=== PATIENT | male | born 1940 | race Caucasian/White ===

== ENCOUNTER 2017-07-11 20:55 | Inpatient (IN) | payer MEDICARE, BC ==
[2017-07-11 21:46] LABS: #Eosinphils 0.1 thou/uL (0.0-0.7); #Lymphocytes 1.3 thou/uL (1.20-3.40); #Monocytes 1.1 thou/uL (0.11-0.59); #Neutrophils 10.4 thou/uL (1.40-6.50); %Basophils 0.1 % (0.0-1.0); %Eosinophils 0.7 % (0.0-10.0); %Lymphocytes 10.3 % (21.0-51.0); %Monocytes 8.6 % (0.0-10.0); Hematocrit 43.5 % (42.0-52.0); Mean Platelet Volume 6.2 fL (7.4-10.4); Red Blood Cell (RBC) Count 4.55 mill/uL (4.70-6.10)
[2017-07-11 21:58] LABS: ALT (SGPT) 13 U/L (8-55); AST (SGOT) 23 U/L (5-34); Alkaline Phosphatase 86 U/L (40-150); Anion Gap 11 mmol/L (10-20); BUN (Urea Nitrogen) 22 mg/dL (8.4-25.7); Bilirubin, Total 0.6 mg/dL (0.2-1.2); CK (CPK) 390 U/L (30-200); Calc. Creatinine Clearance 0 mL/min (70-130); Calcium 9.6 mg/dL (7.8-10.44); Carbon Dioxide 28 mmol/L (23-31); Chloride 103 mmol/L (98-107); Estimated GFR-MDRD 58; Globulin 3.3 g/dL (2.4-3.5); Protein, Total 7.4 g/dL (5.8-8.1)
[2017-07-11 22:00] LABS: Troponin I 0.017 ng/mL (< 0.028)
--- NOTE | 2017-07-11 22:14 | RAD ---
CHEST ONE VIEW 07/11/17 HISTORY: Fall. Chest injury. FINDINGS: The cardiac silhouette is magnified by projection. Pulmonary vasculature is upper limits of normal. M ediastinum is midline with aortic calcification. Inferior vena cava filter is partially visualized. R adiopaque cement at the lower thoracic spine has the appearance of prior vertebroplasty. IMPRESSION: Chronic type findings are as detailed above. No active cardiopulmonary abnormalities are demonstrated . POS: [facility]
--- NOTE | 2017-07-11 22:16 | RAD ---
AP PELVIS ONE VIEW 07/11/17 HISTORY: Fall. Pelvis injury. FINDINGS: Right hip prosthesis is in place without perihardware lucency. There are degenerative changes of the hips and lower lumbar spine. Sacral alae and pelvic rings are intact. Metallic clips overlie the pros hernandez bed. IMPRESSION: No acute osseous abnormalities are demonstrated. POS: [facility]
[2017-07-11] MEDS ORDERED: Acetaminophen 500 MG TAB ONE (23:00)
[2017-07-11] MEDS ORDERED: traMADol HCl 50 MG TAB ONE (23:08)
--- NOTE | 2017-07-11 23:45 | CT ---
CT HEAD NONCONTRAST 07/11/17 HISTORY: Fall. Head injury. COMPARISON: 08/31/16. FINDINGS: There is no evidence of acute intracranial hemorrhage or infarct. Diffuse cortical atrophy and chroni c ischemic small vessel disease are again demonstrated. There is no mass effect or shift of midline s tructures. IMPRESSION: No acute intracranial abnormalities are demonstrated on noncontrast CT head. POS: [facility]
--- NOTE | 2017-07-11 23:53 | CT ---
CT CERVICAL SPINE NONCONTRAST 07/11/17 HISTORY: Fall. Neck injury. COMPARISON: 08/31/16 FINDINGS: There are prominent degenerative changes throughout the cervical spine. postoperative changes include multilevel removal of the posterior elements. At the T7 level, there are oblique fractures through the base of each pedicle with 8 mm spondylolisth esis and exaggerated lordotic angulation. There is only mild compromise of the central spinal canal a t the time of imaging. IMPRESSION: 1. Bilateral pedicular base fracture at the C7 level with 8 mm spondylolisthesis. 2. Extensive postoperative changes of the cervical spine with degenerative changes. 3. Atherosclerosis. Findings were called to Katina Dumas in the Emergency Department at 2344 hours. Code CR POS: [facility]
--- NOTE | 2017-07-11 23:56 | CT ---
CT THORACIC SPINE NONCONTRAST 07/11/17 HISTORY: Fall. Back injury. FINDINGS: Prominent osteophytosis and disc space narrowing are present throughout the thoracic spine. Vertebral body heights and alignment are maintained. Vertebroplasty cement is present at the T10 level. The C7 fracture is partially visualized and better detailed on dedicated CT cervical spine exam. Images including retroperitoneum show calcification of the arterial structures. Cysts arise from the kidneys. Metallic filter is present within the inferior vena cava. IMPRESSION: 1. Chronic type findings of the thoracic spine are as detailed above. 2. Lower cervical spine fracture is better detailed on dedicated cervical spine CT exam, reporte d separately. POS: [facility]
[2017-07-12] MEDS ORDERED: Promethazine HCl 25 MG/ML VIAL IM PRN (01:26)
[2017-07-12] MEDS ORDERED: Bisacodyl 10 MG SUPP PR PRN (01:26)
[2017-07-12] MEDS ORDERED: Acetaminophen 325 MG TAB PO PRN (01:26)
[2017-07-12] MEDS ORDERED: Mag-Al 1200 mg/1200 mg/30 ML UDCUP PO PRN (01:26)
[2017-07-12] MEDS ORDERED: Milk Of Magnesia 30 ML UDCUP PO PRN (01:26)
[2017-07-12] MEDS ORDERED: CCU Electrolyte Replacement 1 EACH FS SCH (01:41)
[2017-07-12] MEDS ORDERED: CCU ELECTROLYTE REPLACEMENT PROTOCOL FS PRN (01:44)
[2017-07-12] MEDS ORDERED: Potassium Chloride 40 MEQ in Sodium Chloride 0.9% 250 ML 250 ML IVPB PRN (01:44)
[2017-07-12] MEDS ORDERED: Potassium Phosphate 9 MMOL in Sodium Chloride 0.9% 100 ML IVPB PRN (01:44)
[2017-07-12] MEDS ORDERED: Potassium Phosphate 15 MMOL in Sodium Chloride 0.9% 250 ML 250 ML IV PRN (01:44)
[2017-07-12] MEDS ORDERED: Potassium Phosphate 12 MMOL in Sodium Chloride 0.9% 250 ML 250 ML IV PRN (01:44)
[2017-07-12] MEDS ORDERED: Potassium Chloride 20 MEQ TAB PO PRN (01:44)
[2017-07-12] MEDS ORDERED: Magnesium Oxide 400 MG TAB PO PRN ×2 (01:44)
[2017-07-12] MEDS ORDERED: Magnesium 2 GM/NS 0.9% 100 ML 2 GM in Premix Bag 1 BAG IVPB PRN (01:44)
[2017-07-12] MEDS ORDERED: Potassium Chloride 40 MEQ in Premix Bag 1 BAG IVPB PRN (01:44)
[2017-07-12 02:03] LABS: #Lymphocytes 1.1 thou/uL (1.20-3.40); #Monocytes 1.2 thou/uL (0.11-0.59); #Neutrophils 11.6 thou/uL (1.40-6.50); %Basophils 0.3 % (0.0-1.0); %Eosinophils 0.1 % (0.0-10.0); %Lymphocytes 7.9 % (21.0-51.0); %Monocytes 8.3 % (0.0-10.0); Hematocrit 42.4 % (42.0-52.0); Mean Platelet Volume 6.1 fL (7.4-10.4); Red Blood Cell (RBC) Count 4.46 mill/uL (4.70-6.10); White Blood Cell (WBC) Count 13.9 thou/uL (4.8-10.8)
[2017-07-12 02:12] LABS: PTT 27.9 SEC (22.9-36.1)
[2017-07-12 02:36] LABS: ALT (SGPT) 16 U/L (8-55); AST (SGOT) 29 U/L (5-34); Alkaline Phosphatase 84 U/L (40-150); Anion Gap 13 mmol/L (10-20); BUN (Urea Nitrogen) 19 mg/dL (8.4-25.7); Bilirubin, Total 0.7 mg/dL (0.2-1.2); Calc. Creatinine Clearance 0 mL/min (70-130); Calcium 9.2 mg/dL (7.8-10.44); Carbon Dioxide 24 mmol/L (23-31); Chloride 103 mmol/L (98-107); Estimated GFR-MDRD 70; Globulin 3.2 g/dL (2.4-3.5); Protein, Total 7.1 g/dL (5.8-8.1)
--- NOTE | 2017-07-12 02:41 | HP ---
Johann Ruvalcaba PA-C, dictating for Mariano Carlisle M.D. This is a 55-minute initial patient consultation in which greater than 50% of the exam was spent in counseling and coordinating patient's care. The remainder of the exam was spent in review of patient's medical records and appropriate imaging studies. CHIEF COMPLAINT: Status post fall with bilateral arm numbness and tingling and bilateral C7 pedicle fractures. HISTORY OF PRESENT ILLNESS: Mr. Macias is a 77-year-old male who presented to [facility] for the above complaints. Apparently, the patient who lives alone at home and was walking with a walker and slipped in the kitchen falling directly onto his back and experiencing immediate neck pain with numbness and tingling into the entire bilateral upper extremities. Apparently, the patient was unable to move for roughly 2 hours and then was finally able to call for some help including his brother and EMS. Currently, the patient is agitated. He states that he has numbness and tingling into the bilateral upper extremities as well as some significant posterior neck pain. He denies weakness into any of the extremities. He has been using a walker at home for the past 6 years. He is on Eliquis for history of right leg DVT. The patient also has a history of undergoing a left-sided laminectomy with a surgeon in [place] roughly 6 years ago. Review of patient's head CT was negative for intracranial hemorrhage. The patient's thoracic spine CT was also negative for fracture. Review of cervical spine CT shows bilateral pedicle fractures at C7 level causing significant anterior listhesis of C6 and C7 measuring roughly 8 mm. The patient also has ankylosing spondylitis, which makes his fracture extremely unstable. PHYSICAL EXAMINATION: The patient is awake, alert. He is able to answer my questions appropriately and is able to provide his medical history. He does get agitated extremely, easily and is extremely hard of hearing. He is able to follow commands in all 4 extremities. It does appear to have weakness into the left upper extremity, especially at the shoulder, but has what appears to be full strength in the right upper extremity and the bilateral lower extremities. He has negative Perez's bilaterally, but has significant increased tone in the bilateral upper extremities. He is currently in a well-fitting Hinckley collar. He is oriented to person, date, and place. IMPRESSION/DIAGNOSES: 1. Status post fall with unstable bilateral C7 pedicle fractures, with ankylosing spondylitis . 2. History of deep venous thrombosis on Eliquis. PLAN: I have discussed the patient's case with Dr. Carlisle, reviewed the imaging with him. At this time, we will admit the patient to the ICU and consult on medical colleagues to help manage patient further medical issues. I would like him to remain in his Hinckley collar at all times. He is to be on strict bed rest with spinal cord precautions. Our plan is to treat the patient to the OR on Sunday morning to realign his cervical spine and stabilize his fractures, which will include posterior fixation, likely C5 to T2 with perhaps an anterior cervical discectomy and fusion at C7 through T1. Dr. Carlisle will review the imaging and decide on the final OR plan later today. The patient should be n.p.o. at this time and a Avendaño catheter should be placed. I discussed the likelihood of needing posterior fixation with the patient, but it is unclear how much of this information he retained and we will need to discuss this in more detail when he was agitated. Please call with any questions or changes in patient's neurologic status, but again maintain spinal cord precautions at all times. The patient understands that he needs to remain in his Hinckley collar at all times and will be compliant with this while in the hospital. We will check back on the patient once we have a final surgical plan. EHSAN
[2017-07-12] MEDS: Morphine 4 MG/ML VIAL IV PRN ×11 (03:03→21:19)
[2017-07-12] MEDS: Sodium Chloride 0.9% 1,000 ML IV SCH ×2 (03:11→14:30)
[2017-07-12 03:28] VITALS: BMI 31.4
[2017-07-12] MEDS: Acetaminophen/Codeine 30-300mg Tablet PO PRN (08:22)
[2017-07-12 08:27] LABS: Bilirubin Negative (Negative); Blood, Urine Large (Negative); Glucose, Urine (Dipstick) Negative (Negative); Ketone, Urine Negative (Negative); Nitrite Negative (Negative); Protein, Urine (Dipstick) Trace mg/dL (Neg-Trace); Urobilinogen 0.2 mg/dL (0.2-1.0)
[2017-07-12 08:29] LABS: Bacteria/HPF None Seen HPF (None Seen); Hyaline Casts/LPF 0-3 HYALINE CAST LPF (0-3 Hyaline); RBC/HPF GREATER THAN 50-TNTC HPF (0-3); Squamous Epithelial 0-3 HPF (0-3)
[2017-07-12] MEDS: HYDROcodone/Acetaminophen 7.5/325 mg Tablet PO PRN ×4 (10:40→22:44)
--- NOTE | 2017-07-12 11:59 | CON ---
DATE OF CONSULTATION: 07/12/2017 SERVICE: Pulmonary Medicine REASON FOR CONSULTATION: ICU patient. HISTORY OF PRESENT ILLNESS: The patient is a 77-year-old white male. He was in his usual state of h ealth when he slipped in his kitchen and fell. He landed on his back and ended up injuring the C7 in a way that was unstable. He was put in a C-collar. He was brought to the emergency department. Mu ltiple scans suggested that this fracture is potentially unstable. As such, Neurosurgery was consult ed. After discussion with the patient, the patient has elected to pursue surgery. He has no respir atory complaints right now. He continues to have some discomfort, although it is slightly better wit h a little bit of medication. Prior to this event, he was in his usual state of health and had no co mplaints of fevers, chills, nausea, vomiting, chest discomfort, shortness of breath, wheezing, or lig htheadedness. He never lost any consciousness during this event. PAST MEDICAL HISTORY: 1. Dyslipidemia. 2. Hypertension. 3. History of colon cancer, status post colostomy. 4. Restless legs syndrome. 5. History of DVT, previously on anticoagulation. 6. History of compression fracture of the vertebral bodies. 7. Benign prostatic hypertrophy. PAST SURGICAL HISTORY: 1. Right hip surgery. 2. Colostomy. FAMILY HISTORY: Noncontributory. SOCIAL HISTORY: Negative for significant alcohol, tobacco or illicit drug use. 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 He may have some cognitive impairment. His brother i s the medical power of health care attorney based on what he tells us. He has no exposure to chemicals, asbestos or tuberculosis. ALLERGIES: No known drug allergies. MEDICATIONS: A list of his inpatient medications were reviewed. No updates were made at this time. REVIEW OF SYSTEMS: Review of systems including general, head, ears, eyes, nose, throat, cardiovascul ar, respiratory, GI, , musculoskeletal, neurologic and skin is negative except as mentioned in the HPI. PHYSICAL EXAMINATION: VITAL SIGNS: Afebrile, pulse 79, blood pressure 151/69, respirations 14, saturation 95% on room air. GENERAL: The patient is awake, alert, in no apparent distress. HEENT: Normocephalic, atraumatic. Sclerae are white, conjunctivae pink. Oral and mucosa moist with out lesions. C-collar is in place. LUNGS: Excellent air entry. No prolonged expiratory phase, wheezing, rhonchi or crackles. HEART: Normal rate, regular. ABDOMEN: Soft, nontender, nondistended, bowel sounds positive. MUSCULOSKELETAL: No cyanosis or clubbing. No pitting in the bilateral lower extremities. NEUROLOGIC: Grossly nonfocal. LABORATORY DATA: WBC 13.9, hemoglobin 13.9, platelets 239,000. INR 1.1. Basic metabolic profile is unremarkable except for potassium of 3.3. Liver function studies were unremarkable. CK-MB 13.2, bu t cardiac enzymes negative x1. Urinalysis is positive for white blood cells, and red blood cells. O therwise, there are no changes. IMAGIN. CT of the brain demonstrates no acute intracranial abnormality. 2. CT C-spine demonstrates bilateral radicular fractures at the C7 level with 8 mm spondylolisthesis . Extensive postoperative changes of the C-spine with degenerative changes. 3. Chest x-ray demonstrates no acute cardiopulmonary abnormality. There are some chronic changes. 4. Pelvis x-ray demonstrates no acute osseous abnormalities. 5. Thoracic T-spine CT demonstrates chronic findings on the thoracic spine. There is a lower cervic al fracture detailed in the C-spine exam. ASSESSMENT: 1. Bilateral C7 radicular fracture. 2. Possible cognitive impairment. PLAN: At this point, the patient understands essentially what has happened to him. He also understa nds his options moving forward. He is able to tell me that he has an unstable fracture in his back. Without fixating it, he would be at risk of a catastrophic spinal cord injury moving forward, partic ularly if he continued activity. In order to maximize his functionality moving forward, and reduce t he risk of that catastrophic injury, fixation procedure will need to be done. There is a question of whether or not the patient's brother should be making this decision. From my perspective; however, the patient has the capacity to make his own decision. He tells me that he would like to proceed wit h the procedure in order to fix the fracture that we know about. He will remain in the ICU until tani ared for transition to the floor by Neurosurgery. I will continue to follow along.
--- NOTE | 2017-07-12 13:52 | PRG ---
DATE OF SERVICE: 07/12/2017 This is a 50 minute initial hospital visit note in which 50 minutes were spent in review the imaging record, evaluation and examination of the patient, and formulation of plan. Greater than 50% of time was spent counseling on Mr. Arvind Macias. CHIEF COMPLAINT: Highly unstable C7-T1 three column fracture with an ankylosing spondylitis pattern back/DISH status post fall with history of multilevel cervical laminectomy at an outside institution. HISTORY OF PRESENT ILLNESS: I reviewed the notes of my colleague Johann Ruvalcaba PA-C, and agree wit h its content. Mr. Macias is a 77-year-old man, he ambulates with a rolling walker, he is a history of myelopathy and underwent 2012 multilevel cervical laminectomy. This was done in [place]. He has always had left upper extremity weakness and sensory abnormality due to his longstanding myelopat hy, but has remained ambulatory. He is on Xarelto for history of DVT. He fell yesterday and while t he head CT was negative for acute abnormality, he does have a 3 column injury through the C7-T1 disk space with an anterolisthesis and accentuated lordosis extending up through the pedicles involving th e anterior, middle and posterior columns, otherwise remained neurologically at his baseline. He obvi ously has significant neck pain. PHYSICAL EXAMINATION: GENERAL: He is alert. He is significantly hard of hearing, but is appropriate. He asks appropriate questions and certainly has the capacity and ability to make decisions. EXTREMITIES: He wishes to proceed with surgeries following the exam, which demonstrates left-sided m ild to moderate weakness in the upper extremities. He moves his extremities to command in the right upper extremity and bilateral lower extremities. Obviously, he is in a cervical collar and I did not examine all of his extremities as I did not want to put any shear or any stress on his spine. IMPRESSION AND PLAN: I let the patient know that it is my strong recommendation given the highly uns table nature of his injury that I would recommend surgery, which would be an anterior C7-T1 diskectom y and fusion with a posterior C4-T3 versus C5-T2 construct with posterior screw jose stabilization. I do not think it necessary to decompress the patient as he already has a multilevel cervical decompre ssion and he is neurologically at his baseline. We simply need to stabilize his spine. I think les hayden surgery here would be unwise frankly, because of the unstable nature of his neck injury in the h igh likelihood that he would develop paraplegia. GOALS AND INFORMED CONSENT: I discussed his care also with his brother and the patient. They unders tand the need to pursue surgery. The patient is consentable. I also discussed the case with our int ensivist, Dr. Valentine who also agrees with the patient certainly as a capacity for appropriate decisi on making. Goals, indications, risks, alternative complications of anterior, posterior decompression and fusion were discussed in detail with the patient. He understands the risks are up to including, but not limited to wound healing issues such as infection, dehiscence, CSF leak, the need for furthe r surgery in the future, temporary and permanent neurological deficit and medical complications. Und erstand the risks and they wish to proceed with surgery. DIAGNOSIS: Highly unstable three column fracture involving C7-T1.
--- NOTE | 2017-07-12 16:00 | PDOC.PN ---
- Subjective Encounter Start Date: 07/12/17 Encounter Start Time: 10:00 Pt seen for management of medical comorbidities, including hypertension. Denies chest pain, shortness sof breath, fevers or chills. neck is sore. - Objective MAR Reviewed: Yes Vital Signs & Weight: Vital Signs (12 hours) Temp Pulse Resp Pulse Ox 07/12/17 12:00 98.0 F 07/12/17 08:00 97.6 F 07/12/17 07:32 97.6 F 83 13 92 L Most Recent Monitor Data Heart Rate from ECG 68 NIBP 139/64 NIBP BP-Mean 81 Respiration from ECG 20 SpO2 89 I&O: 07/11/17 07/12/17 07/13/17 06:59 06:59 06:59 Intake Total 169 245 Output Total 255 201 Balance -86 44 Result Diagrams: 07/12/17 01:52 07/12/17 01:52 EKG Reviewed by me: Yes (Tele: NSR) Phys Exam - Physical Examination Obese HEENT: moist MMs, sclera anicteric C-spine collar Respiratory: clear to auscultation bilateral Cardiovascular: RRR Gastrointestinal: soft Musculoskeletal: pulses present Neurological: moves all 4 limbs Psychiatric: normal affect Skin: no rash Dx/Plan (1) HTN (hypertension) Code(s): I10 - ESSENTIAL (PRIMARY) HYPERTENSION Status: Chronic Qualifiers: Hypertension type: essential hypertension Qualified Code(s): I10 - Essential (primary) hypertension (2) Dyslipidemia Code(s): E78.5 - HYPERLIPIDEMIA, UNSPECIFIED Status: Chronic (3) H/O deep venous thrombosis Code(s): Z86.718 - PERSONAL HISTORY OF OTHER VENOUS THROMBOSIS AND EMBOLISM Status: Chronic (4) Restless leg syndrome Status: Chronic - Plan DVT proph w/SCDs * . Monitor vital signs, titrate antihypertensives as needed. start PRN IV hydralazine. Anticoagulation on hold pending C-spine surgery. Resume rest of home medications once clarified. Review of Systems - Review of Systems Respiratory: negative: Cough, Dry, Shortness of Breath, Hemoptysis, SOB with Excertion, Pleuritic Pain, Sputum, Wheezing Cardiovascular: negative: Chest Pain, Palpitations, Orthopnea, Paroxysmal Noc. Dyspnea, Edema, Light Headedness Musculoskeletal: Neck Pain - Medications/Allergies Allergies/Adverse Reactions: Allergies Allergy/AdvReac Type Severity Reaction Status Date / Time No Known Allergies Allergy Verified 08/31/16 21:23 Medications: Current Medications Acetaminophen (Tylenol) 650 mg PO Q4H PRN PRN Reason: Headache/Fever or Pain Acetaminophen/Codeine Phosphate (Tylenol #3) 1 tab PO Q3H PRN PRN Reason: Mild Pain (1-3) Last Admin: 07/12/17 08:22 Dose: 1 tab Hydrocodone Bitart/Acetaminophen ([place] 7.5/325) 1 tab PO Q4H PRN PRN Reason: Moderate Pain (4-6) Last Admin: 07/12/17 14:28 Dose: 1 tab Al Hydroxide/Mg Hydroxide (Maalox) 30 ml PO Q4H PRN PRN Reason: Indigestion Bisacodyl (Dulcolax) [address] Q12H PRN PRN Reason: Constipation Sodium Chloride (Normal Saline 0.9%) 1,000 mls @ 75 mls/hr IV .[id number] MATEO Last Admin: 07/12/17 14:30 Dose: 1,000 mls Potassium Chloride 40 meq/ (Sodium Chloride) 270 mls @ 135 mls/hr IVPB ASDIR PRN PRN Reason: FOR SERUM K+ 2.5 - 3.5 Potassium Chloride 40 meq/ (Device) 100 mls @ 50 mls/hr IVPB ASDIR PRN PRN Reason: FOR SERUM K+ 2.5 - 3.5 Last Admin: 07/12/17 07:58 Dose: 100 mls Magnesium Sulfate 1 gm/ Sodium (Chloride) 102 mls @ 102 mls/hr IV PRN PRN PRN Reason: MAG LEVEL 1.4 - 2.0 Magnesium Sulfate 2 gm/ Device 100 mls @ 100 mls/hr IVPB ASDIR PRN PRN Reason: MAGNESIUM < 1.4 Potassium Phosphate 9 mmol/ (Sodium Chloride) 103 mls @ 25.75 mls/hr IVPB ASDIR PRN PRN Reason: Phosphate 1.0-1.8 Potassium Phosphate 12 mmol/ (Sodium Chloride) 254 mls @ 63.5 mls/hr IV ASDIR PRN PRN Reason: Serum phosphate 0.5-0.9 Potassium Phosphate 15 mmol/ (Sodium Chloride) 255 mls @ 63.75 mls/hr IV ASDIR PRN PRN Reason: Serum Phos < 0.5 Magnesium Hydroxide (Milk Of Magnesium) 30 ml PO Q12H PRN PRN Reason: Constipation Magnesium Oxide (Magnesium Oxide) 400 mg PO BIDPRN PRN PRN Reason: FOR SERUM MAG 1.4 - 2.0 Magnesium Oxide (Magnesium Oxide) 800 mg PO PRN PRN PRN Reason: FOR SERUM MAG < 1.4 Miscellaneous Medication (Phos-Nak) 1 pkt PO TIDPRN PRN PRN Reason: FOR PHOS LEVEL 1.0 - 1.8 Miscellaneous Medication (Phos-Nak) 2 pkt PO TIDPRN PRN PRN Reason: FOR PHOS LEVEL 0.5 - 1.0 Morphine Sulfate (Morphine) 2 mg IV Q1H PRN PRN Reason: Pain Last Admin: 07/12/17 15:20 Dose: 2 mg Potassium Chloride (K-Dur) 40 meq PO ASDIR PRN PRN Reason: FOR SERUM K+ 2.5 - 3.5 Potassium Chloride (Klor-Con) 40 meq PER TUBE ASDIR PRN PRN Reason: FOR SERUM K+ 2.5-3.5 Promethazine HCl (Phenergan) 12.5 mg IM Q4H PRN PRN Reason: Nausea/Vomiting Sodium Chloride (Flush - Normal Saline) 10 ml IVF PRN PRN PRN Reason: Saline Flush Tramadol HCl (Ultram) 50 mg PO Q6H PRN PRN Reason: Mild Pain (1-3)
[2017-07-12] MEDS: hydrALAZINE 20 MG/ML VIAL SLOW IVP PRN (21:26)
[2017-07-13] MEDS: HYDROcodone/Acetaminophen 7.5/325 mg Tablet PO PRN ×2 (02:33→20:44)
[2017-07-13] MEDS: Sodium Chloride 0.9% 1,000 ML IV SCH ×2 (02:37→17:31)
[2017-07-13] MEDS: hydrALAZINE 20 MG/ML VIAL SLOW IVP PRN (02:37)
[2017-07-13] MEDS: Morphine 4 MG/ML VIAL IV PRN (04:03)
[2017-07-13] MEDS ORDERED: CEFAZOLIN/Water 2 GM/20 ML SYRINGE SLOW IVP SCH (07:00)
[2017-07-13] MEDS ORDERED: Sodium Chloride 0.9% 20 ML ONE (07:08)
[2017-07-13] MEDS ORDERED: Bacitracin Zinc Ointment 30 gm TUBE ONE (07:08)
[2017-07-13] MEDS ORDERED: Thrombin 5000 UNITS/5 ML VIAL ONE (07:08)
[2017-07-13] MEDS ORDERED: Albumin 5% 0 ML ONE (07:17)
[2017-07-13] MEDS ORDERED: Phenylephrine 10 MG/NS 250 ML 0 ML ONE (07:17)
[2017-07-13] MEDS ORDERED: Fentanyl 250 MCG/5 ML VIAL ONE (07:32)
[2017-07-13] MEDS ORDERED: ePHEDrine/0.9% NaCl/PF SYRINGE 50 mg/10 ml ONE (07:56)
[2017-07-13] MEDS ORDERED: Succinylcholine Chloride 20 MG/ML 10 ml SYRINGE FS ONE (07:56)
[2017-07-13] MEDS ORDERED: Propofol 200 MG/20 ML VIAL ONE ×2 (07:56)
[2017-07-13] MEDS ORDERED: Glycopyrrolate 0.2 MG/ML 5 ML SYRINGE ONE (07:56)
[2017-07-13] MEDS ORDERED: Ondansetron HCl/PF 4 MG/2 ML Vial ONE (07:56)
[2017-07-13] MEDS ORDERED: PHENYLEPHRINE-NS 100 MCG/ML 10 ML SYRINGE ONE ×3 (07:56→12:34)
[2017-07-13] MEDS ORDERED: Lidocaine 1% PF 5 ML VIAL ONE ×2 (07:56)
[2017-07-13] MEDS ORDERED: Dexamethasone 20 MG/5 ML VIAL ONE (07:56)
[2017-07-13] MEDS ORDERED: Vecuronium 10 MG VIAL ONE ×2 (07:56→10:12)
[2017-07-13] MEDS ORDERED: Lidocaine 2% PF 10 ML AMP (For Epidural Use) ONE (07:56)
--- NOTE | 2017-07-13 09:20 | PRG ---
DATE OF SERVICE: 07/13/2017 SERVICE: Pulmonary Medicine. INTERVAL HISTORY: The patient is doing fine from a respiratory standpoint. He denies any current sh ortness of breath or chest discomfort. He is going down for the fixation of the C7 fracture today. Otherwise, there have been no events overnight. He has no specific complaints. PHYSICAL EXAMINATION: VITAL SIGNS: Afebrile, pulse 88, blood pressure 155/58, respirations 17, saturation 97% on room air. GENERAL: Patient is awake, alert, in no apparent distress. LUNGS: Excellent air entry. No prolonged expiratory phase, wheezing, rhonchi or crackles are apprec iated. HEART: Normal rate, regular. ABDOMEN: Soft, nontender, nondistended. Bowel sounds positive. MUSCULOSKELETAL: No cyanosis or clubbing. No pitting in the bilateral lower extremities. NEUROLOGIC: Grossly nonfocal. ASSESSMENT: 1. Bilateral C7 pedicular fracture. 2. Possible cognitive impairment. PLAN: Pulmonary and Critical Care will continue to follow in the perioperative period. If he return s to the ICU on mechanically ventilated, we will work with Neurosurgery to extubate him once cleared from their perspective. Mobilization efforts can be initiated shortly following fixation of this les ion.
[2017-07-13] MEDS ORDERED: Promethazine HCl 25 MG/ML VIAL SLOW IVP PRN (09:56)
[2017-07-13] MEDS ORDERED: Ondansetron HCl/PF 4 MG/2 ML Vial IVP PRN (09:56)
[2017-07-13] MEDS ORDERED: Meperidine HCl/PF 25 MG/ML VIAL SLOW IVP PRN (09:56)
[2017-07-13] MEDS ORDERED: Promethazine HCl 25 MG/ML VIAL IM PRN (09:56)
[2017-07-13] MEDS ORDERED: HYDROmorphone 2 MG/ML VIAL SLOW IVP PRN (09:56)
[2017-07-13] MEDS ORDERED: CEFAZOLIN 1 GM VIAL ONE (12:02)
[2017-07-13 17:57] LABS: Magnesium 1.6 mg/dL (1.6-2.6); Phosphorus 3.5 mg/dL (2.3-4.7)
--- NOTE | 2017-07-13 18:58 | PRG ---
DATE OF SERVICE: 07/13/2017 We are preparing to take Mr. Macias to surgery today. Neurologically, his exam remains stable with a l eft-sided upper extremity weakness that is longstanding with significant left-sided hand intrinsic we akness. Preoperatively, he was ambulatory with a rolling walker, although he has a history of cervic al laminectomy for myelopathy 5 years ago and as such, I suspect he has a longstanding myelopathy. H e remains in a supine position on a cervical collar. We have ordered preoperative labs and I have di scussed his case extensively with both the patient and his brother. They understand that this is hig hly unstable fracture and in order to give us the best chance for mechanical stabilization, but also some preservation of neurological function we should operate today. We are making arrangements for a nterior stabilization along with posterior stabilization. Again, I extensively discussed the risks, benefits, and indications and contraindications of the surgery with both the patient and his brother and they fully understand and wish to proceed. I also discussed the risks of swallowing difficulty w ith any anterior procedure and a they understands these risks, they wish that we proceed with surgery . Of note, he has a history of deep venous thrombosis. We will likely plan for ultrasound of the lo wer extremities tomorrow. It is unknown to me whether he has an IVC filter in place, although we fany l explore this as well. He is on Xarelto preoperative. We appreciate our medical and intensive care colleagues following along.
[2017-07-13] MEDS ORDERED: HYDROcodone/Acetaminophen 7.5/325 mg Tablet PO PRN (19:20)
[2017-07-13] MEDS: CEFAZOLIN/Water 2 GM/20 ML SYRINGE SLOW IVP SCH (19:58)
[2017-07-13] MEDS ORDERED: CEFAZOLIN 2 GM in Sodium Chloride 0.9% 100 ML IVPB SCH (22:00)
--- NOTE | 2017-07-14 00:13 | OP ---
OR: 12 WOUND TYPE: Type 1 wound. SURGEON: Mariano Carlisle M.D. SALES AND MARKETING ASSOCIATE: Johann Ruvalcaba PA-C. 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 PROCEDURES: 1. Treatment of cervical fracture with internal reduction and fixation utilizing anterior and collection manager ior approach for reduction and stabilization. 2. Anterior C7-T1 diskectomy with manual reduction of fracture dislocation C7-T1 with preparation of the endplates, arthrodesis C7-T1. 3. Arthrodesis C7-T1 with interbody spacer packed with local bone autograft obtained from the same i ncision and allograft. 4. Anterior cervical plate and screw fixation C7-T1. 5. Placement of the patient prone for opening of prior posterior cervical wound for exposure of the C5, C6, C7, T1, and T2 dorsal elements (note that the spinous processes and lamina were missing or gary rgically absent at C5, C6, C7 from prior remote surgery). 6. Placement of screw jose fixation for fusion posteriorly for instrumentation at C5, C6, C7, T1, and T2 for stabilization from C5 to T2 with screws placed at C5, C6, T1, and T2 with interconnecting jose s. 7. Posterior spinal fusion with local bone autograft obtained from same incision and allograft C5, C 6, C7, T1, T2. 8. Use of operative microscope for microdissection. PROCEDURE: After informed consent was obtained from the patient and discussion with the patient and brother occurred, the patient was taken to the operating room. His cervical spine was kept in neutra l position and he was positioned supine on the operating room table, maintaining cervical spine neutr ality throughout. A right anterior oblique wound was drawn out that would allow trajectory to the [facility] anterior C7-T1 segment and this area was sterilely cleansed, prepared, and draped. Proper patien t pause and identification was carried out. The wound was then opened with a combination of sharp, m onopolar and blunt dissection. We proceeded lateral to the tracheoesophageal bundle and medial to th e right carotid sheath. We identified the prevertebral layer of deep cervical fascia and scattered r egions of hematoma in the C7-T1 segment due to the fracture dislocation. I should say that it appear ed as if his fracture was so unstable that even compared to the CT scan, his subluxation had worsened despite being kept on bed rest and the cervical spine kept in neutral at all times. We identified t he fracture through the disk space at C7-T1 and the disk disruption. A diskectomy was then performed at C7-T1 and the endplates prepared. Distraction then occurred at C7-T1 and utilizing internal redu ction and external reduction technique, we were able to realign C7-T1 fracture dislocation to a satis factory level. I then placed an interbody spacer of appropriate dimension at the C7-T1 diastased seg ment and a plate with appropriate fixation to the C7 and T1 segments with screws then occurred. We w ere able to manually reduce and lock in his fracture dislocation, which what I felt was excellent ali gnment given the circumstances. Hemostasis was maximized throughout. The wound was copiously irriga marty and closed in anatomic layers over a drain. The patient was kept intubated and cervical spine ke pt in neutral position. We then placed the [place] trista attached to his skull and flipped him int o the prone position and identified the posterior cervical wound from his remote surgery that he had had at an outside institution. This incision was marked out and extended into the upper thoracic spi ne. His head and cervical spine again were kept in neutral position. The wound was then sterilely c leansed, prepared, and draped and proper patient pause and identification was again carried out and t he wound was then opened with a combination of sharp, monopolar and blunt dissection. We identified the T1 and T2 dorsal spines and lamina along with the transverse processes and facets. We then exten ded with a tedious dissection throughout exuberant scar tissue into the lateral masses of C5, C6, and C7. There was no spinal fluid leak. Hemostasis was maximized throughout. Then using standard urvashi omic trajectory technique and fluoroscopy, screws were placed at C5, C6, T1, and T2. I opted not to place screws at C7 as these screw heads would have been too close to allow for satisfactory locking i n of the rods in my opinion. We then were satisfied with our screw placement and rods were then plac ed and final tightening occurred, local bone autograft and allograft was then laid out over the poste rolateral regions over decorticated bone to facilitate arthrodesis and stabilization. Copious irriga tion occurred throughout. Hemostasis was maximized. The wound was then closed in anatomic layers. The patient then emerged from anesthesia.
[2017-07-14 03:11] LABS: #Monocytes 2.1 thou/uL (0.11-0.59); #Neutrophils 14.3 thou/uL (1.40-6.50); %Basophils 0.1 % (0.0-1.0); %Eosinophils 0.1 % (0.0-10.0); %Lymphocytes 5.9 % (21.0-51.0); %Monocytes 11.8 % (0.0-10.0); Hematocrit 37.6 % (42.0-52.0); Mean Platelet Volume 6.1 fL (7.4-10.4); White Blood Cell (WBC) Count 17.4 thou/uL (4.8-10.8)
[2017-07-14 03:30] LABS: Anion Gap 16 mmol/L (10-20); BUN (Urea Nitrogen) 20 mg/dL (8.4-25.7); Calc. Creatinine Clearance 76 mL/min (70-130); Calcium 8.7 mg/dL (7.8-10.44); Carbon Dioxide 18 mmol/L (23-31); Chloride 107 mmol/L (98-107); Estimated GFR-MDRD 63
[2017-07-14] MEDS: CEFAZOLIN/Water 2 GM/20 ML SYRINGE SLOW IVP SCH (05:50)
[2017-07-14] MEDS: hydrALAZINE 20 MG/ML VIAL SLOW IVP PRN ×2 (05:59→17:35)
[2017-07-14] MEDS: Sodium Chloride 0.9% 1,000 ML IV SCH ×2 (06:12→17:35)
[2017-07-14] MEDS ORDERED: Magnesium 2 GM/NS 0.9% 100 ML 2 GM in Premix Bag 1 BAG IVPB SCH (08:00)
[2017-07-14] MEDS: HYDROcodone/Acetaminophen 7.5/325 mg Tablet PO PRN (09:14)
--- NOTE | 2017-07-14 11:24 | ULT ---
BILATERAL LOWER EXTREMITY VENOUS DOPPLER: Date: 07/14/17 PROVIDED CLINICAL HISTORY: Impaired mobility, recent surgery. FINDINGS: Evaluation is limited due to patient's altered mental status. Color Doppler and spectral analysis of the bilateral common femoral, femoral, popliteal, posterior ti bial, greater saphenous, and profunda femoral veins was performed. There was noncompressibility invol ving the right distal popliteal vein suspected. There is noncompressibility seen involving the left p roximal mid and distal femoral vein, as well as the proximal left popliteal vein. Portions of the rig ht distal femoral vein appear noncompressible. IMPRESSION: Limited examination with findings suspicious for bilateral deep venous thrombosis. Findings communicated to the patient's nurse, Oanh, at 0941 hours on 07/14/17. CODE CR. POS: RAFFY
--- NOTE | 2017-07-14 12:05 | PDOC.PN ---
- Subjective Encounter Start Date: 07/14/17 Encounter Start Time: 11:00 Patient seen and examined. No new complaints. No overnight events. Sleepy - arousable on verbal stimuli - Objective MAR Reviewed: Yes Vital Signs & Weight: Vital Signs (12 hours) Temp Pulse Pulse Resp BP BP Pulse Ox 07/14/17 11:36 115 H 07/14/17 11:23 105 H 135/65 07/14/17 11:00 97.7 F 07/14/17 08:00 100.0 F H 115 H 19 96 07/14/17 07:00 100.0 F H 07/14/17 05:59 109 H 187/75 H 07/14/17 04:00 100.3 F H 95 Most Recent Monitor Data Heart Rate from ECG 107 NIBP 135/65 NIBP BP-Mean 98 Respiration from ECG 22 SpO2 97 I&O: 07/13/17 07/14/17 07/15/17 06:59 06:59 06:59 Intake Total 2301 1614 220 Output Total 921 1205 150 Balance 1380 409 70 Result Diagrams: 07/14/17 02:58 07/14/17 02:58 Radiology Reviewed by me: No (Doppler - chronic DVT) EKG Reviewed by me: Yes (Tele ST, Afib with RVR earlier) Phys Exam - Physical Examination Constitutional: NAD Neck: no JVD Respiratory: no wheezing, no rales, no rhonchi Dec AE at bases Cardiovascular: RRR, no rub tachycardic, no gallop. 2/6 SM at M area Gastrointestinal: soft, non-tender, no distention, positive bowel sounds Musculoskeletal: edema present Neurological: moves all 4 limbs Psychiatric: A&O x 3 (sleepy - easily arousable) Dx/Plan - Plan IMPRESSION and PLAN: 1. Afib with RVR - now in SR 2. Chronic DVT - Anticoag dced due to cervical fracture 3. Obesity BMI 31.4 4. HTN 5. BPH 6. Physical deconditioning - PT/OT following 7. Hypokalemia - resolved. PLAN: * start Cardizem 120 mg BID * Add Digoxin if needed. * Anticoag on hold, * Check Echo, * Cont Tele monitoring * Cont other med as below Review of Systems - Review of Systems Respiratory: negative: Cough, Dry, Shortness of Breath, Hemoptysis, SOB with Excertion, Pleuritic Pain, Sputum, Wheezing Cardiovascular: negative: Chest Pain, Palpitations, Orthopnea, Paroxysmal Noc. Dyspnea, Edema, Light Headedness Gastrointestinal: negative: Nausea, Vomiting, Abdominal Pain, Diarrhea, Constipation, Melena, Hematochezia - Medications/Allergies Allergies/Adverse Reactions: Allergies Allergy/AdvReac Type Severity Reaction Status Date / Time No Known Allergies Allergy Verified 08/31/16 21:23 Medications: Current Medications Acetaminophen (Tylenol) 650 mg PO Q4H PRN PRN Reason: Headache/Fever or Pain Acetaminophen/Codeine Phosphate (Tylenol #3) 1 tab PO Q3H PRN PRN Reason: Mild Pain (1-3) Last Admin: 07/12/17 08:22 Dose: 1 tab Hydrocodone Bitart/Acetaminophen ([place] 7.5/325) 1 tab PO Q4H PRN PRN Reason: PAIN SCALE 1-3 Hydrocodone Bitart/Acetaminophen ([place] 7.5/325) 2 tab PO Q4H PRN PRN Reason: PAIN SCALE 4- 10 Last Admin: 07/14/17 09:14 Dose: 2 tab Al Hydroxide/Mg Hydroxide (Maalox) 30 ml PO Q4H PRN PRN Reason: Indigestion Bisacodyl (Dulcolax) 10 mg PA Q12H PRN PRN Reason: Constipation Diltiazem HCl (Cardizem Cd) 120 mg PO BID [facility] Diltiazem HCl (Cardizem Cd) 120 mg PO NOW [facility] Stop: 07/14/17 13:15 Last Admin: 07/14/17 11:36 Dose: 120 mg Hydralazine HCl (Apresoline) 10 mg SLOW IVP Q6H PRN PRN Reason: SBP Greater Than 170 Last Admin: 07/14/17 05:59 Dose: 10 mg Sodium Chloride (Normal Saline 0.9%) 1,000 mls @ 75 mls/hr IV .[id number] MATEO Last Admin: 07/14/17 06:12 Dose: 1,000 mls Potassium Chloride 40 meq/ (Sodium Chloride) 270 mls @ 135 mls/hr IVPB ASDIR PRN PRN Reason: FOR SERUM K+ 2.5 - 3.5 Potassium Chloride 40 meq/ (Device) 100 mls @ 50 mls/hr IVPB ASDIR PRN PRN Reason: FOR SERUM K+ 2.5 - 3.5 Last Admin: 07/12/17 07:58 Dose: 100 mls Magnesium Sulfate 1 gm/ Sodium (Chloride) 102 mls @ 102 mls/hr IV PRN PRN PRN Reason: MAG LEVEL 1.4 - 2.0 Last Admin: 07/14/17 05:51 Dose: 102 mls Magnesium Sulfate 2 gm/ Device 100 mls @ 100 mls/hr IVPB ASDIR PRN PRN Reason: MAGNESIUM < 1.4 Potassium Phosphate 9 mmol/ (Sodium Chloride) 103 mls @ 25.75 mls/hr IVPB ASDIR PRN PRN Reason: Phosphate 1.0-1.8 Potassium Phosphate 12 mmol/ (Sodium Chloride) 254 mls @ 63.5 mls/hr IV ASDIR PRN PRN Reason: Serum phosphate 0.5-0.9 Potassium Phosphate 15 mmol/ (Sodium Chloride) 255 mls @ 63.75 mls/hr IV ASDIR PRN PRN Reason: Serum Phos < 0.5 Magnesium Hydroxide (Milk Of Magnesium) 30 ml PO Q12H PRN PRN Reason: Constipation Magnesium Oxide (Magnesium Oxide) 400 mg PO BIDPRN PRN PRN Reason: FOR SERUM MAG 1.4 - 2.0 Magnesium Oxide (Magnesium Oxide) 800 mg PO PRN PRN PRN Reason: FOR SERUM MAG < 1.4 Miscellaneous Medication (Phos-Nak) 1 pkt PO TIDPRN PRN PRN Reason: FOR PHOS LEVEL 1.0 - 1.8 Miscellaneous Medication (Phos-Nak) 2 pkt PO TIDPRN PRN PRN Reason: FOR PHOS LEVEL 0.5 - 1.0 Morphine Sulfate (Morphine) 2 mg IV Q1H PRN PRN Reason: Pain Last Admin: 07/13/17 04:03 Dose: 2 mg Potassium Chloride (K-Dur) 40 meq PO ASDIR PRN PRN Reason: FOR SERUM K+ 2.5 - 3.5 Potassium Chloride (Klor-Con) 40 meq PER TUBE ASDIR PRN PRN Reason: FOR SERUM K+ 2.5-3.5 Promethazine HCl (Phenergan) 12.5 mg IM Q4H PRN PRN Reason: Nausea/Vomiting Sodium Chloride (Flush - Normal Saline) 10 ml IVF PRN PRN PRN Reason: Saline Flush Last Admin: 07/13/17 19:58 Dose: 10 ml Tramadol HCl (Ultram) 50 mg PO Q6H PRN PRN Reason: Mild Pain (1-3)
[2017-07-14] MEDS ORDERED: Senokot 8.6 MG TAB PO PRN (12:16)
[2017-07-14] MEDS ORDERED: Nitroglycerin 0.4 MG TAB (25 Tab Bottle) PO PRN (12:16)
[2017-07-14] MEDS: traMADol HCl 50 MG TAB PO PRN (14:29)
--- NOTE | 2017-07-14 16:56 | PRG ---
DATE OF SERVICE: 07/14/2017 SUBJECTIVE: This is a 77-year-old gentleman who apparently had C7 fracture and stable. History of previous deep venous thrombosis on Eliquis, he apparently has a filter in place. He under went a long surgery yesterday. This morning, he is complaining of neck pain and he went into atrial fibrillation. PHYSICAL EXAMINATION: VITAL SIGNS: Pulse 110, presently in sinus, blood pressure is 166/61, sats 96%, respirations 16. De nies any difficulty breathing. CHEST: Decreased breath sounds, no wheezing. CARDIAC: Normal S1 and S2. No gallops. ABDOMEN: Soft. No masses. LABORATORY DATA: White count 17,000, hemoglobin and hematocrit 12 and 37, platelet count 240. Elect rolytes are normal. IMPRESSION: 1. Status post unstable cervical neck fracture status post stabilization. 2. History of previous weakness and urinary tract infection. PLAN: His ultrasound showed DVT, he has got a filter in place. Probably not a candidate for any anticoagulation at this stage because of neck surgery. He was on El iquis prior to the surgery. Continue supportive care. I agree with Gustabo. We will follow while in the ICU.
[2017-07-14] MEDS ORDERED: Venlafaxine HCl 25 MG TAB PO SCH (17:45)
[2017-07-14] MEDS: Pramipexole Di-HCl 0.25 MG TAB PO SCH (21:08)
[2017-07-14] MEDS: Docusate 100 MG CAP PO SCH (21:08)
[2017-07-15 04:06] LABS: #Monocytes 1.6 thou/uL (0.11-0.59); #Neutrophils 10.2 thou/uL (1.40-6.50); %Basophils 0.1 % (0.0-1.0); %Eosinophils 0.2 % (0.0-10.0); %Monocytes 12.6 % (0.0-10.0); Hematocrit 31.1 % (42.0-52.0); Mean Platelet Volume 6.3 fL (7.4-10.4); Red Blood Cell (RBC) Count 3.22 mill/uL (4.70-6.10); White Blood Cell (WBC) Count 12.9 thou/uL (4.8-10.8)
[2017-07-15 04:27] LABS: Anion Gap 12 mmol/L (10-20); BUN (Urea Nitrogen) 25 mg/dL (8.4-25.7); Calc. Creatinine Clearance 95 mL/min (70-130); Calcium 8.4 mg/dL (7.8-10.44); Carbon Dioxide 22 mmol/L (23-31); Chloride 108 mmol/L (98-107); Estimated GFR-MDRD 82; Magnesium 2.4 mg/dL (1.6-2.6); Phosphorus 2.2 mg/dL (2.3-4.7)
[2017-07-15] MEDS: Sodium Chloride 0.9% 1,000 ML IV SCH ×3 (06:18→22:21)
[2017-07-15] MEDS: HYDROcodone/Acetaminophen 7.5/325 mg Tablet PO PRN ×4 (07:44→21:02)
[2017-07-15] MEDS: Morphine 4 MG/ML VIAL IV PRN ×3 (07:59→22:34)
[2017-07-15] MEDS: Docusate 100 MG CAP PO SCH ×2 (08:56→21:01)
[2017-07-15] MEDS: Finasteride 5 MG TAB PO SCH (08:56)
[2017-07-15] MEDS: Venlafaxine HCl 25 MG TAB PO SCH (08:57)
--- NOTE | 2017-07-15 10:42 | PDOC.PN ---
- Subjective Encounter Start Date: 07/15/17 Encounter Start Time: 09:30 -: old records requested/rev Patient seen and examined. No new complaints. No overnight events - Objective MAR Reviewed: Yes Vital Signs & Weight: Vital Signs (12 hours) Temp Pulse Resp BP Pulse Ox 07/15/17 08:56 87 166/62 H 07/15/17 08:00 98.3 F 94 18 98 07/15/17 04:00 98.6 F 07/15/17 01:32 93 L 07/15/17 00:00 98.8 F Most Recent Monitor Data Heart Rate from ECG 92 NIBP 147/49 NIBP BP-Mean 61 Respiration from ECG 18 SpO2 97 I&O: 07/14/17 07/15/17 07/16/17 06:59 06:59 06:59 Intake Total 1614 3001 600 Output Total 1205 905 140 Balance 409 2096 460 Result Diagrams: 07/15/17 03:40 07/15/17 03:40 EKG Reviewed by me: Yes Phys Exam - Physical Examination Constitutional: NAD HEENT: PERRLA, moist MMs, sclera anicteric cervical collar in place Neck: no nodes surgical site with dressing Respiratory: no wheezing, no rales, no rhonchi Cardiovascular: RRR, no significant murmur Gastrointestinal: soft, non-tender, no distention, positive bowel sounds Musculoskeletal: no edema, pulses present Neurological: non-focal Lymphatic: no nodes Psychiatric: normal affect, A&O x 3 Skin: no rash, normal turgor Dx/Plan (1) Cervical spine fracture Code(s): S12.9XXA - FRACTURE OF NECK, UNSPECIFIED, INITIAL ENCOUNTER Status: Acute Qualifiers: Cervical vertebra fracture level: C7 (2) Hypophosphatemia Code(s): E83.39 - OTHER DISORDERS OF PHOSPHORUS METABOLISM Status: Acute (3) Paroxysmal atrial fibrillation Code(s): I48.0 - PAROXYSMAL ATRIAL FIBRILLATION Status: Acute (4) BPH (benign prostatic hyperplasia) Code(s): N40.0 - BENIGN PROSTATIC HYPERPLASIA WITHOUT LOWER URINRY TRACT SYMP Status: Chronic Qualifiers: Lower urinary tract symptom presence: symptoms present Qualified Code(s): N40.1 - Benign prostatic hyperplasia with lower urinary tract symptoms (5) Cervical spondylosis Code(s): M47.812 - SPONDYLOSIS W/O MYELOPATHY OR RADICULOPATHY, CERVICAL REGION Status: Chronic (6) DVT, bilateral lower limbs Code(s): I82.403 - ACUTE EMBOLISM AND THOMBOS UNSP DEEP VEINS OF LOW EXTRM, BI Status: Chronic Qualifiers: Chronicity: chronic (7) Dyslipidemia Code(s): E78.5 - HYPERLIPIDEMIA, UNSPECIFIED Status: Chronic (8) HTN (hypertension) Code(s): I10 - ESSENTIAL (PRIMARY) HYPERTENSION Status: Chronic Qualifiers: Hypertension type: essential hypertension Qualified Code(s): I10 - Essential (primary) hypertension (9) Obesity (BMI 30.0-34.9) Code(s): E66.9 - OBESITY, UNSPECIFIED Status: Chronic (10) Presence of IVC filter Code(s): Z95.828 - PRESENCE OF OTHER VASCULAR IMPLANTS AND GRAFTS Status: Chronic (11) Restless leg syndrome Status: Chronic - Plan cont current plan of care, plan discussed w/ family * pt is not on anticoagulation due to neck surgery * currently stable and in NSR * pain controlled * will need PT and then possible rehab on discharge * medically stable * medication reviewed as below * symptomatic treatment. Review of Systems - Review of Systems ENT: negative: Ear Pain, Ear Discharge, Nose Pain, Nose Discharge, Nose Congestion, Mouth Pain, Mouth Swelling, Throat Pain, Throat Swelling, Other Respiratory: negative: Cough, Dry, Shortness of Breath, Hemoptysis, SOB with Excertion, Pleuritic Pain, Sputum, Wheezing Cardiovascular: negative: Chest Pain, Palpitations, Orthopnea, Paroxysmal Noc. Dyspnea, Edema, Light Headedness, Other Gastrointestinal: negative: Nausea, Vomiting, Abdominal Pain, Diarrhea, Constipation, Melena, Hematochezia, Other Genitourinary: negative: Dysuria, Frequency, Incontinence, Hematuria, Retention , Other Musculoskeletal: negative: Neck Pain, Shoulder Pain, Arm Pain, Back Pain, Hand Pain, Leg Pain, Foot Pain, Other Skin: negative: Rash, Lesions, Antoine, Bruising, Other - Medications/Allergies Allergies/Adverse Reactions: Allergies Allergy/AdvReac Type Severity Reaction Status Date / Time No Known Allergies Allergy Verified 08/31/16 21:23 Medications: Current Medications Acetaminophen (Tylenol) 650 mg PO Q4H PRN PRN Reason: Headache/Fever or Pain Acetaminophen/Codeine Phosphate (Tylenol #3) 1 tab PO Q3H PRN PRN Reason: Mild Pain (1-3) Last Admin: 07/12/17 08:22 Dose: 1 tab Hydrocodone Bitart/Acetaminophen ([place] 7.5/325) 1 tab PO Q4H PRN PRN Reason: PAIN SCALE 1-3 Hydrocodone Bitart/Acetaminophen ([place] 7.5/325) 2 tab PO Q4H PRN PRN Reason: PAIN SCALE 4- 10 Last Admin: 07/15/17 07:44 Dose: 2 tab Al Hydroxide/Mg Hydroxide (Maalox) 30 ml PO Q4H PRN PRN Reason: Indigestion Bisacodyl (Dulcolax) 10 mg RI Q12H PRN PRN Reason: Constipation Diltiazem HCl (Cardizem Cd) 120 mg PO BID [facility] Last Admin: 07/15/17 08:56 Dose: 120 mg Docusate Sodium (Colace) 100 mg PO BID [facility] Last Admin: 07/15/17 08:56 Dose: 100 mg Finasteride (Proscar) 5 mg PO DAILY [facility] Last Admin: 07/15/17 08:56 Dose: 5 mg Hydralazine HCl (Apresoline) 10 mg SLOW IVP Q6H PRN PRN Reason: SBP Greater Than 170 Last Admin: 07/14/17 17:35 Dose: 10 mg Sodium Chloride (Normal Saline 0.9%) 1,000 mls @ 75 mls/hr IV .[id number] [facility] Last Admin: 07/15/17 06:18 Dose: 1,000 mls Potassium Chloride 40 meq/ (Sodium Chloride) 270 mls @ 135 mls/hr IVPB ASDIR PRN PRN Reason: FOR SERUM K+ 2.5 - 3.5 Potassium Chloride 40 meq/ (Device) 100 mls @ 50 mls/hr IVPB ASDIR PRN PRN Reason: FOR SERUM K+ 2.5 - 3.5 Last Admin: 07/12/17 07:58 Dose: 100 mls Magnesium Sulfate 1 gm/ Sodium (Chloride) 102 mls @ 102 mls/hr IV PRN PRN PRN Reason: MAG LEVEL 1.4 - 2.0 Last Admin: 07/14/17 05:51 Dose: 102 mls Magnesium Sulfate 2 gm/ Device 100 mls @ 100 mls/hr IVPB ASDIR PRN PRN Reason: MAGNESIUM < 1.4 Potassium Phosphate 9 mmol/ (Sodium Chloride) 103 mls @ 25.75 mls/hr IVPB ASDIR PRN PRN Reason: Phosphate 1.0-1.8 Potassium Phosphate 12 mmol/ (Sodium Chloride) 254 mls @ 63.5 mls/hr IV ASDIR PRN PRN Reason: Serum phosphate 0.5-0.9 Potassium Phosphate 15 mmol/ (Sodium Chloride) 255 mls @ 63.75 mls/hr IV ASDIR PRN PRN Reason: Serum Phos < 0.5 Magnesium Hydroxide (Milk Of Magnesium) 30 ml PO Q12H PRN PRN Reason: Constipation Magnesium Oxide (Magnesium Oxide) 400 mg PO BIDPRN PRN PRN Reason: FOR SERUM MAG 1.4 - 2.0 Magnesium Oxide (Magnesium Oxide) 800 mg PO PRN PRN PRN Reason: FOR SERUM MAG < 1.4 Miscellaneous Medication (Phos-Nak) 1 pkt PO TIDPRN PRN PRN Reason: FOR PHOS LEVEL 1.0 - 1.8 Miscellaneous Medication (Phos-Nak) 2 pkt PO TIDPRN PRN PRN Reason: FOR PHOS LEVEL 0.5 - 1.0 Morphine Sulfate (Morphine) 2 mg IV Q1H PRN PRN Reason: Pain Last Admin: 07/15/17 07:59 Dose: 2 mg Nitroglycerin (Nitrostat) 0.4 mg PO Q5MIN PRN PRN Reason: Chest Pain Pantoprazole Sodium (Protonix) 40 mg PO DAILY [facility] Last Admin: 07/15/17 08:56 Dose: 40 mg Potassium Chloride (K-Dur) 40 meq PO ASDIR PRN PRN Reason: FOR SERUM K+ 2.5 - 3.5 Potassium Chloride (Klor-Con) 40 meq PER TUBE ASDIR PRN PRN Reason: FOR SERUM K+ 2.5-3.5 Pramipexole Dihydrochloride (Mirapex) 0.75 mg PO HS [facility] Last Admin: 07/14/17 21:08 Dose: 0.75 mg Promethazine HCl (Phenergan) 12.5 mg IM Q4H PRN PRN Reason: Nausea/Vomiting Senna (Senokot) 2 tab PO HSPRN PRN PRN Reason: Constipation Sodium Chloride (Flush - Normal Saline) 10 ml IVF PRN PRN PRN Reason: Saline Flush Last Admin: 07/13/17 19:58 Dose: 10 ml Tramadol HCl (Ultram) 50 mg PO Q6H PRN PRN Reason: Mild Pain (1-3) Last Admin: 07/14/17 14:29 Dose: 50 mg Venlafaxine HCl (Effexor) 25 mg PO DAILY [facility] Last Admin: 07/15/17 08:57 Dose: 25 mg
[2017-07-15] MEDS: traMADol HCl 50 MG TAB PO PRN (11:20)
--- NOTE | 2017-07-15 13:02 | PRG ---
DATE OF SERVICE: 07/15/2017 SUBJECTIVE: Mr. Arvind Macias is a 77-year-old male, who is status post prolonged surgery for unstable c ervical fracture. C7-T1 extensive surgery as noted by Neurosurgery. Postop, he was having some pain, but denies any difficulty breathing. Unfortunately, his venogram sh owed he had evidence of bilateral DVT. He has a filter in place. He is off Eliquis because of his s urgery. OBJECTIVE: VITAL SIGNS: Blood pressure 160/62, sat are 92% and respirations 18. CHEST: No wheezing. CARDIAC: Normal S1 and S2. No gallops. ABDOMEN: Soft. No masses. LABORATORY DATA: White count 12,000, hemoglobin and hematocrit 10 and 36, platelet count 203. ASSESSMENT: 1. Prolonged surgery, cervical fusion. Stabilization. 2. Deep venous thrombosis, history of filter. 3. Obesity. 4. Atrial fibrillation. PLAN: Restart Eliquis when okay with Neurosurgery. Supportive care and PT.
[2017-07-15] MEDS: Pramipexole Di-HCl 0.25 MG TAB PO SCH (21:02)
[2017-07-15] MEDS: Acetaminophen/Codeine 30-300mg Tablet PO PRN (23:56)
[2017-07-16] MEDS: HYDROcodone/Acetaminophen 7.5/325 mg Tablet PO PRN ×4 (01:27→21:42)
[2017-07-16] MEDS: traMADol HCl 50 MG TAB PO PRN (06:31)
[2017-07-16] MEDS: Docusate 100 MG CAP PO SCH ×2 (07:32→21:26)
[2017-07-16] MEDS: Finasteride 5 MG TAB PO SCH (07:33)
[2017-07-16] MEDS: hydrALAZINE 20 MG/ML VIAL SLOW IVP PRN (08:52)
[2017-07-16] MEDS ORDERED: Furosemide 40 MG/4 ML VIAL SLOW IVP SCH (10:00)
[2017-07-16] MEDS: Venlafaxine HCl 25 MG TAB PO SCH (10:18)
--- NOTE | 2017-07-16 10:27 | PRG ---
DATE OF SERVICE: 07/16/2017 SERVICE: Pulmonary Medicine. INTERVAL HISTORY: The patient is doing fine from a cardiovascular and respiratory standpoint. He is breathing comfortably. He is eating fairly well. He denies any current fevers, chills, nausea or v omiting. He has no chest discomfort. He still moves his lower extremities without difficulty. PHYSICAL EXAMINATION: VITAL SIGNS: Afebrile, pulse 65, blood pressure 161/64, respirations 16, saturation 94% on room air. GENERAL: The patient is awake and alert, in apparent distress. LUNGS: Decent air entry with no prolonged expiratory phase. Rhonchi clear with cough. No crackles or wheezing. HEART: Normal rate, regular. ABDOMEN: Soft, nontender, nondistended. Bowel sounds are positive. MUSCULOSKELETAL: No cyanosis or clubbing. There is trace pitting in the bilateral lower extremities . NEUROLOGIC: Grossly nonfocal. The patient is 6 liters up for this hospital stay to date. LABORATORY DATA: WBC 12.9, hemoglobin 10.1, platelets 203,000. Basic metabolic profile is unremarka ble except for phosphorus of 2.2. IMAGING: Ultrasound of the bilateral lower extremities demonstrates findings suspicious for bilatera l DVT. ASSESSMENT: 1. Bilateral C7 radicular fracture, status post fixation. 2. Cognitive impairment. 3. Dementia. 4. Deep venous thrombosis of the bilateral lower extremities. PLAN: The patient will get a dose of Lasix today. IV fluids will be interrupted. From my perspecti ve, he is stable for transition out of the ICU to the surgical unit. Pulmonary Critical Care will co ntinue to follow while he remains in this location. As soon as he can be restarted on anticoagulatio n, this needs to be done.
--- NOTE | 2017-07-16 10:50 | PDOC.PN ---
- Subjective Encounter Start Date: 07/16/17 Encounter Start Time: 10:40 Patient seen and examined. No new complaints. No overnight events - Objective MAR Reviewed: Yes Vital Signs & Weight: Vital Signs (12 hours) Temp Pulse Resp BP Pulse Ox 07/16/17 08:00 98.2 F 87 10 L 94 L 07/16/17 07:32 87 159/59 H 07/16/17 07:00 98.2 F 07/16/17 04:00 97.8 F 07/16/17 00:00 98 F Most Recent Monitor Data Heart Rate from ECG 65 NIBP 161/64 NIBP BP-Mean 79 Respiration from ECG 16 SpO2 94 I&O: 07/15/17 07/16/17 07/17/17 06:59 06:59 06:59 Intake Total 3001 3129 240 Output Total 905 1085 260 Balance 2095 Result Diagrams: 07/15/17 03:40 07/15/17 03:40 EKG Reviewed by me: Yes Phys Exam - Physical Examination Constitutional: NAD HEENT: PERRLA, moist MMs, sclera anicteric cervical collar+, surgical site with dressing Respiratory: no wheezing, no rales, no rhonchi Cardiovascular: RRR, no significant murmur, no rub Gastrointestinal: soft, non-tender, no distention, positive bowel sounds colostomy+, bernard+ Musculoskeletal: no edema, pulses present SCD+ Neurological: moves all 4 limbs Lymphatic: no nodes Psychiatric: normal affect Skin: no rash, normal turgor Dx/Plan (1) Cervical spine fracture Code(s): S12.9XXA - FRACTURE OF NECK, UNSPECIFIED, INITIAL ENCOUNTER Status: Acute Qualifiers: Cervical vertebra fracture level: C7 (2) Hypophosphatemia Code(s): E83.39 - OTHER DISORDERS OF PHOSPHORUS METABOLISM Status: Acute (3) Paroxysmal atrial fibrillation Code(s): I48.0 - PAROXYSMAL ATRIAL FIBRILLATION Status: Acute (4) BPH (benign prostatic hyperplasia) Code(s): N40.0 - BENIGN PROSTATIC HYPERPLASIA WITHOUT LOWER URINRY TRACT SYMP Status: Chronic Qualifiers: Lower urinary tract symptom presence: symptoms present Qualified Code(s): N40.1 - Benign prostatic hyperplasia with lower urinary tract symptoms (5) Cervical spondylosis Code(s): M47.812 - SPONDYLOSIS W/O MYELOPATHY OR RADICULOPATHY, CERVICAL REGION Status: Chronic (6) DVT, bilateral lower limbs Code(s): I82.403 - ACUTE EMBOLISM AND THOMBOS UNSP DEEP VEINS OF LOW EXTRM, BI Status: Chronic Qualifiers: Chronicity: chronic (7) Dyslipidemia Code(s): E78.5 - HYPERLIPIDEMIA, UNSPECIFIED Status: Chronic (8) HTN (hypertension) Code(s): I10 - ESSENTIAL (PRIMARY) HYPERTENSION Status: Chronic Qualifiers: Hypertension type: essential hypertension Qualified Code(s): I10 - Essential (primary) hypertension (9) Obesity (BMI 30.0-34.9) Code(s): E66.9 - OBESITY, UNSPECIFIED Status: Chronic (10) Presence of IVC filter Code(s): Z95.828 - PRESENCE OF OTHER VASCULAR IMPLANTS AND GRAFTS Status: Chronic (11) Restless leg syndrome Status: Chronic (12) Colostomy care Code(s): Z43.3 - ENCOUNTER FOR ATTENTION TO COLOSTOMY Status: Chronic - Plan cont current plan of care * diet as tolerated, monitor for any aspiration * stable with current treatment * will need rehab vs snu placement on discharge * medication reviewed as below * symptomatic treatment. Review of Systems - Review of Systems Constitutional: negative: Fever, Chills, Sweats, Weakness, Malaise, Other Eyes: negative: Pain, Vision Change, Conjunctivae Inflammation, Eyelid Inflammation, Redness, Other ENT: negative: Ear Pain, Ear Discharge, Nose Pain, Nose Discharge, Nose Congestion, Mouth Pain, Mouth Swelling, Throat Pain, Throat Swelling, Other Respiratory: Cough. negative: Dry, Shortness of Breath, Hemoptysis, SOB with Excertion, Pleuritic Pain, Sputum, Wheezing Cardiovascular: negative: Chest Pain, Palpitations, Orthopnea, Paroxysmal Noc. Dyspnea, Edema, Light Headedness, Other Gastrointestinal: negative: Nausea, Vomiting, Abdominal Pain, Diarrhea, Constipation, Melena, Hematochezia, Other Genitourinary: negative: Dysuria, Frequency, Incontinence, Hematuria, Retention , Other Musculoskeletal: Neck Pain. negative: Shoulder Pain, Arm Pain, Back Pain, Hand Pain, Leg Pain, Foot Pain, Other - Medications/Allergies Allergies/Adverse Reactions: Allergies Allergy/AdvReac Type Severity Reaction Status Date / Time No Known Allergies Allergy Verified 08/31/16 21:23 Medications: Current Medications Acetaminophen (Tylenol) 650 mg PO Q4H PRN PRN Reason: Headache/Fever or Pain Acetaminophen/Codeine Phosphate (Tylenol #3) 1 tab PO Q3H PRN PRN Reason: Mild Pain (1-3) Last Admin: 07/15/17 23:56 Dose: 1 tab Hydrocodone Bitart/Acetaminophen ([place] 7.5/325) 1 tab PO Q4H PRN PRN Reason: PAIN SCALE 1-3 Last Admin: 07/16/17 07:35 Dose: 1 tab Hydrocodone Bitart/Acetaminophen ([place] 7.5/325) 2 tab PO Q4H PRN PRN Reason: PAIN SCALE 4- 10 Last Admin: 07/16/17 01:27 Dose: 2 tab Al Hydroxide/Mg Hydroxide (Maalox) 30 ml PO Q4H PRN PRN Reason: Indigestion Bisacodyl (Dulcolax) 10 mg [place] Q12H PRN PRN Reason: Constipation Cefazolin Sodium (Ancef) 2 gm SLOW IVP Q8HR COUNT [facility]CLUDES [facility] Stop: 07/21/17 14:01 Diltiazem HCl (Cardizem Cd) 120 mg PO BID COUNT [facility]CLUDES [facility] Last Admin: 07/16/17 07:32 Dose: 120 mg Docusate Sodium (Colace) 100 mg PO BID COUNT [facility]CLUD[facility] Last Admin: 07/16/17 07:32 Dose: 100 mg Enoxaparin Sodium (Lovenox) 40 mg SC 2100 MATEO Finasteride (Proscar) 5 mg PO DAILY COUNT [facility]CLUD[facility] Last Admin: 07/16/17 07:33 Dose: 5 mg Furosemide (Lasix) 40 mg SLOW IVP 1000 COUNT [facility]CLUDES [facility] Stop: 07/16/17 12:00 Last Admin: 07/16/17 10:17 Dose: 40 mg Hydralazine HCl (Apresoline) 10 mg SLOW IVP Q6H PRN PRN Reason: SBP Greater Than 170 Last Admin: 07/16/17 08:52 Dose: 10 mg Potassium Chloride 40 meq/ (Sodium Chloride) 270 mls @ 135 mls/hr IVPB ASDIR PRN PRN Reason: FOR SERUM K+ 2.5 - 3.5 Potassium Chloride 40 meq/ (Device) 100 mls @ 50 mls/hr IVPB ASDIR PRN PRN Reason: FOR SERUM K+ 2.5 - 3.5 Last Admin: 07/12/17 07:58 Dose: 100 mls Magnesium Sulfate 1 gm/ Sodium (Chloride) 102 mls @ 102 mls/hr IV PRN PRN PRN Reason: MAG LEVEL 1.4 - 2.0 Last Admin: 07/14/17 05:51 Dose: 102 mls Magnesium Sulfate 2 gm/ Device 100 mls @ 100 mls/hr IVPB ASDIR PRN PRN Reason: MAGNESIUM < 1.4 Potassium Phosphate 9 mmol/ (Sodium Chloride) 103 mls @ 25.75 mls/hr IVPB ASDIR PRN PRN Reason: Phosphate 1.0-1.8 Potassium Phosphate 12 mmol/ (Sodium Chloride) 254 mls @ 63.5 mls/hr IV ASDIR PRN PRN Reason: Serum phosphate 0.5-0.9 Potassium Phosphate 15 mmol/ (Sodium Chloride) 255 mls @ 63.75 mls/hr IV ASDIR PRN PRN Reason: Serum Phos < 0.5 Magnesium Hydroxide (Milk Of Magnesium) 30 ml PO Q12H PRN PRN Reason: Constipation Magnesium Oxide (Magnesium Oxide) 400 mg PO BIDPRN PRN PRN Reason: FOR SERUM MAG 1.4 - 2.0 Magnesium Oxide (Magnesium Oxide) 800 mg PO PRN PRN PRN Reason: FOR SERUM MAG < 1.4 Miscellaneous Medication (Phos-Nak) 1 pkt PO TIDPRN PRN PRN Reason: FOR PHOS LEVEL 1.0 - 1.8 Miscellaneous Medication (Phos-Nak) 2 pkt PO TIDPRN PRN PRN Reason: FOR PHOS LEVEL 0.5 - 1.0 Morphine Sulfate (Morphine) 2 mg IV Q1H PRN PRN Reason: Pain Last Admin: 07/15/17 22:34 Dose: 2 mg Nitroglycerin (Nitrostat) 0.4 mg PO Q5MIN PRN PRN Reason: Chest Pain Pantoprazole Sodium (Protonix) 40 mg PO DAILY [facility]ATEO Last Admin: 07/16/17 07:33 Dose: 40 mg Potassium Chloride (K-Dur) 40 meq PO ASDIR PRN PRN Reason: FOR SERUM K+ 2.5 - 3.5 Potassium Chloride (Klor-Con) 40 meq PER TUBE ASDIR PRN PRN Reason: FOR SERUM K+ 2.5-3.5 Pramipexole Dihydrochloride (Mirapex) 0.75 mg PO HS COUNT [facility]CLUDES [facility] Last Admin: 07/15/17 21:02 Dose: 0.75 mg Promethazine HCl (Phenergan) 12.5 mg IM Q4H PRN PRN Reason: Nausea/Vomiting Senna (Senokot) 2 tab PO HSPRN PRN PRN Reason: Constipation Sodium Chloride (Flush - Normal Saline) 10 ml IVF PRN PRN PRN Reason: Saline Flush Last Admin: 07/13/17 19:58 Dose: 10 ml Tramadol HCl (Ultram) 50 mg PO Q6H PRN PRN Reason: Mild Pain (1-3) Last Admin: 07/16/17 06:31 Dose: 50 mg Venlafaxine HCl (Effexor) 25 mg PO DAILY COUNT [facility]CLUD[facility] Last Admin: 07/16/17 10:18 Dose: 25 mg
[2017-07-16] MEDS: CEFAZOLIN/Water 2 GM/20 ML SYRINGE SLOW IVP SCH ×2 (12:38→21:26)
[2017-07-16] MEDS ORDERED: CEFAZOLIN 2 GM in Sodium Chloride 0.9% 100 ML IVPB SCH (14:00)
[2017-07-16] MEDS: Labetalol HCl 100 MG/20 ML VIAL SLOW IVP PRN (15:54)
--- NOTE | 2017-07-16 17:33 | PRG ---
DATE OF SERVICE: 07/16/2017 Mr. Macias is postoperative 3 from anterior posterior reduction and stabilization of highly unstable th ree column cervical spine fracture. He moves all extremities to command and he appears to be at his neurological baseline compared to before surgery. Suffice to say, I am very pleased with his outcome as the patient essentially had a complete disconnection of his spine. This is oftentimes associated with a catastrophic neurological deficit, even prior to any type of stabilization. His anterior javier in has been removed. He was found to have bilateral deep venous thrombosis. He has a history of an IVC filter in place. He is also on Xarelto. I suspect that the DVTs may be chronic; however, they c ertainly could be acute and the patient may even have thrombophilia. As such, given that he has a fi lter in place, we will plan for initiation of low dose Lovenox. We will continue to watch him in the ICU today with possible transfer out of the ICU at some point perhaps tomorrow, the next day.
[2017-07-16] MEDS: Enoxaparin Sodium 40 MG/0.4 ML SYRINGE SC SCH (21:26)
[2017-07-16] MEDS: Pramipexole Di-HCl 0.25 MG TAB PO SCH (21:50)
[2017-07-17] MEDS: HYDROcodone/Acetaminophen 7.5/325 mg Tablet PO PRN ×5 (01:42→20:21)
[2017-07-17] MEDS: Labetalol HCl 100 MG/20 ML VIAL SLOW IVP PRN ×2 (04:39→08:27)
[2017-07-17] MEDS: CEFAZOLIN/Water 2 GM/20 ML SYRINGE SLOW IVP SCH ×3 (05:16→21:11)
[2017-07-17] MEDS: Morphine 4 MG/ML VIAL IV PRN ×2 (06:09→12:32)
[2017-07-17] MEDS: hydrALAZINE 20 MG/ML VIAL SLOW IVP PRN ×2 (06:33→20:31)
[2017-07-17] MEDS: Venlafaxine HCl 25 MG TAB PO SCH (07:23)
[2017-07-17] MEDS: Docusate 100 MG CAP PO SCH ×2 (07:23→20:19)
[2017-07-17] MEDS: Finasteride 5 MG TAB PO SCH (07:23)
[2017-07-17] MEDS ORDERED: Potassium Phosphate 30 MMOL in Sodium Chloride 0.9% 500 ML IVPB SCH (11:15)
[2017-07-17] MEDS ORDERED: Furosemide 40 MG/4 ML VIAL SLOW IVP SCH (11:30)
--- NOTE | 2017-07-17 11:45 | PRG ---
DATE OF SERVICE: 07/17/2017 SERVICE: Pulmonary Medicine INTERVAL HISTORY: The patient is doing fine from a respiratory standpoint. He remains room air. He is breathing fine. He is eating on his own. He has a good cough. Otherwise, there has been no int erval change in his condition. His breathing is actually slightly improved compared to yesterday. PHYSICAL EXAMINATION: VITAL SIGNS: Afebrile with T-max 99.7, pulse 73, blood pressure 163/69, respirations 15, saturation 99% on room air. GENERAL: The patient is awake, alert, in no apparent distress. LUNGS: Decreased air entry. Dependent crackles are minimal. HEART: Normal rate, regular. ABDOMEN: Soft, nontender, nondistended. Bowel sounds positive. MUSCULOSKELETAL: No cyanosis or clubbing. There is 2+ pitting in the bilateral lower extremities. NEUROLOGIC: Grossly nonfocal. LABORATORY DATA: WBC 12.9, hemoglobin 10.1, platelets 203,000. INR 1.1. Creatinine 0.90. Basic me tabolic profile is otherwise unremarkable with potassium of 3.7. Magnesium 2.4. Phosphorus is 2.2. ASSESSMENT: 1. Bilateral C7 pedicular fracture, status post fixation. 2. Dementia. 3. Deep venous thrombosis of the bilateral lower extremities. 4. Hypophosphatemia. PLAN: I will replace the patient's potassium and phosphorus. He is stable for transition to the amna or. If he can tolerate full dose anticoagulation, this needs to be restarted. Pulmonary Critical Ca re will continue to follow while the patient remains in this location.
--- NOTE | 2017-07-17 12:35 | PDOC.PN ---
- Subjective Encounter Start Date: 07/17/17 Encounter Start Time: 07:45 Patient seen and examined. No new complaints. No overnight events - Objective MAR Reviewed: Yes Vital Signs & Weight: Vital Signs (12 hours) Temp Pulse Resp BP BP Pulse Ox 07/17/17 11:15 98.0 F 74 18 154/68 H 97 07/17/17 08:00 98.1 F 79 13 99 07/17/17 07:00 98.1 F 07/17/17 06:33 70 181/78 H 07/17/17 04:39 72 175/75 H Most Recent Monitor Data Heart Rate from ECG 75 NIBP 165/77 NIBP BP-Mean 108 Respiration from ECG 15 SpO2 97 I&O: 07/16/17 07/17/17 07/18/17 06:59 06:59 06:59 Intake Total 3129 1273 480 Output Total 1085 2345 210 Balance 2044 -1072 270 Result Diagrams: 07/15/17 03:40 07/15/17 03:40 EKG Reviewed by me: Yes Phys Exam - Physical Examination Constitutional: NAD HEENT: PERRLA, moist MMs, sclera anicteric cervical collar+ Neck: no JVD, supple Respiratory: no wheezing, no rales, no rhonchi Cardiovascular: RRR, no significant murmur, no rub Gastrointestinal: soft, non-tender, no distention, positive bowel sounds colostomy prolapse Musculoskeletal: no edema, pulses present Neurological: non-focal, normal sensation Lymphatic: no nodes Psychiatric: normal affect, A&O x 3 Skin: no rash, normal turgor Dx/Plan (1) Cervical spine fracture Code(s): S12.9XXA - FRACTURE OF NECK, UNSPECIFIED, INITIAL ENCOUNTER Status: Acute Qualifiers: Cervical vertebra fracture level: C7 (2) Hypophosphatemia Code(s): E83.39 - OTHER DISORDERS OF PHOSPHORUS METABOLISM Status: Acute (3) Paroxysmal atrial fibrillation Code(s): I48.0 - PAROXYSMAL ATRIAL FIBRILLATION Status: Acute (4) BPH (benign prostatic hyperplasia) Code(s): N40.0 - BENIGN PROSTATIC HYPERPLASIA WITHOUT LOWER URINRY TRACT SYMP Status: Chronic Qualifiers: Lower urinary tract symptom presence: symptoms present Qualified Code(s): N40.1 - Benign prostatic hyperplasia with lower urinary tract symptoms (5) Cervical spondylosis Code(s): M47.812 - SPONDYLOSIS W/O MYELOPATHY OR RADICULOPATHY, CERVICAL REGION Status: Chronic (6) DVT, bilateral lower limbs Code(s): I82.403 - ACUTE EMBOLISM AND THOMBOS UNSP DEEP VEINS OF LOW EXTRM, BI Status: Chronic Qualifiers: Chronicity: chronic (7) Dyslipidemia Code(s): E78.5 - HYPERLIPIDEMIA, UNSPECIFIED Status: Chronic (8) HTN (hypertension) Code(s): I10 - ESSENTIAL (PRIMARY) HYPERTENSION Status: Chronic Qualifiers: Hypertension type: essential hypertension Qualified Code(s): I10 - Essential (primary) hypertension (9) Obesity (BMI 30.0-34.9) Code(s): E66.9 - OBESITY, UNSPECIFIED Status: Chronic (10) Presence of IVC filter Code(s): Z95.828 - PRESENCE OF OTHER VASCULAR IMPLANTS AND GRAFTS Status: Chronic (11) Restless leg syndrome Status: Chronic (12) Colostomy care Code(s): Z43.3 - ENCOUNTER FOR ATTENTION TO COLOSTOMY Status: Chronic (13) Colostomy prolapse Code(s): K94.09 - OTHER COMPLICATIONS OF COLOSTOMY Status: Acute - Plan cont current plan of care, plan discussed w/ family, bernard catheter * on clear liquid diet * will advance very slowly * today transfer to surgical floor * consult general surgery for colostomy prolapse * discussed with family * BP better controlled * medication reviewed as below * symptomatic treatment. Review of Systems - Review of Systems ENT: negative: Ear Pain, Ear Discharge, Nose Pain, Nose Discharge, Nose Congestion, Mouth Pain, Mouth Swelling, Throat Pain, Throat Swelling, Other Respiratory: negative: Cough, Dry, Shortness of Breath, Hemoptysis, SOB with Excertion, Pleuritic Pain, Sputum, Wheezing Cardiovascular: negative: Chest Pain, Palpitations, Orthopnea, Paroxysmal Noc. Dyspnea, Edema, Light Headedness, Other Gastrointestinal: negative: Nausea, Vomiting, Abdominal Pain, Diarrhea, Constipation, Melena, Hematochezia, Other Genitourinary: negative: Dysuria, Frequency, Incontinence, Hematuria, Retention , Other Musculoskeletal: negative: Neck Pain, Shoulder Pain, Arm Pain, Back Pain, Hand Pain, Leg Pain, Foot Pain, Other - Medications/Allergies Allergies/Adverse Reactions: Allergies Allergy/AdvReac Type Severity Reaction Status Date / Time No Known Allergies Allergy Verified 08/31/16 21:23 Medications: Current Medications Acetaminophen (Tylenol) 650 mg PO Q4H PRN PRN Reason: Headache/Fever or Pain Acetaminophen/Codeine Phosphate (Tylenol #3) 1 tab PO Q3H PRN PRN Reason: Mild Pain (1-3) Last Admin: 07/15/17 23:56 Dose: 1 tab Hydrocodone Bitart/Acetaminophen ([place] 7.5/325) 1 tab PO Q4H PRN PRN Reason: PAIN SCALE 1-3 Last Admin: 07/16/17 07:35 Dose: 1 tab Hydrocodone Bitart/Acetaminophen ([place] 7.5/325) 2 tab PO Q4H PRN PRN Reason: PAIN SCALE 4- 10 Last Admin: 07/17/17 11:45 Dose: 2 tab Al Hydroxide/Mg Hydroxide (Maalox) 30 ml PO Q4H PRN PRN Reason: Indigestion Last Admin: 07/17/17 01:40 Dose: 30 ml Bisacodyl (Dulcolax) 10 mg [place] Q12H PRN PRN Reason: Constipation Cefazolin Sodium (Ancef) 2 gm SLOW IVP Q8HR [facility] Stop: 07/21/17 14:01 Last Admin: 07/17/17 05:16 Dose: 2 gm Diltiazem HCl (Cardizem Cd) 120 mg PO BID [facility] Last Admin: 07/17/17 07:22 Dose: 120 mg Docusate Sodium (Colace) 100 mg PO BID [facility] Last Admin: 07/17/17 07:23 Dose: 100 mg Enoxaparin Sodium (Lovenox) 40 mg SC 2100 [facility] Last Admin: 07/16/17 21:26 Dose: 40 mg Finasteride (Proscar) 5 mg PO DAILY [facility] Last Admin: 07/17/17 07:23 Dose: 5 mg Furosemide (Lasix) 40 mg SLOW IVP NOW [facility] Stop: 07/17/17 13:00 Last Admin: 07/17/17 11:46 Dose: 40 mg Furosemide (Lasix) 40 mg PO DAILY-[facility] Hydralazine HCl (Apresoline) 10 mg SLOW IVP Q6H PRN PRN Reason: SBP Greater Than 170 Last Admin: 07/17/17 06:33 Dose: 10 mg Potassium Phosphate 30 mmol/ (Sodium Chloride) 510 mls @ 83.3 mls/hr IVPB NOW [facility] Stop: 07/17/17 13:00 Last Admin: 07/17/17 12:28 Dose: 510 mls Labetalol HCl (Normodyne) 10 mg SLOW IVP Q2H PRN PRN Reason: SBP GREATER THAN 160 Last Admin: 07/17/17 08:27 Dose: 10 mg Morphine Sulfate (Morphine) 2 mg IV Q1H PRN PRN Reason: Pain Last Admin: 07/17/17 12:32 Dose: 2 mg Nitroglycerin (Nitrostat) 0.4 mg PO Q5MIN PRN PRN Reason: Chest Pain Pantoprazole Sodium (Protonix) 40 mg PO DAILY [facility] Last Admin: 07/17/17 07:23 Dose: 40 mg Pramipexole Dihydrochloride (Mirapex) 0.75 mg PO [facility] Last Admin: 07/16/17 21:50 Dose: 0.75 mg Promethazine HCl (Phenergan) 12.5 mg IM Q4H PRN PRN Reason: Nausea/Vomiting Senna (Senokot) 2 tab PO HSPRN PRN PRN Reason: Constipation Last Admin: 07/16/17 17:37 Dose: 2 tab Sodium Chloride (Flush - Normal Saline) 10 ml IVF PRN PRN PRN Reason: Saline Flush Last Admin: 07/13/17 19:58 Dose: 10 ml Tramadol HCl (Ultram) 50 mg PO Q6H PRN PRN Reason: Mild Pain (1-3) Last Admin: 07/16/17 06:31 Dose: 50 mg Venlafaxine HCl (Effexor) 25 mg PO DAILY [facility] Last Admin: 07/17/17 07:23 Dose: 25 mg
--- NOTE | 2017-07-17 12:47 | PRG ---
DATE OF SERVICE: 07/17/2017 Mr. Macias is postoperative day 4 following a 3 column dislocation of the spine due to a fall an ankylo sing spondylitis pattern fracture. This morning he has been transferred to the floor. He has dyspho soraida, but is tolerating clears. His pain is under satisfactory control. He can move both upper extre mities antigravity, moving his elbows off of the bed at the shoulder level with improvement in his ri ght hand intrinsic strength and elbow movement with longstanding even preoperative myelopathic left h and intrinsic weakness that obviously remains. He bends both hips and knees in the bed with good act ivation of his lower extremities. His dressings are dry. He is tolerating the collar. I let the nu ing team and the patient know that I would be fine with him and having a brace or having collar hol idays while he is in bed given his very sensitive skin to avoid skin breakdown. He obviously needs t o wear the brace when out of bed. At some point, I would be fine with transfer to inpatient rehabili tation which is going to be of most importance to the patient. I have updated his brother who is the primary family. The patient is on low dose Lovenox and has already an IVC filter in place due to hi story of bilateral deep venous thrombosis.
[2017-07-17] MEDS ORDERED: Magnesium Citrate 300 ML BOT PO SCH (17:30)
[2017-07-17] MEDS: traMADol HCl 50 MG TAB PO PRN (17:35)
--- NOTE | 2017-07-17 19:07 | CON ---
DATE OF CONSULTATION: 07/17/[address] Vasquez Valentine, [facility]. REASON FOR CONSULTATION: Parastomal hernia. HISTORY OF PRESENT ILLNESS: This is a 77-year-old male who was admitted after a fall. He sustained a cervical fracture which was deemed unstable and repaired by Dr. Carlisle with Neurosurgery. He has b een transferred to the floor today admitted back on the . He has not had a bowel movement since admission. The patient has had previous colectomy with permanent colostomy. The patient states that this was done at outside institution for all intents and purposes, he thinks he is cancer free, has not had issues in years. He denies chronic constipation. He was found today on exam in the ICU to nehemiah franco, what he describes as a new peristomal hernia. The colostomy mucosa in the left lower quadrant is telescoping out. The patient notes some discomfort in the area of slightly more bloating the nor m. The patient has not had any stool in the last few days. PAST MEDICAL HISTORY: Hypertension, colon cancer, history of DVT, BPH. PAST SURGICAL HISTORY: Colectomy with colostomy, incisional hernia right hip, recent cervical fusion . SOCIAL HISTORY: No smoking, alcohol or other drugs. ALLERGIES: No known drug allergies. MEDICATIONS: See list. REVIEW OF SYSTEMS: Otherwise negative, unless described above. PHYSICAL EXAMINATION: VITAL SIGNS: His pulse is 81, blood pressure is 138/93. He is afebrile. LUNGS: Chest is clear. HEART: Regular rate and rhythm. ABDOMEN: Distended slightly, but nontender. He does have telescoping of the left lower quadrant col ostomy mucosa in the setting of what looks like a parastomal hernia. The colostomy device was remove d and the telescoping mucosa was able to be reduced back through the defect in the muscle without dif ficulty. The whole parastomal hernia was able to be reduced, but comes right back secondary to his d istention. The mucosa appears viable. There is no stool, just below the fascia that can be felt. LABORATORY: White cell count is back on the was 12, has not been checked since. Last creatinin e back on 07/15/2017 was 0.90. ASSESSMENT: Question of new parastomal hernia and telescoping of the mucosa; able to be reduced at t he bedside, but it comes right back. PLAN: I suspect this will able to be reduced permanently if his abdominal distention is improved. I think he likely is constipated from the narcotics from his admission and neurosurgical intervention. Plan would be a bottle of magnesium citrate tonight, then start some MiraLax. We will follow with you.
[2017-07-17] MEDS: Pramipexole Di-HCl 0.25 MG TAB PO SCH (20:19)
[2017-07-17] MEDS: Enoxaparin Sodium 40 MG/0.4 ML SYRINGE SC SCH (20:22)
[2017-07-18] MEDS: HYDROcodone/Acetaminophen 7.5/325 mg Tablet PO PRN ×2 (02:03→09:04)
[2017-07-18] MEDS: CEFAZOLIN/Water 2 GM/20 ML SYRINGE SLOW IVP SCH (06:23)
[2017-07-18] MEDS ORDERED: Furosemide 40 MG TAB PO SCH (07:30)
--- NOTE | 2017-07-18 08:52 | PRG ---
07/18/2017 Mr. Macias had a lot of stool output after magnesium citrate. He states that his belly feels better, less distended. PHYSICAL EXAMINATION: On physical exam, he does still have a reducible parastomal hernia with telesc oping; however, is easily reducible. ASSESSMENT: Parastomal hernia with telescoping of the mucosa, likely made worse by being constipated . PLAN: Continue stool softeners. I recommended MiraLax daily. To start that can be stretched out to every few days if stool becomes too loose. This hernia can be managed with stool softeners and it c ontinues to be asymptomatic no acute surgery needed. Okay to transfer to rehab. I will have him fol low up with me in the office as an outpatient with any further problems.
[2017-07-18] MEDS ORDERED: Polyethylene Glycol 3350 17 GM Packet PO SCH (09:00)
[2017-07-18] MEDS: Finasteride 5 MG TAB PO SCH (09:05)
[2017-07-18] MEDS: Docusate 100 MG CAP PO SCH (09:05)
[2017-07-18] MEDS: Venlafaxine HCl 25 MG TAB PO SCH (09:06)
--- NOTE | 2017-07-18 12:12 | PRG ---
DATE OF SERVICE: 07/18/2017 Mr. Macias continues to improve slowly from the open reduction internal fixation of his ankylosing spon dylitis fracture in the cervical spine. Left hand is still weak, but improving. He can benefit from inpatient rehabilitation. His colostomy was checked and felt to be safe for transfer. We will make arrangements for him to leave currently. I anticipate the transfer to inpatient rehabilitation will be completed by later this afternoon.
[2017-07-18 12:14] VITALS: BP 151/70; TEMP 98.9
--- NOTE | 2017-07-18 12:16 | PDOC.PN ---
- Subjective Encounter Start Date: 07/18/17 Encounter Start Time: 08:50 Patient seen and examined. No new complaints. No overnight events, had good BM - Objective MAR Reviewed: Yes Vital Signs & Weight: Vital Signs (12 hours) Temp Pulse Resp BP Pulse Ox 07/18/17 12:13 98.9 F 84 18 151/70 H 93 L 07/18/17 08:36 98.1 F 88 18 159/74 H 93 L 07/18/17 08:00 98.1 F 88 18 07/18/17 03:52 98.6 F 92 18 161/71 H 91 L 07/18/17 02:31 94 L Most Recent Monitor Data Heart Rate from ECG 75 NIBP 165/77 NIBP BP-Mean 108 Respiration from ECG 15 SpO2 97 I&O: 07/17/17 07/18/17 07/19/17 06:59 06:59 06:59 Intake Total 1273 2140 Output Total 2345 4110 Balance -1071 Result Diagrams: 07/15/17 03:40 07/15/17 03:40 Phys Exam - Physical Examination Constitutional: NAD HEENT: PERRLA, moist MMs, sclera anicteric cervical collar Respiratory: no wheezing, no rales, no rhonchi Cardiovascular: RRR, no significant murmur, no rub Gastrointestinal: soft, non-tender, no distention, positive bowel sounds colostomy+ Musculoskeletal: no edema, pulses present Neurological: moves all 4 limbs Lymphatic: no nodes Psychiatric: normal affect Skin: no rash, normal turgor Dx/Plan (1) Cervical spine fracture Code(s): S12.9XXA - FRACTURE OF NECK, UNSPECIFIED, INITIAL ENCOUNTER Status: Acute Qualifiers: Cervical vertebra fracture level: C7 (2) Hypophosphatemia Code(s): E83.39 - OTHER DISORDERS OF PHOSPHORUS METABOLISM Status: Acute (3) Paroxysmal atrial fibrillation Code(s): I48.0 - PAROXYSMAL ATRIAL FIBRILLATION Status: Acute (4) BPH (benign prostatic hyperplasia) Code(s): N40.0 - BENIGN PROSTATIC HYPERPLASIA WITHOUT LOWER URINRY TRACT SYMP Status: Chronic Qualifiers: Lower urinary tract symptom presence: symptoms present Qualified Code(s): N40.1 - Benign prostatic hyperplasia with lower urinary tract symptoms (5) Cervical spondylosis Code(s): M47.812 - SPONDYLOSIS W/O MYELOPATHY OR RADICULOPATHY, CERVICAL REGION Status: Chronic (6) DVT, bilateral lower limbs Code(s): I82.403 - ACUTE EMBOLISM AND THOMBOS UNSP DEEP VEINS OF LOW EXTRM, BI Status: Chronic Qualifiers: Chronicity: chronic (7) Dyslipidemia Code(s): E78.5 - HYPERLIPIDEMIA, UNSPECIFIED Status: Chronic (8) HTN (hypertension) Code(s): I10 - ESSENTIAL (PRIMARY) HYPERTENSION Status: Chronic Qualifiers: Hypertension type: essential hypertension Qualified Code(s): I10 - Essential (primary) hypertension (9) Obesity (BMI 30.0-34.9) Code(s): E66.9 - OBESITY, UNSPECIFIED Status: Chronic (10) Presence of IVC filter Code(s): Z95.828 - PRESENCE OF OTHER VASCULAR IMPLANTS AND GRAFTS Status: Chronic (11) Restless leg syndrome Status: Chronic (12) Colostomy care Code(s): Z43.3 - ENCOUNTER FOR ATTENTION TO COLOSTOMY Status: Chronic (13) Colostomy prolapse Code(s): K94.09 - OTHER COMPLICATIONS OF COLOSTOMY Status: Acute - Plan cont current plan of care, PT/OT, rn social services * medication reviewed as below * symptomatic treatment * plan for rehab transfer today * DC meds reconciliations done . Review of Systems - Review of Systems ENT: negative: Ear Pain, Ear Discharge, Nose Pain, Nose Discharge, Nose Congestion, Mouth Pain, Mouth Swelling, Throat Pain, Throat Swelling, Other Respiratory: negative: Cough, Dry, Shortness of Breath, Hemoptysis, SOB with Excertion, Pleuritic Pain, Sputum, Wheezing Cardiovascular: negative: Chest Pain, Palpitations, Orthopnea, Paroxysmal Noc. Dyspnea, Edema, Light Headedness, Other Gastrointestinal: negative: Nausea, Vomiting, Abdominal Pain, Diarrhea, Constipation, Melena, Hematochezia, Other Genitourinary: negative: Dysuria, Frequency, Incontinence, Hematuria, Retention , Other Musculoskeletal: negative: Neck Pain, Shoulder Pain, Arm Pain, Back Pain, Hand Pain, Leg Pain, Foot Pain, Other - Medications/Allergies Allergies/Adverse Reactions: Allergies Allergy/AdvReac Type Severity Reaction Status Date / Time No Known Allergies Allergy Verified 08/31/16 21:23 Medications: Current Medications Acetaminophen (Tylenol) 650 mg PO Q4H PRN PRN Reason: Headache/Fever or Pain Acetaminophen/Codeine Phosphate (Tylenol #3) 1 tab PO Q3H PRN PRN Reason: Mild Pain (1-3) Last Admin: 07/15/17 23:56 Dose: 1 tab Hydrocodone Bitart/Acetaminophen ([place] 7.5/325) 1 tab PO Q4H PRN PRN Reason: PAIN SCALE 1-3 Last Admin: 07/16/17 07:35 Dose: 1 tab Hydrocodone Bitart/Acetaminophen ([place] 7.5/325) 2 tab PO Q4H PRN PRN Reason: PAIN SCALE 4- 10 Last Admin: 07/18/17 09:04 Dose: 2 tab Al Hydroxide/Mg Hydroxide (Maalox) 30 ml PO Q4H PRN PRN Reason: Indigestion Last Admin: 07/17/17 01:40 Dose: 30 ml Bisacodyl (Dulcolax) 10 mg OK Q12H PRN PRN Reason: Constipation Cefazolin Sodium (Ancef) 2 gm SLOW IVP Q8HR [facility] Stop: 07/21/17 14:01 Last Admin: 07/18/17 06:23 Dose: 2 gm Diltiazem HCl (Cardizem Cd) 120 mg PO BID [facility] Last Admin: 07/18/17 09:05 Dose: 120 mg Docusate Sodium (Colace) 100 mg PO BID [facility] Last Admin: 07/18/17 09:05 Dose: 100 mg Enoxaparin Sodium (Lovenox) 40 mg SC 2100 [facility] Last Admin: 07/17/17 20:22 Dose: 40 mg Finasteride (Proscar) 5 mg PO DAILY [facility] Last Admin: 07/18/17 09:05 Dose: 5 mg Furosemide (Lasix) 40 mg PO DAILY[facility] Last Admin: 07/18/17 06:37 Dose: 40 mg Hydralazine HCl (Apresoline) 10 mg SLOW IVP Q6H PRN PRN Reason: SBP Greater Than 170 Last Admin: 07/17/17 20:31 Dose: 10 mg Labetalol HCl (Normodyne) 10 mg SLOW IVP Q2H PRN PRN Reason: SBP GREATER THAN 160 Last Admin: 07/17/17 08:27 Dose: 10 mg Morphine Sulfate (Morphine) 2 mg IV Q1H PRN PRN Reason: Pain Last Admin: 07/17/17 12:32 Dose: 2 mg Nitroglycerin (Nitrostat) 0.4 mg PO Q5MIN PRN PRN Reason: Chest Pain Pantoprazole Sodium (Protonix) 40 mg PO DAILY [facility] Last Admin: 07/18/17 09:06 Dose: 40 mg Polyethylene Glycol (Miralax) 17 gm PO DAILY [facility] Last Admin: 07/18/17 09:06 Dose: 17 gm Pramipexole Dihydrochloride (Mirapex) 0.75 mg PO HS [facility] Last Admin: 07/17/17 20:19 Dose: 0.75 mg Promethazine HCl (Phenergan) 12.5 mg IM Q4H PRN PRN Reason: Nausea/Vomiting Senna (Senokot) 2 tab PO HSPRN PRN PRN Reason: Constipation Last Admin: 07/16/17 17:37 Dose: 2 tab Sodium Chloride (Flush - Normal Saline) 10 ml IVF PRN PRN PRN Reason: Saline Flush Last Admin: 07/17/17 20:33 Dose: 10 ml Tramadol HCl (Ultram) 50 mg PO Q6H PRN PRN Reason: Mild Pain (1-3) Last Admin: 07/17/17 17:35 Dose: 50 mg Venlafaxine HCl (Effexor) 25 mg PO DAILY [facility] Last Admin: 07/18/17 09:06 Dose: 25 mg
--- NOTE | 2017-07-18 13:56 | DIS ---
DATE OF ADMISSION: 07/12/2017 DATE OF DISCHARGE: 07/18/2017 PRIMARY CARE PHYSICIAN: Lisandro Martinez M.D. DISCHARGE DISPOSITION: Rehabilitation. PRIMARY DISCHARGE DIAGNOSES: 1. Status post surgical repair for cervical spine fracture. 2. Colostomy prolapse. 3. Hypophosphatemia. 4. Paroxysmal atrial fibrillation with rapid ventricular response. SECONDARY DISCHARGE DIAGNOSES: Restless leg syndrome, obesity, hypertension, bilateral lower extremi ty chronic deep vein thrombosis, cervical spondylosis, dyslipidemia, physical deconditioning, benign enlargement of prostate. PRIMARY PROCEDURE/OPERATION: Cervical spine fracture repair by Dr. Carlisle. IVC filter placement by Dr. Jg Cleaning. RADIOLOGICAL INVESTIGATION: CT brain, CT cervical spine, chest x-ray, pelvis x-ray, thoracic spine C T scan and ultrasound of the lower extremity. SIGNIFICANT LABORATORY DATA: Hemoglobin 10.1. WBC 12.9, platelets 203. INR 1.1. Sodium 138, potas sium 3.7, BUN 25, creatinine 0.90, calcium 8.4, phosphorus 2.2, magnesium 2.4. LFT normal. Urinalys is suggestive of UTI. DISCHARGE MEDICATIONS: Amlodipine 5 mg p.o. daily, Cardizem-CD 120 mg p.o. b.i.d., Proscar 5 mg p.o. daily, Lasix 20 mg p.o. daily, Protonix 40 mg p.o. daily, MiraLax 17 grams p.o. daily, Mirapex 0.75 mg p.o. at bedtime, tramadol 50 mg p.o. b.i.d., Effexor XR 7.5 mg p.o. at bedtime. CONTRAINDICATIONS: None. CODE STATUS: FULL CODE. 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 Carlisle was primary while in hospital. Pulmonary group was managing while the patient was in CCU. Dr. Garcia was consulted for colostomy prolapse. TEST RESULTS PENDING ON DISCHARGE: None. ALLERGIES: No known drug allergy. DISCHARGE PLAN: Post hospital, patient is planned for discharge to rehabilitation for more PT, OT. Subsequently, patient will follow up with the neurosurgeon and Dr. Garcia as instructed. HOSPITAL COURSE: A 77-year-old male who was admitted under neurosurgeon for cervical spine fracture, Dr. Carlisle did surgical repair. Please see his operative report for further details. After surgery , patient was in CCU. At that time, pulmonary group was also following. Patient had AFIB with RVR a nd that is why we started on Cardizem-CD with proper rate control. Patient was on clear liquid diet because of his cervical spine surgery. He was tolerating clear liquid and subsequently full liquid d iet without any aspiration. Upon stabilization, this patient was transferred to surgical floor. He is doing relatively well, but he needs more PT, OT, and wound care at surgical site, he needs speech therapy. He also has chronic indwelling Avendaño catheter while in hospital that also needs to be taken care at rehabilitation place. His urinalysis was suggestive of UTI, but he did not have any symptom s and that is why he was not given any antibiotic therapy. Patient was approved for inpatient rehabilitation. While in hospital, we did echocardiography which showed normal EF without any other abnormality. Overall, patient is medically stable for discharge with above-mentioned medication. Discharge medica tion reconciliation done. The patient is seen and examined at bedside today. Primary team is also o venkatesh with discharging this patient to rehabilitation. Please see my progress note for further details .
--- NOTE | 2017-07-18 18:44 | PRG ---
DATE OF SERVICE: 07/18/2017 SERVICE: Pulmonary Medicine. INTERVAL HISTORY: The patient is doing really well from a cardiovascular and respiratory standpoint. He is breathing comfortably. He continues to have complaints of discomfort about the neck. Otherw ise, there has been no interval change to his condition. He denies any current fevers or chills. Ot herwise, there were no overnight events. PHYSICAL EXAMINATION: VITAL SIGNS: Afebrile, pulse 88, blood pressure 159/74, respirations 18, saturation 93% on room air. GENERAL: The patient is awake, alert, in no apparent distress. LUNGS: Decreased air entry. I do not appreciate wheezing, rhonchi, or crackles. There is no prolon ged expiratory phase. HEART: Normal rate, regular. ABDOMEN: Soft, nontender, nondistended, bowel sounds positive. MUSCULOSKELETAL: No cyanosis or clubbing. No pitting in the bilateral lower extremities. NEUROLOGIC: Grossly nonfocal. ASSESSMENT AND PLAN: 1. Bilateral C7 pedicular fracture, status post fixation. 2. Dementia. 3. Deep venous thrombosis in bilateral lower extremities. PLAN: The patient is doing absolutely fantastic from a respiratory standpoint. He no longer has fur ther requirements for inpatient Pulmonary or Critical Care opinion. As such, I will sign off. Pleas e call with any additional questions or concerns moving forward.
== END 2017-07-18 12:30 | DRG 454 ==
LOC: ERS 20:55 → CCU 07-12 01:26 → SURG A 07-17 11:32
PROVIDERS: ADMIT Surgery; ATTEND Surgery
PROC: 0RG2071 Fusion of 2 or more Cervical Vertebral Joints with Autologous Tissue Substitute, Posterior Approach, Posterior Column, Open Approach (ICD-10-PCS; principal; 2017-07-13)
PROC: 0RG1070 Fusion of Cervical Vertebral Joint with Autologous Tissue Substitute, Anterior Approach, Anterior Column, Open Approach (ICD-10-PCS; 2017-07-13)
PROC: 0RG7071 Fusion of 2 to 7 Thoracic Vertebral Joints with Autologous Tissue Substitute, Posterior Approach, Posterior Column, Open Approach (ICD-10-PCS; 2017-07-13)
PROC: 0RB30ZZ Excision of Cervical Vertebral Disc, Open Approach (ICD-10-PCS; 2017-07-13)
PROC: 0RB90ZZ Excision of Thoracic Vertebral Disc, Open Approach (ICD-10-PCS; 2017-07-13)
PROC: 0RG10A0 Fusion of Cervical Vertebral Joint with Interbody Fusion Device, Anterior Approach, Anterior Column, Open Approach (ICD-10-PCS; 2017-07-13)
PROC: 0WQF4ZZ Repair Abdominal Wall, Percutaneous Endoscopic Approach (ICD-10-PCS; 2017-07-17)
DX: S12.600A Unspecified displaced fracture of seventh cervical vertebra, initial encounter for closed fracture (principal); K94.09 Other complications of colostomy; I82.503 Chronic embolism and thrombosis of unspecified deep veins of lower extremity, bilateral; E83.39 Other disorders of phosphorus metabolism; F03.90 Unspecified dementia, unspecified severity, without behavioral disturbance, psychotic disturbance, mood disturbance, and anxiety; I48.0 Paroxysmal atrial fibrillation; M45.2 Ankylosing spondylitis of cervical region; M45.4 Ankylosing spondylitis of thoracic region; I10 Essential (primary) hypertension; G25.81 Restless legs syndrome; E78.5 Hyperlipidemia, unspecified; E66.9 Obesity, unspecified; K43.5 Parastomal hernia without obstruction or gangrene; K59.00 Constipation, unspecified; N40.0 Benign prostatic hyperplasia without lower urinary tract symptoms; E87.6 Hypokalemia; M47.892 Other spondylosis, cervical region; Z68.31 Body mass index [BMI] 31.0-31.9, adult; Z79.01 Long term (current) use of anticoagulants; Z95.828 Presence of other vascular implants and grafts; Z85.038 Personal history of other malignant neoplasm of large intestine; T40.605A Adverse effect of unspecified narcotics, initial encounter; W19.XXXA Unspecified fall, initial encounter; Y92.000 Kitchen of unspecified non-institutional (private) residence as the place of occurrence of the external cause; Y83.3 Surgical operation with formation of external stoma as the cause of abnormal reaction of the patient, or of later complication, without mention of misadventure at the time of the procedure
CPT/HCPCS: 36415; 70450; 71010; 72125; 72128; 72170; 76001; 80048; 80053; 81001; 82550; 82553; 83735; 84100; 84484; 85025; 85610; 85730; 86850; 86900; 86901; 93005; 93306; 93970; 94760; 96360; A4216; C1713; C1768; G0390; G8978-GP-CN; G8979-GP-CK; G8987-GO-CM; G8988-GO-CK; J0360; J0690; J1100; J1170; J1650; J1940; J2001; J2270; J2405; J2550; J2704; J3010; J3370; J3475; J3480; J3490; J7050; P9045

== ENCOUNTER 2018-07-09 22:01 | Emergency (ER) | payer MEDICARE, BC, MEDICAID ==
[2018-07-09] MEDS ORDERED: Cyclobenzaprine 10 MG TAB ONE (22:43)
[2018-07-09] MEDS ORDERED: Morphine 10 MG/ML VIAL ONE (22:43)
== END 2018-07-10 01:46 | disposition home or self-care (01) ==
LOC: MERGE 22:01 → ERS 22:01
DX: M54.41 Lumbago with sciatica, right side (principal); M62.830 Muscle spasm of back; I10 Essential (primary) hypertension; F41.9 Anxiety disorder, unspecified; K21.9 Gastro-esophageal reflux disease without esophagitis; Z79.899 Other long term (current) drug therapy; F32.9 Major depressive disorder, single episode, unspecified
CPT/HCPCS: 96372; J2270

== ENCOUNTER 2019-03-18 09:29 | Outpatient (CLI) | payer MEDICARE, BC, MEDICAID ==
--- NOTE | 2019-03-18 10:16 | ULT ---
Testicular ultrasound INDICATION: History of long-term hydrocele TECHNIQUE: Grayscale, color Doppler spectral Doppler images were obtained of the scrotum. COMPARISON: None. FINDINGS: Right testicle: The right testicle measured 3.0 x 1.7 x 1.9cm. There is normal vascular flow to the r ight testicle There is a large right-sided hydrocele The right epididymis appears within normal limits. There is a tiny appendix testis off the superior and anterior aspect of the right testicle me asuring 3 mm. Left testicle: The left testicle measured 2.7 x 2.3 x 2.1 cmcm. There is normal vascular flow to left testicle. There is a small left hydroceleThe left epididymis appears within normal limits. Additional findings: None. Impression: 1. Large right and small left hydrocele. 2. No intratesticular mass or torsion demonstrated.
--- NOTE | 2019-03-18 11:29 | CT ---
CT Abdomen Pelvis W WO con History: Hydrocele. Hematoma. Comparison: None. Findings: Lung bases are clear. No pericardial effusion. Numerous bilateral renal cysts. Largest righ t superior renal cyst measures up to 6.5 cm predominantly exophytic. The largest left renal cyst also emanates from the superior pole measures up to 3.6 cm, also exophytic. The renal cortices are th in. On the suppose it 90 second phase of contrast there is already contrast within the urinary bladder and renal collecting systems imaging evaluation for enhancing mass. IVC filter is in place wi th limbs outside the confines of the IVC. Moderate sized sliding hiatal hernia. No abnormal renal enhancing mass. No filling defects within the renal calyces, renal pelvis by, nor the ureters. There is a large calculus within the dependent portion of the urinary bladder measuring 2.4 x 0.9 x 1.4 cm. Urinary bladder wall thickness is normal. Large small bowel containing parastomal hernia without evid ence of obstruction. No free intraperitoneal gas or fluid. The appendix is visualized and is normal. Pubic apices are present within the urinary bladder with numerous calcifications. 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 Mild levoscoliosis lumbar spine. There is cement within the T10 vertebral body. Impression: 1. Large calculus within the dependent portion of the urinary bladder as described. 2. No renal calculi appreciated. No hydroureteronephrosis. 3. Multiple bilateral renal cysts. 4. Persisting urachal diverticulum. 5. No abnormal renal enhancing mass nor urothelial mass. 6. Small bowel containing parastomal hernia as well as a ventral hernia also containing small bowel w ithout evidence of obstruction.
[2019-03-18] MEDS ORDERED: Iopamidol 370 76% 100 ML VIAL ONE (13:33)
== END 2019-03-18 09:30 | disposition home or self-care (01) ==
LOC: ULT 09:29
PROVIDERS: ATTEND Urology
DX: N40.1 Benign prostatic hyperplasia with lower urinary tract symptoms (principal); N43.3 Hydrocele, unspecified; K43.5 Parastomal hernia without obstruction or gangrene; K43.9 Ventral hernia without obstruction or gangrene; N32.3 Diverticulum of bladder; N21.0 Calculus in bladder; N28.1 Cyst of kidney, acquired; Z87.440 Personal history of urinary (tract) infections
CPT/HCPCS: 74178; 76870; 93976; Q9967

== ENCOUNTER 2019-06-09 05:23 | Day surgery (SDC) | payer MEDICARE, BC, MEDICAID ==
[2019-06-09 06:27] LABS: #Eosinphils 0.3 thou/uL (0.0-0.7); #Lymphocytes 1.6 thou/uL (1.20-3.40); #Monocytes 1.1 thou/uL (0.11-0.59); #Neutrophils 6.2 thou/uL (1.40-6.50); %Basophils 0.3 % (0.0-1.0); %Eosinophils 3.7 % (0.0-10.0); %Lymphocytes 17.1 % (21.0-51.0); %Monocytes 11.6 % (0.0-10.0); %Neutrophils 67.4 % (42.0-75.0); Hemoglobin 12.3 g/dL (14.0-18.0); Mean Corpuscular HGB CONC 32.9 g/dL (32.0-36.0); Mean Corpuscular Hemoglobin 29.7 pg (27.0-31.0); Mean Corpuscular Volume 90.2 fL (78.0-98.0); Mean Platelet Volume 6.4 fL (7.4-10.4); Platelet Count 275 thou/uL (130-400); RBC Distribution Width 13.3 % (11.5-14.5); Red Blood Cell (RBC) Count 4.16 mill/uL (4.70-6.10); White Blood Cell (WBC) Count 9.1 thou/uL (4.8-10.8)
[2019-06-09 06:48] LABS: ALT (SGPT) 13 U/L (8-55); AST (SGOT) 15 U/L (5-34); Albumin 3.8 g/dL (3.4-4.8); Alkaline Phosphatase 80 U/L (40-110); Anion Gap 14 mmol/L (10-20); BUN (Urea Nitrogen) 29 mg/dL (8.4-25.7); Bilirubin, Total 0.3 mg/dL (0.2-1.2); Calc. Creatinine Clearance 0 mL/min (70-130); Calcium 9.5 mg/dL (7.8-10.44); Carbon Dioxide 25 mmol/L (23-31); Cardiac Risk 4.1 (Less than 4.5); Chloride 107 mmol/L (98-107); Cholesterol 170 mg/dl (< 200 Desired); Estimated GFR-MDRD 54; Globulin 3.2 g/dL (2.4-3.5); Glucose 111 mg/dL (83-110); HDL Cholesterol 41 mg/dL (>60 Neg Risk); LDL Cholesterol, Calculated 103 mg/dL; Potassium 4.5 mmol/L (3.5-5.1); Sodium 141 mmol/L (136-145); Triglycerides 132 mg/dL (Less than 150)
[2019-06-09] MEDS ORDERED: Lidocaine 1% (PF) 30 ML VIAL ONE ×2 (06:56→07:26)
[2019-06-09] MEDS ORDERED: Heparin 10,000 UNITS/1 ML VIAL ONE (06:57)
[2019-06-09] MEDS ORDERED: Fentanyl 100 MCG/2 ML VIAL ONE (07:11)
[2019-06-09] MEDS ORDERED: Midazolam HCl 2 mg/2 ml Vial ONE (07:11)
[2019-06-09] MEDS ORDERED: Protamine Sulfate 50 MG/5 ML VIAL ONE (07:41)
[2019-06-09] MEDS ORDERED: Morphine 2 MG/ML SYRINGE ONE (08:14)
--- NOTE | 2019-06-09 09:37 | RAD ---
CHEST 1 VIEW: HISTORY: Shortness of breath. Examination is performed prior to cardiac catheterization. FINDINGS: There is incompletely evaluated cervical fusion hardware. Atherosclerosis of the aorta. Heart is enlarged. Pulmonary vessels and hilum are normal. Costophre nereyda angles are clear. No masses or consolidation. No pneumothorax. Right-sided PICC line is noted with the distal tip; projecting over the superior vena cava. IMPRESSION: Atherosclerosis. No acute cardiopulmonary process. POS: [facility]
== END 2019-06-09 16:00 | disposition home or self-care (01) ==
LOC: CCL 05:23
PROVIDERS: ATTEND Internal Medicine Cardiovascular Disease
PROC: 4A023N7 Measurement of Cardiac Sampling and Pressure, Left Heart, Percutaneous Approach (ICD-10-PCS; principal; 2019-06-09)
PROC: B2111ZZ Fluoroscopy of Multiple Coronary Arteries using Low Osmolar Contrast (ICD-10-PCS; 2019-06-09)
DX: I25.10 Atherosclerotic heart disease of native coronary artery without angina pectoris (principal); I44.1 Atrioventricular block, second degree; I10 Essential (primary) hypertension; N40.1 Benign prostatic hyperplasia with lower urinary tract symptoms; N13.8 Other obstructive and reflux uropathy; I82.509 Chronic embolism and thrombosis of unspecified deep veins of unspecified lower extremity; I48.0 Paroxysmal atrial fibrillation; G20 Parkinson's disease; Z86.711 Personal history of pulmonary embolism; Z87.891 Personal history of nicotine dependence; Z79.01 Long term (current) use of anticoagulants; Z79.1 Long term (current) use of non-steroidal anti-inflammatories (NSAID); Z79.899 Other long term (current) drug therapy; Z88.8 Allergy status to other drugs, medicaments and biological substances; Z93.3 Colostomy status
CPT/HCPCS: 71045; 76942; 80053; 80061; 85025; 85347; 93458; 99152; C1769; J1644; J2001; J2250; J2270; J2720; J3010

== ENCOUNTER 2019-06-13 09:20 | Outpatient (CLI) | payer MEDICARE, BC, MEDICAID ==
[2019-06-13 13:36] LABS: INR-International Normal Ratio 1.1; PTT 27.9 SEC (22.9-36.1)
== END 2019-06-13 09:21 | disposition home or self-care (01) ==
LOC: LABBT 09:20
PROVIDERS: ATTEND Urology
DX: Z01.812 Encounter for preprocedural laboratory examination (principal); N40.1 Benign prostatic hyperplasia with lower urinary tract symptoms; I48.0 Paroxysmal atrial fibrillation; Z93.3 Colostomy status; C19 Malignant neoplasm of rectosigmoid junction; I82.433 Acute embolism and thrombosis of popliteal vein, bilateral; N43.3 Hydrocele, unspecified; R30.0 Dysuria; I48.91 Unspecified atrial fibrillation; N21.0 Calculus in bladder; N28.1 Cyst of kidney, acquired; R94.39 Abnormal result of other cardiovascular function study; N35.919 Unspecified urethral stricture, male, unspecified site; Z16.30 Resistance to unspecified antimicrobial drugs; Z90.49 Acquired absence of other specified parts of digestive tract; Z87.440 Personal history of urinary (tract) infections
CPT/HCPCS: 85610; 85730

== ENCOUNTER 2019-06-16 07:44 | Inpatient (IN) | payer MEDICARE, BC, MEDICAID ==
[2019-06-13 13:29] VITALS: BMI 39.6
[2019-06-16] MEDS ORDERED: Meropenem 1 GM in Sodium Chloride 0.9% 100 ML IVPB SCH (08:15)
[2019-06-16] MEDS ORDERED: MEROPENEM 1 GM/50 ML 1 GM in Premix Bag 1 BAG IVPB SCH (08:30)
[2019-06-16] MEDS ORDERED: Fentanyl 100 MCG/2 ML VIAL ONE (10:39)
[2019-06-16] MEDS ORDERED: Phenazopyridine HCl 97.5 MG TABLET PO PRN ×2 (13:07→13:40)
[2019-06-16] MEDS ORDERED: Mag-Al 1200 mg/1200 mg/30 ML UDCUP PO PRN ×2 (13:07→13:40)
[2019-06-16] MEDS ORDERED: Bisacodyl 10 MG SUPP PR PRN ×2 (13:07→13:40)
[2019-06-16] MEDS ORDERED: Morphine 2 MG/ML SYRINGE SLOW IVP PRN ×2 (13:07→13:40)
[2019-06-16] MEDS ORDERED: HYDROcodone/Acetaminophen 10/325 mg Tablet PO PRN ×2 (13:07)
[2019-06-16] MEDS ORDERED: hydrALAZINE 20 MG/ML VIAL SLOW IVP PRN ×4 (13:07→13:40)
[2019-06-16] MEDS ORDERED: Morphine 4 MG/ML VIAL SLOW IVP PRN ×2 (13:07→13:40)
[2019-06-16] MEDS ORDERED: diphenhydrAMINE 50 MG/ML VIAL IVP PRN ×2 (13:07→13:40)
[2019-06-16] MEDS ORDERED: Sodium Chloride 0.9% 1,000 ML IV SCH (13:15)
[2019-06-16 14:29] LABS: #Lymphocytes 0.7 thou/uL (1.20-3.40); #Monocytes 0.3 thou/uL (0.11-0.59); #Neutrophils 9.1 thou/uL (1.40-6.50); %Basophils 0.2 % (0.0-1.0); %Eosinophils 0.4 % (0.0-10.0); %Lymphocytes 6.8 % (21.0-51.0); %Monocytes 2.7 % (0.0-10.0); %Neutrophils 89.9 % (42.0-75.0); Hemoglobin 11.7 g/dL (14.0-18.0); Mean Corpuscular HGB CONC 32.3 g/dL (32.0-36.0); Mean Corpuscular Hemoglobin 29.8 pg (27.0-31.0); Mean Corpuscular Volume 92.3 fL (78.0-98.0); Mean Platelet Volume 6.3 fL (7.4-10.4); Platelet Count 272 thou/uL (130-400); RBC Distribution Width 13.5 % (11.5-14.5); Red Blood Cell (RBC) Count 3.94 mill/uL (4.70-6.10); White Blood Cell (WBC) Count 10.1 thou/uL (4.8-10.8)
[2019-06-16] MEDS: MEROPENEM 1 GM/50 ML 1 GM in Premix Bag 1 BAG IVPB SCH ×2 (14:43→21:06)
[2019-06-16 14:49] LABS: Anion Gap 12 mmol/L (10-20); BUN (Urea Nitrogen) 22 mg/dL (8.4-25.7); Calc. Creatinine Clearance 81 mL/min (70-130); Calcium 8.6 mg/dL (7.8-10.44); Carbon Dioxide 21 mmol/L (23-31); Chloride 109 mmol/L (98-107); Estimated GFR-MDRD 59; Glucose 131 mg/dL (83-110); Potassium 4.4 mmol/L (3.5-5.1); Sodium 138 mmol/L (136-145)
[2019-06-16] MEDS ORDERED: Tamsulosin HCl 0.4 MG CAP ONE (14:50)
[2019-06-16] MEDS ORDERED: Lidocaine 1% PF 5 ML VIAL ONE (14:59)
[2019-06-16] MEDS ORDERED: PHENYLEPHRINE-NS 100 MCG/ML 10 ML SYRINGE ONE (14:59)
[2019-06-16] MEDS ORDERED: PROPOFOL 200 MG/20 ML VIAL ONE (14:59)
[2019-06-16] MEDS ORDERED: Succinylcholine Chloride 20 MG/ML 10 ml SYRINGE FS ONE (14:59)
[2019-06-16] MEDS ORDERED: Ondansetron PF 4 MG/2 ML Vial ONE (14:59)
[2019-06-16] MEDS ORDERED: Dexamethasone 20 MG/5 ML VIAL ONE (14:59)
--- NOTE | 2019-06-16 16:08 | OP ---
DATE OF PROCEDURE: 06/16/2019 PREOPERATIVE DIAGNOSES: 1. History of benign prostatic hypertrophy status post UroLift in 2011 in [place]. 2. History of benign prostatic hypertrophy. 3. 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 4. History of bladder stone, measuring 2.5 cm. POSTOPERATIVE DIAGNOSES: 1. History of benign prostatic hypertrophy status post UroLift in 2011 in [place]. 2. History of benign prostatic hypertrophy. 3. 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 4. History of bladder stone, measuring 2.5 cm.. PROCEDURES PERFORMED: 1. Cystoscopy. 2. Urethral dilatation. 3. Laser lithotripsy of bladder calculi. 4. Extraction of bladder foreign body, consistent with fragmented indwelling Avendaño catheter, chronicity unknown. 5. Evacuation of bladder stone fragments. 6. Retrieval of foreign body. 7. 18-Stateless 30 mL urethral Avendaño catheter, 3-way 30 mL to gravity, continuous bladder irrigation port plugged. 8. Bilateral aspiration of hydrocele. ANESTHESIA: General. COMPLICATIONS: None apparent. IV FLUIDS: 800 mL. ESTIMATED BLOOD LOSS: Minimal. INTRAOPERATIVE FINDINGS: 1. Wide caliber bulbar stricture as above. 2. Bladder stone, upon further laser lithotripsy, nidus is a fragment of Avendaño catheter nidus. 3. Bilobar hyperplasia, mildly obstructing coapting lateral lobes with no evidence of intravesical median lobe. 4. No evidence of UroLift extrusion within the prostatic urethra nor bladder. 5. Bilateral hydrocele, moderate in size, with tight suspensory ligament hindering. Rigid cystoscope advancement into the level of the bladder. Therefore, requiring flexible cystoscopy. INDICATIONS FOR PROCEDURE AND HISTORY: Mr. Macias is an 79-year-old male, wheelchair bound, halfway resident, who presented for evaluation of scrotal swelling, consistent with hydrocele, which he has had numerous years, which was minimally uncomfortable for him. He has a history of BPH status post UroLift at an outside facility in [place] in 2011. He denied obstructive urinary symptoms. He is known to have chronic bacteria in the urine, usually asymptomatic. Staging CT demonstrated findings consistent with UroLift in the prostatic urethra, a bladder stone measuring about 2.5 cm x 1.4 x 9 mm. There was no evidence of hydrocele, likely small bladder diverticulum at the dome. He underwent evaluation of cysto, stress volume study , bladder stone was seen, free-floating. I did not see any obvious stone tethering nidus of concern, consistent with UroLift extrusion. He presents today for treatment of his bladder calculi, UroLift stage implant, stricture dilatation. The patient's brother is the power of compliance attorney and has been fully informed regarding indications and alternative of the options. He has been also advised that due to presenting hydrocele and his morbid obesity the cystoscopic evaluation may be suboptimal, warranting aspiration of his hydrocele. They declined elective hydrocelectomy prior to surgery and desired to proceed and aspirate hydroceles, needed to access the bladder if needed. Risks and complications and indications were reviewed, including, but not limited to, bleeding, pain, infection, injury to adjacent organs, urosepsis. Increased risk of infection, morbidity, and mortality were reviewed given his age and chronic bacteria. He has been seen by Infectious Disease and advised regarding vancomycin and meropenem on-call to OR, which he has been provided. DESCRIPTION OF PROCEDURE: After an informed consent was signed, the patient was taken to the operating room and placed in a dorsal lithotomy position with the genital area prepped and draped in the usual surgical sterile fashion. Again, we noted the large bilateral hydrocele. He has chronic excoriation of his perineum , scrotum consistent with chronic irritation; however, no gross evidence of fluctuance. We were able to pass the 22-Stateless cystoscope and staged his bulbar urethra, which demonstrated a wide caliber 16/18-Stateless caliber, which was passively dilated upon passing the scope. The prostatic urethra was entered to the level of the verumontanum, however, I was unable to advance the rigid cystoscope to the level of the bladder. As such, we aspirated his bilateral hydrocele with an 16-gauge angiocath, which demonstrated clear straw output from the right hemiscrotum. Moderate amount was evacuated with near resolution of his right hydrocele. The left hydrocele remains and this was suboptimally drained, however, significantly decreased in size with angiocath aspiration. No significant postoperative hematoma was noted. Despite evacuation of his large bilateral hydroceles, due to his morbid obesity, and his tight tubal suspensory ligament of his penis, I am unable to advance the rigid cystoscope to the level of the bladder. We attempted to pass; however, the scope would not pass, and therefore, we did not advance as there was increased risk of capsular injury. Despite multiple attempts, I could not pass a rigid cystoscope to engage his bladder. As such, decision was made to treat his bladder stone with flexible cystoscopy. Although, this was suboptimal and laborious, we were able to laser lithotripsy the stone successfully. We were able to laser the stone, at the nidus was a fragment of a Avendaño fragment. Chronicity is unknown. We removed the nidus of the Avendaño. Intraoperative pictures were taken. We retrieved the stone fragments. We aspirated the bladder on multiple occasions to empty his bladder throughout the procedure. A small nidus of fragmented debris may remain; however, visualization was somewhat suboptimal at the end of the procedure. I felt that most of the stone debris was adequately treated. There was no evidence of bladder or urethral trauma. We retrieved the foreign body atraumatically. I again re-staged his prostatic urethra with the UroLift 20-Stateless 0-degree lens. We gently passed this; however, I was still unable to provide him with a further UroLift re-implant. His prostatic urethra demonstrated bilobar hyperplasia; however, appeared to be mildly obstructing, therefore, I did not further pursue as risks and benefit as such that would cause him more harm to pass a rigid cystoscope. Moreover, I am unable to engage properly at the level of the mid prostate bladder neck to deploy further UroLift implant. An 18-Stateless 30 mL 3-way Avendaño catheter was passed without difficulty. His urine output was pink tinged. Given the manipulation today, I will observe him overnight with meropenem and vancomycin as he has chronic bacteria from his bladder stone. We will consider CT staging tomorrow morning. If there is no significant stone burden of concern, I will consider voiding trial in-house versus as an outpatient. Job ID: [id number] [facility]
[2019-06-16] MEDS: Baclofen 10 MG TAB PO SCH ×2 (16:32→20:47)
[2019-06-16] MEDS: Gabapentin 300 MG CAP PO SCH ×2 (16:32→20:49)
[2019-06-16] MEDS: Sodium Chloride 0.9% 1,000 ML IV SCH (17:50)
[2019-06-16] MEDS: HYDROcodone/Acetaminophen 5/325 mg Tablet PO PRN (18:40)
[2019-06-16] MEDS: Potassium Chloride 20 MEQ TAB PO SCH (20:49)
[2019-06-16] MEDS: Docusate 100 MG CAP PO SCH (20:49)
[2019-06-16] MEDS: Famotidine/PF 20 mg/2ml Vial SLOW IVP SCH (20:50)
[2019-06-16] MEDS ORDERED: Vancomycin HCl 1 GM in Premix Bag 1 BAG IVPB SCH (21:00)
[2019-06-16] MEDS ORDERED: Famotidine/PF 20 mg/2ml Vial SLOW IVP SCH (21:00)
[2019-06-16] MEDS ORDERED: Docusate 100 MG CAP PO SCH (21:00)
[2019-06-17] MEDS: Sodium Chloride 0.9% 1,000 ML IV SCH ×3 (04:05→20:56)
[2019-06-17] MEDS: MEROPENEM 1 GM/50 ML 1 GM in Premix Bag 1 BAG IVPB SCH ×3 (05:08→21:01)
[2019-06-17 06:02] LABS: #Monocytes 0.9 thou/uL (0.11-0.59); #Neutrophils 9.7 thou/uL (1.40-6.50); %Eosinophils 0.1 % (0.0-10.0); %Lymphocytes 8.9 % (21.0-51.0); %Monocytes 7.8 % (0.0-10.0); %Neutrophils 83.1 % (42.0-75.0); Mean Corpuscular HGB CONC 33.2 g/dL (32.0-36.0); Mean Corpuscular Hemoglobin 30.1 pg (27.0-31.0); Mean Corpuscular Volume 90.6 fL (78.0-98.0); Mean Platelet Volume 6.3 fL (7.4-10.4); Platelet Count 278 thou/uL (130-400); RBC Distribution Width 13.2 % (11.5-14.5); Red Blood Cell (RBC) Count 3.66 mill/uL (4.70-6.10); White Blood Cell (WBC) Count 11.7 thou/uL (4.8-10.8)
[2019-06-17 06:18] LABS: Anion Gap 12 mmol/L (10-20); BUN (Urea Nitrogen) 14 mg/dL (8.4-25.7); Calc. Creatinine Clearance 90 mL/min (70-130); Calcium 8.6 mg/dL (7.8-10.44); Carbon Dioxide 22 mmol/L (23-31); Chloride 110 mmol/L (98-107); Estimated GFR-MDRD 67; Glucose 137 mg/dL (83-110); Potassium 4.2 mmol/L (3.5-5.1); Sodium 140 mmol/L (136-145)
[2019-06-17] MEDS: Baclofen 10 MG TAB PO SCH ×3 (08:07→20:57)
[2019-06-17] MEDS: Docusate 100 MG CAP PO SCH ×2 (08:07→20:59)
[2019-06-17] MEDS: Polyethylene Glycol 3350 17 GM Packet PO SCH (08:07)
[2019-06-17] MEDS: Finasteride 5 MG TAB PO SCH (08:10)
[2019-06-17] MEDS: Furosemide 40 MG TAB PO SCH (08:11)
[2019-06-17] MEDS: PARoxetine 20 MG TAB PO SCH (08:12)
[2019-06-17] MEDS: Tamsulosin HCl 0.4 MG CAP PO SCH (08:16)
[2019-06-17] MEDS: clonazePAM 0.5 MG TAB PO SCH (08:16)
[2019-06-17] MEDS: Potassium Chloride 20 MEQ TAB PO SCH ×2 (08:16→21:07)
[2019-06-17] MEDS: Multivit, Therapeutic 1 TAB PO SCH (08:16)
[2019-06-17] MEDS: Gabapentin 300 MG CAP PO SCH ×3 (08:16→21:00)
[2019-06-17] MEDS ORDERED: Prevnar 13-Val Conj/PF 0.5 ML SYRINGE IM ONE (09:00)
[2019-06-17] MEDS ORDERED: FLU VACC TS2019-20(65YR UP)/PF 180 MCG/0.5 ML SYRINGE IM ONE (09:00)
[2019-06-17] MEDS ORDERED: Vancomycin HCl 1.5 GM in Sodium Chloride 0.9% 250 ML 300 ML IVPB SCH (09:00)
[2019-06-17] MEDS ORDERED: Tamsulosin HCl 0.4 MG CAP PO SCH (09:00)
--- NOTE | 2019-06-17 09:19 | PRG ---
DATE OF SERVICE: 06/17/2019 SUBJECTIVE: The patient is resting comfortably, denies scrotal or abdominal discomfort. OBJECTIVE: VITAL SIGNS: Stable. He is afebrile. I's and O's 2500 in, 2750 out. He is -250 mL. Adequate oral intake. ABDOMEN: Morbidly obese, protuberant, parastomal hernia with colostomy with air and stool. No rigidity. No rebound. : Avendaño catheter adequately secured with susana colored urine. Some old venous blood at the catheter meatus, which is expected. There is no evidence of scrotal cellulitis. Status post needle aspiration of hydrocele with no evidence of hematoma or drainage noted. PERTINENT LABORATORY DATA: White count of 11, hemoglobin stable at 11.0, platelets of 278. Creatinine is 1.0, which is stable. IMPRESSION AND PLAN: Mr. Macias is an 79-year-old morbidly obese male with multiple medical comorbidities, postoperative day #1, status post laser lithotripsy of bladder calculi, removal of foreign body, retained fragment of indwelling Avendaño catheter as a nidus of bladder stone, aspiration of bilateral hydrocele, dilatation of urethral stricture, extraction of foreign body. I was unable to access the bladder with a rigid cystoscope due to his morbid obesity, tight suspensory ligament. We will make significant progress in his bladder stone and retrieval of foreign body. I will obtain a CT pelvis for staging to evaluate for obvious stone debris of concern. Infectious Disease consult pending as he was provided meropenem, vancomycin on-call to OR. He has two urine cultures dated March, one Enterococcus, one E. coli that are multi-drug resistant. Please note that this recent urine culture is in paper, in his chart. Await Dr. Belcher' input regarding outpatient antibiotic regimen, i.e., Invanz plus vancomycin? Staging CT pending. Anticipate the patient will most likely be discharged tomorrow pending review of CT, Infectious Disease, input of outpatient antibiotic regimen as he has a PICC line. Continue BPH medications. Job ID: [id number] [id number]
[2019-06-17] MEDS: Bupropion 150 MG SR TAB PO SCH (09:58)
--- NOTE | 2019-06-17 09:58 | CT ---
CT PELVIS WITHOUT IV CONTRAST: Date: 06/17/19 INDICATION; History of bladder stones. COMPARISON: Prior CT of the abdomen and pelvis with and without contrast dated 03/18/19. FINDINGS: Again seen is a left lower quadrant parastomal hernia containing loops of unobstructed small intestin e. There is also a lower anterior abdominal wall hernia containing portions of small intestine. Small urachal diverticulum is again noted. There is a Avendaño catheter in place. The bladder is decompressed . There are numerous calcifications seen within the region of the lumen of the bladder, the largest m easuring up to 1.3 cm. There was a larger stone seen on the prior examination within the lumen of the bladder measuring 2.1 cm. This calcification may have undergone interval fragmentation. There are nu merous smaller calcifications seen within the lumen of the bladder, likely related to small bladder s tones. Calcifications within the prostate gland appear similar. There is scattered diverticulum invol ving the colon. No drainable fluid collection is evident. No definite lymphadenopathy is noted. There is scattered degenerative and osteoarthritic change. IMPRESSION: 1. Likely interval fragmentation of the larger bladder stone seen within the lumen of the bladder on the prior examination. There are numerous smaller fragmented stones within the bladder. The bladder is decompressed with a Avendaño catheter. 2. Small urachal diverticulum appears similar appearing. 3. Stable lower abdominal wall hernias containing unobstructed loops of small intestine. POS: TPC
[2019-06-17] MEDS: Famotidine/PF 20 mg/2ml Vial SLOW IVP SCH (10:00)
[2019-06-17] MEDS: HYDROcodone/Acetaminophen 5/325 mg Tablet PO PRN ×2 (10:47→17:24)
[2019-06-17] MEDS: Famotidine 20 MG TAB PO SCH (20:59)
--- NOTE | 2019-06-17 22:09 | CON ---
DATE OF CONSULTATION: 06/17/2019 REASON FOR REQUEST: Evaluate and help manage urinary tract colonization/cystitis following recent urological procedure. HISTORY OF PRESENT ILLNESS: An 79-year-old history of Parkinson disease; restless legs syndrome; DVT; urinary retention secondary to BPH with prior UroLift procedure, atrial fibrillation, on Eliquis; and cancer of sigmoid colon, which led to resection and a colostomy; who is a detention resident and is not ambulatory anymore, and was admitted for urological intervention. He basically had a lithotripsy of bladder calculi, removal of fragment of Avendaño catheter retained within the bladder, and aspiration of bilateral hydroceles to allow access to the bladder, dilation of the urethral stricture. He had a culture done at the detention, which revealed an ESBL E coli and Enterococcus, and exact same organisms have been identified in the urine samples obtained since 2016. These are chronically colonized, probably due to the stone burden. The most recent pelvic and abdomen CT is from March 14 and it demonstrated a large calculus in the urinary bladder, but no kidney calculi or hydronephrosis. The patient had interventions and now is lying in bed. He is awake. He has hypomotility as expected. He denies any visual symptoms, sore throat, odynophagia, or dysphagia. Some headaches. No dyspnea or chest pain. No abdominal pain. Minimal pain at the surgical site. PAST MEDICAL HISTORY: Includes obesity; Parkinson disease; BPH; bladder stone; deep vein thrombosis in the lower extremity vein; placement of an IVC filter; atrial fibrillation, on Eliquis; and he had neck fusion by Dr. Carlisle. ALLERGIES: NONE. SOCIAL HISTORY: He lives in a detention. Never smoker. CURRENT MEDICATIONS: 1. [place]. 2. Maalox. 3. Lioresal. 4. Dulcolax. 5. Wellbutrin. 6. Klonopin. 7. Cardizem. 8. Benadryl. 9. Colace. 10. Proscar. 11. Lasix. 12. Meropenem. 13. Vancomycin. PHYSICAL EXAMINATION: VITAL SIGNS: Temperature max 98.4, blood pressure 140/85, pulse 68, respirations 14, O2 saturation 93% to 94%. SKIN: A little bit of intertriginous macerations, but otherwise normal skin exam. The patient has an indwelling Avendaño catheter and peripheral IV access, now actually has a central line in the right upper extremity in the form of a PICC line. LYMPH: No lymphadenopathy. HEENT: Ocular movements conjugate. Sclerae white. Nasal passages patent. Oral cavity with no [place] teeth remaining. Stiff neck to all directions. No jugular vein distention. LUNGS: Diminished respiratory excursions. Clear breath sounds. HEART: S1 and S2. Irregular rate with a soft aortic murmur. ABDOMEN: Slightly distended, but not tender. No ascites. No organomegaly. No bladder distention. EXTREMITIES: Stiffness to all extremities. Plantar responses are indifferent. Pulses 1+ in dorsalis pedis. NEUROLOGIC: He is awake, knows his name. His speech is halting. He has difficulty in finding words, sometimes he is oriented. LABORATORY DATA: White cell count 10.1 and 11.7, hemoglobin 11, platelets 278. Sodium 138, creatinine 1.18. Urine cultures as noted previously. Chest x-ray from a few days ago with no acute cardiopulmonary process. ASSESSMENT: Parkinson disease, benign prostatic hyperplasia, chronic bladder stone, urethral stenosis, and urological procedure as described above. DISCUSSION: The patient will continue on treatment. It is not clear what the schedule for the upcoming lithotripsy will be, but the options for management would include to continue meropenem by itself. He does have activity against Enterococcus faecalis, which should be sufficient to take care of this patient's problem plus the ESBL activity and it would simplify the treatment somewhat since one would not have to check vancomycin trough levels. The alternate approach would be to give oral fosfomycin, but that is not an evidence based approach yet, so I cannot recommend that. We will give orders to Case Management for the meropenem. The dose will be 1 g q.8 hours. The duration of therapy will depend on the schedule for the upcoming lithotripsy to be determined by Dr. Turcios. Job ID: [id number]
[2019-06-18] MEDS: HYDROcodone/Acetaminophen 5/325 mg Tablet PO PRN ×2 (05:00→13:04)
[2019-06-18] MEDS: MEROPENEM 1 GM/50 ML 1 GM in Premix Bag 1 BAG IVPB SCH ×2 (05:02→15:14)
[2019-06-18] MEDS: Tamsulosin HCl 0.4 MG CAP PO SCH (08:12)
[2019-06-18] MEDS: PARoxetine 20 MG TAB PO SCH (08:12)
[2019-06-18] MEDS: Gabapentin 300 MG CAP PO SCH ×2 (08:12→15:14)
[2019-06-18] MEDS: Potassium Chloride 20 MEQ TAB PO SCH (08:13)
[2019-06-18] MEDS: Famotidine 20 MG TAB PO SCH (08:13)
[2019-06-18] MEDS: Polyethylene Glycol 3350 17 GM Packet PO SCH (08:13)
[2019-06-18] MEDS: Finasteride 5 MG TAB PO SCH (08:13)
[2019-06-18] MEDS: Docusate 100 MG CAP PO SCH (08:13)
[2019-06-18] MEDS: Multivit, Therapeutic 1 TAB PO SCH (08:14)
[2019-06-18] MEDS: Furosemide 40 MG TAB PO SCH (08:14)
[2019-06-18] MEDS: Baclofen 10 MG TAB PO SCH ×2 (08:14→15:14)
[2019-06-18] MEDS: clonazePAM 0.5 MG TAB PO SCH (08:14)
--- NOTE | 2019-06-18 09:25 | PRG ---
DATE OF SERVICE: 06/18/2019 SUBJECTIVE: The patient without complaints, easily arousable. OBJECTIVE: VITAL SIGNS: Stable. He is afebrile, 98, 66, 181/81. I's and Os: 2960 in, 2350 out. Urine output is susana clear. ABDOMEN: Soft, protuberant. No rigidity. No rebound. There is previous parastomal hernia with gas and stool. : Avendaño catheter secured. His catheter is removed today for a voiding trial. LABORATORY DATA: No new labs. Dr. Belcher' consult reviewed regarding postoperative antibiotic recommendations. He is recommending ongoing meropenem. No need for further vancomycin. CT of the pelvis obtained yesterday demonstrating fragmented stone debris in the bladder. IMPRESSION: 1. Mr. Macias is an 79-year-old male with history of recurrent bacteruria 2. History of benign prostatic hypertrophy, status post UroLift in the remote past. 3. History of large bilateral hydrocele. Postop day #2 status post laser lithotripsy of bladder calculi requiring flexible cystoscope as rigid scopes were unable to be passed into the level of the bladder due to morbid obesity and tight suspensory ligament, bilateral aspiration of hydrocele, dilation of urethral stricture, which resolved with passage of scope. He will undergo voiding trial today. Pending reassessment, disposition regarding back to his nursing facility with or without indwelling Avendaño catheter. He does have a residual stone fragmented debris in the bladder, there were small during cystoscopy. Pending his voiding trial, disposition will be pending this afternoon. PLAN: Restaging cystoscopy versus repeat CT of the pelvis in few weeks for passage of stone debris that remains. Foreign body extracted as nidus of bladder stone. Continue BPH medications. We will continue IV meropenem as outpatient per Dr. Belcher' recommendations. Job ID: [id number] MTDD
[2019-06-18] MEDS: Sodium Chloride 0.9% 1,000 ML IV SCH (11:21)
[2019-06-18] MEDS: Bupropion 150 MG SR TAB PO SCH (11:21)
--- NOTE | 2019-06-18 15:01 | DIS ---
DATE OF ADMISSION: 06/17/2019 DATE OF DISCHARGE: 06/18/2019 CONSULT: Infectious Disease for perioperative antibiotic regimen advise. DISPOSITION: Back to [facility] in stable condition. DRAINS: PICC line only. No urethral Avendaño. MEDICATIONS: The patient may resume his prior medications except, Eliquis and Mobic to be restarted on June 21. New medications: Meropenem IV every 8 hours for another 48 hours via PICC line per Dr. Belcher. FOLLOWUP: followup on July 01 at 11:30 a.m. BRIEF HOSPITAL COURSE: Mr. Macias is an 79-year-old male, who was referred to me initially for evaluation of hydrocele, which he was asymptomatic with significant discomfort. Further workup demonstrated history of BPH in which he previously underwent UroLift. CT demonstrated a bladder stone about 2.1 to 2.5 cm. He underwent laser lithotripsy of bladder calculi, with evacuation of his hydrocele. However, I was unable to laser lithotripsy his bladder stone with at rigid cystoscope as I was unable to access the bladder safely due to very tight suspensory ligament of the penis hindering access safely, in addition to his morbid obesity. Therefore, we did not have a choice but to treat his bladder stones with a flexible cystoscope. We lasered the stone, however, the nidus was a fragment of a foreign body, likely a retained Avendaño catheter fragment. This was evacuated uneventfully. The residual stones were fragmented into small debris. Staging CT of the pelvis was obtained, demonstrated fragmented debris in the bladder, however, some smaller in size. However, intraoperatively, these were small in caliber. Therefore, his Avendaño catheter was removed this morning for a voiding trial. His urine output has been clear, PVR is minimal at 17 mL, 0cc. He is clinically stable to be transitioned back to his [facility] prison. I informed his brother who is the power of state attorney regarding clinical course, he will follow up with me as above to monitor his voiding status. My plan is to perform a staging CT in the next few weeks to evaluate for residual stone burden of clinical significance. He is to resume all his previous medications including Flomax, finasteride, however, we will hold his Eliquis and Mobic until another 48 hours due to recent surgery. Await disposition, he will continue his PICC line for meropenem for 48 hourr as recomm by ID. >30 min om dispo/dc coordination of care Job ID: [id number] [facility] SYSTEM[facility]
[2019-06-18 15:11] VITALS: BP 132/75; TEMP 97.8
--- NOTE | 2019-06-20 09:53 | EKG ---
Test Reason : PREOP Blood Pressure : / mmHG Vent. Rate : 062 BPM Atrial Rate : 062 BPM P-R Int : 360 ms QRS Dur : 092 ms QT Int : 412 ms P-R-T Axes : 070 -29 010 degrees QTc Int : 418 ms Sinus rhythm with 1st degree A-V block Low voltage QRS Inferior infarct , age undetermined Abnormal ECG Confirmed by SUSHMA STUART MD ([id number]) on 06/20/2019 9:52:56 AM Referred By: EARLINE Confirmed By:SUSHMA STUART MD
[2019-06-20 11:11] LABS: CA Oxalate Dihydrate 15 % (.); CA Oxalate Monohydrate 60 % (.); CA Phosphate 25 % (.); Color Brown (.); Comment Note: (.); Stone Weight 206.8 mg (.)
== END 2019-06-18 16:12 | DRG 726 ==
LOC: SDC 07:44 → SURG B 13:40 → OBSVTOIN 06-17 07:37
PROVIDERS: ADMIT Urology; ATTEND Urology
DX: N40.1 Benign prostatic hyperplasia with lower urinary tract symptoms (principal); E66.01 Morbid (severe) obesity due to excess calories; G20 Parkinson's disease; I48.91 Unspecified atrial fibrillation; N35.912 Unspecified bulbous urethral stricture, male; N43.3 Hydrocele, unspecified; Z68.39 Body mass index [BMI] 39.0-39.9, adult; Z93.3 Colostomy status; Z86.718 Personal history of other venous thrombosis and embolism; Z98.1 Arthrodesis status; Z79.899 Other long term (current) drug therapy
CPT/HCPCS: 36415; 72192; 80048; 82365; 85025; 88300; 90471; 90662; 93005; 93010; C1758; G0008; J1100; J2001; J2185; J2270; J2405; J2704; J3010; J3370; J3490; J7050; S0028

== ENCOUNTER 2019-09-11 11:36 | Outpatient (CLI) | payer MEDICARE, BC, MEDICAID ==
--- NOTE | 2019-09-11 12:56 | CT ---
CT Abdomen Pelvis WO Con: 09/11/2019 12:00 AM HISTORY: Prostatic hyperplasia with lower urinary tract symptoms COMPARISON: None. TECHNIQUE: Multiple contiguous axial images were obtained and a CT of the abdomen and pelvis without IV contrast . Coronal and sagittal reformats were performed. FINDINGS: This examination is limited for the evaluation of solid organs and vascular structures due to the lac k of intravenous contrast. Lower Chest: within normal limits. Abdomen: Liver: within normal limits. Bile Ducts: Normal caliber. Gallbladder: No calcified gallstones. Normal caliber wall. Pancreas: within normal limits. Spleen: within normal limits. Adrenals: within normal limits. Kidneys: Bilateral renal cysts measuring up to 5.9 cm in size. There is bilateral renal cortical thin kumar. Pelvis: Reproductive Organs: Multiple calcifications in the prostate which is mildly enlarged. Ureters: within normal limits. Bladder: 4.0 cm bladder diverticulum along the anterior aspect of the urinary bladder. Bowel: Normal caliber. Normal appendix. Mesenteric Lymph Nodes: No enlarged mesenteric lymph nodes. Peritoneum: No ascites or free air, no fluid collection. Vessels: Normal caliber aorta . IVC filter within the inferior vena cava. Retroperitoneum: within normal limits. Abdominal Wall: Bilateral lower abdominal wall ventral hernias containing nonobstructed bowel measuri ng up to 4.1 cm in width. Bones: Status post right hip arthroplasty. Degenerative changes in the spine. IMPRESSION: 1. Bilateral renal cysts 2. Urinary bladder diverticulum 3. Bilateral lower abdominal wall ventral hernias
== END 2019-09-11 11:37 | disposition home or self-care (01) ==
LOC: CT 11:36
PROVIDERS: ATTEND Urology
DX: N40.1 Benign prostatic hyperplasia with lower urinary tract symptoms (principal); N21.0 Calculus in bladder; K43.9 Ventral hernia without obstruction or gangrene; N32.3 Diverticulum of bladder; N28.1 Cyst of kidney, acquired
CPT/HCPCS: 74176

== ENCOUNTER 2020-03-23 12:51 | Outpatient (CLI) | payer MEDICARE, BC, MEDICAID ==
--- NOTE | 2020-03-23 14:19 | CT ---
CT ABDOMEN AND PELVIS WITHOUT IV CONTRAST: 03/23/20 INDICATIONS: Evaluate bladder. Comparison made to recent CT abdomen and pelvis 09/11/19. FINDINGS: Lung bases are clear. Liver, spleen and pancreas unremarkable. Stomach and duodenum unremarkable. The cyst from the superior right kidney measuring 6 cm is stable. Review of the left kidney again emory ws a 3 cm cyst from the superior pole. There is an exophytic lesion from the superior left kidney audrey suring 1.8 cm which is complex and exhibiting higher densities than expected for simple cysts. There is another exophytic cyst from the mid left renal cortex measuring 4 cm which also exhibits slightly high density measured at 16 Hounsfield units. These lesions are stable from the recent exam. No hydronephrosis. There is evidence of a tiny calculus in the mid pole collecting structures of the left kidney and there is a small calculus measuring 3 mm in the mid pole collecting structures of the right kidney. No ureteral calculus. Imaging of the bladder shows mild distention of the bladder. There is a 6 mm calculus along the floor of the bladder in the midline which was present on the exam of 09/11/19 and is unchanged. A small diverticulum arises from the anterior bladder wall measuring approximately 3.5 cm. This is al so stable. The prostate is obscured by spray artifact but again shows prostatic calcifications and evidence of p rior surgery. No interval change. There are two anterior abdominal wall hernias which were described previously. One hernia on each jolynn e of midline. Small bowel herniates through the defects into both of these anterior abdominal wall he rnia sacs. There is no evidence of bowel obstruction or strangulation. The larger hernia is on the le ft of midline and appears to be associated with a colostomy which would indicate a parastomal abdomin al wall hernia. Patient appears to be post left lower colectomy. There is a rectal stump. Osseous structures unremarkable with degenerative changes in the spine. Vertebroplasty changes seen i nvolving T10 vertebra. IMPRESSION: 1. Bilateral renal cystic lesions, several of which are complex on the left as described above, remain stable. 2. Small calculus in the floor of the bladder in the midline is unchanged. 3. Bladder diverticulum is again seen and is unchanged. 4. Bilateral anterior abdominal wall hernias, larger on the left which is a parastomal hernia ag ain noted. Small bowel herniates into both of the hernia sacs without evidence of bowel obstruction. POS: AH
== END 2020-03-23 12:52 | disposition home or self-care (01) ==
LOC: CT 12:51
PROVIDERS: ATTEND Urology
DX: N21.0 Calculus in bladder (principal); N40.1 Benign prostatic hyperplasia with lower urinary tract symptoms; N28.1 Cyst of kidney, acquired; N32.3 Diverticulum of bladder; K46.9 Unspecified abdominal hernia without obstruction or gangrene; K56.609 Unspecified intestinal obstruction, unspecified as to partial versus complete obstruction; Z87.440 Personal history of urinary (tract) infections
CPT/HCPCS: 74176

== ENCOUNTER 2020-07-26 21:55 | Inpatient (IN) | payer MEDICARE, BC, MEDICAID ==
[2020-07-26] MEDS ORDERED: Aspirin Chewable 81 MG TAB ONE (22:31)
[2020-07-26] MEDS ORDERED: cefTRIAXone\\ROCEPHIN 1 GM VIAL ONE (22:31)
[2020-07-26 23:00] LABS: #Eosinphils 0.2 thou/uL (0.0-0.7); #Lymphocytes 1.6 thou/uL (1.20-3.40); #Monocytes 1.1 thou/uL (0.11-0.59); #Neutrophils 6.3 thou/uL (1.40-6.50); %Basophils 0.5 % (0.0-1.0); %Eosinophils 2.3 % (0.0-10.0); %Lymphocytes 17.2 % (21.0-51.0); %Monocytes 11.8 % (0.0-10.0); %Neutrophils 68.2 % (42.0-75.0); Hemoglobin 14.3 g/dL (14.0-18.0); Mean Corpuscular HGB CONC 32.1 g/dL (32.0-36.0); Mean Corpuscular Hemoglobin 30.3 pg (27.0-31.0); Mean Corpuscular Volume 94.5 fL (78.0-98.0); Mean Platelet Volume 6.9 fL (7.4-10.4); Platelet Count 251 thou/uL (130-400); Red Blood Cell (RBC) Count 4.71 mill/uL (4.70-6.10); White Blood Cell (WBC) Count 9.2 thou/uL (4.8-10.8)
[2020-07-26 23:34] LABS: Bacteria/HPF 4+ HPF (None Seen); Bilirubin Negative (Negative); Blood, Urine Trace (Negative); Clarity Turbid (Clear); Glucose, Urine (Dipstick) Normal (Negative); Ketone, Urine Negative (Negative); Leukocyte 500 Leu/uL (Negative); Nitrite Negative (Negative); Protein, Urine (Dipstick) Negative (Neg-Trace); RBC/HPF 0-3 HPF (0-3); Specific Gravity, Urine 1.018 (1.002-1.036); Squamous Epithelial 0-3 HPF (0-3); Urobilinogen Normal mg/dL (Less than 2); WBC/HPF Greater than 50 HPF (0-3); pH, Urine 5.5 (5.0-9.0)
--- NOTE | 2020-07-26 23:39 | RAD ---
Chest AP view INDICATION: Altered mental status with history of Covid positive status COMPARISON: Prior chest radiograph dated June 09, 2019 FINDINGS: Lungs: The lungs are clear Cardiac silhouette: Stable mild cardiomegaly Pulmonary vasculature: Normal Pleural spaces: No pleural effusion or pneumothorax is demonstrated. Upper abdomen: No abnormality seen. Osseous structures: Stable vertebral plasty change involving the lower thoracic spine. Stable ACDF a nd cervical spinal instrumentation. Additional findings: None. IMPRESSION: No acute cardiopulmonary abnormality.
[2020-07-26 23:46] LABS: ALT (SGPT) 27 U/L (8-55); AST (SGOT) 19 U/L (5-34); Albumin 3.7 g/dL (3.4-4.8); Alkaline Phosphatase 118 U/L (40-110); Anion Gap 15 mmol/L (10-20); BUN (Urea Nitrogen) 24 mg/dL (8.4-25.7); Bilirubin, Total 0.4 mg/dL (0.2-1.2); Calc. Creatinine Clearance 0 mL/min (70-130); Calcium 9.5 mg/dL (7.8-10.44); Carbon Dioxide 28 mmol/L (23-31); Chloride 104 mmol/L (98-107); Globulin 3.3 g/dL (2.4-3.5); Glucose 80 mg/dL (83-110); Lipase 33 U/L (8-78); Magnesium 2.2 mg/dL (1.6-2.6); Potassium 3.9 mmol/L (3.5-5.1); Sodium 143 mmol/L (136-145)
--- NOTE | 2020-07-27 00:31 | CT ---
CT Brain WO Con: 07/26/2020 10:29 PM CLINICAL HISTORY: Altered mental status. IMAGING TECHNIQUE: Multiple CT images were obtained of the brain without IV contrast. COMPARISON: Prior exam dated July 11, 2017 FINDINGS: Mild motion artifact slightly limits image detail. BRAIN: Evidence of acute infarct: None. Evidence of chronic ischemic change:There is mild chronic small vessel white matter ischemic change. 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 This is stable to the prior exam. Evidence of intracranial hemorrhage: None. Evidence of brain volume loss:There is mild generalized cerebral and cerebellar atrophy. Evidence of midline shift: Third ventricle and septum pellucidum are midline. Ventricles: Normal. No hydrocephalus. SKULL: Intact. VISUALIZED PARANASAL SINUSES: There is complete opacification the right frontal sinus and right ante rior ethmoid air cells. MASTOID AIR CELLS: Clear. EXTRACRANIAL SOFT TISSUES: Normal. IMPRESSION: 1. No acute intracranial abnormality. 2. Chronic ischemic change and diffuse atrophy as above. 3. Mild to moderate paranasal sinus disease.
[2020-07-27] MEDS ORDERED: Lactated Ringer's 1,000 ML IV SCH (02:00)
[2020-07-27] MEDS: HYDROcodone/Acetaminophen 10/325 mg Tablet PO SCH ×5 (03:56→20:59)
[2020-07-27] MEDS ORDERED: Calcium Carbonate 500 MG ChewTAB PO PRN (04:43)
[2020-07-27] MEDS ORDERED: Acetaminophen 650 MG Suppository PR PRN (04:43)
[2020-07-27] MEDS ORDERED: Ondansetron ODT 4 MG TAB PO PRN (04:43)
[2020-07-27] MEDS ORDERED: Acetaminophen 325 MG TAB PO PRN (04:43)
[2020-07-27] MEDS ORDERED: hydrALAZINE 20 MG/ML VIAL SLOW IVP PRN (04:43)
[2020-07-27] MEDS ORDERED: Ondansetron PF 4 MG/2 ML Vial IVP PRN (04:43)
--- NOTE | 2020-07-27 04:49 | PDOC.HHP ---
Hospitalist HPI - History of Present Illness altered mental state History of Present Illness: Case of an 80y/o male [facility] resident who is covid 19 positive with a pmhx of htn, hld, AK, bph atrial fibrillation and hx of dvts who comes to hospital due to altered mental status occurring this afternoon. Apparently per [facility] personal patient was ANO x0 and minimally responsive. since arrival [place]. He knows his name and he knows where we are. patient states he does not remember this event but was told he was screaming that everyone was the devil, is unclear to me how good of a historian the patient is even at his base, and this was not refered by [facility] personal. He denies any fevers chills nausea vomiting diarrhea Hospitalist ROS - Review of Systems All other systems reviewed; all pertinent +/- noted in HPI/Subj - Medication Medications: Active Medications Generic Name Dose Route Start Last Admin Trade Name Freq PRN Reason Stop Dose Admin Hydrocodone Bitart/Acetaminophen 1 tab 07/27/20 05:00 07/27/20 03:56 Hydrocodone/Acetaminophen 10/325 Mg Tablet PO 1 tab Q4HR MATEO Administration Hospitalist History - Past Surgical History Past Surgical History: reports: Hernia Repair, Total Hip Replacement Other Surgical History: Surgical history of colostomy 2016, Surgical history of orthopedic surgery, neck, right hip replacement. - Family History Family History: reports: no pertinent history - Social History Smoking Status: Never smoker Alcohol: reports: None Drugs: reports: none - Exam General Appearance: NAD, awake alert Eye: PERRL, anicteric sclera ENT: normocephalic atraumatic, no oropharyngeal lesions Neck: supple, symmetric, no JVD, no thyromegaly Heart: RRR, no murmur, no gallops Respiratory: CTAB, no wheezes, no rales, no ronchi Gastrointestinal: soft, non-tender, non-distended Extremities: no cyanosis, 1+ LE edema, clubbing Skin: normal turgor, no lesions, no rashes Neurological: cranial nerve grossly intact, normal sensation to touch, no focal deficits Musculoskeletal: normal tone, no muscle wasting Psychiatric: normal affect, normal behavior, oriented to person, oriented to place Hospitalist Results - Labs Result Diagrams: 07/26/20 22:24 07/26/20 22:24 Lab results: WBC 9.2 thou/uL (4.8-10.8) 07/26/20 22:24 Hgb 14.3 g/dL (14.0-18.0) 07/26/20 22:24 Hct 44.5 % (42.0-52.0) 07/26/20 22:24 MCV 94.5 fL (78.0-98.0) 07/26/20 22:24 Plt Count 251 thou/uL (130-400) 07/26/20 22:24 Neutrophils % 68.2 % (42.0-75.0) 07/26/20 22:24 Sodium 143 mmol/L (136-145) 07/26/20 22:24 Potassium 3.9 mmol/L (3.5-5.1) 07/26/20 22:24 Chloride 104 mmol/L (98-107) 07/26/20 22:24 Carbon Dioxide 28 mmol/L (23-31) 07/26/20 22:24 BUN 24 mg/dL (8.4-25.7) 07/26/20 22:24 Creatinine 1.14 mg/dL (0.7-1.3) 07/26/20 22:24 Glucose 80 mg/dL (83-110) L 07/26/20 22:24 Lactic Acid 1.9 mmol/L (0.5-2.2) 07/26/20 22:47 Calcium 9.5 mg/dL (7.8-10.44) 07/26/20 22:24 Total Bilirubin 0.4 mg/dL (0.2-1.2) 07/26/20 22:24 AST 19 U/L (5-34) 07/26/20 22:24 ALT 27 U/L (8-55) 07/26/20 22:24 Alkaline Phosphatase 118 U/L (40-110) H 07/26/20 22:24 Troponin I 0.023 ng/mL (< 0.028) 07/26/20 22:24 Serum Total Protein 7.0 g/dL (5.8-8.1) 07/26/20 22:24 Albumin 3.7 g/dL (3.4-4.8) 07/26/20 22:24 Lipase 33 U/L (8-78) 07/26/20 22:24 Urine Ketones Negative mg/dL (Negative) 07/26/20 22:50 Urine Blood Trace (Negative) A 07/26/20 22:50 Urine Nitrite Negative (Negative) 07/26/20 22:50 Ur Leukocyte Esterase 500 Melania/uL (Negative) A 07/26/20 22:50 Urine RBC 0-3 HPF (0-3) 07/26/20 22:50 Urine WBC Greater than 50 HPF (0-3) A 07/26/20 22:50 Ur Squamous Epith Cells 0-3 HPF (0-3) 07/26/20 22:50 Urine Bacteria 4+ HPF (None Seen) A 07/26/20 22:50 Hospitalist H&P A/P - Problem (1) Altered mental state Code(s): R41.82 - ALTERED MENTAL STATUS, UNSPECIFIED Status: Acute (2) Colon cancer Code(s): C18.9 - MALIGNANT NEOPLASM OF COLON, UNSPECIFIED Status: Acute (3) Ankylosing spondylitis Code(s): M45.9 - ANKYLOSING SPONDYLITIS OF UNSPECIFIED SITES IN SPINE Status: Acute (4) Hx of deep venous thrombosis Code(s): Z86.718 - PERSONAL HISTORY OF OTHER VENOUS THROMBOSIS AND EMBOLISM Status: Acute (5) Paroxysmal atrial fibrillation Code(s): I48.0 - PAROXYSMAL ATRIAL FIBRILLATION Status: Acute (6) BPH (benign prostatic hyperplasia) Code(s): N40.0 - BENIGN PROSTATIC HYPERPLASIA WITHOUT LOWER URINRY TRACT SYMP Status: Chronic Qualifiers: Lower urinary tract symptom presence: symptoms present (7) Dyslipidemia Code(s): E78.5 - HYPERLIPIDEMIA, UNSPECIFIED Status: Chronic (8) HTN (hypertension) Code(s): I10 - ESSENTIAL (PRIMARY) HYPERTENSION Status: Chronic Qualifiers: Hypertension type: essential hypertension Qualified Code(s): I10 - Essential (primary) hypertension - Plan Plan: 80y/o male with the state pmhx who presents to hospital due to altered mental state altered mental state -unclear etiology ischemic event vs metabolic vs cardiogenic vs infection - will r/o TIA/ CVA with mri - head ct negative, sanchez show chronic ischemic changes - will start secondary prevention w asa + statin - check cmp tsh mg - reported episode of bradycardia in the ED, dropped into the 40s, asymptomatic, will monitor with telemetry overnight - ekg - rate in the 60s, no ischemic st changes - will trend troponins - 2d echo - permissive hypertension until ischemic event is r/o uti - does have a u/a consistent with uti - will start rocephin - f/u u/c P atrial fibrillation - on rate control w cardizem - continue elliquis - adequate ventricular rate htn - permissive hypertension
[2020-07-27 04:58] VITALS: BMI 35.6
[2020-07-27 05:50] LABS: Troponin I 0.018 ng/mL (< 0.028)
[2020-07-27] MEDS ORDERED: FLU VACC QS2020-21(65YR UP)/PF 240 MCG/0.7 ML SYRINGE IM ONE (09:00)
[2020-07-27] MEDS: Aspirin 81 mg Enteric Coated Tablet PO SCH (09:36)
--- NOTE | 2020-07-27 10:20 | PDOC.BPN ---
- Brief Progress Note Encounter Date: 07/27/20 Encounter Time: 10:18 This is an 80-year-old who I saw today at the bedside. He is a custodial resident where he has been for the last couple years he says. He recently was positive for the Covid but he is not sure what date it was. It sounds like he was moved to an isolation unit as a result of the positive test. He was brought here yesterday because he apparently became very confused, agitated, screaming at the staff at that facility for no apparent reason. He has had a CT of the head which did not show any acute findings. Neurology was asked to evaluate him for any other neurological issues. Patient is bedbound and can only get around on a wheelchair he says. On exam he has significant swelling on his anterior abdominal wall and I wonder if he has some kind of hernia. This area is tender on palpation. I am going to get a CT abdomen and pelvis to further evaluate this. We will defer to neurology about further evaluations. He had an abnormal urine analysis and antibiotic has since been started. We will follow up on the urine culture. We will make further recommendations as the hospital course warrants.
[2020-07-27 10:45] LABS: Troponin I Less than 0.010 ng/mL (< 0.028)
[2020-07-27] MEDS ORDERED: cefTRIAXone\\ROCEPHIN 1 GM in Sodium Chloride 0.9% 100 ML IVPB SCH (11:00)
[2020-07-27] MEDS: cefTRIAXone\\ROCEPHIN 2 GM in Sodium Chloride 0.9% 100 ML IVPB SCH (12:18)
--- NOTE | 2020-07-27 14:05 | CT ---
CT Abdomen Pelvis WO Con 07/27/2020 1:20 PM HISTORY: Abdominal distention and pain. Evaluate for incarcerated hernia. COMPARISON: 03/23/2020 Technique: Multiple contiguous axial CT images are obtained through the abdomen and pelvis without IV contrast. Coronal reformats are provided. FINDINGS: This examination is limited for the evaluation of solid organs and vascular structures due to the lac k of intravenous contrast. Lower Chest: There is motion artifact at each lung base limiting evaluation. There are linear bibasil ar densities which may represent volume loss. There is a stable nodular density in the left lower lobe has represent calcified granulomata prior study in 2017. Liver: Artifact through the liver secondary to patient's arms overlying the abdomen. Gallbladder: Mildly distended measuring 4.9 cm in diameter. Pancreas: Grossly normal nonenhanced CT appearance. Spleen: Artifact through the spleen secondary to overlying extremities and motion. No obvious abnorma lity is seen involving the spleen. Adrenals: Grossly normal nonenhanced CT appearance. Kidneys, ureters, urinary bladder: Stable bilateral renal cystic lesions and nonobstructing bilateral renal calculi are again seen. There is renal cortical thinning again present bilaterally. There is a calcification seen in the midline lower aspect of the urinary bladder. This is unchanged in positio n and unchanged in size. This could be related to calcifications of the wall of the urinary bladder versus closely adjacent phlebolith. Calculus in the urinary bladder is a possibility but thought less likely given this finding is unchanged. Urinary bladder diverticulum at the anterior inferior aspect urinary bladder is again seen. Reproductive Organs: Radiotherapy seeds in the prostate gland with calcifications also present in the prostate gland. Lymph Nodes: No enlarged lymph nodes. Bowel: Left lower quadrant colostomy is present with Thorpe's pouch. There is a parastomal hernia in the left lateral anterior abdominal wall with stable hernia in the ventral abdominal wall at the midline each which contains multiple loops of small bowel. No dilated loops of small bowel are seen, and there are no significant inflammatory changes or fluid within the hernias or involving hernia defects. These findings are similar to the prior study. Loops of small bowel are normal in caliber. Appendix: The appendix is normal in caliber. Peritoneum: No free fluid, free air, or fluid collection. Retroperitoneum: within normal limits. Vessels: IVC filter is again noted in place. Struts of the IVC filter appear to be outside the confin es of the IVC, but this is a stable finding. Vascular calcifications are seen in the abdominal aorta and involving the iliac arteries.. Abdominal Wall: Left anterolateral abdominal wall parastomal hernia as well as ventral abdominal wall hernia each which contains multiple loops of small bowel as described above. Bones: Postoperative changes right hip with degenerative changes in the spine. Vertebroplasty changes are seen involving the T10 vertebral body. IMPRESSION: 1. Stable bilateral renal cystic lesions similar to prior study but are difficult to characterize wit hout IV contrast. 2. Nonobstructing bilateral renal calculi. No ureteral calculus is seen, and there is no hydronephros is. 3. Mild renal cortical thinning and urinary bladder diverticulum. 4. Left lower quadrant colostomy with associated parastomal hernia containing multiple loops of small bowel which are not dilated, and there are no inflammatory changes present. Ventral abdominal wall midline hernia is also seen in the anterior pelvis containing multiple loops of small bowel again wit hout inflammatory stranding or dilated loops of small bowel.
--- NOTE | 2020-07-27 14:43 | CON ---
NEUROLOGICAL CONSULTATION DATE OF CONSULTATION: 07/27/2020 REASON FOR CONSULTATION: Altered mental status. HISTORY OF PRESENT ILLNESS: Mr. Macias is an 80-year-old halfway resident, who has been COVID positive presented with past medical history significant for hypertension, hyperlipidemia, acute kidney disease, BPH, atrial fibrillation, history of DVT, presented to the hospital with altered mental status. Per nursing staff, the patient is alert and oriented x0 and minimally responsive. When the patient arrived to the emergency room, he knows his name, but he does not remember the event. He is a poor historian. The patient denies nausea, vomiting, headache, chest pain, abdominal pain, but he does have a recent infection with COVID. REVIEW OF SYSTEMS: Unable to review because of the patient waxing and waning mental status. PAST MEDICAL HISTORY: COVID positive, hypertension, hyperlipidemia, acute kidney injury, BPH, atrial fibrillation, history of DVT. PAST SURGICAL HISTORY: Total hip replacement, hernia repair, surgical history of colostomy in 2016, surgical history of orthopedic surgery of the neck, right hip replacement. FAMILY HISTORY: No significant family history. SOCIAL HISTORY: The patient denies smoking, alcohol, or illegal drug use. He is a halfway resident. ALLERGIES: OSELTAMIVIR. PHYSICAL EXAMINATION: 121/65 18 64 General Appearance: NAD, awake alert Eye: PERRL, anicteric sclera ENT: normocephalic atraumatic, no oropharyngeal lesions Neck: supple, symmetric, no JVD, no thyromegaly Heart: RRR, no murmur, no gallops Respiratory: CTAB, no wheezes, no rales, no ronchi Gastrointestinal: soft, non-tender, non-distended Extremities: no cyanosis, 1+ LE edema, clubbing Skin: normal turgor, no lesions, no rashes Neurological: Mental status, the patient is alert, awake, follows commands intermittently. He declined to tell his name. Motor; muscle tone and bulk are normal. Moving all 4 extremities. Cranial nerves 2 through 12 intact. Sensory, withdraws to nailbed pressure bilaterally. Cerebellar did not cooperate with the testing. Gait deferred due to the patient's safety reasons. DATA REVIEWED: Labs were reviewed, which were essentially unremarkable except hypoglycemia 80. WBC 9.2 thou/uL (4.8-10.8) 07/26/20 22:24 Hgb 14.3 g/dL (14.0-18.0) 07/26/20 22:24 Hct 44.5 % (42.0-52.0) 07/26/20 22:24 MCV 94.5 fL (78.0-98.0) 07/26/20 22:24 Plt Count 251 thou/uL (130-400) 07/26/20 22:24 Neutrophils % 68.2 % (42.0-75.0) 07/26/20 22:24 Sodium 143 mmol/L (136-145) 07/26/20 22:24 Potassium 3.9 mmol/L (3.5-5.1) 07/26/20 22:24 Chloride 104 mmol/L (98-107) 07/26/20 22:24 Carbon Dioxide 28 mmol/L (23-31) 07/26/20 22:24 BUN 24 mg/dL (8.4-25.7) 07/26/20 22:24 Creatinine 1.14 mg/dL (0.7-1.3) 07/26/20 22:24 Glucose 80 mg/dL (83-110) L 07/26/20 22:24 Lactic Acid 1.9 mmol/L (0.5-2.2) 07/26/20 22:47 Calcium 9.5 mg/dL (7.8-10.44) 07/26/20 22:24 Total Bilirubin 0.4 mg/dL (0.2-1.2) 07/26/20 22:24 AST 19 U/L (5-34) 07/26/20 22:24 ALT 27 U/L (8-55) 07/26/20 22:24 Alkaline Phosphatase 118 U/L (40-110) H 07/26/20 22:24 Troponin I 0.023 ng/mL (< 0.028) 07/26/20 22:24 Serum Total Protein 7.0 g/dL (5.8-8.1) 07/26/20 22:24 Albumin 3.7 g/dL (3.4-4.8) 07/26/20 22:24 Lipase 33 U/L (8-78) 07/26/20 22:24 Urine Ketones Negative mg/dL (Negative) 07/26/20 22:50 Urine Blood Trace (Negative) A 07/26/20 22:50 Urine Nitrite Negative (Negative) 07/26/20 22:50 Ur Leukocyte Esterase 500 Melania/uL (Negative) A 07/26/20 22:50 Urine RBC 0-3 HPF (0-3) 07/26/20 22:50 Urine WBC Greater than 50 HPF (0-3) A 07/26/20 22:50 Ur Squamous Epith Cells 0-3 HPF (0-3) 07/26/20 22:50 Urine Bacteria 4+ HPF (None Seen) A 07/26/20 22:50 ASSESSMENT AND PLAN: (1) Altered mental state Code(s): R41.82 - ALTERED MENTAL STATUS, UNSPECIFIED Status: Acute (2) Colon cancer Code(s): C18.9 - MALIGNANT NEOPLASM OF COLON, UNSPECIFIED Status: Acute (3) Ankylosing spondylitis Code(s): M45.9 - ANKYLOSING SPONDYLITIS OF UNSPECIFIED SITES IN SPINE Status: Acute (4) Hx of deep venous thrombosis Code(s): Z86.718 - PERSONAL HISTORY OF OTHER VENOUS THROMBOSIS AND EMBOLISM Status: Acute (5) Paroxysmal atrial fibrillation Code(s): I48.0 - PAROXYSMAL ATRIAL FIBRILLATION Status: Acute (6) BPH (benign prostatic hyperplasia) Code(s): N40.0 - BENIGN PROSTATIC HYPERPLASIA WITHOUT LOWER URINRY TRACT SYMP Status: Chronic Qualifiers: Lower urinary tract symptom presence: symptoms present (7) Dyslipidemia Code(s): E78.5 - HYPERLIPIDEMIA, UNSPECIFIED Status: Chronic (8) HTN (hypertension) Code(s): I10 - ESSENTIAL (PRIMARY) HYPERTENSION Status: Chronic Qualifiers: Hypertension type: essential hypertension Qualified Code(s): I10 - Essential (primary) hypertension Mr. Macias is an 80-year-old male who was consulted for an episode of altered mental status, which seems to be improved. Differential diagnosis includes transient ischemic attack versus seizure. Head CT reviewed, which did not reveal any acute intracranial pathology. EEG to rule out underlying cortical irritability. Continue aspirin and high-intensity statin for secondary stroke prevention. 2D echo to evaluate for left ventricular ejection fraction. Permissive control of blood pressure at this time. Strict control of blood glucose. Continue home medications, episode of bradycardia in the emergency room in 40s. Continue telemetry, PT/OT/Speech. Continue antibiotics for urinary tract infection. We will continue Eliquis for secondary stroke prevention and atrial fibrillation. We will continue to follow. We will continue to follow. Thank you for the consult. Job ID: [id number] MTDD
[2020-07-27] MEDS: Atorvastatin Calcium 40 MG TAB PO SCH (20:59)
[2020-07-28] MEDS: HYDROcodone/Acetaminophen 10/325 mg Tablet PO SCH ×6 (02:08→20:54)
[2020-07-28] MEDS: Aspirin 81 mg Enteric Coated Tablet PO SCH (08:56)
[2020-07-28] MEDS ORDERED: Aspirin 325 MG TAB PO SCH (09:00)
[2020-07-28 09:04] LABS: Hemoglobin 12.3 g/dL (14.0-18.0); Mean Corpuscular HGB CONC 32.2 g/dL (32.0-36.0); Mean Corpuscular Hemoglobin 30.9 pg (27.0-31.0); Mean Corpuscular Volume 95.8 fL (78.0-98.0); Mean Platelet Volume 6.8 fL (7.4-10.4); Platelet Count 202 thou/uL (130-400); RBC Distribution Width 13.8 % (11.5-14.5); White Blood Cell (WBC) Count 8.1 thou/uL (4.8-10.8)
[2020-07-28 09:09] LABS: Hemoglobin A1c 6.3 % (4.0-6.0)
[2020-07-28 09:26] LABS: ALT (SGPT) 47 U/L (8-55); AST (SGOT) 50 U/L (5-34); Albumin 3.1 g/dL (3.4-4.8); Alkaline Phosphatase 162 U/L (40-110); Anion Gap 12 mmol/L (10-20); BUN (Urea Nitrogen) 21 mg/dL (8.4-25.7); Bilirubin, Total 0.5 mg/dL (0.2-1.2); Calc. Creatinine Clearance 90 mL/min (70-130); Calcium 8.6 mg/dL (7.8-10.44); Carbon Dioxide 25 mmol/L (23-31); Cardiac Risk 3.2 (Less than 4.5); Chloride 108 mmol/L (98-107); Cholesterol 126 mg/dl (< 200 Desired); Globulin 2.9 g/dL (2.4-3.5); Glucose 99 mg/dL (83-110); HDL Cholesterol 39 mg/dL (>60 Neg Risk); LDL Cholesterol, Calculated 60 mg/dL; Potassium 3.7 mmol/L (3.5-5.1); Sodium 141 mmol/L (136-145); Triglycerides 135 mg/dL (Less than 150)
[2020-07-28 11:03] LABS: Band 4 % (5-11); Eosinophils 4 % (0-10); Lymphocytes 14 % (21-51); MDiff Complete? YES; Monocytes 6 % (0-10); Neutrophil 72 % (42-75); RBC Morphology Normal
[2020-07-28] MEDS: Gabapentin 300 MG CAP PO SCH ×3 (12:55→20:53)
[2020-07-28] MEDS: Finasteride 5 MG TAB PO SCH (13:03)
[2020-07-28] MEDS: Apixaban 5 MG TAB PO SCH ×2 (13:03→20:52)
[2020-07-28] MEDS: Furosemide 20 MG TAB PO SCH ×2 (13:03→20:53)
[2020-07-28] MEDS: Bupropion 150 MG SR TAB PO SCH (13:04)
[2020-07-28] MEDS: Polyethylene Glycol 3350 17 GM Packet PO SCH (13:04)
[2020-07-28] MEDS: Tamsulosin HCl 0.4 MG CAP PO SCH (13:04)
[2020-07-28] MEDS: Artificial Tear Sol 15 ML BOT EA EYE SCH ×2 (13:06→22:54)
[2020-07-28] MEDS: cefTRIAXone\\ROCEPHIN 2 GM in Sodium Chloride 0.9% 100 ML IVPB SCH (13:21)
--- NOTE | 2020-07-28 13:34 | PDOC.EEG ---
Neurology EEG Report - Report Report: This EEG was performed using 24 channel XIHA video digital EEG machine with 24 disc electrodes. This was an extended 2-hours 6 minutes of inpatient video EEG recording. Digital analysis of the EEG was done for Ronald and seizure detection which revealed no abnormalities Background: The posterior background rhythm is 6-7 Hz. Minimal reactivity seen with eye opening and closure. Hyperventilation: Not performed. Photic stimulation. Bioccipital symmetric response not seen with photic stimulation. EEG diagnosis: Intermittent irregular theta activity seen during the recording Nonsustained slow posterior background rhythm. Clinical interpretation: This EEG is consistent with moderate generalized nonspecific cerebral dysfunction.
--- NOTE | 2020-07-28 13:37 | PDOC.NEUPN ---
- Subjective Encounter Date: 07/28/20 Subjective: Mr. Macias is somewhat more responsive today but still remain altered at baseline. He does follow commands intermittently. - Objective Vital Signs & Weight: Vital Signs (12 hours) Temp Pulse Resp BP BP Pulse Ox 07/28/20 12:48 98.9 F 68 18 153/68 H 93 L 07/28/20 08:53 99 F 72 17 135/64 91 L 07/28/20 02:58 98.6 F 76 16 121/62 92 L Weight Weight 248 lb 11.2 oz I&O: 07/27/20 07/28/20 07/29/20 06:59 06:59 06:59 Intake Total 720 Balance 720 Result Diagrams: 07/28/20 08:47 07/28/20 08:47 Radiology Reviewed by me: Yes EKG Reviewed by me: Yes ROS - Review of Systems ROS unobtainable: due to mental status - Medication Medications: Active Medications Generic Name Dose Route Start Last Admin Trade Name Freq PRN Reason Stop Dose Admin Hydrocodone Bitart/Acetaminophen 1 tab 07/27/20 05:00 07/28/20 13:02 Hydrocodone/Acetaminophen 10/325 Mg Tablet PO 1 tab Q4HR MATEO Administration Apixaban 5 mg 07/28/20 09:00 07/28/20 13:03 Apixaban 5 Mg Tab PO 5 mg BID MATEO Administration Artificial Tears 0 drop 07/28/20 09:00 07/28/20 13:06 Artificial Tear Darlin 15 Ml Bot EA EYE 1 drop BID MATEO Administration Aspirin 81 mg 07/27/20 09:00 07/28/20 08:56 Aspirin 81 Mg Enteric Coated Tablet PO 81 mg DAILY MATEO Administration Atorvastatin Calcium 40 mg 07/27/20 21:00 07/27/20 20:59 Atorvastatin Calcium 40 Mg Tab PO 40 mg HS MATEO Administration Bupropion HCl 150 mg 07/28/20 09:00 07/28/20 13:04 Bupropion 150 Mg Sr Tab PO 150 mg DAILY MATEO Administration Finasteride 5 mg 07/28/20 09:00 07/28/20 13:03 Finasteride 5 Mg Tab PO 5 mg DAILY MATEO Administration Furosemide 20 mg 07/28/20 09:00 07/28/20 13:03 Furosemide 20 Mg Tab PO 20 mg BID MATEO Administration Gabapentin 300 mg 07/28/20 09:00 07/28/20 12:55 Gabapentin 300 Mg Cap PO 300 mg TID MATEO Administration Ceftriaxone Sodium 2 gm/ 100 mls @ 200 mls/hr 07/27/20 11:00 07/28/20 13:21 Sodium Chloride IVPB 100 mls Q24HR MATEO Administration Pantoprazole Sodium 40 mg 07/28/20 09:00 07/28/20 13:04 Pantoprazole 40 Mg Tab PO 40 mg DAILY MATEO Administration Polyethylene Glycol 17 gm 07/28/20 09:00 07/28/20 13:04 Polyethylene Glycol 3350 17 Gm Packet PO Not Given DAILY MATEO Sodium Chloride 10 ml 07/27/20 09:00 07/28/20 08:56 Flush - Normal Saline 10 Ml Syringe IVF 10 ml Q12HR MATEO Administration Tamsulosin HCl 0.4 mg 07/28/20 09:00 07/28/20 13:04 Tamsulosin Hcl 0.4 Mg Cap PO 0.4 mg DAILY MATEO Administration - Exam General Appearance: awake alert Eye: PERRL ENT: normocephalic atraumatic Neck: supple Respiratory: CTAB Cardiovascular: RRR Gastrointestinal: soft Extremities: no cyanosis Skin: normal turgor Neurological: no new deficit Musculoskeletal: normal tone, no muscle wasting PSYCH: normal affect, normal behavior, oriented to person Results - Labs Result Diagrams: 07/28/20 08:47 07/28/20 08:47 Lab results: WBC 8.1 thou/uL (4.8-10.8) 07/28/20 08:47 Hgb 12.3 g/dL (14.0-18.0) L 07/28/20 08:47 Hct 38.3 % (42.0-52.0) L 07/28/20 08:47 MCV 95.8 fL (78.0-98.0) 07/28/20 08:47 Plt Count 202 thou/uL (130-400) 07/28/20 08:47 Neutrophils % 68.2 % (42.0-75.0) 07/26/20 22:24 Band Neuts % (Manual) 4 % (5-11) L 07/28/20 08:47 Sodium 141 mmol/L (136-145) 07/28/20 08:47 Potassium 3.7 mmol/L (3.5-5.1) 07/28/20 08:47 Chloride 108 mmol/L (98-107) H 07/28/20 08:47 Carbon Dioxide 25 mmol/L (23-31) 07/28/20 08:47 BUN 21 mg/dL (8.4-25.7) 07/28/20 08:47 Creatinine 1.03 mg/dL (0.7-1.3) 07/28/20 08:47 Glucose 99 mg/dL (83-110) 07/28/20 08:47 Lactic Acid 1.9 mmol/L (0.5-2.2) 07/26/20 22:47 Calcium 8.6 mg/dL (7.8-10.44) 07/28/20 08:47 Total Bilirubin 0.5 mg/dL (0.2-1.2) 07/28/20 08:47 AST 50 U/L (5-34) H 07/28/20 08:47 ALT 47 U/L (8-55) 07/28/20 08:47 Alkaline Phosphatase 162 U/L (40-110) H 07/28/20 08:47 Troponin I Less than 0.010 ng/mL (< 0.028) 07/27/20 09:39 Serum Total Protein 6.0 g/dL (5.8-8.1) 07/28/20 08:47 Albumin 3.1 g/dL (3.4-4.8) L 07/28/20 08:47 Lipase 33 U/L (8-78) 07/26/20 22:24 Urine Ketones Negative mg/dL (Negative) 07/26/20 22:50 Urine Blood Trace (Negative) A 07/26/20 22:50 Urine Nitrite Negative (Negative) 07/26/20 22:50 Ur Leukocyte Esterase 500 Melania/uL (Negative) A 07/26/20 22:50 Urine RBC 0-3 HPF (0-3) 07/26/20 22:50 Urine WBC Greater than 50 HPF (0-3) A 07/26/20 22:50 Ur Squamous Epith Cells 0-3 HPF (0-3) 07/26/20 22:50 Urine Bacteria 4+ HPF (None Seen) A 07/26/20 22:50 - Radiology Interpretation CT scan - head Additional Comment: Head CT reviewed which was negative for acute intracranial pathology. PN A/P (1) Altered mental state Code(s): R41.82 - ALTERED MENTAL STATUS, UNSPECIFIED Status: Acute (2) Ankylosing spondylitis Code(s): M45.9 - ANKYLOSING SPONDYLITIS OF UNSPECIFIED SITES IN SPINE Status: Acute (3) Colon cancer Code(s): C18.9 - MALIGNANT NEOPLASM OF COLON, UNSPECIFIED Status: Acute (4) Hx of deep venous thrombosis Code(s): Z86.718 - PERSONAL HISTORY OF OTHER VENOUS THROMBOSIS AND EMBOLISM Status: Acute (5) Colostomy prolapse Code(s): K94.09 - OTHER COMPLICATIONS OF COLOSTOMY Status: Acute (6) Hypophosphatemia Code(s): E83.39 - OTHER DISORDERS OF PHOSPHORUS METABOLISM Status: Acute (7) Paroxysmal atrial fibrillation Code(s): I48.0 - PAROXYSMAL ATRIAL FIBRILLATION Status: Acute (8) Dyslipidemia Code(s): E78.5 - HYPERLIPIDEMIA, UNSPECIFIED Status: Chronic (9) HTN (hypertension) Code(s): I10 - ESSENTIAL (PRIMARY) HYPERTENSION Status: Chronic Qualifiers: Hypertension type: essential hypertension Qualified Code(s): I10 - Essential (primary) hypertension (10) Obesity (BMI 30.0-34.9) Code(s): E66.9 - OBESITY, UNSPECIFIED Status: Chronic (11) Presence of IVC filter Code(s): Z95.828 - PRESENCE OF OTHER VASCULAR IMPLANTS AND GRAFTS Status: Chronic (12) Restless leg syndrome Status: Chronic - Plan Daily Plan: PT/OT, speech therapy, DVT proph w/SCDs Mr. Macias is a 80-year-old male who was consulted for altered mental status. He does have history of hypertension, diabetes , paroxysmal atrial fibrillation and history of Covid infection. Altered mental status seems to be multifactorial secondary to infectious and metabolic etiology. However, TIA was also in the differential because of the risk factors. MRI of the brain to assess acute intracranial pathology is pending at this time. EEG reviewed which was negative for seizure activity. 2D echo to evaluate for left ventricular ejection fraction. He also needs carotid Dopplers to rule out hemodynamically significant stenosis. Telemetry to rule out arrhythmias. Neurochecks every 4 hours. Continue home medications. Continue aspirin and high intensity statin for secondary stroke prevention. Continue Eliquis for paroxysmal atrial fibrillation. Monitor blood pressure and strict control of blood glucose. PT/OT/speech. Continue medical management per primary team. Plan discussed with the nursing staff.
--- NOTE | 2020-07-28 15:20 | MRI ---
MRI of thebrain without contrast: 07/28/2020 COMPARISON:None available HISTORY:Altered mental status, TIA, history of Covid infection TECHNIQUE: Multiplanar multisequence MR imaging of thebrain without contrast Findings:The diffusion weighted imaging demonstrates no evidence for acute infarction. The axial gradient echo imaging demonstrates no evidence for intracranial hemorrhage. There is modera te diffuse cerebral volume loss with associated prominence of the CSF containing spaces. There is mucosal thickening of the anterior ethmoid air cells with opacification of the frontal sinus on the right. There is mild mucosal thickening of the right maxillary sinus. Arterial flow voids at the axial level of the skull base appear grossly unremarkable on the T2-weighted imaging. There is prominence of the lateral ventricles. Regional bone marrow signal intensity appears grossly unremarkable. IMPRESSION:No acute infarction
--- NOTE | 2020-07-28 16:12 | PDOC.HOSPP ---
- Subjective Encounter Date: 07/28/20 Encounter Time: 16:11 Subjective: Patient seen and evaluated earlier today. He was getting an EEG study to evaluate for seizures. This has been a negative study per neurologist. His MRI also was negative. His urine culture appears to be growing E. coli. We'll continue current antibiotics. - Objective Vital Signs & Weight: Vital Signs (12 hours) Temp Pulse Resp BP Pulse Ox 07/28/20 12:48 98.9 F 68 18 153/68 H 93 L 07/28/20 08:53 99 F 72 17 135/64 91 L Weight Weight 248 lb 11.2 oz I&O: 07/27/20 07/28/20 07/29/20 06:59 06:59 06:59 Intake Total 720 Balance 720 Result Diagrams: 07/28/20 08:47 07/28/20 08:47 Radiology Reviewed by me: Yes EKG Reviewed by me: Yes Hospitalist ROS - Review of Systems Constitutional: reports: weakness, malaise Neurological: reports: weakness - Medication Medications: Active Medications Generic Name Dose Route Start Last Admin Trade Name Freq PRN Reason Stop Dose Admin Hydrocodone Bitart/Acetaminophen 1 tab 07/27/20 05:00 07/28/20 13:02 Hydrocodone/Acetaminophen 10/325 Mg Tablet PO 1 tab Q4HR MATEO Administration Apixaban 5 mg 07/28/20 09:00 07/28/20 13:03 Apixaban 5 Mg Tab PO 5 mg BID MATEO Administration Artificial Tears 0 drop 07/28/20 09:00 07/28/20 13:06 Artificial Tear Darlin 15 Ml Bot EA EYE 1 drop BID MATEO Administration Aspirin 81 mg 07/27/20 09:00 07/28/20 08:56 Aspirin 81 Mg Enteric Coated Tablet PO 81 mg DAILY MATEO Administration Atorvastatin Calcium 40 mg 07/27/20 21:00 07/27/20 20:59 Atorvastatin Calcium 40 Mg Tab PO 40 mg HS MATEO Administration Bupropion HCl 150 mg 07/28/20 09:00 07/28/20 13:04 Bupropion 150 Mg Sr Tab PO 150 mg DAILY MATEO Administration Finasteride 5 mg 07/28/20 09:00 07/28/20 13:03 Finasteride 5 Mg Tab PO 5 mg DAILY MATEO Administration Furosemide 20 mg 07/28/20 09:00 07/28/20 13:03 Furosemide 20 Mg Tab PO 20 mg BID MATEO Administration Gabapentin 300 mg 07/28/20 09:00 07/28/20 12:55 Gabapentin 300 Mg Cap PO 300 mg TID MATEO Administration Ceftriaxone Sodium 2 gm/ 100 mls @ 200 mls/hr 07/27/20 11:00 07/28/20 13:21 Sodium Chloride IVPB 100 mls Q24HR MATEO Administration Pantoprazole Sodium 40 mg 07/28/20 09:00 07/28/20 13:04 Pantoprazole 40 Mg Tab PO 40 mg DAILY MATEO Administration Polyethylene Glycol 17 gm 07/28/20 09:00 07/28/20 13:04 Polyethylene Glycol 3350 17 Gm Packet PO Not Given DAILY MATEO Sodium Chloride 10 ml 07/27/20 09:00 07/28/20 08:56 Flush - Normal Saline 10 Ml Syringe IVF 10 ml Q12HR MATEO Administration Tamsulosin HCl 0.4 mg 07/28/20 09:00 07/28/20 13:04 Tamsulosin Hcl 0.4 Mg Cap PO 0.4 mg DAILY MATEO Administration - Exam General Appearance: NAD, awake alert, ill appearing Eye: PERRL, anicteric sclera ENT: normocephalic atraumatic, no oropharyngeal lesions Neck: supple, symmetric, no JVD, no thyromegaly Heart: RRR, no murmur, no gallops Respiratory: normal chest expansion, normal percussion Gastrointestinal: soft, non-tender, non-distended, normal bowel sounds Neurological: cranial nerve grossly intact, normal sensation to touch Musculoskeletal: normal tone, generalized weakness Psychiatric: flat affect, somnolent Hosp A/P (1) Altered mental state Code(s): R41.82 - ALTERED MENTAL STATUS, UNSPECIFIED Status: Acute Plan: This is likely infectious related to the UTI. He appears to be back to his baseline. (2) UTI (urinary tract infection) Status: Acute Qualifiers: Urinary tract infection type: acute cystitis Plan: His urine culture appears to be growing E. coli. Continue current antibiotics. - Plan old records reviewed/req, continue antibiotics, PT/OT
--- NOTE | 2020-07-28 17:52 | ULT ---
CAROTID ULTRASOUND: 07/28/20 COMPARISON: MRI of brain 07/28/20. HISTORY: TIA. TECHNIQUE: Multiplanar monique scale and color Doppler images were obtained in a carotid ultrasound. Spectral harjinder sis of the Doppler waveforms were performed. FINDINGS: There is limited visualization of the right side. There is a small amount of calcified plaque in the right proximal internal carotid artery. Peak systolic velocity in the right ICA is 42 cm/s. Peak systolic velocity in the right CCA is 98 cm/ s. The right ICA/CCA ratio is 0.4. Peak systolic velocity in the left ICA is 53 cm/s. Peak systolic velocity in the left CCA is 79 cm/s. The left ICA/CCA ratio is 0.7. The right vertebral artery cannot be visualized. The left vertebral artery demonstrates antegrade amna w without focal stenosis. IMPRESSION: 1. No evidence of hemodynamically significant stenosis. 2. Nonvisualization of the right vertebral artery. POS: EAA
[2020-07-28] MEDS: PARoxetine 20 MG TAB PO SCH (20:52)
[2020-07-28] MEDS: clonazePAM 0.5 MG TAB PO SCH (20:52)
[2020-07-28] MEDS: Atorvastatin Calcium 40 MG TAB PO SCH (20:53)
[2020-07-28] MEDS ORDERED: Atorvastatin Calcium 40 MG TAB PO SCH (21:00)
[2020-07-29] MEDS: HYDROcodone/Acetaminophen 10/325 mg Tablet PO SCH ×5 (02:47→17:39)
[2020-07-29 04:48] LABS: #Eosinphils 0.3 thou/uL (0.0-0.7); #Lymphocytes 1.5 thou/uL (1.20-3.40); #Monocytes 0.9 thou/uL (0.11-0.59); #Neutrophils 4.7 thou/uL (1.40-6.50); %Basophils 0.2 % (0.0-1.0); %Eosinophils 3.6 % (0.0-10.0); %Lymphocytes 20.5 % (21.0-51.0); %Monocytes 12.1 % (0.0-10.0); %Neutrophils 63.7 % (42.0-75.0); Hemoglobin 12.4 g/dL (14.0-18.0); Mean Corpuscular HGB CONC 32.3 g/dL (32.0-36.0); Mean Corpuscular Hemoglobin 30.7 pg (27.0-31.0); Mean Platelet Volume 6.7 fL (7.4-10.4); Platelet Count 182 thou/uL (130-400); Red Blood Cell (RBC) Count 4.04 mill/uL (4.70-6.10); White Blood Cell (WBC) Count 7.3 thou/uL (4.8-10.8)
[2020-07-29 05:12] LABS: Anion Gap 14 mmol/L (10-20); BUN (Urea Nitrogen) 16 mg/dL (8.4-25.7); Calc. Creatinine Clearance 81 mL/min (70-130); Calcium 8.7 mg/dL (7.8-10.44); Carbon Dioxide 27 mmol/L (23-31); Chloride 104 mmol/L (98-107); Glucose 105 mg/dL (83-110); Potassium 3.4 mmol/L (3.5-5.1); Sodium 142 mmol/L (136-145)
[2020-07-29] MEDS: Tamsulosin HCl 0.4 MG CAP PO SCH (09:30)
[2020-07-29] MEDS: Gabapentin 300 MG CAP PO SCH ×3 (09:30→20:11)
[2020-07-29] MEDS: Aspirin 81 mg Enteric Coated Tablet PO SCH (09:31)
[2020-07-29] MEDS: Apixaban 5 MG TAB PO SCH ×2 (09:31→20:10)
[2020-07-29] MEDS: Polyethylene Glycol 3350 17 GM Packet PO SCH (09:32)
[2020-07-29] MEDS: Finasteride 5 MG TAB PO SCH (09:32)
[2020-07-29] MEDS: Furosemide 20 MG TAB PO SCH ×2 (09:35→20:22)
[2020-07-29] MEDS: Artificial Tear Sol 15 ML BOT EA EYE SCH ×2 (11:55→20:19)
[2020-07-29] MEDS: Bupropion 150 MG SR TAB PO SCH (11:56)
--- NOTE | 2020-07-29 15:04 | PDOC.HOSPP ---
- Subjective Encounter Date: 07/29/20 Encounter Time: 15:03 Subjective: Patient seen and evaluated today. Mr. Macias is an 80-year-old from long-term who was admitted with confusion. He ultimately was found to have a urinary tract infection. It appears that his culture is resistant to the previously used antibiotics. I have switched his appropriately to Zosyn. Hopefully we can plan for discharge back to the long-term within the next 48 hours. - Objective Vital Signs & Weight: Vital Signs (12 hours) Temp Pulse Resp BP BP Pulse Ox 07/29/20 07:46 97.7 F 91 20 114/53 L 94 L 07/29/20 03:59 97.7 F 84 15 131/60 95 Weight Weight 248 lb 11.2 oz I&O: 07/28/20 07/29/20 07/30/20 06:59 06:59 06:59 Intake Total 720 370 Balance 720 370 Result Diagrams: 07/29/20 04:34 07/29/20 04:34 Radiology Reviewed by me: Yes EKG Reviewed by me: Yes Hospitalist ROS - Review of Systems Constitutional: reports: weakness Gastrointestinal: reports: nausea Neurological: reports: weakness - Medication Medications: Active Medications Generic Name Dose Route Start Last Admin Trade Name Freq PRN Reason Stop Dose Admin Hydrocodone Bitart/Acetaminophen 1 tab 07/27/20 05:00 07/29/20 09:30 Hydrocodone/Acetaminophen 10/325 Mg Tablet PO 1 tab Q4HR MATEO Administration Apixaban 5 mg 07/28/20 09:00 07/29/20 09:31 Apixaban 5 Mg Tab PO 5 mg BID MATEO Administration Artificial Tears 0 drop 07/28/20 09:00 07/29/20 11:55 Artificial Tear Darlin 15 Ml Bot EA EYE 1 drop BID MATEO Administration Aspirin 81 mg 07/27/20 09:00 07/29/20 09:31 Aspirin 81 Mg Enteric Coated Tablet PO 81 mg DAILY MATEO Administration Atorvastatin Calcium 40 mg 07/27/20 21:00 07/28/20 20:53 Atorvastatin Calcium 40 Mg Tab PO 40 mg HS MATEO Administration Bupropion HCl 150 mg 07/28/20 09:00 07/29/20 11:56 Bupropion 150 Mg Sr Tab PO 150 mg DAILY MATEO Administration Clonazepam 0.5 mg 07/28/20 21:00 07/28/20 20:52 Clonazepam 0.5 Mg Tab PO 0.5 mg HS MATEO Administration Finasteride 5 mg 07/28/20 09:00 07/29/20 09:32 Finasteride 5 Mg Tab PO 5 mg DAILY MATEO Administration Furosemide 20 mg 07/28/20 09:00 07/29/20 09:35 Furosemide 20 Mg Tab PO 20 mg BID MATEO Administration Gabapentin 300 mg 07/28/20 09:00 07/29/20 09:30 Gabapentin 300 Mg Cap PO 300 mg TID MATEO Administration Pantoprazole Sodium 40 mg 07/28/20 09:00 07/29/20 09:30 Pantoprazole 40 Mg Tab PO 40 mg DAILY MATEO Administration Paroxetine HCl 40 mg 07/28/20 21:00 07/28/20 20:52 Paroxetine 20 Mg Tab PO 40 mg HS MATEO Administration Polyethylene Glycol 17 gm 07/28/20 09:00 07/29/20 09:32 Polyethylene Glycol 3350 17 Gm Packet PO 17 gm DAILY MATEO Administration Sodium Chloride 10 ml 07/27/20 09:00 07/29/20 09:32 Flush - Normal Saline 10 Ml Syringe IVF 10 ml Q12HR MATEO Administration Tamsulosin HCl 0.4 mg 07/28/20 09:00 07/29/20 09:30 Tamsulosin Hcl 0.4 Mg Cap PO 0.4 mg DAILY MATEO Administration - Exam General Appearance: NAD, awake alert, ill appearing Eye: PERRL, anicteric sclera, scleral icterus ENT: normocephalic atraumatic, no oropharyngeal lesions, moist mucosa Neck: supple, symmetric, no JVD, no thyromegaly, no lymphadenopathy Heart: RRR, no murmur, no gallops, no rubs Respiratory: CTAB, no wheezes Gastrointestinal: soft, non-tender, non-distended Psychiatric: normal affect, normal behavior Hosp A/P (1) Altered mental state Code(s): R41.82 - ALTERED MENTAL STATUS, UNSPECIFIED Status: Resolved Plan: This has resolved. Likely secondary to UTI. (2) UTI (urinary tract infection) Status: Acute Qualifiers: Urinary tract infection type: acute cystitis - Plan old records reviewed/req, continue antibiotics, PT/OT
[2020-07-29] MEDS: Piperacillin/Tazobactam 2.25 GM in Sodium Chloride 0.9% 100 ML IVPB SCH ×2 (16:16→22:34)
[2020-07-29] MEDS: clonazePAM 0.5 MG TAB PO SCH (20:10)
[2020-07-29] MEDS: PARoxetine 20 MG TAB PO SCH (20:10)
[2020-07-29] MEDS: Atorvastatin Calcium 40 MG TAB PO SCH (20:11)
[2020-07-29] MEDS: HYDROcodone/Acetaminophen 10/325 mg Tablet PO PRN (22:33)
[2020-07-30] MEDS: Piperacillin/Tazobactam 2.25 GM in Sodium Chloride 0.9% 100 ML IVPB SCH ×3 (05:45→22:05)
[2020-07-30] MEDS: Finasteride 5 MG TAB PO SCH (08:08)
[2020-07-30] MEDS: Bupropion 150 MG SR TAB PO SCH (08:08)
[2020-07-30] MEDS: Apixaban 5 MG TAB PO SCH ×2 (08:08→22:05)
[2020-07-30] MEDS: Aspirin 81 mg Enteric Coated Tablet PO SCH (08:09)
[2020-07-30] MEDS: Gabapentin 300 MG CAP PO SCH ×3 (08:09→22:04)
[2020-07-30] MEDS: Artificial Tear Sol 15 ML BOT EA EYE SCH ×2 (08:09→22:05)
[2020-07-30] MEDS: Tamsulosin HCl 0.4 MG CAP PO SCH (08:09)
[2020-07-30] MEDS: Furosemide 20 MG TAB PO SCH ×2 (08:09→22:04)
[2020-07-30] MEDS: Polyethylene Glycol 3350 17 GM Packet PO SCH (08:10)
--- NOTE | 2020-07-30 10:54 | PDOC.HOSPP ---
- Subjective Encounter Date: 07/30/20 Encounter Time: 10:53 Subjective: Mr. Macias is an 80-year-old patient who is a resident of a detention who is admitted to the hospital for altered mental status. He has since been found to have urinary tract infection and appropriately on antibiotics. He was seen earlier by neurology and he had a fairly extensive evaluation that did not show any stroke or seizure. At this point we will continue antibiotic for the UTI and hopefully return to his detention in a few days. He otherwise appears to be back to his baseline. - Objective Vital Signs & Weight: Vital Signs (12 hours) Temp Pulse Resp BP BP Pulse Ox 07/30/20 07:47 97.6 F 72 20 125/76 94 L 07/30/20 04:45 97.9 F 67 18 109/75 96 07/30/20 00:00 99.4 F 82 18 122/69 95 Weight Weight 248 lb 11.2 oz I&O: 07/29/20 07/30/20 07/31/20 06:59 06:59 06:59 Intake Total 370 1800 Balance 370 1800 Result Diagrams: 07/29/20 04:34 07/29/20 04:34 Radiology Reviewed by me: Yes EKG Reviewed by me: Yes Hospitalist ROS - Review of Systems ROS unobtainable: due to mental status Constitutional: reports: weakness, malaise Gastrointestinal: reports: nausea Genitourinary: reports: incontinence - Medication Medications: Active Medications Generic Name Dose Route Start Last Admin Trade Name Freq PRN Reason Stop Dose Admin Hydrocodone Bitart/Acetaminophen 1 tab 07/29/20 18:03 07/29/20 22:33 Hydrocodone/Acetaminophen 10/325 Mg Tablet PO 1 tab Q4H PRN Administration Pain 4-6 Apixaban 5 mg 07/28/20 09:00 07/30/20 08:08 Apixaban 5 Mg Tab PO 5 mg BID MATEO Administration Artificial Tears 0 drop 07/28/20 09:00 07/30/20 08:09 Artificial Tear Darlin 15 Ml Bot EA EYE 1 drop BID MATEO Administration Aspirin 81 mg 07/27/20 09:00 07/30/20 08:09 Aspirin 81 Mg Enteric Coated Tablet PO 81 mg DAILY MATEO Administration Atorvastatin Calcium 40 mg 07/27/20 21:00 07/29/20 20:11 Atorvastatin Calcium 40 Mg Tab PO 40 mg HS MATEO Administration Bupropion HCl 150 mg 07/28/20 09:00 07/30/20 08:08 Bupropion 150 Mg Sr Tab PO 150 mg DAILY MATEO Administration Clonazepam 0.5 mg 07/28/20 21:00 07/29/20 20:10 Clonazepam 0.5 Mg Tab PO 0.5 mg HS MATEO Administration Finasteride 5 mg 07/28/20 09:00 07/30/20 08:08 Finasteride 5 Mg Tab PO 5 mg DAILY MATEO Administration Furosemide 20 mg 07/28/20 09:00 07/30/20 08:09 Furosemide 20 Mg Tab PO 20 mg BID MATEO Administration Gabapentin 300 mg 07/28/20 09:00 07/30/20 08:09 Gabapentin 300 Mg Cap PO 300 mg TID MATEO Administration Piperacillin Sod/Tazobactam 100 mls @ 200 mls/hr 07/29/20 14:00 07/30/20 05:45 Sod 2.25 gm/ Sodium Chloride IVPB 100 mls Q8HR MATEO Administration Pantoprazole Sodium 40 mg 07/28/20 09:00 07/30/20 08:08 Pantoprazole 40 Mg Tab PO 40 mg DAILY MATEO Administration Paroxetine HCl 40 mg 07/28/20 21:00 07/29/20 20:10 Paroxetine 20 Mg Tab PO 40 mg HS MATEO Administration Polyethylene Glycol 17 gm 07/28/20 09:00 07/30/20 08:10 Polyethylene Glycol 3350 17 Gm Packet PO 17 gm DAILY MATEO Administration Sodium Chloride 10 ml 07/27/20 09:00 07/30/20 08:10 Flush - Normal Saline 10 Ml Syringe IVF 10 ml Q12HR MATEO Administration Tamsulosin HCl 0.4 mg 07/28/20 09:00 07/30/20 08:09 Tamsulosin Hcl 0.4 Mg Cap PO 0.4 mg DAILY MATEO Administration - Exam General Appearance: NAD, awake alert, ill appearing Eye: PERRL ENT: normocephalic atraumatic, no oropharyngeal lesions Neck: supple, symmetric, no JVD, no thyromegaly Heart: RRR, no murmur, no gallops, no rubs, normal peripheral pulses Respiratory: CTAB, no wheezes, no rales, no ronchi, normal chest expansion Gastrointestinal: soft, non-tender, non-distended, normal bowel sounds Neurological: cranial nerve grossly intact, normal sensation to touch Neurological - other findings: He is bed and wheelchair bound Musculoskeletal: generalized weakness Psychiatric: normal affect, normal behavior, A&O x 3 Hosp A/P (1) Altered mental state Code(s): R41.82 - ALTERED MENTAL STATUS, UNSPECIFIED Status: Resolved (2) UTI (urinary tract infection) Status: Acute Qualifiers: Urinary tract infection type: acute cystitis - Plan plan discussed w/ family, bernard catheter, PT/OT #1. Acute metabolic encephalopathy. Likely secondary to UTI. Urine cultures growing E. coli and he is on Zosyn. 2. UTI Continue Zosyn as above. Hope to de-escalate this antibiotics as soon as next 24 maybe 48 hours.
--- NOTE | 2020-07-30 14:26 | PDOC.NEUPN ---
- Subjective Encounter Date: 07/30/20 Subjective: Mr. Macias is somewhat somnolent this morning but opens eyes to verbal stimuli and follows commands appropriately. - Objective Vital Signs & Weight: Vital Signs (12 hours) Temp Pulse Resp BP BP Pulse Ox 07/30/20 11:59 98.5 F 76 18 132/78 93 L 07/30/20 07:47 97.6 F 72 20 125/76 94 L 07/30/20 04:45 97.9 F 67 18 109/75 96 Weight Weight 248 lb 11.2 oz I&O: 07/29/20 07/30/20 07/31/20 06:59 06:59 06:59 Intake Total 370 1800 Balance 370 1800 Result Diagrams: 07/29/20 04:34 07/29/20 04:34 Radiology Reviewed by me: Yes EKG Reviewed by me: Yes ROS - Review of Systems Respiratory: denies: cough, dry, shortness of breath, hemoptysis, SOB with excertion, pleuritic pain, sputum, wheezing, other Gastrointestinal: denies: nausea, vomiting, abdominal pain, diarrhea, constipation, melena, hematochezia, other - Medication Medications: Active Medications Generic Name Dose Route Start Last Admin Trade Name Freq PRN Reason Stop Dose Admin Hydrocodone Bitart/Acetaminophen 1 tab 07/29/20 18:03 07/29/20 22:33 Hydrocodone/Acetaminophen 10/325 Mg Tablet PO 1 tab Q4H PRN Administration Pain 4-6 Apixaban 5 mg 07/28/20 09:00 07/30/20 08:08 Apixaban 5 Mg Tab PO 5 mg BID MATEO Administration Artificial Tears 0 drop 07/28/20 09:00 07/30/20 08:09 Artificial Tear Darlin 15 Ml Bot EA EYE 1 drop BID MATEO Administration Aspirin 81 mg 07/27/20 09:00 07/30/20 08:09 Aspirin 81 Mg Enteric Coated Tablet PO 81 mg DAILY MATEO Administration Atorvastatin Calcium 40 mg 07/27/20 21:00 07/29/20 20:11 Atorvastatin Calcium 40 Mg Tab PO 40 mg HS MATEO Administration Bupropion HCl 150 mg 07/28/20 09:00 07/30/20 08:08 Bupropion 150 Mg Sr Tab PO 150 mg DAILY MATEO Administration Clonazepam 0.5 mg 07/28/20 21:00 07/29/20 20:10 Clonazepam 0.5 Mg Tab PO 0.5 mg HS MATEO Administration Finasteride 5 mg 07/28/20 09:00 07/30/20 08:08 Finasteride 5 Mg Tab PO 5 mg DAILY MATEO Administration Furosemide 20 mg 07/28/20 09:00 07/30/20 08:09 Furosemide 20 Mg Tab PO 20 mg BID MATEO Administration Gabapentin 300 mg 07/28/20 09:00 07/30/20 08:09 Gabapentin 300 Mg Cap PO 300 mg TID MATEO Administration Piperacillin Sod/Tazobactam 100 mls @ 200 mls/hr 07/29/20 14:00 07/30/20 05:45 Sod 2.25 gm/ Sodium Chloride IVPB 100 mls Q8HR MATEO Administration Pantoprazole Sodium 40 mg 07/28/20 09:00 07/30/20 08:08 Pantoprazole 40 Mg Tab PO 40 mg DAILY MATEO Administration Paroxetine HCl 40 mg 07/28/20 21:00 07/29/20 20:10 Paroxetine 20 Mg Tab PO 40 mg HS MATEO Administration Polyethylene Glycol 17 gm 07/28/20 09:00 07/30/20 08:10 Polyethylene Glycol 3350 17 Gm Packet PO 17 gm DAILY MATEO Administration Sodium Chloride 10 ml 07/27/20 09:00 07/30/20 08:10 Flush - Normal Saline 10 Ml Syringe IVF 10 ml Q12HR MATEO Administration Tamsulosin HCl 0.4 mg 07/28/20 09:00 07/30/20 08:09 Tamsulosin Hcl 0.4 Mg Cap PO 0.4 mg DAILY MATEO Administration - Exam General Appearance: NAD Eye: PERRL ENT: normocephalic atraumatic Neck: supple Respiratory: CTAB Cardiovascular: RRR Gastrointestinal: soft Extremities: no cyanosis Skin: normal turgor Neurological: no new deficit Musculoskeletal: normal tone, no muscle wasting PSYCH: somnolent Results - Labs Result Diagrams: 07/29/20 04:34 07/29/20 04:34 Lab results: WBC 7.3 thou/uL (4.8-10.8) 07/29/20 04:34 Hgb 12.4 g/dL (14.0-18.0) L 07/29/20 04:34 Hct 38.3 % (42.0-52.0) L 07/29/20 04:34 MCV 95.0 fL (78.0-98.0) 07/29/20 04:34 Plt Count 182 thou/uL (130-400) 07/29/20 04:34 Neutrophils % 63.7 % (42.0-75.0) 07/29/20 04:34 Band Neuts % (Manual) 4 % (5-11) L 07/28/20 08:47 Sodium 142 mmol/L (136-145) 07/29/20 04:34 Potassium 3.4 mmol/L (3.5-5.1) L 07/29/20 04:34 Chloride 104 mmol/L (98-107) 07/29/20 04:34 Carbon Dioxide 27 mmol/L (23-31) 07/29/20 04:34 BUN 16 mg/dL (8.4-25.7) 07/29/20 04:34 Creatinine 1.14 mg/dL (0.7-1.3) 07/29/20 04:34 Glucose 105 mg/dL (83-110) 07/29/20 04:34 Lactic Acid 1.9 mmol/L (0.5-2.2) 07/26/20 22:47 Calcium 8.7 mg/dL (7.8-10.44) 07/29/20 04:34 Total Bilirubin 0.5 mg/dL (0.2-1.2) 07/28/20 08:47 AST 50 U/L (5-34) H 07/28/20 08:47 ALT 47 U/L (8-55) 07/28/20 08:47 Alkaline Phosphatase 162 U/L (40-110) H 07/28/20 08:47 Troponin I Less than 0.010 ng/mL (< 0.028) 07/27/20 09:39 Serum Total Protein 6.0 g/dL (5.8-8.1) 07/28/20 08:47 Albumin 3.1 g/dL (3.4-4.8) L 07/28/20 08:47 Lipase 33 U/L (8-78) 07/26/20 22:24 Urine Ketones Negative mg/dL (Negative) 07/26/20 22:50 Urine Blood Trace (Negative) A 07/26/20 22:50 Urine Nitrite Negative (Negative) 07/26/20 22:50 Ur Leukocyte Esterase 500 Melania/uL (Negative) A 07/26/20 22:50 Urine RBC 0-3 HPF (0-3) 07/26/20 22:50 Urine WBC Greater than 50 HPF (0-3) A 07/26/20 22:50 Ur Squamous Epith Cells 0-3 HPF (0-3) 07/26/20 22:50 Urine Bacteria 4+ HPF (None Seen) A 07/26/20 22:50 - Radiology Interpretation MRI - head Additional Comment: MRI of the brain negative for acute intracranial pathology. PN A/P (1) Altered mental state Code(s): R41.82 - ALTERED MENTAL STATUS, UNSPECIFIED Status: Resolved (2) Ankylosing spondylitis Code(s): M45.9 - ANKYLOSING SPONDYLITIS OF UNSPECIFIED SITES IN SPINE Status: Acute (3) Colon cancer Code(s): C18.9 - MALIGNANT NEOPLASM OF COLON, UNSPECIFIED Status: Acute (4) Hx of deep venous thrombosis Code(s): Z86.718 - PERSONAL HISTORY OF OTHER VENOUS THROMBOSIS AND EMBOLISM Status: Acute (5) Colostomy prolapse Code(s): K94.09 - OTHER COMPLICATIONS OF COLOSTOMY Status: Acute (6) Hypophosphatemia Code(s): E83.39 - OTHER DISORDERS OF PHOSPHORUS METABOLISM Status: Acute (7) Paroxysmal atrial fibrillation Code(s): I48.0 - PAROXYSMAL ATRIAL FIBRILLATION Status: Acute (8) Dyslipidemia Code(s): E78.5 - HYPERLIPIDEMIA, UNSPECIFIED Status: Chronic (9) HTN (hypertension) Code(s): I10 - ESSENTIAL (PRIMARY) HYPERTENSION Status: Chronic Qualifiers: Hypertension type: essential hypertension Qualified Code(s): I10 - Essential (primary) hypertension (10) Obesity (BMI 30.0-34.9) Code(s): E66.9 - OBESITY, UNSPECIFIED Status: Chronic (11) Presence of IVC filter Code(s): Z95.828 - PRESENCE OF OTHER VASCULAR IMPLANTS AND GRAFTS Status: Chronic (12) Restless leg syndrome Status: Chronic - Plan Daily Plan: continue antibiotics, PT/OT, speech therapy, DVT proph w/SCDs Mr. Macias is a 80-year-old male who was consulted for altered mental status. He does have history of hypertension, diabetes , paroxysmal atrial fibrillation and history of Covid infection. Altered mental status seems to be multifactorial secondary to infectious and metabolic etiology. Intracranial process seems less likely because of negative imaging and EEG for TIA is still in the differential. MRI of the brain reviewed and was negative for acute intracranial pathology. EEG reviewed which was negative for seizure activity. Carotid Dopplers did not reveal hemodynamically significant stenosis Neurochecks every 4 hours. Continue home medications. Continue aspirin and high intensity statin for secondary stroke prevention. Continue Eliquis for paroxysmal atrial fibrillation. Strict control of blood pressure and blood glucose. PT/OT/speech. Continue medical management per primary team. Plan discussed with the nursing staff.
[2020-07-30] MEDS: HYDROcodone/Acetaminophen 10/325 mg Tablet PO PRN (17:07)
[2020-07-30] MEDS: clonazePAM 0.5 MG TAB PO SCH (21:58)
[2020-07-30] MEDS: PARoxetine 20 MG TAB PO SCH (22:03)
[2020-07-30] MEDS: Atorvastatin Calcium 40 MG TAB PO SCH (22:04)
[2020-07-31] MEDS: Piperacillin/Tazobactam 2.25 GM in Sodium Chloride 0.9% 100 ML IVPB SCH ×2 (05:23→13:03)
[2020-07-31] MEDS: HYDROcodone/Acetaminophen 10/325 mg Tablet PO PRN ×2 (05:54→12:50)
[2020-07-31 06:29] LABS: #Eosinphils 0.3 thou/uL (0.0-0.7); #Lymphocytes 1.1 thou/uL (1.20-3.40); #Monocytes 0.9 thou/uL (0.11-0.59); #Neutrophils 4.8 thou/uL (1.40-6.50); %Basophils 0.7 % (0.0-1.0); %Eosinophils 3.6 % (0.0-10.0); %Monocytes 12.4 % (0.0-10.0); %Neutrophils 67.3 % (42.0-75.0); Hemoglobin 12.5 g/dL (14.0-18.0); Mean Corpuscular HGB CONC 33.1 g/dL (32.0-36.0); Mean Corpuscular Volume 93.7 fL (78.0-98.0); Mean Platelet Volume 6.9 fL (7.4-10.4); Platelet Count 174 thou/uL (130-400); RBC Distribution Width 14.1 % (11.5-14.5); Red Blood Cell (RBC) Count 4.04 mill/uL (4.70-6.10); White Blood Cell (WBC) Count 7.1 thou/uL (4.8-10.8)
[2020-07-31 06:45] LABS: Anion Gap 14 mmol/L (10-20); BUN (Urea Nitrogen) 13 mg/dL (8.4-25.7); Calc. Creatinine Clearance 93 mL/min (70-130); Calcium 8.6 mg/dL (7.8-10.44); Carbon Dioxide 25 mmol/L (23-31); Chloride 107 mmol/L (98-107); Glucose 96 mg/dL (83-110); Potassium 3.3 mmol/L (3.5-5.1); Sodium 143 mmol/L (136-145)
[2020-07-31] MEDS: Aspirin 81 mg Enteric Coated Tablet PO SCH (08:36)
[2020-07-31] MEDS: Apixaban 5 MG TAB PO SCH ×2 (08:36→21:10)
[2020-07-31] MEDS: Gabapentin 300 MG CAP PO SCH ×3 (08:36→21:11)
[2020-07-31] MEDS: Furosemide 20 MG TAB PO SCH ×2 (08:36→21:11)
[2020-07-31] MEDS: Tamsulosin HCl 0.4 MG CAP PO SCH (08:36)
[2020-07-31] MEDS: Finasteride 5 MG TAB PO SCH (08:38)
[2020-07-31] MEDS: Bupropion 150 MG SR TAB PO SCH (08:38)
[2020-07-31] MEDS: Artificial Tear Sol 15 ML BOT EA EYE SCH ×2 (08:38→21:12)
[2020-07-31] MEDS: Polyethylene Glycol 3350 17 GM Packet PO SCH (08:39)
--- NOTE | 2020-07-31 11:25 | EKG ---
Test Reason : AMS Blood Pressure : / mmHG Vent. Rate : 065 BPM Atrial Rate : 062 BPM P-R Int : 000 ms QRS Dur : 100 ms QT Int : 392 ms P-R-T Axes : 000 -41 142 degrees QTc Int : 407 ms Normal sinus rhythm Left axis deviation Anterior infarct , age undetermined Abnormal ECG Low voltage Confirmed by SABRINA LOZA ([id number]), production editor JUJU TAMAYO ([id number]) on 07/31/2020 11:24:51 AM Referred By: RYAN LOZA Confirmed By:SABRINA LOZA
--- NOTE | 2020-07-31 18:35 | PDOC.HOSPP ---
- Subjective Encounter Date: 07/31/20 Encounter Time: 10:00 Subjective: Patient was seen and examined in bed. He was generally confused and was not very current. Otherwise he was awake and follows commands. He denies any cough chest pain or shortness of breath. Nurse notes that he has been intermittently confused all day today. - Objective Vital Signs & Weight: Vital Signs (12 hours) Temp Pulse Resp BP Pulse Ox 07/31/20 08:00 97.8 F 75 15 114/72 97 Weight Weight 248 lb 11.2 oz I&O: 07/30/20 07/31/20 08/01/20 06:59 06:59 06:59 Intake Total 8843 612 5094 Output Total 50 250 Balance 2582 615 6504 Result Diagrams: 07/31/20 06:13 07/31/20 09:53 Hospitalist ROS - Medication Medications: Active Medications Generic Name Dose Route Start Last Admin Trade Name Freq PRN Reason Stop Dose Admin Hydrocodone Bitart/Acetaminophen 1 tab 07/29/20 18:03 07/31/20 12:50 Hydrocodone/Acetaminophen 10/325 Mg Tablet PO 1 tab Q4H PRN Administration Pain 4-6 Apixaban 5 mg 07/28/20 09:00 07/31/20 08:36 Apixaban 5 Mg Tab PO 5 mg BID MATEO Administration Artificial Tears 0 drop 07/28/20 09:00 07/31/20 08:38 Artificial Tear Darlin 15 Ml Bot EA EYE 1 drop BID MATEO Administration Aspirin 81 mg 07/27/20 09:00 07/31/20 08:36 Aspirin 81 Mg Enteric Coated Tablet PO 81 mg DAILY MATEO Administration Atorvastatin Calcium 40 mg 07/27/20 21:00 07/30/20 22:04 Atorvastatin Calcium 40 Mg Tab PO 40 mg HS MATEO Administration Bupropion HCl 150 mg 07/28/20 09:00 07/31/20 08:38 Bupropion 150 Mg Sr Tab PO 150 mg DAILY MATEO Administration Clonazepam 0.5 mg 07/28/20 21:00 07/30/20 21:58 Clonazepam 0.5 Mg Tab PO 0.5 mg HS MATEO Administration Finasteride 5 mg 07/28/20 09:00 07/31/20 08:38 Finasteride 5 Mg Tab PO 5 mg DAILY MATEO Administration Furosemide 20 mg 07/28/20 09:00 07/31/20 08:36 Furosemide 20 Mg Tab PO 20 mg BID MATEO Administration Gabapentin 300 mg 07/28/20 09:00 07/31/20 15:55 Gabapentin 300 Mg Cap PO 300 mg TID MATEO Administration Piperacillin Sod/Tazobactam 100 mls @ 200 mls/hr 07/29/20 14:00 07/31/20 13:03 Sod 2.25 gm/ Sodium Chloride IVPB 100 mls Q8HR MATEO Administration Pantoprazole Sodium 40 mg 07/28/20 09:00 07/31/20 08:38 Pantoprazole 40 Mg Tab PO 40 mg DAILY MATEO Administration Paroxetine HCl 40 mg 07/28/20 21:00 07/30/20 22:03 Paroxetine 20 Mg Tab PO 40 mg HS MATEO Administration Polyethylene Glycol 17 gm 07/28/20 09:00 07/31/20 08:39 Polyethylene Glycol 3350 17 Gm Packet PO 17 gm DAILY MATEO Administration Sodium Chloride 10 ml 07/27/20 09:00 07/31/20 08:39 Flush - Normal Saline 10 Ml Syringe IVF 10 ml Q12HR MATEO Administration Tamsulosin HCl 0.4 mg 07/28/20 09:00 07/31/20 08:36 Tamsulosin Hcl 0.4 Mg Cap PO 0.4 mg DAILY MATEO Administration - Exam General - other findings: Awake, confused. Heart: RRR, no murmur, no gallops Respiratory: CTAB, no wheezes, no rales Gastrointestinal: soft, non-tender, non-distended, normal bowel sounds Gastrointestinal - other findings: Colostomy bag in place Neurological - other findings: Has tremors mainly in the left hand., Difficulty hearing. Psychiatric: oriented to person Psychiatric - other findings: Not oriented to place and time. Also hard of hearing Hosp A/P - Plan This is an 80-year-old male patient with a history of colon cancer status post colostomy, A. fib, hypertension, diabetes and past Covid infection was admitted on account of altered mental status deemed to be due to UTI. Acute encephalopathy The setting of UTI Generally improved but however having intermittent confusion. No intracranial pathology on imaging, carotid Doppler ultrasound shows no significant stenosis We will monitor for 1 more day If he is better tomorrow we will transfer him to his nursing care facility. UTI Urine growing E. coli Organism resistant to Levaquin and ceftriaxone Currently on Zosyn will de-escalate to Unasyn History of colon cancer Stable Colostomy bag in place Swelling scrotum Secondary to hydrocele Stablewe will monitor. History of DVT Has IVC Atrial fibrillation Continue Eliquis Upper limb tremors At rest and on movementlikely Parkinson's In the setting of advanced age We will monitor Appreciate neurology input. VT prophylaxistherapeutic on apixaban. CODE STATUS-Full code Dispositionpossible discharge soon nursing facility tomorrow Advanced age and chronic debilitypalliative care consult for goals of care discussion.
[2020-07-31] MEDS: Ampicillin/Sulbactam 1.5 GM in Sodium Chloride 0.9% 100 ML IVPB SCH (21:10)
[2020-07-31] MEDS: PARoxetine 20 MG TAB PO SCH (21:10)
[2020-07-31] MEDS: Atorvastatin Calcium 40 MG TAB PO SCH (21:11)
[2020-07-31] MEDS: clonazePAM 0.5 MG TAB PO SCH (21:12)
[2020-08-01] MEDS: Ampicillin/Sulbactam 1.5 GM in Sodium Chloride 0.9% 100 ML IVPB SCH ×6 (00:58→20:42)
[2020-08-01] MEDS ORDERED: Electrolyte Replacement Protocol 1 EACH FS PRN (06:30)
[2020-08-01] MEDS ORDERED: Potassium Chloride 20 MEQ TAB PO SCH (06:30)
[2020-08-01] MEDS: HYDROcodone/Acetaminophen 10/325 mg Tablet PO PRN ×3 (07:19→20:34)
[2020-08-01 08:08] LABS: Anion Gap 14 mmol/L (10-20); BUN (Urea Nitrogen) 12 mg/dL (8.4-25.7); Calc. Creatinine Clearance 92 mL/min (70-130); Calcium 8.5 mg/dL (7.8-10.44); Carbon Dioxide 27 mmol/L (23-31); Chloride 105 mmol/L (98-107); Glucose 101 mg/dL (83-110); Potassium 3.4 mmol/L (3.5-5.1); Sodium 143 mmol/L (136-145)
[2020-08-01] MEDS: Artificial Tear Sol 15 ML BOT EA EYE SCH ×2 (08:14→20:36)
[2020-08-01] MEDS: Gabapentin 300 MG CAP PO SCH ×3 (08:15→20:36)
[2020-08-01] MEDS: Aspirin 81 mg Enteric Coated Tablet PO SCH (08:15)
[2020-08-01] MEDS: Apixaban 5 MG TAB PO SCH ×2 (08:15→20:35)
[2020-08-01] MEDS: Tamsulosin HCl 0.4 MG CAP PO SCH (08:15)
[2020-08-01] MEDS: Furosemide 20 MG TAB PO SCH ×2 (08:16→20:36)
[2020-08-01] MEDS: Bupropion 150 MG SR TAB PO SCH (08:16)
[2020-08-01] MEDS: Finasteride 5 MG TAB PO SCH (08:16)
[2020-08-01] MEDS: Polyethylene Glycol 3350 17 GM Packet PO SCH (08:17)
[2020-08-01 15:44] LABS: Potassium 3.7 mmol/L (3.5-5.1)
--- NOTE | 2020-08-01 15:49 | PDOC.HOSPP ---
- Subjective Encounter Date: 08/01/20 Encounter Time: 11:00 Subjective: Patient was seen and examined in bed No significant event overnight. Discharge generally more lucid this morning. He denies any cough chest pain or shortness of breath. Complains of chronic intermittent back pain - Objective Vital Signs & Weight: Vital Signs (12 hours) Temp Pulse Resp BP Pulse Ox 08/01/20 11:22 98.4 F 70 15 116/83 94 L 08/01/20 07:48 98.3 F 66 14 143/84 H 93 L Weight Weight 248 lb 11.2 oz I&O: 07/31/20 08/01/20 08/02/20 06:59 06:59 06:59 Intake Total 670 2020 480 Output Total 50 350 Balance 620 0388 480 Result Diagrams: 07/31/20 06:13 08/01/20 15:19 Hospitalist ROS - Medication Medications: Active Medications Generic Name Dose Route Start Last Admin Trade Name Freq PRN Reason Stop Dose Admin Hydrocodone Bitart/Acetaminophen 1 tab 07/29/20 18:03 08/01/20 15:05 Hydrocodone/Acetaminophen 10/325 Mg Tablet PO 1 tab Q4H PRN Administration Pain 4-6 Apixaban 5 mg 07/28/20 09:00 08/01/20 08:15 Apixaban 5 Mg Tab PO 5 mg BID MATEO Administration Artificial Tears 0 drop 07/28/20 09:00 08/01/20 08:14 Artificial Tear Darlin 15 Ml Bot EA EYE 1 drop BID MATEO Administration Aspirin 81 mg 07/27/20 09:00 08/01/20 08:15 Aspirin 81 Mg Enteric Coated Tablet PO 81 mg DAILY MATEO Administration Atorvastatin Calcium 40 mg 07/27/20 21:00 07/31/20 21:11 Atorvastatin Calcium 40 Mg Tab PO 40 mg HS MATEO Administration Bupropion HCl 150 mg 07/28/20 09:00 08/01/20 08:16 Bupropion 150 Mg Sr Tab PO 150 mg DAILY MATEO Administration Clonazepam 0.5 mg 07/28/20 21:00 07/31/20 21:12 Clonazepam 0.5 Mg Tab PO 0.5 mg HS MATEO Administration Finasteride 5 mg 07/28/20 09:00 08/01/20 08:16 Finasteride 5 Mg Tab PO 5 mg DAILY MATEO Administration Furosemide 20 mg 07/28/20 09:00 08/01/20 08:16 Furosemide 20 Mg Tab PO 20 mg BID MATEO Administration Gabapentin 300 mg 07/28/20 09:00 08/01/20 15:07 Gabapentin 300 Mg Cap PO 300 mg TID MATEO Administration Ampicillin Sodium/Sulbactam 100 mls @ 200 mls/hr 07/31/20 21:00 08/01/20 13:06 Sodium 1.5 gm/ Sodium Chloride IVPB 100 mls Q4HR MATEO Administration Pantoprazole Sodium 40 mg 07/28/20 09:00 08/01/20 08:16 Pantoprazole 40 Mg Tab PO 40 mg DAILY MATEO Administration Paroxetine HCl 40 mg 07/28/20 21:00 07/31/20 21:10 Paroxetine 20 Mg Tab PO 40 mg HS MATEO Administration Polyethylene Glycol 17 gm 07/28/20 09:00 08/01/20 08:17 Polyethylene Glycol 3350 17 Gm Packet PO 17 gm DAILY MATEO Administration Sodium Chloride 10 ml 07/27/20 09:00 08/01/20 08:17 Flush - Normal Saline 10 Ml Syringe IVF 10 ml Q12HR MATEO Administration Tamsulosin HCl 0.4 mg 07/28/20 09:00 08/01/20 08:15 Tamsulosin Hcl 0.4 Mg Cap PO 0.4 mg DAILY MATEO Administration - Exam General Appearance: awake alert General - other findings: Chronically ill looking Heart: RRR, no murmur, no gallops, no rubs Respiratory: CTAB, no wheezes, no rales, no ronchi Gastrointestinal: soft, non-tender, non-distended, normal bowel sounds Extremities: no cyanosis, no clubbing, no edema Neurological: cranial nerve grossly intact (Otherwise hard of hearing), no focal deficits Neurological - other findings: Bilateral upper limb tremors mainly on the left. Psychiatric: normal affect Psychiatric - other findings: Oriented to person and place. Hosp A/P - Plan This is an 80-year-old male patient with a history of colon cancer status post colostomy, A. fib, hypertension, diabetes and past Covid infection was admitted on account of altered mental status deemed to be due to UTI. Acute encephalopathy The setting of UTI Generally improved but however having intermittent confusion. No intracranial pathology on imaging, carotid Doppler ultrasound shows no significant stenosis He would need evaluation by [facility] tomorrow for discharge UTI Urine growing E. coli Organism resistant to Levaquin and ceftriaxone Currently on Zosyn will de-escalate to Unasyn History of colon cancer Stable Colostomy bag in place Swelling scrotum Secondary to hydrocele Stablewe will monitor. History of DVT Has IVC Atrial fibrillation Continue Eliquis Upper limb tremors At rest and on movementlikely Parkinson's In the setting of advanced age We will monitor Appreciate neurology input. VT prophylaxistherapeutic on apixaban. CODE STATUS-Full code Dispositionpatient stable will be evaluated by penitentiary and possibly discharge tomorrow Advanced age and chronic debilitypalliative care consult for goals of care discussion.
[2020-08-01] MEDS: Atorvastatin Calcium 40 MG TAB PO SCH (20:34)
[2020-08-01] MEDS: PARoxetine 20 MG TAB PO SCH (20:35)
[2020-08-01] MEDS: clonazePAM 0.5 MG TAB PO SCH (20:36)
[2020-08-02] MEDS: Ampicillin/Sulbactam 1.5 GM in Sodium Chloride 0.9% 100 ML IVPB SCH ×5 (01:07→18:07)
[2020-08-02] MEDS: Finasteride 5 MG TAB PO SCH (08:25)
[2020-08-02] MEDS: Apixaban 5 MG TAB PO SCH (08:25)
[2020-08-02] MEDS: Gabapentin 300 MG CAP PO SCH ×2 (08:26→14:20)
[2020-08-02] MEDS: Aspirin 81 mg Enteric Coated Tablet PO SCH (08:26)
[2020-08-02] MEDS: Polyethylene Glycol 3350 17 GM Packet PO SCH (08:27)
[2020-08-02] MEDS: Furosemide 20 MG TAB PO SCH (08:27)
[2020-08-02] MEDS: Tamsulosin HCl 0.4 MG CAP PO SCH (08:27)
[2020-08-02] MEDS: Bupropion 150 MG SR TAB PO SCH (10:28)
[2020-08-02] MEDS: Artificial Tear Sol 15 ML BOT EA EYE SCH (10:28)
--- NOTE | 2020-08-02 20:20 | PDOC.DS.DS ---
Provider - Provider Date of Admission: 07/27/20 01:10 Date of Discharge: 08/02/20 Admitting Provider: Nikolas Salazar Primary Care Physician: OUT OF TOWN Course - Hospital Course Hospital Course: This is an 80-year-old man with a history of hypertension, hyperlipidemia, BPH and atrial fibrillation who was admitted on account of altered mental status. He was noted to have urinary tract infection causing his altered mental state. He was initially started on Zosyn to cover for resistant UTI which was subsequently changed to Unasyn which was also sensitive. His mental status significantly improved CT scan showed nonobstructing renal calculi. After improvement patient was discharged back to his [facility] home. He will follow-up with his urologist for further evaluation Resuscitation Status: 07/27/20 04:43 Resuscitation Status Routine Resuscitation Status: FULL: Full Resuscitation - Labs Lab Results: 07/31/20 06:13 08/01/20 15:19 Abnormal Lab Results - Last 48 hrs 08/01/20 07:38: Potassium 3.4 L Microbiology - Entire Visit 07/26/20 23:05 Venous blood - Right Hand Blood Culture - Final NO GROWTH IN 5 DAYS 07/26/20 22:47 Venous blood - Right Arm Blood Culture - Final NO GROWTH IN 5 DAYS 07/26/20 22:50 Urine Straight Catheter Urine Culture - Final Escherichia coli - Physical Exam Vitals: Vital Signs (12 hours) Temp Pulse Resp BP Pulse Ox 08/02/20 19:35 98.2 F 84 16 130/80 94 L 08/02/20 16:00 98.1 F 82 20 128/76 91 L 08/02/20 11:29 97.5 F L 64 20 131/79 96 Weight Weight 248 lb 11.2 oz Physical Exam: The patient was seen and examined on the day of discharge. General: Patient in bed in no acute distress. Respiratory system: Air entry adequate bilaterally. CVS: S1-S2 present. No murmurs gallops or rubs. Abdomen: Benign Genitourinary: Scrotal hydrocele Extremities: No edema Problem - Discharge Plan Assessment: Acute encephalopathy Likely secondary to UTI Resolved with treatment of UTI. UTI E. coli positive Sensitive to Zosyn and Unasyn Patient was started on Zosyn and then transition to Unasyn and discharged on Augmentin He will follow up with his PCP for further management. Nonobstructing renal calculi Follow-up with urologist Plan - Discharge Medications Prescriptions: Amoxicillin/Potassium Clav [Augmentin 875-125 Tablet] 1 each PO BID #18 tablet Home Medications: Medication Instructions Recorded Confirmed Type Finasteride 5 mg PO DAILY 08/31/16 07/27/20 History Furosemide 20 mg PO BID 12/04/16 07/27/20 History Diltiazem CD [Cardizem CD] 120 mg PO BID #60 cap 07/18/17 07/27/20 Rx Baclofen 5 mg PO TID 06/06/19 07/27/20 History Gabapentin 300 mg PO TID 06/06/19 07/27/20 History HYDROcodone Bit/APAP 10/325 [Ferguson] 1 tab PO Q4HR 06/06/19 07/27/20 History Lactulose 10 GM/15ML Oral Darlin 20 gm PO BID 06/06/19 07/27/20 History [Lactulose] Multivitamin [Multivitamins] 1 cap PO DAILY 06/06/19 07/27/20 History PARoxetine HCl 40 mg PO HS 06/06/19 07/27/20 History Potassium Chloride [K-Dur] 20 meq PO BID 06/06/19 07/27/20 History buPROPion HCl [buPROPion HCl SR] 150 mg PO DAILY 06/06/19 07/27/20 History clonazePAM [Klonopin] 0.5 mg PO HS 06/06/19 07/27/20 History Bisacodyl [Dulcolax] 10 mg [place] DAILYPRN PRN supp 06/18/19 07/27/20 Rx Pantoprazole [Protonix] 40 mg PO DAILY tab 06/18/19 07/27/20 Rx Polyethylene Glycol 3350 [Miralax] 17 gm PO DAILY pk 06/18/19 07/27/20 Rx Tamsulosin HCl [Flomax] 0.4 mg PO DAILY cap 06/18/19 07/27/20 Rx Acetaminophen With Codeine 1 tablet PO Q4HR PRN 07/27/20 07/27/20 History [Tylenol with Codeine #3] Apixaban [Eliquis] 5 mg PO BID 07/27/20 07/27/20 History Aspirin 325 mg PO DAILY 07/27/20 07/27/20 History Atorvastatin Calcium [Lipitor] 40 mg PO HS 07/27/20 07/27/20 History Calcium Carbonate [Tums] 1,000 mg PO QID PRN 07/27/20 07/27/20 History Ipratropium/Albuterol Sulfate 3 ml NEB Q4H PRN 07/27/20 07/27/20 History [DuoNeb] Meloxicam [Mobic] 7.5 mg PO DAILY 07/27/20 07/27/20 History Menthol [Biofreeze 4% Gel] 1 applic TOP BID 07/27/20 07/27/20 History Nystatin [Nystatin Powder] 1 applic TOP BID 07/27/20 07/27/20 History Ondansetron [Zofran ODT] 4 mg PO Q8HR PRN 07/27/20 07/27/20 History Polyvinyl Alcohol [Artificial 11 drop EA EYE BID 07/27/20 07/27/20 History Tears] Simethicone [Mylicon Chewable] 80 mg PO PCHS PRN 07/27/20 07/27/20 History Triamcinolone Acetonide 1 applic TOP BID 07/27/20 07/27/20 History [Triamcinolone Acetonide 0.1% Lotion] cloNIDine [Catapres] 0.1 mg PO Q6H PRN 07/27/20 07/27/20 History guaiFENesin [Guaifenesin] 400 mg PO BID 07/27/20 07/27/20 History Amoxicillin/Potassium Clav 1 each PO BID #18 tablet 08/02/20 Rx [Augmentin 875-125 Tablet] Allergies: oseltamivir [From Tamiflu] Allergy (Verified 07/27/20 04:16) - Discharge Instructions Activity:: Activity as Tolerated Nourishment:: Heart Healthy Diet, Low Sodium Diet - Follow up Plan Referrals: [facility],OUT OF [Primary Care Provider] - Deidra Vera MD [Active] - Sandra Turcios DO [Active] - 14 Days Sudeep Lou MD [Active] - 3-4 Weeks (Recurrent hydrocele, complicated UTI) Disposition: [facility]
[2020-08-02 20:30] VITALS: BP 150/79
[2020-08-02 20:31] VITALS: TEMP 98.2
== END 2020-08-02 20:15 | DRG 689 ==
LOC: ERS 21:55 → 2SW 07-27 01:10 → T4-B 07-29 08:42
PROVIDERS: ADMIT Internal Medicine; ATTEND Hospitalist
PROC: 8E0ZXY6 Isolation (ICD-10-PCS; principal; 2020-07-27)
DX: N30.00 Acute cystitis without hematuria (principal); G93.41 Metabolic encephalopathy; M45.9 Ankylosing spondylitis of unspecified sites in spine; I48.0 Paroxysmal atrial fibrillation; E78.5 Hyperlipidemia, unspecified; I10 Essential (primary) hypertension; Z96.641 Presence of right artificial hip joint; R00.1 Bradycardia, unspecified; E83.39 Other disorders of phosphorus metabolism; G25.81 Restless legs syndrome; E66.9 Obesity, unspecified; B96.20 Unspecified Escherichia coli [E. coli] as the cause of diseases classified elsewhere; N43.3 Hydrocele, unspecified; R25.1 Tremor, unspecified; N40.1 Benign prostatic hyperplasia with lower urinary tract symptoms; R33.8 Other retention of urine; Z28.21 Immunization not carried out because of patient refusal; Z86.19 Personal history of other infectious and parasitic diseases; Z86.718 Personal history of other venous thrombosis and embolism; Z74.01 Bed confinement status; Z90.49 Acquired absence of other specified parts of digestive tract; Z88.3 Allergy status to other anti-infective agents; Z95.828 Presence of other vascular implants and grafts; Z68.35 Body mass index [BMI] 35.0-35.9, adult; Z93.3 Colostomy status; Z85.038 Personal history of other malignant neoplasm of large intestine; Z79.899 Other long term (current) drug therapy; Z79.82 Long term (current) use of aspirin; Z79.01 Long term (current) use of anticoagulants; Z79.1 Long term (current) use of non-steroidal anti-inflammatories (NSAID)
CPT/HCPCS: 36415; 51701; 70450; 70551; 71045; 74176; 80048; 80053; 80061; 81003; 81015; 82565; 83036; 83605; 83690; 83735; 84443; 84484; 85007; 85025; 85027; 87040; 87077; 87086; 87186; 93005; 93306; 93880; 94760; 95712; 95819; 95957; 96365; J0295; J0696; J2543; J3490

== ENCOUNTER 2020-09-05 09:36 | Inpatient (IN) | payer MEDICARE, BC, MEDICAID ==
[~2020-09-05 09:36] MED LIST: Iopamidol-370 76% 500 ML 1 ML ONE
[2020-09-05] MEDS ORDERED: Ondansetron PF 4 MG/2 ML Vial ONE (10:13)
[2020-09-05 10:54] LABS: #Lymphocytes 1.3 thou/uL (1.20-3.40); #Monocytes 1.1 thou/uL (0.11-0.59); #Neutrophils 10.5 thou/uL (1.40-6.50); %Basophils 0.1 % (0.0-1.0); %Eosinophils 0.2 % (0.0-10.0); %Monocytes 8.3 % (0.0-10.0); %Neutrophils 81.4 % (42.0-75.0); Hemoglobin 13.3 g/dL (14.0-18.0); Mean Corpuscular HGB CONC 32.5 g/dL (32.0-36.0); Mean Corpuscular Hemoglobin 30.9 pg (27.0-31.0); Mean Corpuscular Volume 95.1 fL (78.0-98.0); Mean Platelet Volume 6.7 fL (7.4-10.4); Platelet Count 277 thou/uL (130-400); RBC Distribution Width 14.4 % (11.5-14.5); Red Blood Cell (RBC) Count 4.29 mill/uL (4.70-6.10); White Blood Cell (WBC) Count 12.9 thou/uL (4.8-10.8)
[2020-09-05 11:15] LABS: ALT (SGPT) 17 U/L (8-55); AST (SGOT) 22 U/L (5-34); Albumin 3.8 g/dL (3.4-4.8); Alkaline Phosphatase 131 U/L (40-110); Anion Gap 16 mmol/L (10-20); BUN (Urea Nitrogen) 20 mg/dL (8.4-25.7); Bilirubin, Total 0.6 mg/dL (0.2-1.2); Calc. Creatinine Clearance 0 mL/min (70-130); Calcium 9.3 mg/dL (7.8-10.44); Carbon Dioxide 26 mmol/L (23-31); Chloride 100 mmol/L (98-107); Globulin 3.1 g/dL (2.4-3.5); Glucose 141 mg/dL (83-110); Lipase 13 U/L (8-78); Potassium 4.7 mmol/L (3.5-5.1); Protein, Total 6.9 g/dL (5.8-8.1); Sodium 137 mmol/L (136-145)
--- NOTE | 2020-09-05 12:10 | CT ---
CT ABDOMEN WITH CONTRAST CT PELVIS WITH CONTRAST: DATE: 09/05/2020 HISTORY: 80-year-old male with nausea and vomiting. COMPARISON: 07/27/2020 TECHNIQUE: IV injection of iodinated contrast media: administered. Oral contrast media:Not administered FINDINGS: Again noted is the large left lower quadrant parastomal hernia at the colostomy site. This large elena ia sac contains the descending and or sigmoid colon. It also contains multiple small bowel loops as before. However, there is now a new finding of dilation of all small bowel loops within the hernia sac, and d ilation of all afferent small bowel loops proximal to that in the upper peritoneal cavity, all with air-fluid levels. The stomach is also distended with air-fluid levels. There is a sharp transition zone at the anterior right side of the mouth of the hernia, distal to whi ch all distal ileal loops are collapsed (axial image 59 of 100, series 2). In fact, the efferent collapsed ileal loops herniate into a right paramedian smaller ventral hernia, which is essentially unchanged since prior CT. Thorpe's pouch is noted. No pathology of liver, pancreas, adrenals, spleen, or appendix. Bilateral renal cysts are again noted. No hydronephrosis. No abdominal aortic aneurysm. IVC filter. No ascites or pneumoperitoneum. IMPRESSION: high-grade small bowel obstruction occurring at the large left lower quadrant parastomal colostomy he rnia.
[2020-09-05] MEDS ORDERED: Oxymetazoline HCl 0.05% (30 ML BOT) ONE (13:46)
[2020-09-05] MEDS ORDERED: Benzocaine 20% Spray 60 ML CAN ONE (13:46)
--- NOTE | 2020-09-05 14:36 | PDOC.HHP ---
Hospitalist HPI - History of Present Illness History of Present Illness: ADMISSION DATE: 09/05/2020 TIME OF ASSESSMENT: 1300 CHIEF COMPLAINT: Nausea and vomiting HPI: This is an 80-year-old gentleman who presents to the emergency department with complaints of persistent nausea vomiting for the last 3 days. He has been bringing up brown substance and states he has been unable to tolerate any p.o. intake for the last 3 days. He tried taking Zofran but this did not help. He has had decreased output from his colostomy as well. He denies having any abdominal pain but has had abdominal bloating. He has a longstanding parastomal hernia that is stable. Of note patient tested positive for Covid on 07/03/2020. Last admission was 07/27/2020 to 08/02/2020 during which time he was treated for acute encephalopathy secondary to UTI. ED COURSE: He had laboratory studies done that showed a white cell count of 12.9, he moglobin 13.3, hematocrit 40.8, platelets 277, neutrophils 81.4%. Sodium 137, potassium 4.7, BUN 20, creatinine 1.36, GFR 50, glucose 141, LFTs normal, alk phos 131. Lipase 13. Lactic acid 1.7. IMPRESSION: high-grade small bowel obstruction occurring at the large left lower quadrant parastomal colostomy hernia. He was given Zofran 4 mg IV for his nausea. Status post NG tube placement by Dr. Arcos from General Surgery who has seen the patient and advised conservative management with plans for SB FT tmrw if no resolution of symptoms/obstruction. PAST MEDICAL HISTORY: 1. History of colon cancer, status post colectomy with permanent colostomy. 2. BPH 3. Hyperlipidemia 4. Hypertension 5. Urinary retention 6. Chronic A. fib on anticoagulation with Eliquis 7. Parkinson's disease 8. Restless leg syndrome 9. Peripheral neuropathy 10. Ankylosing spondylitis 11. Anxiety 12. Depression 13. Cervical fracture 14. History of DVT PAST SURGICAL HISTORY: 1. Colostomy in 2016 2. Right hip replacement 3. Hernia surgery x2 4. Neck surgery, cervical fusion 5. Incisional hernia SOCIAL HISTORY: Patient lives at [facility] and is wheelchair-bound. No tobacco use or alcohol consumption. FAMILY HISTORY: Noncontributory ALLERGIES: Oseltamavir CURRENT MEDICATIONS: 1. Baclofen 5 mg p.o. 3 times daily 2. Cardizem ER 120 mg p.o. twice daily 3. Clonidine 0.1 mg p.o. every 6 hours as needed 4. Eliquis 5 mg p.o. twice daily 5. Finasteride 5 mg p.o. daily 6. Flomax 0.4 mg p.o. daily 7. Gabapentin 300 mg p.o. 3 times daily 8. Guaifenesin 400 mg p.o. twice daily 9. DuoNeb 10. Klonopin 0.5 mg p.o. at bedtime 11. Lactulose 10 g p.o. twice daily 12. Lasix 20 mg p.o. twice daily 13. Mobic 7.5 mg p.o. daily 14. Paxil 40 mg p.o. daily 15. Potassium chloride 20 mEq p.o. twice daily 16. Simethicone 80 mg p.o. as needed 17. Nystatin topical 18. Wellbutrin XL 150 mg p.o. daily 19. Bactrim DS 800 mg / 160 mg p.o. twice daily 20. Zofran ODT 4 mg p.o. every 8 hours as needed for nausea 21. GlycoLax 17 g p.o. daily 22. Atorvastatin 40 mg p.o. at bedtime 23. Aspirin 325 mg p.o. daily 24. Hydrocodone 10/325 mg 1 tablet every 4 hours as needed for pain 25. Pantoprazole 40 mg p.o. daily 26. Tylenol with codeine 300/30 mg 1 tablet every 8 hours as needed for pain Hospitalist History - Past Surgical History Past Surgical History: reports: Hernia Repair, Total Hip Replacement - Social History Alcohol: reports: None Drugs: reports: none - Exam General Appearance: NAD, awake alert General - other findings: VS: Temp 97.9, HR 77, BP 142/78, RR 13, O2 sat 94% on room air Eye: PERRL, anicteric sclera ENT: normocephalic atraumatic, moist mucosa Neck: supple, no lymphadenopathy Heart: RRR, normal peripheral pulses Respiratory: CTAB, no wheezes, no rales, no ronchi, normal chest expansion Gastrointestinal: soft, non-tender, non-distended, normal bowel sounds Extremities: no edema Skin: normal turgor, no lesions, no rashes Neurological: cranial nerve grossly intact, normal sensation to touch, no weakness Musculoskeletal: normal tone, normal strength, no muscle wasting Psychiatric: normal affect, normal behavior, A&O x 3 Hospitalist Results - Labs Result Diagrams: 09/05/20 10:12 09/05/20 09:52 Lab results: WBC 12.9 thou/uL (4.8-10.8) H 09/05/20 10:12 Hgb 13.3 g/dL (14.0-18.0) L 09/05/20 10:12 Hct 40.8 % (42.0-52.0) L 09/05/20 10:12 MCV 95.1 fL (78.0-98.0) 09/05/20 10:12 Plt Count 277 thou/uL (130-400) 09/05/20 10:12 Neutrophils % 81.4 % (42.0-75.0) H 09/05/20 10:12 Sodium 137 mmol/L (136-145) 09/05/20 09:52 Potassium 4.7 mmol/L (3.5-5.1) 09/05/20 09:52 Chloride 100 mmol/L (98-107) 09/05/20 09:52 Carbon Dioxide 26 mmol/L (23-31) 09/05/20 09:52 BUN 20 mg/dL (8.4-25.7) 09/05/20 09:52 Creatinine 1.36 mg/dL (0.7-1.3) H 09/05/20 09:52 Glucose 141 mg/dL (83-110) H 09/05/20 09:52 Lactic Acid 1.7 mmol/L (0.5-2.2) 09/05/20 09:55 Calcium 9.3 mg/dL (7.8-10.44) 09/05/20 09:52 Total Bilirubin 0.6 mg/dL (0.2-1.2) 09/05/20 09:52 AST 22 U/L (5-34) 09/05/20 09:52 ALT 17 U/L (8-55) 09/05/20 09:52 Alkaline Phosphatase 131 U/L (40-110) H 09/05/20 09:52 Serum Total Protein 6.9 g/dL (5.8-8.1) 09/05/20 09:52 Albumin 3.8 g/dL (3.4-4.8) 09/05/20 09:52 Lipase 13 U/L (8-78) 09/05/20 09:52 - Radiology Interpretation CT scan - abdomen Status: report reviewed by me Hospitalist H&P A/P - Problem (1) SBO (small bowel obstruction) Code(s): K56.609 - UNSP INTESTNL OBST, UNSP TO PARTIAL VERSUS COMPLETE OBST Status: Acute (2) RICARDO (acute kidney injury) Code(s): N17.9 - ACUTE KIDNEY FAILURE, UNSPECIFIED Status: Acute (3) Parastomal hernia Code(s): K43.5 - PARASTOMAL HERNIA WITHOUT OBSTRUCTION OR GANGRENE Status: Acute (4) History of colon cancer Code(s): Z85.038 - PERSONAL HISTORY OF MALIGNANT NEOPLASM OF LARGE INTESTINE S tatus: Chronic (5) Colostomy in place Code(s): Z93.3 - COLOSTOMY STATUS Status: Chronic (6) Chronic a-fib Code(s): I48.20 - CHRONIC ATRIAL FIBRILLATION, UNSPECIFIED Status: Chronic (7) Chronic anticoagulation Code(s): Z79.01 - PRIMER ASSEMBLER (CURRENT) USE OF ANTICOAGULANTS Status: Chronic (8) Parkinsons disease Code(s): G20 - PARKINSON'S DISEASE Status: Chronic (9) Anxiety and depression Code(s): F41.9 - ANXIETY DISORDER, UNSPECIFIED; F32.9 - MAJOR DEPRESSIVE DISORDER, SINGLE EPISODE, UNSPECIFIED Status: Chronic (10) Ankylosing spondylitis Code(s): M45.9 - ANKYLOSING SPONDYLITIS OF UNSPECIFIED SITES IN SPINE Status: Chronic (11) Hx of deep venous thrombosis Code(s): Z86.718 - PERSONAL HISTORY OF OTHER VENOUS THROMBOSIS AND EMBOLISM Status: Chronic (12) BPH (benign prostatic hyperplasia) Code(s): N40.0 - BENIGN PROSTATIC HYPERPLASIA WITHOUT LOWER URINRY TRACT SYMP Status: Chronic Qualifiers: Lower urinary tract symptom presence: symptoms present (13) Dyslipidemia Code(s): E78.5 - HYPERLIPIDEMIA, UNSPECIFIED Status: Chronic (14) HTN (hypertension) Code(s): I10 - ESSENTIAL (PRIMARY) HYPERTENSION Status: Chronic Qualifiers: Hypertension type: essential hypertension Qualified Code(s): I10 - Essential (primary) hypertension (15) Restless leg syndrome Status: Chronic (16) Obesity (BMI 30.0-34.9) Code(s): E66.9 - OBESITY, UNSPECIFIED Status: Chronic - Plan Plan: Patient presenting with N/V x 3 days found to have a high-grade SBO, s/p NGT by Dr. Arcos in the ED. Initial output 500cc. Admitted for continued management. Conservative management as per surgical team, no indication for surgery or procedure at this time. NGT in place (500cc initial output) Xray to confirm appropriate placement NPO and IV fluids Further management as per surgical team Check and monitor electrolytes Monitor BP Obtain baseline EKG Resume home medications once verified, as appropriate GI Prophylaxis with Famotidine DVT Prophylaxis: Resume Eliquis PT/OT consulted, patient wheelchair bound. CODE STATUS FULL Case discussed with Dr. Moran who agrees with plan as above.
--- NOTE | 2020-09-05 15:37 | CON ---
DATE OF CONSULTATION: 09/05/2020 HISTORY OF PRESENT ILLNESS: Mr. Macias is an 80-year-old man who presented through emergency department today complaining of a 3-day history of inability to maintain oral intake due to recurrent nausea and vomiting. He has a longstanding parastomal hernia surrounding previous colostomy. He has had no ostomy output over the last 3 days. The patient denies any abdominal pain, fevers, or chills. PAST MEDICAL HISTORY: Pertinent for: 1. Essential hypertension. 2. Colon cancer. 3. Hyperlipidemia. 4. Benign prostatic hypertrophy. 5. Chronic atrial fibrillation, on Eliquis. 6. Recent urinary tract infection, which was complicated by metabolic encephalopathy, requiring hospitalization in 07/2020. 7. Chronic anxiety and depression. 8. Previous venous thromboembolism. PAST SURGICAL HISTORY: Pertinent for: 1. Partial colectomy with end colostomy in 2015. 2. Total right hip arthroplasty. 3. Incisional herniorrhaphy. 4. Bilateral inguinal herniorrhaphy. 5. Cervical neck fusion. SOCIAL HISTORY: He is a resident of an extended care facility and is essentially a wheelchair bound. He denies any cigarette smoking, ethanol, or illicit drug abuse. FAMILY HISTORY: Noncontributory for this patient's age. MEDICATIONS: I reviewed his prehospitalization medications, which include: 1. Baclofen 5 mg p.o. t.i.d. 2. Mobic 7.5 mg p.o. daily. 3. Cardizem ER 120 mg p.o. b.i.d. 4. Flomax 0.4 mg p.o. daily. 5. Clonidine 0.1 mg p.o. q.6 h. p.r.n. 6. Eliquis 5 mg p.o. b.i.d. 7. Bactrim DS p.o. b.i.d. 8. Gabapentin 300 mg p.o. t.i.d. 9. Finasteride 5 mg p.o. daily. 10. Klonopin 0.5 mg p.o. nightly. 11. Lactulose 10 mg p.o. b.i.d. 12. Furosemide 20 mg p.o. b.i.d. 13. Wellbutrin XL 150 mg p.o. daily. 14. Multiple stool softeners. ALLERGIES: TO OSELTAMIVIR. REVIEW OF SYSTEMS: Ten-point review of systems as stated in past medical history and chief complaint. PHYSICAL EXAMINATION: GENERAL: An 80-year-old obese man who is otherwise in no acute distress at the time of my evaluation. VITAL SIGNS: Blood pressure 142/78, pulse 77, respiratory rate is 13, temperature 97.9 degrees Fahrenheit, and oxygen saturation 94% on room air. HEENT: Pupils are equally round and reactive to light and accommodation. HEART: Irregular rate and rhythm. LUNGS: Clear to auscultation bilaterally. Breathing, regular and unlabored. ABDOMEN: Soft, obese, and distended. He has a large parastomal hernia surrounding viable colostomy with no output. He has no abdominal tenderness to palpation. He has healed lower midline incision, consistent with prior history of a Feliep's procedure. The liver and spleen otherwise nonpalpable below costal margin. LABORATORY FINDINGS: Today include a CBC with 12,900 white blood cells, hemoglobin and hematocrit are 13.3 and 40.8 respectively, and platelet count is 277,000. Metabolic profile: Sodium 137, potassium 4.7, chloride is 100, bicarb is 26, BUN is 20, creatinine is 1.36, and glucose is 141. Lactic acid is 1.7. Total bilirubin 0.6, AST and ALT normal at 22 and 17 respectively, and serum lipase is normal at 13. I personally reviewed the CT scan of abdomen and pelvis, which is remarkable for large parastomal hernia, which contains small and large bowel, appears to be proximal small bowel dilatation. There is no significant free fluid or pneumoperitoneum present. When compared to CAT scans of 07/27/2020, 03/23/2020, 09/11/2019, and 03/18/2019, the parastomal hernia appears to be stable, although this time there appears to be more distended loops of involved small bowel with decompression of efferent limb. IMPRESSION: Acute partial small-bowel obstruction secondary to incarcerated parastomal hernia. RECOMMENDATIONS: 1. Bowel rest. 2. Nasogastric tube decompression and serial physical examination. 3. There is no acute surgical indication for this patient at this time; however, if the small-bowel obstruction fails to resolve with conservative management within a reasonable amount of time in this hospitalization, we will give consideration to surgical intervention at that time. 4. Above findings discussed with the patient in the presence of his nurse. He indicates understanding information provided. 5. I placed the nasogastric tube myself and returned immediately approximately 600 mL of nonbilious gastric effluent. Thank you again, Dr. Quach, for allowing me the opportunity to participate in the care of this patient. Job ID: [id number]
--- NOTE | 2020-09-05 17:25 | RAD ---
PORTABLE CHEST: Comparison: 07-26-2020 History: Epigastric pain, nausea, vomiting, NG tube placement. FINDINGS: Heart size is enlarged. Lungs are clear of any infiltrative process. NG tube is seen below the hemidi aphragm. Post-operative changes of the cervical spine. Vertebroplasty changes of the thoracic spine a re seen. IMPRESSION: 1. Cardiomegaly. 2. NG tube with the tip below the hemidiaphragm. POS: BRIANNA
[2020-09-05 17:50] VITALS: BMI 35.9
[2020-09-05] MEDS: Acetaminophen 325 MG TAB PO PRN (21:25)
[2020-09-05] MEDS: Apixaban 5 MG TAB PO SCH (21:26)
[2020-09-05] MEDS: clonazePAM 0.5 MG TAB PO SCH (21:26)
[2020-09-05] MEDS: Atorvastatin Calcium 40 MG TAB PO SCH (21:26)
[2020-09-05] MEDS: Famotidine/PF 20 mg/2ml Vial SLOW IVP SCH (21:26)
[2020-09-05 21:45] LABS: SARS-CoV-2 by NAA Indeterminate (NotDetected)
[2020-09-05 21:46] LABS: SARS-CoV-2 MS2 Positive; SARS-CoV-2 N Gene Positive; SARS-CoV-2 S Gene Negative; SARS-CoV-2 orf1ab Negative
[2020-09-05] MEDS ORDERED: Melatonin 3 MG TAB PO PRN (23:47)
[2020-09-06 05:20] LABS: #Eosinphils 0.2 thou/uL (0.0-0.7); #Lymphocytes 1.4 thou/uL (1.20-3.40); #Monocytes 1.1 thou/uL (0.11-0.59); #Neutrophils 8.4 thou/uL (1.40-6.50); %Basophils 0.3 % (0.0-1.0); %Eosinophils 1.6 % (0.0-10.0); %Lymphocytes 12.2 % (21.0-51.0); %Monocytes 10.1 % (0.0-10.0); %Neutrophils 75.8 % (42.0-75.0); Hemoglobin 12.4 g/dL (14.0-18.0); Mean Corpuscular HGB CONC 32.6 g/dL (32.0-36.0); Mean Corpuscular Volume 95.3 fL (78.0-98.0); Mean Platelet Volume 6.9 fL (7.4-10.4); Platelet Count 246 thou/uL (130-400); RBC Distribution Width 14.5 % (11.5-14.5); White Blood Cell (WBC) Count 11.1 thou/uL (4.8-10.8)
[2020-09-06 05:41] LABS: Anion Gap 14 mmol/L (10-20); BUN (Urea Nitrogen) 23 mg/dL (8.4-25.7); Calc. Creatinine Clearance 71 mL/min (70-130); Calcium 8.9 mg/dL (7.8-10.44); Carbon Dioxide 26 mmol/L (23-31); Chloride 100 mmol/L (98-107); Glucose 110 mg/dL (83-110); Potassium 4.4 mmol/L (3.5-5.1); Sodium 136 mmol/L (136-145)
[2020-09-06] MEDS: Famotidine/PF 20 mg/2ml Vial SLOW IVP SCH (08:36)
[2020-09-06] MEDS: Apixaban 5 MG TAB PO SCH (08:36)
[2020-09-06] MEDS: Acetaminophen 325 MG TAB PO PRN (08:36)
[2020-09-06] MEDS ORDERED: cloNIDine 0.1 MG TAB PO PRN (09:20)
[2020-09-06] MEDS ORDERED: HYDROcodone/Acetaminophen 10/325 mg Tablet PO PRN (09:20)
[2020-09-06] MEDS ORDERED: Ondansetron ODT 4 MG TAB PO PRN (09:20)
[2020-09-06] MEDS ORDERED: Simethicone Chewable 80 MG TAB PO PRN (09:20)
[2020-09-06] MEDS ORDERED: Acetaminophen/Codeine 30-300mg Tablet PO PRN (09:20)
[2020-09-06] MEDS ORDERED: Nystatin Powder 15 GM BOT TOP PRN (09:20)
[2020-09-06] MEDS: Tamsulosin HCl 0.4 MG CAP PO SCH (12:35)
[2020-09-06] MEDS: Acetaminophen 650 MG Suppository PR PRN (13:24)
[2020-09-06] MEDS ORDERED: MD-Gastroview 120 ML BOT ONE (13:43)
--- NOTE | 2020-09-06 13:58 | PRG ---
DATE OF SERVICE: 09/06/2020 SUBJECTIVE: This patient was seen with Dr. Baptiste during morning rounds. The patient was awake, alert, sitting up in bed, in no distress. The patient was admitted yesterday due to partial small-bowel obstruction. An NG tube was placed yesterday. The patient's pain is controlled. PHYSICAL EXAMINATION: VITAL SIGNS: Blood pressure 123/95, pulse 85, respirations 17, temperature 98.5 Fahrenheit, O2 saturation 93% on room air. GENERAL: The patient is resting comfortably in bed. No complaints at this time. GCS is 15. HEENT: Unremarkable. RESPIRATORY: Nonlabored. ABDOMEN: Soft and nontender with large parastomal hernia visualized. EXTREMITIES: Neurovascularly intact x4. LABORATORY DATA: Hemoglobin 12.4. Cr 1.3 ASSESSMENT: 1. Acute partial small-bowel obstruction secondary to incarcerated parastomal hernia. 2. Acute kidney injury. PLAN: Nasogastric tube in place with output of 600 mL when placed and overnight documented 200 mL. Plan for small bowel follow-through today. The patient still continues on bowel rest. Pain is controlled on acetaminophen. The patient's creatinine is elevated from baseline likely due to decreased p.o. intake and nausea, vomiting. We will add IV fluids and repeat BMP tomorrow. Job ID: [id number] MTDD
[2020-09-06] MEDS: Ondansetron PF 4 MG/2 ML Vial IVP PRN (14:24)
[2020-09-06] MEDS ORDERED: Baclofen 10 MG TAB PO SCH (15:00)
[2020-09-06] MEDS ORDERED: Gabapentin 300 MG CAP PO SCH (15:00)
--- NOTE | 2020-09-06 15:16 | RAD ---
Exam: Gastrografin small bowel HISTORY: Evaluate for bowel obstruction COMPARISON: None FINDINGS: Initial supine epic ambulatory analyst radiograph demonstrates a vertebral plasty in the distal thoracic spine, IVC farheen ter and nasogastric tube terminating in the gastric cardia. There are prominent air-filled loops of small bowel. Gastrografin was administered and opacified markedly distended small bowel loops. There is incomplete passage of Gastrografin into the colostomy bag. There is evidence for high-grade obstruction. IMPRESSION: High-grade obstruction.
--- NOTE | 2020-09-06 16:11 | PDOC.HOSPP ---
- Subjective Encounter Date: 09/06/20 Encounter Time: 16:11 - Objective Vital Signs & Weight: Vital Signs (12 hours) Temp Pulse Pulse Resp BP BP Pulse Ox 09/06/20 12:05 98.2 F 88 20 179/86 H 95 09/06/20 09:28 72 142/73 H 09/06/20 07:45 98.5 F 85 17 123/95 H 93 L Pulse Ox 09/06/20 12:05 09/06/20 09:28 95 09/06/20 07:45 Weight Admit Weight 250 lb Weight 250 lb I&O: 09/05/20 09/06/20 09/07/20 06:59 06:59 06:59 Intake Total 160 Output Total 200 Balance -40 Result Diagrams: 09/06/20 04:09 09/06/20 04:09 Hospitalist ROS - Review of Systems Gastrointestinal: reports: nausea Genitourinary: denies: dysuria, frequency, incontinence, hematuria, retention, other Musculoskeletal: denies: neck pain, shoulder pain, arm pain, back pain, hand pain, leg pain, foot pain, other - Medication Medications: Active Medications Generic Name Dose Route Start Last Admin Trade Name Freq PRN Reason Stop Dose Admin Acetaminophen 650 mg 09/05/20 14:11 09/06/20 08:36 Acetaminophen 325 Mg Tab PO 650 mg Q4H PRN Administration Headache/Fever/Mild Pain (1-3) Acetaminophen 650 mg 09/05/20 14:11 09/06/20 13:24 Acetaminophen 650 Mg Suppository SC 650 mg Q4H PRN Administration Headache/Fever/Mild Pain (1-3) Atorvastatin Calcium 40 mg 09/05/20 21:00 09/05/20 21:26 Atorvastatin Calcium 40 Mg Tab PO 40 mg HS MATEO Administration Clonazepam 0.5 mg 09/05/20 21:00 09/05/20 21:26 Clonazepam 0.5 Mg Tab PO 0.5 mg HS MATEO Administration Ondansetron HCl 4 mg 09/05/20 14:57 09/06/20 14:24 Ondansetron Pf 4 Mg/2 Ml Vial IVP 4 mg Q6H PRN Administration Nausea/Vomiting Tamsulosin HCl 0.4 mg 09/06/20 09:00 09/06/20 12:35 Tamsulosin Hcl 0.4 Mg Cap PO Not Given DAILY MATEO - Exam Neck: negative: supple, symmetric, no JVD, no thyromegaly, no lymphadenopathy, no carotid bruit, JVD Heart: negative: RRR, no murmur, no gallops, no rubs, normal peripheral pulses, irregular, diminshed peripheral pulses, murmur present, II/IV, III/IV Respiratory: negative: CTAB, no wheezes, no rales, no ronchi, normal chest expansion, no tachypnea, normal percussion, rales, rhonchi, tachypneic, wheezes Gastrointestinal: soft Gastrointestinal - other findings: Hypoactive bowel Hosp A/P - Plan I will restart gabapentin. Stopping Neurontin can cause withdrawal seizures. I will also add DVT prophylaxis since Eliquis was discontinued.
[2020-09-06 17:45] LABS: #Neutrophils 10.7 thou/uL (1.40-6.50); %Basophils 0.2 % (0.0-1.0); %Eosinophils 0.3 % (0.0-10.0); %Lymphocytes 7.5 % (21.0-51.0); %Monocytes 7.5 % (0.0-10.0); %Neutrophils 84.6 % (42.0-75.0); Hemoglobin 13.5 g/dL (14.0-18.0); Mean Corpuscular HGB CONC 32.2 g/dL (32.0-36.0); Mean Corpuscular Hemoglobin 30.6 pg (27.0-31.0); Mean Platelet Volume 6.5 fL (7.4-10.4); Platelet Count 271 thou/uL (130-400); RBC Distribution Width 14.4 % (11.5-14.5); Red Blood Cell (RBC) Count 4.43 mill/uL (4.70-6.10); White Blood Cell (WBC) Count 12.7 thou/uL (4.8-10.8)
--- NOTE | 2020-09-06 19:26 | PDOC.EVN ---
Event Note - Event Note Event Note: Notified by RN patient has pulled out NGT twice today, has had bloody output via NGT. Dr. Baptiste notified, repeat H/H was stable. Recommended to avoid meds via tube and monitor overnight. We will place restraints and repeat H/H this evening. Will also give ativan 0.5 mg IV. Vitals stable at present.
[2020-09-06] MEDS ORDERED: Lorazepam 2 MG/ML VIAL SLOW IVP SCH (19:30)
[2020-09-06] MEDS: Gabapentin 300 MG CAP PO SCH (20:43)
[2020-09-06] MEDS: clonazePAM 0.5 MG TAB PO SCH (20:43)
[2020-09-06] MEDS: Atorvastatin Calcium 40 MG TAB PO SCH (20:43)
[2020-09-06] MEDS ORDERED: Non-Formulary Item 1 EACH (Lactulose 10 Gm/15ml Oral Sol 10 GM/15 ML Ml) PO SCH (21:00)
[2020-09-06] MEDS ORDERED: GUAIFENESIN 400 MG PO SCH (21:00)
[2020-09-06] MEDS ORDERED: Potassium Chloride 20 MEQ TAB PO SCH (21:00)
[2020-09-06] MEDS ORDERED: PAROXETINE HCL PO SCH (21:00)
[2020-09-06] MEDS ORDERED: Furosemide 40 MG TAB PO SCH (21:00)
[2020-09-06] MEDS ORDERED: Famotidine 20 MG TAB PO SCH (21:00)
[2020-09-06] MEDS: Lactated Ringer's 1,000 ML IV SCH (21:43)
[2020-09-06] MEDS ORDERED: Pantoprazole 40 MG VIAL IVP SCH (22:30)
[2020-09-06] MEDS ORDERED: Sodium Chloride 0.9% (PF) 10 ML VIAL FS PRN (22:30)
[2020-09-07] MEDS: Acetaminophen 650 MG Suppository PR PRN (04:20)
[2020-09-07] MEDS: Lactated Ringer's 1,000 ML IV SCH ×3 (04:23→19:40)
[2020-09-07 06:53] LABS: Hemoglobin 13.4 g/dL (14.0-18.0); Mean Corpuscular HGB CONC 32.3 g/dL (32.0-36.0); Mean Corpuscular Hemoglobin 30.6 pg (27.0-31.0); Mean Corpuscular Volume 94.7 fL (78.0-98.0); Mean Platelet Volume 6.8 fL (7.4-10.4); Platelet Count 254 thou/uL (130-400); RBC Distribution Width 14.4 % (11.5-14.5); Red Blood Cell (RBC) Count 4.38 mill/uL (4.70-6.10); White Blood Cell (WBC) Count 16.1 thou/uL (4.8-10.8)
[2020-09-07 06:59] LABS: INR-International Normal Ratio 0.9; Prothrombin Time 12.6 sec (12.0-14.7)
[2020-09-07 07:18] LABS: Anion Gap 15 mmol/L (10-20); BUN (Urea Nitrogen) 25 mg/dL (8.4-25.7); Calc. Creatinine Clearance 84 mL/min (70-130); Calcium 9.1 mg/dL (7.8-10.44); Carbon Dioxide 24 mmol/L (23-31); Chloride 101 mmol/L (98-107); Glucose 128 mg/dL (83-110); Potassium 4.2 mmol/L (3.5-5.1); Sodium 136 mmol/L (136-145)
[2020-09-07 07:48] LABS: Band 2 % (5-11); Lymphocytes 8 % (21-51); MDiff Complete? YES; Monocytes 8 % (0-10); Neutrophil 81 % (42-75); RBC Morphology Normal; Reactive Lymphocytes 1 % (0-10)
[2020-09-07] MEDS: Finasteride 5 MG TAB PO SCH (08:43)
[2020-09-07] MEDS: Tamsulosin HCl 0.4 MG CAP PO SCH (08:43)
[2020-09-07] MEDS: Gabapentin 300 MG CAP PO SCH ×3 (08:43→19:39)
[2020-09-07] MEDS: Pantoprazole 40 MG VIAL IVP SCH ×2 (08:44→19:39)
[2020-09-07] MEDS: Acetaminophen 325 MG TAB PO PRN ×2 (08:45→23:41)
[2020-09-07] MEDS: Enoxaparin Sodium 40 MG/0.4 ML SYRINGE SC SCH (08:45)
[2020-09-07] MEDS ORDERED: Polyethylene Glycol 3350 17 GM Packet PO SCH (09:00)
[2020-09-07] MEDS ORDERED: Finasteride 5 MG TAB PO SCH (09:00)
[2020-09-07] MEDS ORDERED: Meloxicam 7.5 MG TAB PO SCH (09:00)
[2020-09-07] MEDS ORDERED: BUPROPION HCL 150 MG PO SCH (09:00)
--- NOTE | 2020-09-07 10:22 | RAD ---
XR Abdomen 2 View History: Bowel obstruction Comparison: Small bowel follow-through exam prior day Findings: There previously transit of contrast into the large bowel from the small bowel. Similar shelley earance of the IVC filter with 2 shots extending craniad. Enteric tube side port at the GE junction. No free air appreciated. Impression: Transit of contrast into the large bowel.
[2020-09-07] MEDS: Metoprolol Tartrate 5 MG/5 ML VIAL IVP SCH ×2 (12:12→18:09)
--- NOTE | 2020-09-07 15:24 | PQF ---
CLINICAL DOCUMENTATION CLARIFICATION FORM: Dear Dr. Andino Date: 09/07/20 Please exercise your independent, professional judgment in responding to the clarification form. Clinical indicators are provided on the bottom of this form for your review. Please check appropriate box(es): [ ] Encephalopathy: Type: [ x ] Acute [ ] Subacute [ ] Chronic Etiology: [ ] Hypertensive [ ] Metabolic [ ] Toxic [ ] Hypoxic [ ] Septic [ ] Drug induced: [ x ] In the setting of underlying dementia [ ] Unspecified [ ] Other (please specify) [ ] Transient Alteration of Awareness [ ] Other diagnosis [ ] Unable to determine In addition, please specify: Present on Admission (POA): [ ] Yes [ ] No [x ] Unable to determine For continuity of documentation, please document condition throughout progress notes and discharge summary. Thank You. To be completed by CDI/Coding staff for physician review: CLINICAL INDICATORS - SIGNS / SYMPTOMS / LABS / RESULTS AND LOCATION IN EMR EVENT NOTE 09/05 (GITA): "NOTIFIED BY RN PATIENT HAS PULLED OUT NGT TWICE TODAY" NN 09/06: "PT PULLED NGT OUT AGAIN. PT SEEMS CONFUSED...PT KEPT TRYING TO SLAP HANDS AWAY. PATIENT STILL COMPLAINING WANTS TO TAKE IT OUT AGAIN AND CURSING AT RN." RISK FACTORS / RESULTS AND LOCATION IN EMR ADVANCED AGE H/O PARKINSON'S DISEASE (H&P) H/O ANXIETY (ER NOTE) WBC 11.1 - 16.1 TREATMENTS / RESULTS AND LOCATION IN EMR RESTRAINTS (EVENT NOTE 09/05-GITA) KLONOPIN (09/05-PRESENT) ATIVAN 09/06 (SEE EVENT NOTE 09/05-GITA) CDS Signature: Catarina Jain RN Phone #: [phone] Date: 09/07/20 This is a permanent part of the Medical Record [facility]
[2020-09-07] MEDS: Ondansetron PF 4 MG/2 ML Vial IVP PRN ×2 (15:31→23:41)
--- NOTE | 2020-09-07 16:24 | PRG ---
DATE OF SERVICE: 09/07/2020 SUBJECTIVE: Mr. Macias 80-year-old man, who was admitted on 09/05/2020 with abdominal distention, nausea, vomiting, and no output per ostomy. Small bowel follow-through was completed yesterday, which was suspicious for high-grade small bowel obstruction. Nasogastric tube had high output of nonbilious effluent over the last 48 hours. By this morning, the ostomy is quite productive of stool and gas. The patient reports no abdominal pain at this time. Abdominal distention is resolving. OBJECTIVE: VITAL SIGNS: This morning include blood pressure 130/61; pulse 87; respiratory rate 18; temperature 99.5 degrees Fahrenheit; maximum temperature in the previous 24 hours is 100.9 degrees Fahrenheit; and oxygen saturation 94% on room air. HEART: Reveals regular rate and rhythm. LUNGS: Clear to auscultation bilaterally. ABDOMEN: Soft and obese. A viable colostomy is noted with large output of stool and gas. The patient clearly has no peritoneal signs on examination. LABORATORY FINDINGS: Today include a CBC with 16,100 white blood cells, hemoglobin and hematocrit are 13.4 and 41.5 respectively, and platelet count is 254,000. Metabolic profile; sodium 136, potassium 4.2, chloride is 101, bicarb is 24, BUN is 25, creatinine is 1.11, and glucose 128. IMPRESSION: 1. Resolving acute small bowel obstruction. 2. Resolving acute kidney injury. PLAN: 1. The patient has pulled out his nasogastric tube twice now. We will elect to leave this out for the moment as the bowel obstruction appears to be resolving. 2. We will resume clear liquid diet as the patient tolerates. 3. There is no surgical indication for this patient at this time. Job ID: [id number]
--- NOTE | 2020-09-07 18:01 | PDOC.HOSPP ---
- Subjective Encounter Date: 09/07/20 Encounter Time: 10:30 Subjective: pt up in bed confused - Objective Vital Signs & Weight: Vital Signs (12 hours) Temp Pulse Resp BP BP Pulse Ox 09/07/20 16:30 98.9 F 85 18 134/68 93 L 09/07/20 12:38 87 130/61 09/07/20 12:00 99.5 F 88 18 165/98 H 94 L 09/07/20 08:45 100.9 F H 09/07/20 08:43 114 H 176/91 H 09/07/20 08:30 93 L 09/07/20 08:00 100.9 F H 114 H 20 176/91 H 93 L Weight Admit Weight 250 lb Weight 250 lb I&O: 09/06/20 09/07/20 09/08/20 06:59 06:59 06:59 Intake Total 160 1455 Output Total 200 2400 Balance -40 -669 Result Diagrams: 09/08/20 00:11 09/08/20 00:11 Hospitalist ROS - Review of Systems Other: pt confused - Medication Medications: Active Medications Generic Name Dose Route Start Last Admin Trade Name Freq PRN Reason Stop Dose Admin Acetaminophen 650 mg 09/05/20 14:11 09/07/20 08:45 Acetaminophen 325 Mg Tab PO 650 mg Q4H PRN Administration Headache/Fever/Mild Pain (1-3) Acetaminophen 650 mg 09/05/20 14:11 09/07/20 04:20 Acetaminophen 650 Mg Suppository [place] 650 mg Q4H PRN Administration Headache/Fever/Mild Pain (1-3) Atorvastatin Calcium 40 mg 09/05/20 21:00 09/06/20 20:43 Atorvastatin Calcium 40 Mg Tab PO Not Given HS MATEO Clonazepam 0.5 mg 09/05/20 21:00 09/06/20 20:43 Clonazepam 0.5 Mg Tab PO Not Given HS MATEO Diltiazem HCl 120 mg 09/06/20 21:00 09/07/20 08:43 Diltiazem Cd 120 Mg Cap PO 120 mg BID MATEO Administration Enoxaparin Sodium 40 mg 09/07/20 09:00 09/07/20 08:45 Enoxaparin Sodium 40 Mg/0.4 Ml Syringe SC 40 mg 09 MATEO Administration Finasteride 5 mg 09/07/20 09:00 09/07/20 08:43 Finasteride 5 Mg Tab PO 5 mg DAILY MATEO Administration Gabapentin 300 mg 09/06/20 21:00 09/07/20 14:35 Gabapentin 300 Mg Cap PO 300 mg TID MATEO Administration Lactated Ringer's 1,000 mls @ 75 mls/hr 09/07/20 09:45 09/07/20 10:24 Lactated Ringer's IV 1,000 mls .[id number] MATEO Administration Metoprolol Tartrate 2.5 mg 09/07/20 12:00 09/07/20 12:12 Metoprolol Tartrate 5 Mg/5 Ml Vial IVP 2.5 mg Q6HR MATEO Administration Ondansetron HCl 4 mg 09/05/20 14:57 09/07/20 15:31 Ondansetron Pf 4 Mg/2 Ml Vial IVP 4 mg Q6H PRN Administration Nausea/Vomiting Pantoprazole Sodium 40 mg 09/07/20 09:00 09/07/20 08:44 Pantoprazole 40 Mg Vial IVP 40 mg Q12HR MATEO Administration Tamsulosin HCl 0.4 mg 09/06/20 09:00 09/07/20 08:43 Tamsulosin Hcl 0.4 Mg Cap PO 0.4 mg DAILY MATEO Administration - Exam Neck: negative: supple, symmetric, no JVD, no thyromegaly, no lymphadenopathy, no carotid bruit, JVD Heart: negative: RRR, no murmur, no gallops, no rubs, normal peripheral pulses, irregular, diminshed peripheral pulses, murmur present, II/IV, III/IV Respiratory: negative: CTAB, no wheezes, no rales, no ronchi, normal chest expansion, no tachypnea, normal percussion, rales, rhonchi, tachypneic, wheezes Gastrointestinal: soft, normal bowel sounds Gastrointestinal - other findings: maroon output noted in colostomy Hosp A/P (1) SBO (small bowel obstruction) Code(s): K56.609 - UNSP INTESTNL OBST, UNSP TO PARTIAL VERSUS COMPLETE OBST Status: Acute (2) Chronic anticoagulation Code(s): Z79.01 - 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) USE OF ANTICOAGULANTS Status: Chronic (3) History of colon cancer Code(s): Z85.038 - PERSONAL HISTORY OF MALIGNANT NEOPLASM OF LARGE INTESTINE Status: Chronic (4) Paroxysmal atrial fibrillation Code(s): I48.0 - PAROXYSMAL ATRIAL FIBRILLATION Status: Acute (5) BPH (benign prostatic hyperplasia) Code(s): N40.0 - BENIGN PROSTATIC HYPERPLASIA WITHOUT LOWER URINRY TRACT SYMP Status: Chronic Qualifiers: Lower urinary tract symptom presence: symptoms present (6) DVT, bilateral lower limbs Code(s): I82.403 - ACUTE EMBOLISM AND THOMBOS UNSP DEEP VEINS OF LOW EXTRM, BI Status: Chronic Qualifiers: Chronicity: chronic (7) HTN (hypertension) Code(s): I10 - ESSENTIAL (PRIMARY) HYPERTENSION Status: Chronic Qualifiers: Hypertension type: essential hypertension Qualified Code(s): I10 - Essential (primary) hypertension (8) Hx of deep venous thrombosis Code(s): Z86.718 - PERSONAL HISTORY OF OTHER VENOUS THROMBOSIS AND EMBOLISM Status: Chronic - Plan I will restart gabapentin. Stopping Neurontin can cause withdrawal seizures. I will also add DVT prophylaxis since Eliquis was discontinued. 09/07 pt has pulled out his Ng tube multiple times. His output is maroon in color will put him on protonix. HR controlled. pt has a ivc filter. He is off all AC for now. if pt becomes goes in afib rvr will start Cardizem drip.
[2020-09-07] MEDS: clonazePAM 0.5 MG TAB PO SCH (19:39)
[2020-09-07] MEDS: Atorvastatin Calcium 40 MG TAB PO SCH (19:39)
[2020-09-07] MEDS: Ziprasidone 20 MG VIAL IM PRN (20:32)
[2020-09-08 00:19] LABS: #Eosinphils 0.1 thou/uL (0.0-0.7); #Lymphocytes 1.9 thou/uL (1.20-3.40); #Monocytes 1.7 thou/uL (0.11-0.59); #Neutrophils 10.2 thou/uL (1.40-6.50); %Basophils 0.2 % (0.0-1.0); %Lymphocytes 13.6 % (21.0-51.0); %Monocytes 12.4 % (0.0-10.0); %Neutrophils 72.8 % (42.0-75.0); Mean Corpuscular HGB CONC 32.3 g/dL (32.0-36.0); Mean Corpuscular Hemoglobin 30.7 pg (27.0-31.0); Mean Corpuscular Volume 94.9 fL (78.0-98.0); Mean Platelet Volume 6.5 fL (7.4-10.4); Platelet Count 275 thou/uL (130-400); RBC Distribution Width 14.3 % (11.5-14.5); Red Blood Cell (RBC) Count 3.59 mill/uL (4.70-6.10)
[2020-09-08 00:38] LABS: Anion Gap 13 mmol/L (10-20); BUN (Urea Nitrogen) 40 mg/dL (8.4-25.7); Calc. Creatinine Clearance 94 mL/min (70-130); Calcium 8.3 mg/dL (7.8-10.44); Carbon Dioxide 26 mmol/L (23-31); Chloride 102 mmol/L (98-107); Glucose 128 mg/dL (83-110); Potassium 3.5 mmol/L (3.5-5.1); Sodium 137 mmol/L (136-145)
[2020-09-08] MEDS ORDERED: Sodium Chloride 0.9% 500 ML IV SCH (01:05)
[2020-09-08] MEDS: Acetaminophen 650 MG Suppository PR PRN (05:33)
[2020-09-08 06:46] LABS: Bacteria/HPF None Seen HPF (None Seen); Bilirubin Negative (Negative); Blood, Urine 3+ (Negative); Clarity Turbid (Clear); Glucose, Urine (Dipstick) Normal (Negative); Ketone, Urine 20 mg/dL (Negative); Leukocyte 250 Leu/uL (Negative); Mucous/LPF 1+ LPF (<2+); Nitrite Negative (Negative); Protein, Urine (Dipstick) 30 mg/dL (Neg-Trace); RBC/HPF Greater than 50 HPF (0-3); Squamous Epithelial None Seen HPF (0-3); Urobilinogen Normal mg/dL (Less than 2); WBC/HPF Greater than 50 HPF (0-3)
[2020-09-08] MEDS: Finasteride 5 MG TAB PO SCH (09:42)
[2020-09-08] MEDS: Gabapentin 300 MG CAP PO SCH ×3 (09:42→19:59)
[2020-09-08] MEDS: Tamsulosin HCl 0.4 MG CAP PO SCH (09:43)
[2020-09-08] MEDS: Pantoprazole 40 MG VIAL IVP SCH ×2 (09:52→20:16)
--- NOTE | 2020-09-08 11:29 | CON ---
DATE OF CONSULTATION: 09/08/2020 REASON FOR CONSULTATION: Hematemesis and high-grade small bowel obstruction. CONSULTING PROVIDER: MATTHEW Longoria HISTORY OF PRESENT ILLNESS: The patient is an 80-year-old male with past medical history of hyperlipidemia, hypertension, Parkinson disease, restless legs syndrome, ankylosing spondylitis, anxiety, depression, DVT, and atrial fibrillation on Eliquis, who initially presented to the hospital with complaints of increased nausea and vomiting. On review of the patient's chart, there was a statement of having approximately 3-day history of increased nausea and vomiting, where the patient was unable to tolerate oral intake in anyways he performed that ultimately brought him to the hospital. On conferring with the patient today, he states that he had been having nausea and vomiting for approximately 2 weeks prior to admission with inability to tolerate p.o. In any case, the patient was evaluated in the ER with CT scan on admission consistent with a high-grade small bowel obstruction, for which the patient was treated with more conservative manner with n.p.o. and placement of an NG tube. During the course of this hospitalization, the patient did exhibit a significant amount of altered mental status (presumably from his Parkinson disease) with multiple removals of the NG tube. The NG tube was replaced approximately four times. However, last night when the NG tube was removed, the patient did exhibit hematemesis characterized as dark red/coffee-ground appearing fluid/liquid. On replacement of the NG tube today, approximately 1.8 L of dark maroon fluid/blood was obtained, concerning for GI bleeding. At this time, the patient is alert and oriented x2 and unable to significantly contribute to other further medical history. Currently, he denies any abdominal pain. Of note, the patient has a history of colon cancer, for which the patient underwent colectomy and colostomy placement, which was complicated by parastomal hernia. Over the last 24 hours, the patient has had significant output from the ostomy site itself with a small bowel followthrough obtained yesterday showing transit of contrast into the colon indicating probable improving or resolution of his high-grade small bowel obstruction. REVIEW OF SYSTEMS: A 10-category review of systems could not be obtained due to the patient's altered mental status. PAST MEDICAL HISTORY: As per HPI. PAST SURGICAL HISTORY: Partial colectomy with end colostomy in 2016, total right hip arthroplasty, bilateral inguinal hernia repair, and cervical neck infusion. FAMILY HISTORY: No mention of GI malignancy in the patient's chart. SOCIAL HISTORY: The patient is currently a resident at an extended care facility with no mention of tobacco, alcohol, or illicit drug use. OUTPATIENT MEDICATIONS: Reviewed. INPATIENT MEDICATIONS: Reviewed. ALLERGIES: OSELTAMIVIR. PHYSICAL EXAMINATION: VITAL SIGNS: Temperature 99.1, pulse 93, blood pressure 107/56, respiratory rate 20, and saturating 93% on room air. GENERAL: The patient was lying in bed, in no acute distress. Alert and oriented x2. HEENT: Normocephalic and atraumatic. NECK: Supple. No JVD or scleral icterus noted. CARDIOVASCULAR: Tachycardic rate, but regular rhythm with no discernible murmurs, gallops, or rubs. RESPIRATORY: Clear to auscultation bilaterally with no discernible wheezes or rales. ABDOMEN: Normoactive bowel sounds. Soft, moderately distended with tympany to percussion in all abdominal quadrants. Mild tenderness to palpation in the right upper quadrant and right lower quadrant. Colostomy was noted in the left lower quadrant with a large parastomal hernia. EXTREMITIES: No cyanosis, clubbing, or edema. LABORATORY DATA: CBC with a white blood cell count of 14, hemoglobin 11, hematocrit 34, and platelets 275. Chemistry with a sodium of 137, potassium 3.5, chloride 102, CO2 of 26, BUN 40, creatinine 0.99, and glucose 128. INR 0.9. Urinalysis was consistent with blood and a possible urinary tract infection. COVID testing was indeterminate, although the patient is not currently on respiratory precautions. IMAGING DATA: CT of the abdomen and pelvis was obtained on September 05, 2020, which showed a large left lower quadrant peristomal hernia at the colostomy site with the hernial sac containing the descending and/or sigmoid colon. It also containing multiple small bowel loops; however, there was a new finding of dilation of the small bowel loops within the hernial sac and proximal to that consistent with high-grade bowel obstruction. 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 Small bowel followthrough was also obtained on September 07, 2020, which showed transit of contrast into the large bowel and presumably no further evidence of obstruction. ASSESSMENT AND PLAN: The patient is an 80-year-old male with past medical history of hyperlipidemia, hypertension, Parkinson disease, restless legs syndrome, ankylosing spondylitis, anxiety, depression, deep venous thrombosis, and atrial fibrillation on Eliquis, presenting with a high-grade bowel obstruction, now resolving as well as bright red blood per NG tube, concerning for an upper gastrointestinal bleed. Upper gastrointestinal bleeding. The patient presented to the hospital with significant episodes of nausea and vomiting prior to admission, which ultimately prompted him to seek healthcare assistance. On admission, the patient was noted to have a high-grade bowel obstruction, for which the patient was treated more conservatively with n.p.o. status and placement of a nasogastric tube for upper gastrointestinal decompression. However, he kept pulling out the nasogastric tube with the nasogastric tube replaced approximately four times and on the most recent two times, did exhibit some mild blood at least on withdrawal. However, over the last 24 hours, the patient has now exhibited increased blood withdrawn from the nasogastric tube this morning with approximately 1.8 L of dark red/maroon-colored blood from the tube itself. At this time, given his recent history of being placed on Eliquis/anticoagulation and in light of the multiple episodes of nausea, vomiting, a nasogastric tube placements, differential could include severe esophagitis with mechanical trauma, nasogastric tube trauma contributing to bleeding within the stomach itself, peptic ulcer disease, arteriovenous malformation, Dieulafoy lesion, gastritis, duodenitis, and/or gastrointestinal neoplasm (much less likely). Recommendations; 1. Would continue to trend his H and H and transfuse as necessary to maintain an H and H of 7/21. 2. Continue to monitor clinically for signs of active or worsening gastrointestinal bleeding. 3. Would avoid any nonsteroidal anti-inflammatory drugs or anticoagulation in light of active gastrointestinal bleeding. 4. Would continue n.p.o. status in preparation for esophagogastroduodenoscopy later today. 5. We will plan for upper endoscopy later today for intraluminal evaluation. 6. Continue the patient on pantoprazole 40 mg IV b.i.d. We will continue to follow. Please call with any questions. Job ID: [id number]
[2020-09-08] MEDS ORDERED: PHENYLEPHRINE-NS 100 MCG/ML 10 ML SYRINGE ONE ×2 (11:35→12:42)
[2020-09-08] MEDS ORDERED: Rocuronium Bromide 10 MG/ML (10ML VIAL) ONE (12:42)
[2020-09-08] MEDS ORDERED: PROPOFOL 200 MG/20 ML VIAL ONE (12:42)
[2020-09-08] MEDS ORDERED: Lidocaine 1% PF 5 ML VIAL ONE (12:42)
[2020-09-08] MEDS ORDERED: Ondansetron PF 4 MG/2 ML Vial ONE (12:42)
[2020-09-08] MEDS ORDERED: Succinylcholine 200 MG/10 ml SYRINGE FS ONE (12:42)
[2020-09-08] MEDS ORDERED: Glycopyrrolate 0.2 MG/ML 5 ML SYRINGE ONE (12:42)
--- NOTE | 2020-09-08 13:11 | OP ---
DATE OF PROCEDURE: 09/08/2020 PROCEDURE PERFORMED: Esophagogastroduodenoscopy with control of hemorrhage. INDICATION FOR PROCEDURE: Hematemesis/bloody NG tube aspirate. DESCRIPTION OF PROCEDURE: After the risks and benefits of the procedure were explained to the patient including risks of bleeding, infection, perforation, reactions to anesthesia, aspiration and/or pain, informed consent was obtained from the patient's surrogate (patient's brother, Santiago Macias). The patient was then taken to the endoscopy suite, where general anesthesia and endotracheal tube intubation was performed due to increased risk of aspiration. Once the patient was intubated and sedated, he was maneuvered into the left lateral decubitus position followed by introduction of the standard gastroscope with intubation of the esophagus, stomach, and the proximal small intestines with the findings listed below. The patient tolerated the procedure well with no immediate perioperative complications. On conclusion of the procedure, all equipment was removed from the patient and he was transferred to PACU in satisfactory condition. FINDINGS: Esophagus: Normal-appearing mucosa was seen in the proximal and mid esophagus; however in the distal esophagus, increased mucosal erosions were seen just proximal to the gastroesophageal junction extending approximately 5 to 10 mm proximally, but did not exhibit any evidence of active or recent bleeding; however, a 3 mm ulceration was seen along the lateral edge of the esophagus at the gastroesophageal junction and did have a large adherent clot attached to this particular ulcer with manipulation of the adherent clot, it began to actively ooze blood. Then using bipolar cauterization, the ulceration was then cauterized with removal of the adherent clot with good hemostasis achieved. At the end of the maneuver, there was no bleeding seen from this particular ulcer/region. Otherwise, there was no evidence of mass lesions in this area. Stomach: A large amount of retained, dark blood was seen throughout the entire stomach initially limiting visualization. With aggressive irrigation and suctioning, adequate visualization of the gastric mucosa was achieved. However, small mucosal lesions could have been missed. On inspection of the gastric mucosa, a few scattered linear erosions were seen in the gastric fundus and extending into the body with the greatest length being approximately 10% to 15 mm in length. There was no overt ulceration nor was there evidence of active or recent bleeding associated with these erosions. Otherwise, normal-appearing mucosa was seen in the gastric cardia, fundus, body, greater curvature, antrum, and incisura. There was no evidence of overt ulcerations mass lesions or active bleeding. Duodenum: Normal-appearing mucosa was seen in both the duodenal bulb and second portion of the duodenum. There was no evidence of erosions, ulcerations, mass lesions, or active/recent bleeding. IMPRESSION: 1. A 3 mm ulcerations seen at the gastroesophageal junction with a large adherent clot and active oozing of blood, now successfully intervened upon with bipolar cauterization and good hemostasis achieved. 2. LA grade A/B reflux-mediated erosive esophagitis. 3. Large amount of retained, dark blood seen throughout the entire stomach limiting visualization somewhat but adequate views were obtained for the purposes of evaluation of bleeding source. 4. Scattered linear ulcerations seen in the gastric fundus and body consistent with NG tube trauma. RECOMMENDATIONS: 1. Would continue to trend his H and H and transfuse as necessary to maintain his H and H. 2. Continue to monitor clinically for signs of active GI bleeding. 3. Would refrain from replacing the NG-tube as this being a probable source of the ulcer formation and linear erosions seen on examination today. 4. Withhold any anticoagulation on this patient for the next 48 hours, then restart if clinically appropriate. 5. We will continue patient on pantoprazole 40 mg IV b.i.d. 6. Continue with aggressive antiemetic control. 7. Further management of the patient's small bowel obstruction, I would defer to General Surgery Service as the bowel obstruction most likely contributed to erosive esophagitis and the NG tube trauma. We will continue to follow, please call with any questions. Job ID: [id number]
[2020-09-08 14:10] LABS: #Eosinphils 0.1 thou/uL (0.0-0.7); #Lymphocytes 1.8 thou/uL (1.20-3.40); #Monocytes 1.6 thou/uL (0.11-0.59); #Neutrophils 11.4 thou/uL (1.40-6.50); %Basophils 0.2 % (0.0-1.0); %Eosinophils 0.8 % (0.0-10.0); %Lymphocytes 12.3 % (21.0-51.0); %Monocytes 10.9 % (0.0-10.0); %Neutrophils 75.8 % (42.0-75.0); Hemoglobin 9.9 g/dL (14.0-18.0); Mean Corpuscular HGB CONC 33.5 g/dL (32.0-36.0); Mean Corpuscular Hemoglobin 31.9 pg (27.0-31.0); Mean Corpuscular Volume 95.1 fL (78.0-98.0); Mean Platelet Volume 6.4 fL (7.4-10.4); Platelet Count 256 thou/uL (130-400); RBC Distribution Width 14.1 % (11.5-14.5); Red Blood Cell (RBC) Count 3.09 mill/uL (4.70-6.10)
[2020-09-08] MEDS: Lactated Ringer's 1,000 ML IV SCH (14:11)
--- NOTE | 2020-09-08 14:11 | PRG ---
DATE OF SERVICE: 09/08/2020 SUBJECTIVE: Me. Macias is an 80-year-old man, admitted with small-bowel obstruction. His colostomy became functional yesterday returning large amount of stool and gas. Overnight, however, the patient has developed hematochezia and multiple episodes of bloody emesis. Nasogastric tube was placed today, and large amount of gastric effluent, tinged blood and clots was noted. He is on no anticoagulation at this time. OBJECTIVE: VITAL SIGNS: Have remained stable currently, blood pressure this morning 107/56, pulse 92, respiratory rate 16, temperature 99.8 degrees Fahrenheit, oxygen saturation 95% on room air. HEENT: Pupils are equal, round, and reactive to light bilaterally. NECK: He has no jugular venous distention noted. HEART: Reveals irregular rate and rhythm. LUNGS: Clear to auscultation bilaterally. Breathing, regular and nonlabored. ABDOMEN: Soft and obese. Colostomy is viable and prolapsed, however, functional with stool and gas. He has no abdominal tenderness to palpation. NEUROLOGIC: Reveals no focal deficits present. LABORATORY FINDINGS: Today include a CBC with 14,000 of white blood cells, hemoglobin and hematocrit are 11.0 and 34.0 respectively. This is in contrast to hemoglobin and hematocrit of 13.4 and 41.5 respectively yesterday. Platelet count 275,000. Metabolic profile; sodium 137, potassium 3.5, chloride is 102, bicarb is 26, BUN 40, creatinine is 0.99, and glucose 128. IMPRESSIONS: 1. Resolved acute small-bowel obstruction. 2. Upper gastrointestinal hemorrhage. 3. Acute blood loss anemia secondary to #2. PLAN: 1. GI consultation for upper endoscopy. 2. The patient will continue on proton-pump inhibitor. 3. There is no acute surgical indication for this patient at this time. Job ID: [id number]
--- NOTE | 2020-09-08 16:08 | PDOC.HOSPP ---
- Subjective Encounter Date: 09/08/20 Encounter Time: 16:05 Subjective: Patient up in bed confused. - Objective Vital Signs & Weight: Vital Signs (12 hours) Temp Pulse Resp BP Pulse Ox 09/08/20 13:20 98.2 F 91 18 147/67 H 96 09/08/20 08:00 99.1 F 93 20 93 L Weight Admit Weight 250 lb Weight 250 lb I&O: 09/07/20 09/08/20 09/09/20 06:59 06:59 06:59 Intake Total 1455 260 Output Total 2400 800 Balance -945 -540 Result Diagrams: 09/08/20 13:59 09/08/20 00:11 Hospitalist ROS - Review of Systems Other: Patient confused - Medication Medications: Active Medications Generic Name Dose Route Start Last Admin Trade Name Freq PRN Reason Stop Dose Admin Acetaminophen 650 mg 09/05/20 14:11 09/07/20 23:41 Acetaminophen 325 Mg Tab PO 650 mg Q4H PRN Administration Headache/Fever/Mild Pain (1-3) Acetaminophen 650 mg 09/05/20 14:11 09/08/20 05:33 Acetaminophen 650 Mg Suppository [place] 650 mg Q4H PRN Administration Headache/Fever/Mild Pain (1-3) Atorvastatin Calcium 40 mg 09/05/20 21:00 09/07/20 19:39 Atorvastatin Calcium 40 Mg Tab PO 40 mg HS MATEO Administration Clonazepam 0.5 mg 09/05/20 21:00 09/07/20 19:39 Clonazepam 0.5 Mg Tab PO 0.5 mg HS MATEO Administration Finasteride 5 mg 09/07/20 09:00 09/08/20 09:42 Finasteride 5 Mg Tab PO Not Given DAILY MATEO Gabapentin 300 mg 09/06/20 21:00 09/08/20 09:42 Gabapentin 300 Mg Cap PO Not Given TID MATEO Lactated Ringer's 1,000 mls @ 75 mls/hr 09/07/20 09:45 09/08/20 14:11 Lactated Ringer's IV Not Given .[id number] MATEO Ondansetron HCl 4 mg 09/05/20 14:57 09/07/20 23:41 Ondansetron Pf 4 Mg/2 Ml Vial IVP 4 mg Q6H PRN Administration Nausea/Vomiting Pantoprazole Sodium 40 mg 09/07/20 09:00 09/08/20 09:52 Pantoprazole 40 Mg Vial IVP 40 mg Q12HR MATEO Administration Tamsulosin HCl 0.4 mg 09/06/20 09:00 09/08/20 09:43 Tamsulosin Hcl 0.4 Mg Cap PO Not Given DAILY MATEO Ziprasidone 10 mg 09/07/20 09:32 09/07/20 20:32 Ziprasidone 20 Mg Vial IM 10 mg Q4H PRN Administration Agitation - Exam Heart: negative: RRR, no murmur, no gallops, no rubs, normal peripheral pulses, irregular, diminshed peripheral pulses, murmur present, II/IV, III/IV Respiratory: negative: CTAB, no wheezes, no rales, no ronchi, normal chest expansion, no tachypnea, normal percussion, rales, rhonchi, tachypneic, wheezes Gastrointestinal: negative: soft, non-tender, non-distended, normal bowel sounds, no palpable masses, no hepatomegaly, no splenomegaly, no bruit, no guarding, no rigidity, tender to palpation, distended, diminished bowl sounds, voluntary guarding Extremities: 2+ LE edema Hosp A/P (1) SBO (small bowel obstruction) Code(s): K56.609 - UNSP INTESTNL OBST, UNSP TO PARTIAL VERSUS COMPLETE OBST Status: Acute (2) Chronic anticoagulation Code(s): Z79.01 - NURSING HOME (CURRENT) USE OF ANTICOAGULANTS Status: Chronic (3) History of colon cancer Code(s): Z85.038 - PERSONAL HISTORY OF MALIGNANT NEOPLASM OF LARGE INTESTINE Status: Chronic (4) Paroxysmal atrial fibrillation Code(s): I48.0 - PAROXYSMAL ATRIAL FIBRILLATION Status: Acute (5) BPH (benign prostatic hyperplasia) Code(s): N40.0 - BENIGN PROSTATIC HYPERPLASIA WITHOUT LOWER URINRY TRACT SYMP Status: Chronic Qualifiers: Lower urinary tract symptom presence: symptoms present (6) DVT, bilateral lower limbs Code(s): I82.403 - ACUTE EMBOLISM AND THOMBOS UNSP DEEP VEINS OF LOW EXTRM, BI Status: Chronic Qualifiers: Chronicity: chronic (7) HTN (hypertension) Code(s): I10 - ESSENTIAL (PRIMARY) HYPERTENSION Status: Chronic Qualifiers: Hypertension type: essential hypertension Qualified Code(s): I10 - Essential (primary) hypertension (8) Hx of deep venous thrombosis Code(s): Z86.718 - PERSONAL HISTORY OF OTHER VENOUS THROMBOSIS AND EMBOLISM Status: Chronic - Plan I will restart gabapentin. Stopping Neurontin can cause withdrawal seizures. I will also add DVT prophylaxis since Eliquis was discontinued. 09/07 pt has pulled out his Ng tube multiple times. His output is maroon in color will put him on protonix. HR controlled. pt has a ivc filter. He is off all AC for now. if pt becomes goes in afib rvr will start Cardizem drip. 09/08 patient apparently had significant amount of dark blood from his NG tube. Patient is on Protonix. At this time GI was consulted. Patient had an EGD done. Spoke with patient's brother who is the next of kin and states that patient did not want to be resuscitated in an emergency situation. We will place a DNAR. Will check H&H every 6 hours transfuse as needed.
--- NOTE | 2020-09-08 17:37 | RAD ---
Portable frontal chest radiograph: 09/08/2020 COMPARISON: 09/05/2020 HISTORY: Shortness of breath FINDINGS: The cardiac silhouette is prominent and stable. Incompletely evaluated cervical spine posto perative hardware is present. No pneumothorax, lobar consolidation, or alveolar edema. Portable technique and body habitus limits detailed assessment. IMPRESSION: Stable appearance of the chest as above.
[2020-09-08] MEDS: Enoxaparin Sodium 40 MG/0.4 ML SYRINGE SC SCH (18:09)
[2020-09-08 19:16] LABS: #Eosinphils 0.1 thou/uL (0.0-0.7); #Lymphocytes 1.9 thou/uL (1.20-3.40); #Monocytes 1.8 thou/uL (0.11-0.59); #Neutrophils 12.3 thou/uL (1.40-6.50); %Basophils 0.2 % (0.0-1.0); %Eosinophils 0.6 % (0.0-10.0); %Lymphocytes 11.6 % (21.0-51.0); %Neutrophils 76.5 % (42.0-75.0); Hemoglobin 9.4 g/dL (14.0-18.0); Mean Corpuscular HGB CONC 32.8 g/dL (32.0-36.0); Mean Corpuscular Hemoglobin 31.1 pg (27.0-31.0); Mean Corpuscular Volume 94.6 fL (78.0-98.0); Mean Platelet Volume 6.5 fL (7.4-10.4); Platelet Count 260 thou/uL (130-400); RBC Distribution Width 14.1 % (11.5-14.5); Red Blood Cell (RBC) Count 3.03 mill/uL (4.70-6.10); White Blood Cell (WBC) Count 16.1 thou/uL (4.8-10.8)
[2020-09-08] MEDS: Atorvastatin Calcium 40 MG TAB PO SCH (19:59)
[2020-09-08] MEDS: clonazePAM 0.5 MG TAB PO SCH (19:59)
[2020-09-08] MEDS: Ziprasidone 20 MG VIAL IM PRN (22:49)
--- NOTE | 2020-09-08 23:28 | PRG ---
DATE OF SERVICE: 09/08/2020 SUBJECTIVE: The patient was seen this evening during rounds. He was sitting up, awake, and alert with no signs of acute distress. The patient is strict n.p.o. per primary team as they are requesting Speech to do another swallow evaluation. Patient was coughing with water previously. The patient occasionally coughs up a little bit of old red blood. No signs of active bleeding. He is hemodynamically stable. OBJECTIVE: VITAL SIGNS: Temperature 97.7, pulse 86, respirations 16, oxygen saturation 93% on room air, blood pressure 149/74. ASSESSMENT: 1. Small bowel obstruction, resolved. 2. Gastrointestinal bleed, ulcer identified at gastroesophageal junction, now stable. PLAN: Continue n.p.o. per primary team. The patient is also delirious. Nursing at the bedside reports that they will contact primary team for medications to help with sleep hygiene. Continue to monitor hemoglobin and vital signs. Trauma team to round on the patient again in the morning. Job ID: [id number]
[2020-09-09] MEDS: Lactated Ringer's 1,000 ML IV SCH ×2 (00:28→06:30)
[2020-09-09 01:20] LABS: Hemoglobin 9.7 g/dL (14.0-18.0)
[2020-09-09 07:08] LABS: Hemoglobin 9.4 g/dL (14.0-18.0)
[2020-09-09 07:30] LABS: Anion Gap 13 mmol/L (10-20); BUN (Urea Nitrogen) 38 mg/dL (8.4-25.7); Calc. Creatinine Clearance 98 mL/min (70-130); Calcium 8.1 mg/dL (7.8-10.44); Carbon Dioxide 24 mmol/L (23-31); Glucose 109 mg/dL (83-110); Magnesium 2.2 mg/dL (1.6-2.6); Phosphorus 2.7 mg/dL (2.3-4.7)
[2020-09-09 07:44] LABS: Chloride 105 mmol/L (98-107); Potassium 3.2 mmol/L (3.5-5.1); Sodium 139 mmol/L (136-145)
[2020-09-09] MEDS: Polyethylene Glycol 3350 17 GM Packet PO SCH (08:49)
[2020-09-09] MEDS: Finasteride 5 MG TAB PO SCH (08:49)
[2020-09-09] MEDS: Tamsulosin HCl 0.4 MG CAP PO SCH (08:49)
[2020-09-09] MEDS: Gabapentin 300 MG CAP PO SCH (08:49)
[2020-09-09] MEDS ORDERED: Potassium Chloride 40 MEQ in Sodium Chloride 0.9% 250 ML 250 ML IVPB SCH (09:00)
[2020-09-09] MEDS: Pantoprazole 40 MG VIAL IVP SCH ×2 (09:00→20:50)
[2020-09-09] MEDS ORDERED: Potassium Chloride 20 MEQ TAB PO SCH (10:15)
[2020-09-09] MEDS ORDERED: Lidocaine 1% PF 5 ML VIAL ONE (12:18)
[2020-09-09] MEDS ORDERED: Esmolol 100 MG/10 ML VIAL ONE (12:18)
[2020-09-09] MEDS ORDERED: ePHEDrine 50 MG/ML VIAL ONE (12:18)
[2020-09-09] MEDS ORDERED: Rocuronium Bromide 10 MG/ML (10ML VIAL) ONE (12:18)
[2020-09-09] MEDS ORDERED: PROPOFOL 200 MG/20 ML VIAL ONE (12:18)
[2020-09-09] MEDS ORDERED: Succinylcholine 200 MG/10 ml SYRINGE FS ONE (12:18)
[2020-09-09 12:22] LABS: Hemoglobin 9.8 g/dL (14.0-18.0)
[2020-09-09] MEDS ORDERED: Phenylephrine 10 MG/ML VIAL ONE (12:39)
[2020-09-09] MEDS ORDERED: Fentanyl 100 MCG/2 ML VIAL ONE ×2 (12:39→17:15)
[2020-09-09 13:50] LABS: INR-International Normal Ratio 1.1; PTT 24.3 sec (22.9-36.1); Prothrombin Time 14.2 sec (12.0-14.7)
[2020-09-09] MEDS ORDERED: Sodium Chloride 0.9% 0 ML ONE (13:56)
--- NOTE | 2020-09-09 14:05 | PRG ---
DATE OF SERVICE: 09/09/2020 SUBJECTIVE: Mr. Macias is an 80-year-old man, who was admitted with acute small bowel obstruction secondary to incarcerated parastomal hernia. This is being treated conservatively with nasogastric tube decompression, IV hydration, and bowel rest. The patient experienced only a transient period of colostomy output. Over the last 24 hours, the patient has developed worsening abdominal pain, abdominal distention, and no output per ostomy. He has had multiple episodes of bilious emesis and in fact at the time of this visit, the patient is spitting up bilious fluid. OBJECTIVE: VITAL SIGNS: Today include blood pressure 135/67, pulse is 92, respiratory rate is 16, temperature is 98.8 degrees Fahrenheit, and oxygen saturation 94% on room air. HEART: Reveals irregular rate and rhythm. LUNGS: Reveals scattered rhonchi. Breathing, regular and unlabored. ABDOMEN: Soft, distended and with left lower quadrant tenderness to palpation. The large parastomal hernia is again noted with colostomy, which to approximately 6 cm with no output. Colostomy, however, is viable. NEUROLOGIC: Reveals no focal deficits present. LABORATORY FINDINGS: Today include hemoglobin and hematocrit of 9.8 and 29.7 respectively. Metabolic profile today, sodium 139, potassium 3.2, chloride is 105, bicarb is 24, BUN 38. Creatinine is 0.95, glucose 109, magnesium 2.2, and phosphorus 2.7. IMPRESSION: Recurrent acute small bowel obstruction secondary to incarcerated large parastomal hernia. PLAN AND RECOMMENDATIONS: I discussed with the patient and his brother and power of disability attorney, Mr. Zena Macias by telephone conversation. I informed Mr. Macias that his brother has developed recurrent small bowel obstruction, which obviously has failed conservative management. I provided him with two options; 1. Nonsurgical, which includes replacement of nasogastric tube, bowel rest with the hope that this may resolve, although this is less likely to be successful. 2. If this one fails, consideration could be given to hospice care, which certainly would lead to the patient's demise. Alternatively, surgical option is exploratory laparotomy and repair of the incarcerated parastomal hernia, which would resolve the small bowel obstruction and a surgical option is pursued. This will be with risks for recurrent hernia, postoperative respiratory failure, postoperative cardiac arrest, which may in fact lead to this patient's demise. I did inform the patient's brother that if surgical option is entertained, the patient certainly will be in an intensive care unit on mechanical ventilator support for few days at best. Mr. Zena Macias has indicated understanding of information I provided him today. He has elected to pursue surgical option by his account. He is unwilling to see his brother suffer the way he is and not being able to tolerate oral intake. I have answered all his questions. We will schedule the patient for exploratory laparotomy and repair of the said parastomal hernia. Job ID: [id number]
--- NOTE | 2020-09-09 14:28 | PDOC.HOSPP ---
- Subjective Encounter Date: 09/09/20 Encounter Time: 11:30 Subjective: Patient up in bed appears confused. - Objective Vital Signs & Weight: Vital Signs (12 hours) Temp Pulse Resp BP Pulse Ox 09/09/20 07:36 98.8 F 92 16 135/67 94 L 09/09/20 04:00 99.2 F 100 16 138/74 92 L Weight Admit Weight 250 lb Weight 250 lb I&O: 09/08/20 09/09/20 09/10/20 06:59 06:59 06:59 Intake Total 260 0 Output Total 800 2049 Balance - -2049 Result Diagrams: 09/09/20 12:15 09/09/20 06:53 Hospitalist ROS - Review of Systems Cardiovascular: denies: chest pain, palpitations, orthopnea, paroxysmal noc. dyspnea, edema, light headedness, other Gastrointestinal: denies: nausea, vomiting, abdominal pain, diarrhea, constipation, melena, hematochezia, other - Medication Medications: Active Medications Generic Name Dose Route Start Last Admin Trade Name Freq PRN Reason Stop Dose Admin Acetaminophen 650 mg 09/05/20 14:11 09/07/20 23:41 Acetaminophen 325 Mg Tab PO 650 mg Q4H PRN Administration Headache/Fever/Mild Pain (1-3) Acetaminophen 650 mg 09/05/20 14:11 09/08/20 05:33 Acetaminophen 650 Mg Suppository [place] 650 mg Q4H PRN Administration Headache/Fever/Mild Pain (1-3) Atorvastatin Calcium 40 mg 09/05/20 21:00 09/08/20 19:59 Atorvastatin Calcium 40 Mg Tab PO Not Given HS MATEO Clonazepam 0.5 mg 09/05/20 21:00 09/08/20 19:59 Clonazepam 0.5 Mg Tab PO Not Given HS MATEO Diltiazem HCl 120 mg 09/09/20 09:00 09/09/20 09:00 Diltiazem Cd 120 Mg Cap PO Not Given DAILY MATEO Finasteride 5 mg 09/07/20 09:00 09/09/20 08:49 Finasteride 5 Mg Tab PO Not Given DAILY MATEO Gabapentin 300 mg 09/06/20 21:00 09/09/20 08:49 Gabapentin 300 Mg Cap PO Not Given TID MATEO Lactated Ringer's 1,000 mls @ 75 mls/hr 09/07/20 09:45 09/09/20 06:30 Lactated Ringer's IV 1,000 mls .[id number] MATEO Administration Ondansetron HCl 4 mg 09/05/20 14:57 09/07/20 23:41 Ondansetron Pf 4 Mg/2 Ml Vial IVP 4 mg Q6H PRN Administration Nausea/Vomiting Pantoprazole Sodium 40 mg 09/07/20 09:00 09/09/20 09:00 Pantoprazole 40 Mg Vial IVP Not Given Q12HR MATEO Polyethylene Glycol 17 gm 09/09/20 09:00 09/09/20 08:49 Polyethylene Glycol 3350 17 Gm Packet PO Not Given DAILY MATEO Tamsulosin HCl 0.4 mg 09/06/20 09:00 09/09/20 08:49 Tamsulosin Hcl 0.4 Mg Cap PO Not Given DAILY MATEO Ziprasidone 10 mg 09/07/20 09:32 09/08/20 22:49 Ziprasidone 20 Mg Vial IM 10 mg Q4H PRN Administration Agitation - Exam Neck: negative: supple, symmetric, no JVD, no thyromegaly, no lymphadenopathy, no carotid bruit, JVD Heart: negative: RRR, no murmur, no gallops, no rubs, normal peripheral pulses, irregular, diminshed peripheral pulses, murmur present, II/IV, III/IV Respiratory: negative: CTAB, no wheezes, no rales, no ronchi, normal chest expansion, no tachypnea, normal percussion, rales, rhonchi, tachypneic, wheezes Gastrointestinal: negative: soft, non-tender, non-distended, normal bowel sounds, no palpable masses, no hepatomegaly, no splenomegaly, no bruit, no guarding, no rigidity, tender to palpation, distended, diminished bowl sounds, voluntary guarding Hosp A/P (1) SBO (small bowel obstruction) Code(s): K56.609 - UNSP INTESTNL OBST, UNSP TO PARTIAL VERSUS COMPLETE OBST Status: Acute (2) Chronic anticoagulation Code(s): Z79.01 - LONGTERM (CURRENT) USE OF ANTICOAGULANTS Status: Chronic (3) History of colon cancer Code(s): Z85.038 - PERSONAL HISTORY OF MALIGNANT NEOPLASM OF LARGE INTESTINE Status: Chronic (4) Paroxysmal atrial fibrillation Code(s): I48.0 - PAROXYSMAL ATRIAL FIBRILLATION Status: Acute (5) BPH (benign prostatic hyperplasia) Code(s): N40.0 - BENIGN PROSTATIC HYPERPLASIA WITHOUT LOWER URINRY TRACT SYMP Status: Chronic Qualifiers: Lower urinary tract symptom presence: symptoms present (6) DVT, bilateral lower limbs Code(s): I82.403 - ACUTE EMBOLISM AND THOMBOS UNSP DEEP VEINS OF LOW EXTRM, BI Status: Chronic Qualifiers: Chronicity: chronic (7) HTN (hypertension) Code(s): I10 - ESSENTIAL (PRIMARY) HYPERTENSION Status: Chronic Qualifiers: Hypertension type: essential hypertension Qualified Code(s): I10 - Essential (primary) hypertension (8) Hx of deep venous thrombosis Code(s): Z86.718 - PERSONAL HISTORY OF OTHER VENOUS THROMBOSIS AND EMBOLISM Status: Chronic - Plan I will restart gabapentin. Stopping Neurontin can cause withdrawal seizures. I will also add DVT prophylaxis since Eliquis was discontinued. 09/07 pt has pulled out his Ng tube multiple times. His output is maroon in color will put him on protonix. HR controlled. pt has a ivc filter. He is off all AC for now. if pt becomes goes in afib rvr will start Cardizem drip. 09/08 patient apparently had significant amount of dark blood from his NG tube. Patient is on Protonix. At this time GI was consulted. Patient had an EGD done. Spoke with patient's brother who is the next of kin and states that patient did not want to be resuscitated in an emergency situation. We will place a DNAR. Will check H&H every 6 hours transfuse as needed. 09/09 status post EGD indicatedPatient's EGD indicated 3 mm ulceration at the GE junction with a large adherent clot and active oozing was noted. Bipolar cauterization with good hemostasis was achieved. He had scattered linear ulceration seen in the gastric fundus and body consistent with NG tube trauma. Talk with patient's brother who stated that he wanted to go ahead with the surgery risks and benefits explained per surgeon.
[2020-09-09] MEDS ORDERED: Ondansetron HCl/PF 4 MG/2 ML Vial IVP PRN (16:58)
[2020-09-09] MEDS ORDERED: Promethazine HCl 25 MG/ML VIAL IM PRN (16:58)
[2020-09-09] MEDS ORDERED: Ketorolac Tromethamine 30 MG/ML VIAL IVP PRN (16:58)
[2020-09-09] MEDS ORDERED: Promethazine HCl 25 MG/ML VIAL SLOW IVP PRN (16:58)
[2020-09-09] MEDS ORDERED: HYDROmorphone 2 MG/ML VIAL SLOW IVP PRN (16:58)
[2020-09-09] MEDS ORDERED: Propofol 500 MG/50 ML VIAL ONE (16:59)
[2020-09-09] MEDS ORDERED: Ketorolac Tromethamine 30 MG/ML VIAL ONE (16:59)
[2020-09-09] MEDS ORDERED: Ondansetron PF 4 MG/2 ML Vial ONE (16:59)
[2020-09-09] MEDS ORDERED: Propofol 1,000 MG/100 ML VIAL IV ONE (17:00)
[2020-09-09 17:17] LABS: Actual Bicarbonate (HCO3a) 21.5 mEq/L (22-28); Base Excess (BEa) -2.4 mEq/L (-2.0 to +3.0); CO2 Tension 34.1 mmHg (35.0-45.0); Calcium, Ionized (arterial) 1.12 mmol/L (1.12-1.30); Carboxyhemoglobin (COHb) 0.4 gm% (0.0-3.0); O2 Tension (PaO2), arterial 151.2 mmHg (> 60.0); Potassium - ABG Lab 3.36 mmol/L (3.70-5.30); pH, Arterial 7.42 (7.35-7.45)
[2020-09-09 17:18] LABS: Puncture Site Arterial Line
[2020-09-09 17:23] LABS: ALV-art Gradient 162.675 mmHg (0-20)
[2020-09-09] MEDS ORDERED: Ventilator Sedation Protocol 1 EACH FS ONE (17:46)
--- NOTE | 2020-09-09 17:46 | RAD ---
Chest one view HISTORY: Catheter placement. COMPARISON: 09/08/2020. FINDINGS: Cardiac silhouette is magnified by projection. Shallow inspiration accentuates pulmonary ma rkings. Mediastinum is midline. Tip of the endotracheal catheter projects over the thoracic inlet. Nasogastri c tube descends to the stomach with the proximal sidehole just below the level of the left diaphragm. Tip of a right internal jugular central venous catheter projects over the cavoatrial junction. No esteban dence of pneumothorax. Vertebroplasty cement at a lower thoracic level. Inferior vena cava filter partially visualized. Post operative changes cervical spine. IMPRESSION : Endotracheal catheter and right IJ catheter in good radiographic position. Nasogastric tube should probably be advanced approximately 10 cm for better positioning.
[2020-09-09] MEDS ORDERED: Lactated Ringer's 1,000 ML IV SCH (18:15)
--- NOTE | 2020-09-09 18:55 | OP ---
DATE OF PROCEDURE: 09/09/2020 PREOPERATIVE DIAGNOSES: 1. Acute small-bowel obstruction secondary to incarcerated parastomal hernia. 2. Acute blood loss anemia secondary to now resolved upper gastrointestinal hemorrhage. POSTOPERATIVE DIAGNOSES: 1. Acute small-bowel obstruction secondary to incarcerated parastomal hernia. 2. Acute blood loss anemia secondary to now resolved upper gastrointestinal hemorrhage. 3. Extensive intraabdominal adhesions. SURGERY PERFORMED: 1. Exploratory laparotomy. 2. Adhesiolysis. 3. Repair of parastomal hernia. ANESTHESIA: General endotracheal. ESTIMATED BLOOD LOSS: 50 mL. FLUIDS GIVEN: 1 L of crystalloids and 1 unit packed red blood cells. SPONGE AND INSTRUMENT COUNTS: Verified as correct x2. COMPLICATIONS: None apparent. INDICATIONS FOR OPERATION: An 80-year-old man with history of previous sigmoidectomy with end colostomy. Patient had developed a long-standing large parastomal hernia and this was complicated by acute small and large bowel obstruction as depicted on CT scan of the abdomen and pelvis of 09/05/2020. Conservative management was initiated including bowel rest, nasogastric tube decompression, and fluid resuscitation. This has failed to resolve. As a result, the patient was brought to the operating room today for abdominal exploration. DESCRIPTION OF OPERATION: Informed consent was obtained from the patient's brother who is his power of business attorney. The patient was brought to the operating room and placed in supine position. Following general anesthesia, a Avendaño catheter was placed to bedside drain. The ostomy appliance was removed and the abdomen was sterilely prepped and draped in usual fashion. A midline incision was made using 10 scalpel. Incision was carried through subcutaneous tissues and maintained hemostasis using cautery. The fascia was incised in midline along the line of the incision. The peritoneum was grasped x2 and entered using Metzenbaum scissors. The abdomen was carefully explored, adhering small bowel to the anterior abdominal wall were meticulously taken down using Metzenbaum scissors to avoid enterotomies. The incision was then extended superiorly and inferiorly. Large amount of serosanguineous ascites was evacuated from the peritoneal cavity. We were able to run the small bowel from the ligament of Treitz down to the level of the parastomal hernia. The entire loop of small bowel proximal to the hernia were markedly dilated and fluid-filled. Distal to this, the bowel was decompressed. Once the small bowel was reduced into the peritoneal cavity, a loop of descending colon was also entrapped into the parastomal hernia, was sharply taken down using Metzenbaum scissors, avoiding enterotomies. The remainder of the small bowel was then run down to the level of the terminal ileum. Normal appendix was noted in the usual anatomic location. Large intestine inspected from the cecum through the ascending, transverse, descending colon to the level of the colostomy. No other pathology identified. At this juncture, the nasogastric tube was palpated within the gastric lumen. 2 L of succus entericus was evacuated from the peritoneal cavity once the small bowel was reduced from the entrapment. Multiple interloop adhesions were taken down as they were encountered. Finding no other pathology, we decided to attend to the defect around the parastomal hernia. The peritoneum of the wall was scored and the defect was closed using interrupted sutures of 0 Prolene. Care was taken to avoid any injury to the large bowel as it exited the abdominal cavity to the colostomy. The abdominal cavity was irrigated with saline and good hemostasis was noted in place. Small bowel was returned to normal anatomic location. Omentum was drawn over remainder of the viscera. All sponges and instruments were reported as correct x2. Fascia was approximated in the midline using a running stitch of #1 single stranded PDS. Subcutaneous tissues irrigated clear with saline solution, inspected for hemostasis using cautery. Skin incision was closed using meenakshi. Sterile dressings were applied. Pressure ostomy appliance was then put in place. The patient tolerated the operation without any apparent complication and was returned to the intensive care unit in critical, but stable condition. Job ID: [id number]
[2020-09-09] MEDS ORDERED: Fentanyl CADD 100 ML ONE (19:42)
[2020-09-09] MEDS ORDERED: Fentanyl CADD 100 ML IV SCH (19:45)
[2020-09-09] MEDS ORDERED: Morphine 2 MG/ML VIAL SLOW IVP PRN (19:45)
[2020-09-09] MEDS ORDERED: Propofol 1,000 MG/100 ML VIAL IV PRN (19:45)
[2020-09-09] MEDS ORDERED: Fentanyl BOLUS 250 ML IVPB PRN (19:45)
[2020-09-09] MEDS ORDERED: Lorazepam 2 MG/ML VIAL SLOW IVP PRN (19:45)
[2020-09-09] MEDS ORDERED: Propofol BOLUS 1,000 MG/100 ML VIAL IV PRN (19:45)
[2020-09-09] MEDS ORDERED: DISCONTINUE PREVIOUS NARCOTIC PAIN MEDICATIONS AND BENZODIAZEPINES FS SCH (19:45)
[2020-09-09 20:19] LABS: Lactic Acid 1.9 mmol/L (0.5-2.2)
[2020-09-09 20:21] LABS: Hemoglobin 11.5 g/dL (14.0-18.0); Mean Corpuscular HGB CONC 33.4 g/dL (32.0-36.0); Mean Corpuscular Hemoglobin 31.5 pg (27.0-31.0); Mean Corpuscular Volume 94.4 fL (78.0-98.0); Mean Platelet Volume 6.6 fL (7.4-10.4); Platelet Count 273 thou/uL (130-400); RBC Distribution Width 14.1 % (11.5-14.5); Red Blood Cell (RBC) Count 3.64 mill/uL (4.70-6.10)
[2020-09-09 20:27] LABS: Band 13 % (5-11); Lymphocytes 7 % (21-51); MDiff Complete? YES; Monocytes 5 % (0-10); Neutrophil 75 % (42-75); White Blood Cell (WBC) Count 23.7 thou/uL (4.8-10.8)
[2020-09-09 20:33] LABS: Anion Gap 14 mmol/L (10-20); BUN (Urea Nitrogen) 32 mg/dL (8.4-25.7); Calc. Creatinine Clearance 91 mL/min (70-130); Carbon Dioxide 22 mmol/L (23-31); Chloride 108 mmol/L (98-107); Glucose 134 mg/dL (83-110); Phosphorus 3.5 mg/dL (2.3-4.7); Potassium 3.5 mmol/L (3.5-5.1); Sodium 140 mmol/L (136-145)
[2020-09-09] MEDS ORDERED: Potassium Phosphate 15 MMOL in Sodium Chloride 0.9% 250 ML 250 ML IVPB SCH (21:45)
--- NOTE | 2020-09-09 23:17 | PRG ---
DATE OF SERVICE: 09/09/2020 SUBJECTIVE: The patient was seen this evening in the CCU. He is postoperative day 0, status post ex lap, adhesiolysis, and repair of parastomal hernia. The patient remained intubated postoperatively. He is hemodynamically stable. Postoperative blood gas and blood work were essentially unremarkable. Patient is comfortable on propofol and fentanyl. Case reviewed with Nursing at bedside. OBJECTIVE: VITAL SIGNS: Temperature 98.8, pulse 88, respirations 16, oxygen saturation 99% on the ventilator, and blood pressure 126/63. GENERAL: Elderly male, lying in bed, intubated and sedated with no signs of acute distress. PULMONARY: Equal chest rise and fall. Clear breath sounds bilaterally. No signs of acute respiratory distress. ABDOMEN: Soft, nontender, nondistended. Left-sided colostomy with no air or stool in bag. Stoma is well perfused and soft. EXTREMITIES: 2+ pulses in all extremities. Gross motor and sensation are intact. Mild swelling throughout extremities. LABORATORY FINDINGS: White count 23.7, hemoglobin 11.5, hematocrit 34.4, platelets 274. Sodium 140, potassium 3.6, chloride 108, bicarb 22, BUN 32, creatinine 1.02, glucose 134, lactic acid 1.9, phosphorus 3.5, magnesium 2.0. DIAGNOSTIC FINDINGS: Postoperative chest x-ray demonstrates endotracheal catheter and right IJ catheter in good radiographic position. Nasogastric tube advanced approximately 10 cm for better positioning. ASSESSMENT: 1. Postop day 0, status post exploratory laparotomy, adhesiolysis, and repair of parastomal hernia for small bowel obstruction. 2. Ulcer at gastroesophageal junction, stable. 3. History of colon cancer, benign prostatic hyperplasia, hyperlipidemia, hypertension, urinary retention, atrial fibrillation, Parkinson's, restless legs syndrome, peripheral neuropathy, deep venous thrombosis, anxiety, and depression. PLAN: Continue intubation and sedation overnight. Monitor urinary output. Repeat blood work in the morning. The patient likely extubated in the morning. I have asked Nursing to start weaning propofol and fentanyl around 6:00 a.m. for possible extubation around 9. Job ID: [id number] MTDD
[2020-09-10] MEDS: Lactated Ringer's 1,000 ML IV SCH ×5 (01:25→12:21)
[2020-09-10] MEDS ORDERED: Lactated Ringer's 500 ML IV SCH (01:30)
[2020-09-10 04:40] LABS: Anion Gap 17 mmol/L (10-20); BUN (Urea Nitrogen) 31 mg/dL (8.4-25.7); Calc. Creatinine Clearance 99 mL/min (70-130); Calcium 7.6 mg/dL (7.8-10.44); Carbon Dioxide 22 mmol/L (23-31); Chloride 107 mmol/L (98-107); Glucose 124 mg/dL (83-110); Magnesium 2.1 mg/dL (1.6-2.6); Potassium 3.7 mmol/L (3.5-5.1); Sodium 142 mmol/L (136-145)
[2020-09-10 05:32] LABS: Band 12 % (5-11); Eosinophils 1 % (0-10); Hemoglobin 10.5 g/dL (14.0-18.0); Lymphocytes 8 % (21-51); MDiff Complete? YES; Mean Corpuscular HGB CONC 33.5 g/dL (32.0-36.0); Mean Corpuscular Hemoglobin 31.6 pg (27.0-31.0); Mean Corpuscular Volume 94.3 fL (78.0-98.0); Mean Platelet Volume 6.7 fL (7.4-10.4); Monocytes 7 % (0-10); Neutrophil 70 % (42-75); Platelet Count 244 thou/uL (130-400); RBC Distribution Width 14.3 % (11.5-14.5); Red Blood Cell (RBC) Count 3.32 mill/uL (4.70-6.10); White Blood Cell (WBC) Count 15.6 thou/uL (4.8-10.8)
[2020-09-10] MEDS: Gabapentin 300 MG CAP PO SCH ×3 (07:42→20:21)
[2020-09-10] MEDS ORDERED: Potassium Chloride 40 MEQ in Sodium Chloride 0.9% 250 ML 250 ML IVPB SCH (08:30)
[2020-09-10] MEDS ORDERED: traMADol HCl 50 MG TAB PO PRN (10:30)
[2020-09-10] MEDS ORDERED: Morphine 2 MG/ML VIAL SLOW IVP PRN (10:30)
--- NOTE | 2020-09-10 10:49 | PRG ---
DATE OF SERVICE: 09/10/2020 SUBJECTIVE: Mr. Macias is an 80-year-old man, postoperative day #1, status post exploratory laparotomy with repair of incarcerated parastomal hernia. The patient is awake and alert. Urinary output was marginal overnight, which responded appropriately to bolus of IV fluids. Currently, he is sedated on mechanical ventilator support. When sedation was held, he awakened to voice, moves all extremities and follows commands. OBJECTIVE: VITAL SIGNS: This morning include, blood pressure 153/87, pulse 96, respiratory rate 16, maximum temperature in last 24 hours is 100.3 degrees Fahrenheit, oxygen saturation 98% on FiO2 of 40% on mechanical ventilator support. HEENT: Reveals pupils equal, round, reactive to light bilaterally. Nasogastric tube is in place and has returned approximately 100 mL of nonbilious effluent over the last 12 hours. NECK: He has no jugular venous distention noted. HEART: Reveals irregular rate and rhythm. LUNGS: Clear to auscultation bilaterally. Breathing is regular and nonlabored. ABDOMEN: Soft and nondistended. Colostomy is viable with scant amount of stool and gas. No prolapse or evidence of recurrence on the parastomal hernia. NEUROLOGIC: Reveals no focal deficits present. LABORATORY FINDINGS: Today includes, CBC with 15,600 white blood cells, hemoglobin and hematocrit are 10.5 and 31.4 respectively. The platelet count is 244,000. Metabolic profile; sodium 142, potassium 3.7, chloride is 107, bicarb is 22, BUN is 31, creatinine is 0.94, glucose is 124, magnesium is 2.1, and phosphorus is 4.0. IMPRESSION: 1. Postoperative day #1, status post exploratory laparotomy and repair of incarcerated parastomal hernia. 2. Resolved acute respiratory failure. PLAN: 1. The patient weaned and extubated accordingly. 2. Increase activity per Physical and Occupational Therapy. 3. We will continue with nasogastric tube decompression and bowel rest for next 24 hours. Job ID: [id number]
[2020-09-10] MEDS: traMADol HCl 50 MG TAB PO SCH ×3 (10:54→23:46)
[2020-09-10] MEDS: cloNIDine 0.1 MG TAB PO SCH ×3 (11:00→21:58)
[2020-09-10] MEDS: Acetaminophen 500 MG TAB PO SCH ×3 (11:00→21:58)
[2020-09-10] MEDS: Pantoprazole 40 MG VIAL IVP SCH ×2 (11:02→20:22)
[2020-09-10] MEDS: Polyethylene Glycol 3350 17 GM Packet PO SCH (11:02)
[2020-09-10] MEDS: Tamsulosin HCl 0.4 MG CAP PO SCH (11:02)
[2020-09-10] MEDS: Enoxaparin Sodium 40 MG/0.4 ML SYRINGE SC SCH (11:02)
[2020-09-10] MEDS ORDERED: Labetalol HCl 100 MG/20 ML VIAL SLOW IVP PRN (12:00)
[2020-09-10] MEDS ORDERED: Furosemide 40 MG/4 ML VIAL SLOW IVP SCH (12:00)
--- NOTE | 2020-09-10 17:41 | PDOC.HOSPP ---
- Subjective Encounter Date: 09/10/20 Encounter Time: 13:00 Subjective: pt up in bed confused - Objective Vital Signs & Weight: Vital Signs (12 hours) Temp Pulse Resp BP Pulse Ox 09/10/20 16:22 122/73 09/10/20 12:00 98.9 F 96 09/10/20 11:01 130 H 180/88 H 09/10/20 11:00 180/88 H 09/10/20 10:48 109 H 09/10/20 08:00 96 09/10/20 07:48 100.3 F H 09/10/20 07:44 16 09/10/20 07:42 96 09/10/20 06:00 16 Weight Admit Weight 250 lb Weight 250 lb Most Recent Monitor Data Heart Rate from ECG 98 NIBP 122/73 NIBP BP-Mean 89 Respiration from ECG 18 SpO2 96 I&O: 09/09/20 09/10/20 09/11/20 06:59 06:59 06:59 Intake Total 0 2 220 Output Total 2049 306 278 Balance -2049 Result Diagrams: 09/10/20 03:53 09/10/20 03:53 Hospitalist ROS - Review of Systems Other: confused - Medication Medications: Active Medications Generic Name Dose Route Start Last Admin Trade Name Freq PRN Reason Stop Dose Admin Acetaminophen 1,000 mg 09/10/20 10:30 09/10/20 16:17 Acetaminophen 500 Mg Tab PO 1,000 mg Q6H MATEO Administration Clonidine 0.1 mg 09/10/20 10:45 09/10/20 16:22 Clonidine 0.1 Mg Tab PO 0.1 mg Q6H MATEO Administration Diltiazem HCl 120 mg 09/09/20 09:00 09/10/20 11:01 Diltiazem Cd 120 Mg Cap PO 120 mg DAILY MATEO Administration Enoxaparin Sodium 40 mg 09/10/20 09:00 09/10/20 11:02 Enoxaparin Sodium 40 Mg/0.4 Ml Syringe SC 40 mg 0900 MATEO Administration Gabapentin 300 mg 09/10/20 15:00 09/10/20 16:16 Gabapentin 300 Mg Cap PO 300 mg TID MATEO Administration Lactated Ringer's 1,000 mls @ 75 mls/hr 09/10/20 11:59 09/10/20 12:21 Lactated Ringer's IV 1,000 mls .[id number] MATEO Administration Morphine Sulfate 2 mg 09/10/20 10:30 09/10/20 11:27 Morphine 2 Mg/Ml Vial SLOW IVP 2 mg Q4H PRN Administration severe breakthrough pain Ondansetron HCl 4 mg 09/05/20 14:57 09/07/20 23:41 Ondansetron Pf 4 Mg/2 Ml Vial IVP 4 mg Q6H PRN Administration Nausea/Vomiting Pantoprazole Sodium 40 mg 09/07/20 09:00 09/10/20 11:02 Pantoprazole 40 Mg Vial IVP 40 mg Q12HR MATEO Administration Polyethylene Glycol 17 gm 09/09/20 09:00 09/10/20 11:02 Polyethylene Glycol 3350 17 Gm Packet PO 17 gm DAILY MATEO Administration Tamsulosin HCl 0.4 mg 09/06/20 09:00 09/10/20 11:02 Tamsulosin Hcl 0.4 Mg Cap PO 0.4 mg DAILY MATEO Administration Tramadol HCl 50 mg 09/10/20 12:00 09/10/20 16:17 Tramadol Hcl 50 Mg Tab PO 50 mg Q6HR MATEO Administration - Exam Neck: negative: supple, symmetric, no JVD, no thyromegaly, no lymphadenopathy, no carotid bruit, JVD Heart: negative: RRR, no murmur, no gallops, no rubs, normal peripheral pulses, irregular, diminshed peripheral pulses, murmur present, II/IV, III/IV Respiratory: negative: CTAB, no wheezes, no rales, no ronchi, normal chest expansion, no tachypnea, normal percussion, rales, rhonchi, tachypneic, wheezes Gastrointestinal: soft Gastrointestinal - other findings: ng tube, hypoactive bowel sounds, colostomy Hosp A/P (1) SBO (small bowel obstruction) Code(s): K56.609 - UNSP INTESTNL OBST, UNSP TO PARTIAL VERSUS COMPLETE OBST Status: Acute (2) Chronic anticoagulation Code(s): Z79.01 - CARE HOME (CURRENT) USE OF ANTICOAGULANTS Status: Chronic (3) History of colon cancer Code(s): Z85.038 - PERSONAL HISTORY OF MALIGNANT NEOPLASM OF LARGE INTESTINE Status: Chronic (4) Paroxysmal atrial fibrillation Code(s): I48.0 - PAROXYSMAL ATRIAL FIBRILLATION Status: Acute (5) BPH (benign prostatic hyperplasia) Code(s): N40.0 - BENIGN PROSTATIC HYPERPLASIA WITHOUT LOWER URINRY TRACT SYMP Status: Chronic Qualifiers: Lower urinary tract symptom presence: symptoms present (6) DVT, bilateral lower limbs Code(s): I82.403 - ACUTE EMBOLISM AND THOMBOS UNSP DEEP VEINS OF LOW EXTRM, BI Status: Chronic Qualifiers: Chronicity: chronic (7) HTN (hypertension) Code(s): I10 - ESSENTIAL (PRIMARY) HYPERTENSION Status: Chronic Qualifiers: Hypertension type: essential hypertension Qualified Code(s): I10 - Essential (primary) hypertension (8) Hx of deep venous thrombosis Code(s): Z86.718 - PERSONAL HISTORY OF OTHER VENOUS THROMBOSIS AND EMBOLISM Status: Chronic - Plan I will restart gabapentin. Stopping Neurontin can cause withdrawal seizures. I will also add DVT prophylaxis since Eliquis was discontinued. 09/07 pt has pulled out his Ng tube multiple times. His output is maroon in color will put him on protonix. HR controlled. pt has a ivc filter. He is off all AC for now. if pt becomes goes in afib rvr will start Cardizem drip. 09/08 patient apparently had significant amount of dark blood from his NG tube. Patient is on Protonix. At this time GI was consulted. Patient had an EGD done. Spoke with patient's brother who is the next of kin and states that patient did not want to be resuscitated in an emergency situation. We will place a DNAR. Will check H&H every 6 hours transfuse as needed. 09/09 status post EGD indicated Patient's EGD indicated 3 mm ulceration at the GE junction with a large adherent clot and active oozing was noted. Bipolar cauterization with good hemostasis was achieved. He had scattered linear ulceration seen in the gastric fundus and body consistent with NG tube trauma. Talk with patient's brother who stated that he wanted to go ahead with the surgery risks and benefits explained per surgeon. 09/10 Patient underwent expiratory laparotomy with additional lysis and repair of the parastomal hernia. H&H stable. Continue Protonix for now. He went into A. fib earlier was given 1 dose of Lasix. His rate controlled. Will hold anticoagulation due to recent bleed. On DVT prophylaxis
[2020-09-10] MEDS: Atorvastatin Calcium 40 MG TAB PO SCH (20:21)
[2020-09-10 20:42] LABS: #Eosinphils 0.2 thou/uL (0.0-0.7); #Lymphocytes 1.3 thou/uL (1.20-3.40); #Monocytes 1.3 thou/uL (0.11-0.59); #Neutrophils 10.3 thou/uL (1.40-6.50); %Eosinophils 1.9 % (0.0-10.0); %Lymphocytes 9.9 % (21.0-51.0); %Monocytes 10.1 % (0.0-10.0); %Neutrophils 78.1 % (42.0-75.0); Mean Corpuscular HGB CONC 33.4 g/dL (32.0-36.0); Mean Corpuscular Hemoglobin 32.2 pg (27.0-31.0); Mean Corpuscular Volume 96.5 fL (78.0-98.0); Mean Platelet Volume 6.8 fL (7.4-10.4); Platelet Count 215 thou/uL (130-400); RBC Distribution Width 14.5 % (11.5-14.5); White Blood Cell (WBC) Count 13.2 thou/uL (4.8-10.8)
[2020-09-10 21:20] LABS: Magnesium 1.9 mg/dL (1.6-2.6)
[2020-09-10 21:37] LABS: Anion Gap 14 mmol/L (10-20); BUN (Urea Nitrogen) 21 mg/dL (8.4-25.7); Calc. Creatinine Clearance 109 mL/min (70-130); Calcium 7.7 mg/dL (7.8-10.44); Carbon Dioxide 25 mmol/L (23-31); Chloride 107 mmol/L (98-107); Glucose 110 mg/dL (83-110); Phosphorus 2.3 mg/dL (2.3-4.7); Potassium 3.4 mmol/L (3.5-5.1); Sodium 143 mmol/L (136-145)
[2020-09-10] MEDS ORDERED: Potassium Phosphate 30 MMOL in Sodium Chloride 0.9% 250 ML 250 ML IVPB SCH (23:15)
--- NOTE | 2020-09-11 00:33 | PRG ---
DATE OF SERVICE: 09/10/2020 SUBJECTIVE: The patient was seen this evening in the CCU. He was awake and alert. He was extubated earlier today. He was appropriate and following commands. He is, however, very impulsive. He reports that his belly was mildly tender on palpation and quickly became agitated afterwards, but he did not require any type of restraints, physical or chemical. OBJECTIVE: VITAL SIGNS: Temperature 99.3, pulse 89, respirations 18, oxygen saturation 92% on room air, blood pressure 115/67. ASSESSMENT: 1. Postop day #1 status post ex-lap, adhesiolysis, and repair of peristomal hernia due to small-bowel obstruction. 2. Ulcer at GE junction causing GI bleed, stable. 3. History of colon cancer, BPH, hyperlipidemia, hypertension, urinary retention, atrial fibrillation, Parkinson's, DVT, and anxiety. PLAN: Continue n.p.o. Continue LR at 75 an hour. Continue to closely monitor hemodynamics. Patient received potassium phos this evening. Repeat blood work in the morning. The patient to be moved to the surgical floor with restraints and a sitter as the CCU is requesting beds. The patient has been stable and cooperative since extubation. Job ID: [id number]
[2020-09-11] MEDS: Acetaminophen 500 MG TAB PO SCH ×4 (04:11→22:06)
[2020-09-11] MEDS: cloNIDine 0.1 MG TAB PO SCH ×4 (04:12→22:06)
[2020-09-11] MEDS: Lactated Ringer's 1,000 ML IV SCH ×2 (06:22→18:26)
[2020-09-11] MEDS: traMADol HCl 50 MG TAB PO SCH ×3 (06:26→18:26)
[2020-09-11 07:37] LABS: #Eosinphils 0.5 thou/uL (0.0-0.7); #Lymphocytes 1.2 thou/uL (1.20-3.40); #Monocytes 1.3 thou/uL (0.11-0.59); #Neutrophils 11.5 thou/uL (1.40-6.50); %Eosinophils 3.2 % (0.0-10.0); %Lymphocytes 8.5 % (21.0-51.0); %Monocytes 9.2 % (0.0-10.0); ALT (SGPT) 9 U/L (8-55); AST (SGOT) 14 U/L (5-34); Albumin 3.1 g/dL (3.4-4.8); Alkaline Phosphatase 70 U/L (40-110); Anion Gap 14 mmol/L (10-20); BUN (Urea Nitrogen) 19 mg/dL (8.4-25.7); Bilirubin, Total 0.7 mg/dL (0.2-1.2); Calc. Creatinine Clearance 113 mL/min (70-130); Calcium 7.9 mg/dL (7.8-10.44); Carbon Dioxide 25 mmol/L (23-31); Chloride 106 mmol/L (98-107); Globulin 2.3 g/dL (2.4-3.5); Glucose 100 mg/dL (83-110); Hemoglobin 9.1 g/dL (14.0-18.0); Mean Corpuscular HGB CONC 33.1 g/dL (32.0-36.0); Mean Corpuscular Hemoglobin 31.8 pg (27.0-31.0); Mean Platelet Volume 6.6 fL (7.4-10.4); Phosphorus 3.4 mg/dL (2.3-4.7); Platelet Count 242 thou/uL (130-400); Potassium 3.4 mmol/L (3.5-5.1); Protein, Total 5.4 g/dL (5.8-8.1); RBC Distribution Width 14.6 % (11.5-14.5); Red Blood Cell (RBC) Count 2.85 mill/uL (4.70-6.10); Sodium 142 mmol/L (136-145); White Blood Cell (WBC) Count 14.5 thou/uL (4.8-10.8)
--- NOTE | 2020-09-11 08:19 | RAD ---
EXAM: XR Abdomen 1 View/KUB PROVIDED CLINICAL HISTORY: Nasogastric tube placement COMPARISON: 09/07/2020 FINDINGS: The nasogastric tube has been advanced with tip overlying the expected location of the body the stoma ch. The most proximal sidehole overlies region of the distal esophagus or cardia of the stomach. There is gaseous distention and mild dilatation of a few loops of small bowel within the central abdo men. There is paucity of bowel gas at the lateral aspects of the abdomen bilaterally. Lung bases are not well assessed on this exam. IVC filter is a again noted in place. Multiple skin clips overlie the midline lower abdomen and upper pelvis. Degenerative changes of the spine with vertebroplasty changes lower thoracic vertebral body again present. Right total hip prosthesis incompletely imaged. IMPRESSION: 1. Nasogastric tube has been advanced with tip overlying the expected location proximal body of the s tomach with the proximal sidehole overlying the region of the distal esophagus or gastric cardia. Nasogastric tube should be advanced. 2. Paucity of bowel gas at the lateral aspects of the abdomen .
[2020-09-11] MEDS ORDERED: Potassium Phosphate 30 MMOL in Sodium Chloride 0.9% 250 ML 250 ML IVPB SCH (09:00)
[2020-09-11] MEDS: Enoxaparin Sodium 40 MG/0.4 ML SYRINGE SC SCH (11:28)
[2020-09-11] MEDS: Tamsulosin HCl 0.4 MG CAP PO SCH (11:29)
[2020-09-11] MEDS: Polyethylene Glycol 3350 17 GM Packet PO SCH (11:29)
[2020-09-11] MEDS: Pantoprazole 40 MG VIAL IVP SCH ×2 (11:30→22:06)
[2020-09-11] MEDS: Gabapentin 300 MG CAP PO SCH ×3 (11:30→22:04)
--- NOTE | 2020-09-11 12:10 | PDOC.HOSPP ---
- Subjective Encounter Date: 09/11/20 Encounter Time: 12:08 Subjective: Mr. Macias was seen today in follow-up of small bowel obstruction. He is confused, and a sitter is in the room. He does not know where he is or the date or time. He becomes a little belligerent when I try to exam him. - Objective Vital Signs & Weight: Vital Signs (12 hours) Temp Pulse Resp BP BP Pulse Ox 09/11/20 11:29 93 149/82 H 09/11/20 11:00 92 L 09/11/20 08:07 99.6 F 93 18 149/82 H 97 09/11/20 04:12 122/73 09/11/20 03:42 99.5 F 91 18 127/77 93 L Weight Admit Weight 250 lb Weight 250 lb Most Recent Monitor Data Heart Rate from ECG 91 NIBP 133/70 NIBP BP-Mean 91 Respiration from ECG 19 SpO2 90 I&O: 09/10/20 09/11/20 09/12/20 06:59 06:59 06:59 Intake Total 2232 1880 Output Total 306 2358 Balance 1926 -478 Result Diagrams: 09/11/20 05:53 09/11/20 05:53 Hospitalist ROS - Medication Medications: Active Medications Generic Name Dose Route Start Last Admin Trade Name Freq PRN Reason Stop Dose Admin Acetaminophen 1,000 mg 09/10/20 10:30 09/11/20 11:27 Acetaminophen 500 Mg Tab PO 1,000 mg Q6H MATEO Administration Atorvastatin Calcium 40 mg 09/10/20 21:00 09/10/20 20:21 Atorvastatin Calcium 40 Mg Tab PO 40 mg HS MATEO Administration Clonidine 0.1 mg 09/10/20 10:45 09/11/20 11:29 Clonidine 0.1 Mg Tab PO 0.1 mg Q6H MATEO Administration Diltiazem HCl 120 mg 09/09/20 09:00 09/11/20 11:29 Diltiazem Cd 120 Mg Cap PO 120 mg DAILY MATEO Administration Enoxaparin Sodium 40 mg 09/10/20 09:00 09/11/20 11:28 Enoxaparin Sodium 40 Mg/0.4 Ml Syringe SC 40 mg 0900 MATEO Administration Gabapentin 300 mg 09/10/20 15:00 09/11/20 11:30 Gabapentin 300 Mg Cap PO 300 mg TID MATEO Administration Lactated Ringer's 1,000 mls @ 75 mls/hr 09/10/20 11:59 09/11/20 06:22 Lactated Ringer's IV Not Given .[id number] MATEO Morphine Sulfate 2 mg 09/10/20 10:30 09/10/20 11:27 Morphine 2 Mg/Ml Vial SLOW IVP 2 mg Q4H PRN Administration severe breakthrough pain Ondansetron HCl 4 mg 09/05/20 14:57 09/07/20 23:41 Ondansetron Pf 4 Mg/2 Ml Vial IVP 4 mg Q6H PRN Administration Nausea/Vomiting Pantoprazole Sodium 40 mg 09/07/20 09:00 09/11/20 11:30 Pantoprazole 40 Mg Vial IVP 40 mg Q12HR MATEO Administration Polyethylene Glycol 17 gm 09/09/20 09:00 09/11/20 11:29 Polyethylene Glycol 3350 17 Gm Packet PO 17 gm DAILY MATEO Administration Tamsulosin HCl 0.4 mg 09/06/20 09:00 09/11/20 11:29 Tamsulosin Hcl 0.4 Mg Cap PO 0.4 mg DAILY MATEO Administration Tramadol HCl 50 mg 09/10/20 12:00 09/11/20 11:31 Tramadol Hcl 50 Mg Tab PO 50 mg Q6HR MATEO Administration - Exam Eye: PERRL, anicteric sclera Heart: RRR, no murmur, no gallops, no rubs, normal peripheral pulses Respiratory: CTAB, no wheezes, no rales, no ronchi, normal chest expansion Gastrointestinal: soft (mildly distended, + diffuse tenderness, bowel sounds are diminished), no palpable masses, no hepatomegaly, no splenomegaly Extremities: no cyanosis, 1+ LE edema Hosp A/P (1) HTN (hypertension) Code(s): I10 - ESSENTIAL (PRIMARY) HYPERTENSION Status: Chronic Qualifiers: Hypertension type: essential hypertension Qualified Code(s): I10 - Essential (primary) hypertension (2) SBO (small bowel obstruction) Code(s): K56.609 - UNSP INTESTNL OBST, UNSP TO PARTIAL VERSUS COMPLETE OBST Status: Acute (3) Parkinsons disease Code(s): G20 - PARKINSON'S DISEASE Status: Chronic - Plan * HTN- blood pressure is a bit elevated- will add Hydralazine as needed * SBO- he is s/p lysis of adhesion. He is NPO, and on maintenance fluids * Monitor electrolytes and replace as needed * Parkinson's disease- stable * Delirium- likely due to the recent surgery and advanced age- will avoid sedating medications, and re-orient frequently
[2020-09-11] MEDS ORDERED: hydrALAZINE 20 MG/ML VIAL SLOW IVP PRN (12:14)
--- NOTE | 2020-09-11 19:12 | PRG ---
DATE OF SERVICE: SUBJECTIVE: The patient was seen during morning rounds on the surgical floor. The patient is postop day #2 status post exploratory laparotomy, adhesiolysis, repair of peristomal hernia. The patient was moved to the surgical floor last night. The patient remains confused, and a sitter is at bedside. The patient remains in soft restraints for safety, so he will not pull out his lines. The patient becomes agitated and belligerent, cussing at the staff and myself with exam. The patient's NG tube was flushed and working appropriately, 200 mL output over the last 24 hours. The patient's urinary output has been adequate. The patient continues to be n.p.o. with maintenance IV fluids. OBJECTIVE: VITAL SIGNS: Temperature 99.6, pulse 93, respirations 18, SpO2 97% on room air, blood pressure 149/82. GENERAL: Elderly male, uncooperative, confused. HEENT: Unremarkable. RESPIRATORY: Good inspiratory and expiratory effort. Respirations are even and nonlabored. CARDIAC: Regular rate, regular rhythm. ABDOMEN: Soft, diffuse tenderness. Dressing to midline incision is clean, dry, and intact. The patient's ostomy is viable, no gas, no stool, liquid output noted. EXTREMITIES: Moves all extremities. LABORATORY DATA: WBC 14.5, RBC 2.85, hemoglobin 9.1, hematocrit 27.3, platelets 242. Sodium 142, potassium 3.4, chloride 106, BUN 19, creatinine 0.82, estimated GFR 90, glucose 100, phosphorus 3.4, magnesium 2.0. LABORATORY DATA: Abdominal x-ray. Impression: NG tube in place and needing to be advanced. Gassy distention and mild dilation of a few loops of bowel within the central abdomen. ASSESSMENT: 1. Postop day #2 status post exploratory laparotomy, adhesiolysis, and repair of peristomal hernia due to small-bowel obstruction. 2. Ulcer at GE junction causing GI bleed, stable. 3. Hypokalemia. 4. Delirium likely due to surgical procedure and advanced age. 5. History of colon cancer, BPH, hyperlipidemia, hypertension, urinary retention, atrial fibrillation, Parkinson's, DVT, and anxiety. PLAN: Continue maintenance IV fluids LR at 75 an hour. We will start tube feeds max of 20 mL an hour. We will replace electrolytes. Continue to monitor I's and O's. We will encourage good sleep hygiene to help with delirium. Pain control. We will continue to monitor ostomy for return of bowel function. Continue a sitter and restraints as needed. Job ID: [id number]
[2020-09-11] MEDS: Atorvastatin Calcium 40 MG TAB PO SCH (22:04)
--- NOTE | 2020-09-11 23:26 | PRG ---
DATE OF SERVICE: 09/11/2020 SUBJECTIVE: The patient was seen this evening during rounds. He is sitting up in bed, resting comfortably and asleep with no signs of acute distress. Sitter at the bedside reported the patient occasionally wakes up and is inappropriate and yelling. However, he is reorientable and cooperative afterwards. Nursing reports no acute events. OBJECTIVE: VITAL SIGNS: Temperature 98.9, pulse 95, respirations 18, oxygen saturation 93% on room air, blood pressure 127/73. ASSESSMENT: 1. Postop day 2, status post exploratory laparotomy, adhesiolysis and repair of peristomal hernia causing bowel obstruction. 2. Recent gastrointestinal bleed at gastroesophageal junction. 3. History of colon cancer, benign prostatic hypertrophy, hyperlipidemia, hypertension, urinary retention, atrial fibrillation, Parkinson's, deep venous thrombosis, and anxiety. PLAN: Continue n.p.o. Continue tube feeds at 20 an hour. Continue IV hydration. Continue Avendaño and NG tube in place. Repeat blood work in the morning. Continue to monitor for return of bowel function. The patient needs to start ambulating. Continue physical and occupational therapy. Job ID: [id number]
[2020-09-12] MEDS: traMADol HCl 50 MG TAB PO SCH ×4 (00:15→17:51)
[2020-09-12] MEDS: Lactated Ringer's 1,000 ML IV SCH ×2 (04:11→12:14)
[2020-09-12] MEDS: Acetaminophen 500 MG TAB PO SCH ×4 (04:55→21:59)
[2020-09-12] MEDS: cloNIDine 0.1 MG TAB PO SCH ×4 (04:56→21:59)
[2020-09-12 05:27] LABS: #Eosinphils 0.5 thou/uL (0.0-0.7); #Lymphocytes 1.4 thou/uL (1.20-3.40); #Neutrophils 9.7 thou/uL (1.40-6.50); %Basophils 0.2 % (0.0-1.0); %Eosinophils 4.3 % (0.0-10.0); %Lymphocytes 11.3 % (21.0-51.0); %Monocytes 7.8 % (0.0-10.0); %Neutrophils 76.4 % (42.0-75.0); Hemoglobin 8.1 g/dL (14.0-18.0); Mean Corpuscular Hemoglobin 31.9 pg (27.0-31.0); Mean Corpuscular Volume 96.5 fL (78.0-98.0); Mean Platelet Volume 6.6 fL (7.4-10.4); Platelet Count 253 thou/uL (130-400); RBC Distribution Width 14.3 % (11.5-14.5); Red Blood Cell (RBC) Count 2.55 mill/uL (4.70-6.10); White Blood Cell (WBC) Count 12.7 thou/uL (4.8-10.8)
[2020-09-12 05:43] LABS: Anion Gap 13 mmol/L (10-20); BUN (Urea Nitrogen) 18 mg/dL (8.4-25.7); Calc. Creatinine Clearance 121 mL/min (70-130); Calcium 7.7 mg/dL (7.8-10.44); Carbon Dioxide 25 mmol/L (23-31); Chloride 106 mmol/L (98-107); Glucose 131 mg/dL (83-110); Potassium 3.2 mmol/L (3.5-5.1); Sodium 141 mmol/L (136-145)
[2020-09-12] MEDS: Gabapentin 300 MG CAP PO SCH ×3 (09:58→21:57)
[2020-09-12] MEDS: Pantoprazole 40 MG VIAL IVP SCH ×2 (09:58→21:59)
[2020-09-12] MEDS: Tamsulosin HCl 0.4 MG CAP PO SCH (09:58)
[2020-09-12] MEDS: Polyethylene Glycol 3350 17 GM Packet PO SCH (09:58)
[2020-09-12] MEDS: Enoxaparin Sodium 40 MG/0.4 ML SYRINGE SC SCH (09:59)
--- NOTE | 2020-09-12 12:23 | PDOC.HOSPP ---
- Subjective Encounter Date: 09/12/20 Encounter Time: 12:21 Subjective: Mr. Macias was seen today in follow-up. He is a bit less belligerent today. He initially refsed to have me exam him and asked " where is the man doctor". After I offered to adjust his hospital bed he allowed me to exam him. He denies abdominal pain, and was forcefully asking the nurse to " give him something to eat. - Objective Vital Signs & Weight: Vital Signs (12 hours) Temp Pulse Resp BP BP Pulse Ox 09/12/20 11:58 99.1 F 74 18 135/76 94 L 09/12/20 10:00 147/77 H 09/12/20 09:59 77 147/77 H 09/12/20 09:54 98.8 F 77 20 147/77 H 93 L 09/12/20 04:56 111/71 09/12/20 03:55 98.4 F 71 16 111/71 92 L Weight Admit Weight 250 lb Weight 250 lb Most Recent Monitor Data Heart Rate from ECG 91 NIBP 133/70 NIBP BP-Mean 91 Respiration from ECG 19 SpO2 90 I&O: 09/11/20 09/12/20 09/13/20 06:59 06:59 06:59 Intake Total 1880 1240 Output Total 2358 850 Balance -478 390 Result Diagrams: 09/12/20 05:15 09/12/20 05:15 Hospitalist ROS - Medication Medications: Active Medications Generic Name Dose Route Start Last Admin Trade Name Freq PRN Reason Stop Dose Admin Acetaminophen 1,000 mg 09/10/20 10:30 09/12/20 09:59 Acetaminophen 500 Mg Tab PO 1,000 mg Q6H MATEO Administration Atorvastatin Calcium 40 mg 09/10/20 21:00 09/11/20 22:04 Atorvastatin Calcium 40 Mg Tab PO 40 mg HS MATEO Administration Clonidine 0.1 mg 09/10/20 10:45 09/12/20 10:00 Clonidine 0.1 Mg Tab PO 0.1 mg Q6H MATEO Administration Diltiazem HCl 120 mg 09/09/20 09:00 09/12/20 09:59 Diltiazem Cd 120 Mg Cap PO 120 mg DAILY MATEO Administration Enoxaparin Sodium 40 mg 09/10/20 09:00 09/12/20 09:59 Enoxaparin Sodium 40 Mg/0.4 Ml Syringe SC 40 mg 0900 MATEO Administration Gabapentin 300 mg 09/10/20 15:00 09/12/20 09:58 Gabapentin 300 Mg Cap PO 300 mg TID MATEO Administration Lactated Ringer's 1,000 mls @ 75 mls/hr 09/10/20 11:59 09/12/20 12:14 Lactated Ringer's IV 1,000 mls .[id number] MATEO Administration Morphine Sulfate 2 mg 09/10/20 10:30 09/10/20 11:27 Morphine 2 Mg/Ml Vial SLOW IVP 2 mg Q4H PRN Administration severe breakthrough pain Ondansetron HCl 4 mg 09/05/20 14:57 09/07/20 23:41 Ondansetron Pf 4 Mg/2 Ml Vial IVP 4 mg Q6H PRN Administration Nausea/Vomiting Pantoprazole Sodium 40 mg 09/07/20 09:00 09/12/20 09:58 Pantoprazole 40 Mg Vial IVP 40 mg Q12HR MATEO Administration Polyethylene Glycol 17 gm 09/09/20 09:00 09/12/20 09:58 Polyethylene Glycol 3350 17 Gm Packet PO 17 gm DAILY MATEO Administration Tamsulosin HCl 0.4 mg 09/06/20 09:00 09/12/20 09:58 Tamsulosin Hcl 0.4 Mg Cap PO 0.4 mg DAILY MATEO Administration Tramadol HCl 50 mg 09/10/20 12:00 09/12/20 12:12 Tramadol Hcl 50 Mg Tab PO 50 mg Q6HR MATEO Administration - Exam Eye: PERRL, anicteric sclera Heart: RRR, no murmur, no gallops, no rubs, normal peripheral pulses Respiratory: CTAB, no wheezes, no rales, no ronchi, normal chest expansion, no tachypnea, normal percussion Gastrointestinal: soft (distended, mild diffuse tenderness( but improved from yesterday) bowel sounds are present but diminished) Hosp A/P (1) HTN (hypertension) Code(s): I10 - ESSENTIAL (PRIMARY) HYPERTENSION Status: Chronic Qualifiers: Hypertension type: essential hypertension Qualified Code(s): I10 - Es sential (primary) hypertension (2) SBO (small bowel obstruction) Code(s): K56.609 - UNSP INTESTNL OBST, UNSP TO PARTIAL VERSUS COMPLETE OBST Status: Acute (3) Parkinsons disease Code(s): G20 - PARKINSON'S DISEASE Status: Chronic - Plan * HTN- blood pressure is stable * SBO- he is s/p lysis of adhesion. He is NPO, and on maintenance fluids * Monitor electrolytes and replace as needed * Nutrition- he has been started on tube feeding * Parkinson's disease- stable * Delirium- appears to be improving- will monitor
--- NOTE | 2020-09-12 16:34 | PRG ---
DATE OF SERVICE: 09/12/2020 SUBJECTIVE: The patient was seen during morning rounds, awake, alert, confused, continuing to curse at staff again today. The patient's NG tube residuals are very minimal. He is tolerating tube feeds at 20 mL/h. The patient is asking for water to drink. The patient denies abdominal pain. The patient has no flatus or stool from his ostomy. There is very minimal amount of liquid output. The patient has not had any emesis. OBJECTIVE: VITAL SIGNS: Temperature 98.8, pulse 77, respirations 20, SpO2 of 94% on room air, blood pressure 147/77. GENERAL: Elderly male, awake, alert, confused, uncooperative with exam and attempting to hit nurses. The patient in soft restraints for safety. HEENT: Unremarkable. RESPIRATORY: Good inspiratory and expiratory effort. Respirations are even and nonlabored. CARDIAC: Regular rate, regular rhythm. ABDOMEN: Distended, soft, no peritoneal signs, but diffuse tenderness, no flatus in ostomy bag. Midline incision without any redness or drainage, dressing reapplied. EXTREMITIES: Moves all extremities. No focal deficits. LABORATORY DATA: WBC 12.7, RBC 2.55, hemoglobin 8.1, hematocrit 24.6, platelets 253. Sodium 141, potassium 3.2, BUN 18, creatinine 0.77, estimated GFR greater than 90, glucose 131, calcium 7.7, phosphorus 2.0, magnesium 2.0. There are no new diagnostics to review today. ASSESSMENT: 1. Postoperative day #3, status post exploratory laparotomy, adhesiolysis, and repair of peristomal hernia due to small-bowel obstruction. 2. Ulcer at GE junction causing gastrointestinal bleed, stable. 3. Hypokalemia. 4. Delirium, likely due to surgical procedure and advanced age. 5. History of colon cancer, BPH, hyperlipidemia, hypertension, urinary retention, atrial fibrillation, Parkinson's, deep venous thrombosis, and anxiety. PLAN: Continue supportive care and pain regimen. Continue maintenance IV fluids LR at 75 mL/h. Continue tube feeds at 20 mL/h. We will replace electrolytes. Continue to monitor I's and O's. Continue to encourage good sleep hygiene. Waiting on bowel function return. We will continue soft restraints for safety. The plan was discussed with Dr. Arcos. Job ID: [id number]
[2020-09-12] MEDS: Atorvastatin Calcium 40 MG TAB PO SCH (21:59)
[2020-09-12] MEDS: Ondansetron PF 4 MG/2 ML Vial IVP PRN (22:03)
[2020-09-13] MEDS: traMADol HCl 50 MG TAB PO SCH ×5 (00:18→23:08)
[2020-09-13] MEDS ORDERED: Promethazine HCl 12.5 MG in Sodium Chloride 0.9% 50 ML IVPB SCH (01:00)
--- NOTE | 2020-09-13 02:00 | PRG ---
DATE OF SERVICE: 09/12/2020 SUBJECTIVE: The patient was seen this evening during rounds. He was sitting up in bed, resting comfortably and asleep. Nursing reported at the time of my evaluation that earlier in the evening he was having some nausea. Subsequently, the patient's primary team was contacted. They recommended stopping the tube feeds and giving the patient Zofran. The patient has not vomited. He also does not have return of bowel function. The patient up in the neuro chair earlier today, but has not been ambulating. OBJECTIVE: VITAL SIGNS: Temperature 99.8, pulse 91, respirations 18, oxygen saturation 96% on room air, blood pressure 132/66. ASSESSMENT: 1. Postop day 3 status post exploratory laparotomy, adhesiolysis, and repair of peristomal hernia causing small-bowel obstruction. 2. Gastrointestinal bleed at gastroesophageal junction secondary to NG tube. 3. Possible development of postoperative ileus. 4. History of colon cancer, BPH, hyperlipidemia, hypertension, urinary retention, atrial fibrillation, Parkinson's, deep vein thromboses, and anxiety. PLAN: Hold tube feeds, continue IV fluids. The patient is possibly developing an ileus postoperatively or his bowel obstruction has not totally resolved, that is unlikely. We will hold off on placing the NG tube to suction at this time. If the patient becomes more sick or vomits, we will place the NG tube back to suction. It is important that we get the patient more mobile in order to resolve the ileus. We will have him up in the neuro chair tomorrow as well as working with physical therapy. Job ID: [id number]
[2020-09-13] MEDS: Acetaminophen 500 MG TAB PO SCH ×4 (05:32→23:08)
[2020-09-13] MEDS: cloNIDine 0.1 MG TAB PO SCH ×4 (05:32→23:10)
[2020-09-13] MEDS: Lactated Ringer's 1,000 ML IV SCH ×2 (05:33→17:25)
[2020-09-13 07:04] LABS: Anion Gap 14 mmol/L (10-20); BUN (Urea Nitrogen) 17 mg/dL (8.4-25.7); Calc. Creatinine Clearance 131 mL/min (70-130); Carbon Dioxide 23 mmol/L (23-31); Chloride 106 mmol/L (98-107); Glucose 101 mg/dL (83-110); Magnesium 1.9 mg/dL (1.6-2.6); Potassium 3.7 mmol/L (3.5-5.1); Sodium 139 mmol/L (136-145)
[2020-09-13 07:16] LABS: Phosphorus 2.5 mg/dL (2.3-4.7)
[2020-09-13] MEDS: Pantoprazole 40 MG VIAL IVP SCH ×2 (08:05→20:01)
[2020-09-13 08:17] LABS: Hemoglobin 8.6 g/dL (14.0-18.0); Mean Corpuscular HGB CONC 32.8 g/dL (32.0-36.0); Mean Corpuscular Hemoglobin 31.7 pg (27.0-31.0); Mean Corpuscular Volume 96.8 fL (78.0-98.0); Mean Platelet Volume 6.8 fL (7.4-10.4); Platelet Count 304 thou/uL (130-400); RBC Distribution Width 14.1 % (11.5-14.5); Red Blood Cell (RBC) Count 2.72 mill/uL (4.70-6.10); White Blood Cell (WBC) Count 15.2 thou/uL (4.8-10.8)
[2020-09-13 08:27] LABS: Band 9 % (5-11); Eosinophils 3 % (0-10); Hypochromia SLIGHT = 6-15 cells (100X) (0-5/hpf); Lymphocytes 11 % (21-51); MDiff Complete? YES; Monocytes 10 % (0-10); Neutrophil 66 % (42-75); Platelet Morphology Comment Appears Adequate; Polychromasia SLIGHT = 2-3 cells (100X) (0-2/hpf); Reactive Lymphocytes 1 % (0-10)
[2020-09-13] MEDS ORDERED: Potassium Phosphate 30 MMOL, Magnesium Sulfate 2 GM in Sodium Chloride 0.9% 250 ML 250 ML IVPB SCH (10:00)
[2020-09-13] MEDS: Polyethylene Glycol 3350 17 GM Packet PO SCH (11:48)
[2020-09-13] MEDS: Gabapentin 300 MG CAP PO SCH ×4 (11:48→20:00)
--- NOTE | 2020-09-13 13:22 | PDOC.HOSPP ---
- Subjective Encounter Date: 09/13/20 Encounter Time: 13:20 Subjective: Mr. Macias was seen today in follow-up of SBO, and Delirium. He is a little better today. Less Belligerent today - Objective Vital Signs & Weight: Vital Signs (12 hours) Temp Pulse Resp BP BP Pulse Ox 09/13/20 11:48 122/73 09/13/20 11:25 98.6 F 75 14 130/77 95 09/13/20 08:09 98.4 F 74 16 126/76 95 09/13/20 05:32 122/73 09/13/20 05:00 98.3 F 77 20 122/73 94 L Weight Admit Weight 250 lb Weight 250 lb Most Recent Monitor Data Heart Rate from ECG 91 NIBP 133/70 NIBP BP-Mean 91 Respiration from ECG 19 SpO2 90 I&O: 09/12/20 09/13/20 09/14/20 06:59 06:59 06:59 Intake Total 1240 1230 Output Total 850 900 Balance 390 330 Result Diagrams: 09/13/20 06:28 09/13/20 06:28 Additional Labs: Accuchecks 09/13/20 09/13/20 05:36 01:34 POC Glucose 95 115 H Hospitalist ROS - Medication Medications: Active Medications Generic Name Dose Route Start Last Admin Trade Name Livia PRN Reason Stop Dose Admin Acetaminophen 1,000 mg 09/10/20 10:30 09/13/20 11:48 Acetaminophen 500 Mg Tab PO Not Given Q6H MATEO Atorvastatin Calcium 40 mg 09/10/20 21:00 09/12/20 21:59 Atorvastatin Calcium 40 Mg Tab PO 40 mg HS MATEO Administration Clonidine 0.1 mg 09/10/20 10:45 09/13/20 11:48 Clonidine 0.1 Mg Tab PO Not Given Q6H MATEO Diltiazem HCl 120 mg 09/09/20 09:00 09/12/20 09:59 Diltiazem Cd 120 Mg Cap PO 120 mg DAILY MATEO Administration Enoxaparin Sodium 40 mg 09/10/20 09:00 09/12/20 09:59 Enoxaparin Sodium 40 Mg/0.4 Ml Syringe SC 40 mg 0900 MATEO Administration Gabapentin 300 mg 09/10/20 15:00 09/13/20 11:48 Gabapentin 300 Mg Cap PO Not Given TID MATEO Lactated Ringer's 1,000 mls @ 75 mls/hr 09/10/20 11:59 09/13/20 05:33 Lactated Ringer's IV 1,000 mls .[id number] MATEO Administration Potassium Phosphate 30 mmol/ 264 mls @ 66 mls/hr 09/13/20 10:00 09/13/20 12:26 Magnesium Sulfate 2 gm/ Sodium IVPB 09/13/20 13:59 264 mls Chloride 1000 MATEO Administration Morphine Sulfate 2 mg 09/10/20 10:30 09/10/20 11:27 Morphine 2 Mg/Ml Vial SLOW IVP 2 mg Q4H PRN Administration severe breakthrough pain Ondansetron HCl 4 mg 09/05/20 14:57 09/12/20 22:03 Ondansetron Pf 4 Mg/2 Ml Vial IVP 4 mg Q6H PRN Administration Nausea/Vomiting Pantoprazole Sodium 40 mg 09/07/20 09:00 09/13/20 08:05 Pantoprazole 40 Mg Vial IVP 40 mg Q12HR MATEO Administration Polyethylene Glycol 17 gm 09/09/20 09:00 09/13/20 11:48 Polyethylene Glycol 3350 17 Gm Packet PO Not Given DAILY MATEO Tamsulosin HCl 0.4 mg 09/06/20 09:00 09/12/20 09:58 Tamsulosin Hcl 0.4 Mg Cap PO 0.4 mg DAILY MATEO Administration Tramadol HCl 50 mg 09/10/20 12:00 09/13/20 12:22 Tramadol Hcl 50 Mg Tab PO Not Given Q6HR MATEO - Exam Eye: PERRL, anicteric sclera Heart: RRR, no murmur, no gallops, no rubs, normal peripheral pulses Respiratory: CTAB, no wheezes, no rales, no ronchi, normal chest expansion, no tachypnea, normal percussion Gastrointestinal: soft, non-distended (incision is noted, no drainage) Extremities: no cyanosis (d.p. pulses are palpable), 1+ LE edema Hosp A/P (1) HTN (hypertension) Code(s): I10 - ESSENTIAL (PRIMARY) HYPERTENSION Status: Chronic Qualifiers: Hypertension type: essential hypertension Qualified Code(s): I10 - Essential (primary) hypertension (2) SBO (small bowel obstruction) Code(s): K56.609 - UNSP INTESTNL OBST, UNSP TO PARTIAL VERSUS COMPLETE OBST Status: Acute (3) Parkinsons disease Code(s): G20 - PARKINSON'S DISEASE Status: Chronic - Plan * HTN- blood pressure is stable * SBO- he is s/p lysis of adhesion. He is NPO again- due to vomiting last night. A KUB has been ordered. * Monitor electrolytes and replace as needed * Nutrition- he has been started on tube feeding * Parkinson's disease- stable * Delirium- appears to be slowly improving- continue to re-orient, hold sedating medications when possible
--- NOTE | 2020-09-13 13:40 | RAD ---
ABDOMEN 1 VIEW: Date: 09/13/2020 HISTORY: Nausea and abdominal distention. COMPARISON: 09/11/2020. FINDINGS/IMPRESSION: There has been interval advancement of the nasogastric tube with tip in the distal stomach, to the ri ght of midline. The bowel gas pattern is unremarkable. IVC filter remains in place. Postop changes of vertebroplasty at T10 and right hip arthroplasty are again seen. POS: ASHLYE
[2020-09-13] MEDS ORDERED: Furosemide 40 MG TAB PO SCH (15:15)
--- NOTE | 2020-09-13 16:14 | PRG ---
DATE OF SERVICE: 09/13/2020 SUBJECTIVE: Mr. Macias is an 80-year-old man who is postoperative day #4, status post exploratory laparotomy, adhesiolysis and repair of parastomal hernia with incarceration. The patient is awake and alert today. He is confused at baseline due to his history of senile dementia of Alzheimer's type. He, however, is interactive; moves all extremities and follows commands. Urinary output is adequate for the patient's age and weight. OBJECTIVE: VITAL SIGNS: This morning include blood pressure 130/77, pulse 75, respiratory rate is 14, temperature 98.6 degrees Fahrenheit, oxygen saturation is 95% on room air. HEENT: Pupils are equal, round, and reactive to light bilaterally. HEART: Reveals regular rate and rhythm. LUNGS: Clear to auscultation bilaterally. ABDOMEN: Soft, obese, and distended with gas. Colostomy is viable and functional with scant amount of gas and liquid stool. SKIN: Incision is intact, clean, dry. He has no peritoneal signs on examination. IMAGING DATA: Abdominal x-rays reveal multiple distended loops of small and large bowel gas in a nonspecific pattern. LABORATORY FINDINGS: Today includes a CBC with 15,200 white blood cells, hemoglobin and hematocrit stable at 8.6 and 26.4 respectively, platelet count 304,000. Metabolic profile; sodium 139, potassium 3.7, chloride is 106, bicarb is 23, BUN 17, creatinine 0.71, glucose 101, magnesium 1.9, and phosphorus 2.5. IMPRESSIONS: 1. Postop day #4, status post exploratory laparotomy, adhesiolysis and repair of incarcerated parastomal hernia. 2. Resolved acute small-bowel obstruction. 3. Acute hypokalemia. 4. Acute hypomagnesemia. 5. Acute hypophosphatemia. 6. Adynamic ileus. PLAN: 1. Correct abnormal electrolytes. 2. The patient will be started neostigmine. We will mobilize the patient per Physical and Occupational therapy. We will remove nasogastric tube and initiate liquid diet as tolerated. Job ID: [id number]
[2020-09-13] MEDS: Enoxaparin Sodium 40 MG/0.4 ML SYRINGE SC SCH (16:22)
[2020-09-13] MEDS: Tamsulosin HCl 0.4 MG CAP PO SCH ×2 (16:23→16:31)
[2020-09-13] MEDS: Neostigmine 0.5 MG in Pre-Filled Syringe 1 EACH SC SCH ×2 (18:38→23:09)
[2020-09-13] MEDS: Atorvastatin Calcium 40 MG TAB PO SCH (20:03)
--- NOTE | 2020-09-13 23:38 | PRG ---
DATE OF SERVICE: 09/13/2020 SUBJECTIVE: The patient was seen this evening during rounds. He was sitting up in bed, resting comfortably and asleep with no signs of acute distress. Nursing reports no acute events. OBJECTIVE: VITAL SIGNS: Temperature 98.1, pulse 99, respirations 18, oxygen saturation 93% on room air, blood pressure 119/73. ASSESSMENT: 1. Postop day #4 status post exploratory laparotomy, adhesional lysis, and repair of parastomal hernia causing small bowel obstruction. 2. Gastrointestinal bleed at gastroesophageal junction, controlled. 3. Postoperative ileus. 4. History of colon cancer, BPH, hyperlipidemia, hypertension, atrial fibrillation, Parkinson's, deep venous thrombosis, and anxiety. PLAN: Continue clear liquid diet and IV fluids. Encourage ambulation, sitting up in a chair in order to promote return of bowel function. The patient is pending discharge to [facility]. He is not ready for discharge at this time. Job ID: [id number]
[2020-09-14 06:09] LABS: #Eosinphils 0.5 thou/uL (0.0-0.7); #Lymphocytes 1.9 thou/uL (1.20-3.40); #Monocytes 1.1 thou/uL (0.11-0.59); #Neutrophils 8.8 thou/uL (1.40-6.50); %Basophils 0.3 % (0.0-1.0); %Lymphocytes 15.6 % (21.0-51.0); %Monocytes 9.2 % (0.0-10.0); %Neutrophils 70.9 % (42.0-75.0); Hemoglobin 8.5 g/dL (14.0-18.0); Mean Corpuscular Hemoglobin 30.8 pg (27.0-31.0); Mean Corpuscular Volume 96.3 fL (78.0-98.0); Mean Platelet Volume 6.5 fL (7.4-10.4); Platelet Count 357 thou/uL (130-400); RBC Distribution Width 14.1 % (11.5-14.5); Red Blood Cell (RBC) Count 2.76 mill/uL (4.70-6.10); White Blood Cell (WBC) Count 12.3 thou/uL (4.8-10.8)
[2020-09-14 06:19] LABS: Phosphorus 2.8 mg/dL (2.3-4.7)
[2020-09-14 06:22] LABS: Anion Gap 16 mmol/L (10-20); BUN (Urea Nitrogen) 16 mg/dL (8.4-25.7); Calc. Creatinine Clearance 112 mL/min (70-130); Calcium 7.7 mg/dL (7.8-10.44); Carbon Dioxide 21 mmol/L (23-31); Chloride 103 mmol/L (98-107); Glucose 92 mg/dL (83-110); Magnesium 1.9 mg/dL (1.6-2.6); Potassium 3.6 mmol/L (3.5-5.1); Sodium 136 mmol/L (136-145)
[2020-09-14] MEDS: Acetaminophen 500 MG TAB PO SCH ×4 (06:39→21:25)
[2020-09-14] MEDS: traMADol HCl 50 MG TAB PO SCH ×2 (06:40→12:04)
[2020-09-14] MEDS: cloNIDine 0.1 MG TAB PO SCH ×4 (06:40→22:32)
[2020-09-14] MEDS: Neostigmine 0.5 MG in Pre-Filled Syringe 1 EACH SC SCH (06:41)
[2020-09-14] MEDS ORDERED: Furosemide 40 MG TAB PO SCH (07:30)
--- NOTE | 2020-09-14 07:58 | PDOC.HOSPP ---
- Subjective Encounter Date: 09/14/20 Encounter Time: 08:19 Subjective: Mr. Macias was seen this morning for a follow-up post op of a small bowel obstruction and delirium. He complains of nausea, constipation, and diarrhea. He cannot recall recent vomiting. His delirium is improving and is much more compliant. - Objective Vital Signs & Weight: Vital Signs (12 hours) Temp Pulse Resp BP BP Pulse Ox 09/14/20 07:57 97.9 F 77 16 112/72 95 09/14/20 06:40 134/75 09/14/20 05:48 98 F 73 18 134/75 95 09/13/20 23:12 99.1 F 96 18 124/74 94 L 09/13/20 23:10 124/74 Weight Admit Weight 250 lb Weight 250 lb Most Recent Monitor Data Heart Rate from ECG 91 NIBP 133/70 NIBP BP-Mean 91 Respiration from ECG 19 SpO2 90 I&O: 09/13/20 09/14/20 09/15/20 06:59 06:59 06:59 Intake Total 1230 1200 Output Total 900 1600 Balance 330 -400 Result Diagrams: 09/14/20 05:40 09/14/20 05:40 Hospitalist ROS - Review of Systems Respiratory: denies: shortness of breath Gastrointestinal: reports: nausea, vomiting (cannot remember), diarrhea, constipation. denies: abdominal pain - Medication Medications: Active Medications Generic Name Dose Route Start Last Admin Trade Name Freq PRN Reason Stop Dose Admin Acetaminophen 1,000 mg 09/10/20 10:30 09/14/20 06:39 Acetaminophen 500 Mg Tab PO 1,000 mg Q6H MATEO Administration Atorvastatin Calcium 40 mg 09/10/20 21:00 09/13/20 20:03 Atorvastatin Calcium 40 Mg Tab PO 40 mg HS MATEO Administration Clonidine 0.1 mg 09/10/20 10:45 09/14/20 06:40 Clonidine 0.1 Mg Tab PO 0.1 mg Q6H MATEO Administration Diltiazem HCl 120 mg 09/09/20 09:00 09/13/20 16:30 Diltiazem Cd 120 Mg Cap PO Not Given DAILY MATEO Enoxaparin Sodium 40 mg 09/10/20 09:00 09/13/20 16:22 Enoxaparin Sodium 40 Mg/0.4 Ml Syringe SC 40 mg 0900 MATEO Administration Furosemide 40 mg 09/14/20 07:30 09/14/20 06:40 Furosemide 40 Mg Tab PO 40 mg DAILY-AC MATEO Administration Gabapentin 300 mg 09/10/20 15:00 09/13/20 20:00 Gabapentin 300 Mg Cap PO 300 mg TID MATEO Administration Lactated Ringer's 1,000 mls @ 75 mls/hr 09/10/20 11:59 09/13/20 17:25 Lactated Ringer's IV Not Given .[id number] [facility] Neostigmine Methylsulfate 0.5 0.5 mls @ 0 mls/hr 09/13/20 18:00 09/14/20 06:41 mg/ Miscellaneous Medication SC 0.5 mls Q6HR MATEO Administration Morphine Sulfate 2 mg 09/10/20 10:30 09/10/20 11:27 Morphine 2 Mg/Ml Vial SLOW IVP 2 mg Q4H PRN Administration severe breakthrough pain Ondansetron HCl 4 mg 09/05/20 14:57 09/12/20 22:03 Ondansetron Pf 4 Mg/2 Ml Vial IVP 4 mg Q6H PRN Administration Nausea/Vomiting Pantoprazole Sodium 40 mg 09/07/20 09:00 09/13/20 20:01 Pantoprazole 40 Mg Vial IVP Not Given Q12HR [facility] Polyethylene Glycol 17 gm 09/09/20 09:00 09/13/20 11:48 Polyethylene Glycol 3350 17 Gm Packet PO Not Given DAILY [facility] Tamsulosin HCl 0.4 mg 09/06/20 09:00 09/13/20 16:31 Tamsulosin Hcl 0.4 Mg Cap PO Not Given DAILY [facility] Tramadol HCl 50 mg 09/10/20 12:00 09/14/20 06:40 Tramadol Hcl 50 Mg Tab PO 50 mg Q6HR MATEO Administration Tramadol HCl 50 mg 09/10/20 10:30 09/13/20 20:02 Tramadol Hcl 50 Mg Tab PO 50 mg Q6H PRN Administration Breakthrough Pain - Exam Heart: RRR, normal peripheral pulses Respiratory: CTAB, no wheezes, no rales, no ronchi Gastrointestinal: soft, non-tender, normal bowel sounds, no palpable masses Extremities: no cyanosis, 1+ LE edema Psychiatric: oriented to person, oriented to place. negative: oriented to time (Says its sept/oct in the fall) Hosp A/P (1) HTN (hypertension) Code(s): I10 - ESSENTIAL (PRIMARY) HYPERTENSION Status: Chronic Qualifiers: Hypertension type: essential hypertension Qualified Code(s): I10 - Essential (primary) hypertension (2) SBO (small bowel obstruction) Code(s): K56.609 - UNSP INTESTNL OBST, UNSP TO PARTIAL VERSUS COMPLETE OBST Status: Acute (3) Parkinsons disease Code(s): G20 - PARKINSON'S DISEASE Status: Chronic - Plan * HTN- blood pressure is stable * SBO- he is s/p lysis of adhesion- The NG tube has been removed. His diet has been advanced to liquids * Parkinson's disease- stable * Delirium on Dementia- continues to improve * * Patient was seen and examed and discussed with Ara Colon MS-2. I agree with her assessment. On exam his abdomen is a bit distended but non-tender, bowel sounds are present. He is improving clinically with regards to the Delirium. His diet has been advanced to liquids. Plan for transfer back to [facility]
[2020-09-14] MEDS: Enoxaparin Sodium 40 MG/0.4 ML SYRINGE SC SCH (10:00)
[2020-09-14] MEDS: Polyethylene Glycol 3350 17 GM Packet PO SCH (10:04)
[2020-09-14] MEDS: Gabapentin 300 MG CAP PO SCH ×3 (10:09→21:25)
[2020-09-14] MEDS: Tamsulosin HCl 0.4 MG CAP PO SCH (10:10)
[2020-09-14] MEDS: Pantoprazole 40 MG VIAL IVP SCH ×3 (10:19→21:25)
[2020-09-14] MEDS: Lactated Ringer's 1,000 ML IV SCH ×2 (10:22→22:51)
--- NOTE | 2020-09-14 11:31 | PDOC.GSPN ---
Surgery Progress Note: Subj - Subjective Patient reports: no new complaints, feels better, pain well controlled, tolerati ng liquids well, pain is less Narrative: 80 yo male post op day 5 s/p adhesiolysis with repair of parastomal hernia that had resulted in a bowel obstruction. Tolerating liquids well. Slept well last night. No more n/v. Per nurse, no overnight concerns. Surgery Progress Note: Obj - Vital signs Vital signs: Vital Signs - Most Recent Temp Pulse Resp BP Pulse Ox 97.9 F 77 16 114/62 95 09/14/20 07:57 09/14/20 10:10 09/14/20 07:57 09/14/20 11:19 09/14/20 07:57 - Physical Exam General: no distress, well developed, well nourished, no pain, obese Neck: trachea midline Cardiovascular: regular rate and rhythm Respiratory: clear to auscultation, normal respiratory effort Abdomen: soft (Abdomen much softer vs exam 13 Sep 2020. Only very mild TTP on abdomen. Dull to percussion.), positive bowel sounds Genitourinary (Male): other (Avendaño in place & draining clear urine.) Integumentary: other (Generalized edema noted; hands seem somewhat less puffy vs 13 Sep 2020 exam.) Psychiatric: speech is normal, other (Answers questions appropriately. Pleasant demeanor this am.) Wound: healing well (Jake intact along midline inscision line & without drainage or ozzy-incision erythema or induration.), ostomy/colostomy (Small amount liquid stool noted in ostomy bag. No recurrence of prolapse. Healthy looking stoma.) Surgery Progress Note: Results - Labs Result Diagrams: 09/14/20 05:40 09/14/20 05:40 Lab results: Laboratory Results - last 12 hr 09/14/20 09/14/20 09/14/20 05:40 05:40 05:40 WBC 12.3 H RBC 2.76 L Hgb 8.5 L Hct 26.6 L MCV 96.3 MCH 30.8 MCHC 32.0 RDW 14.1 Plt Count 357 MPV 6.5 L Neutrophils % 70.9 Lymphocytes % 15.6 L Monocytes % 9.2 Eosinophils % 4.0 Basophils % 0.3 Neutrophils # 8.8 H Lymphocytes # 1.9 Monocytes # 1.1 H Eosinophils # 0.5 Basophils # 0.0 Sodium 136 Potassium 3.6 Chloride 103 Carbon Dioxide 21 L Anion Gap 16 BUN 16 Creatinine 0.83 Estimated GFR (MDRD) 89 Glucose 92 Calcium 7.7 L Phosphorus 2.8 Magnesium 1.9 Surgery Progress Note: A/P - Problem (1) Status post exploratory laparotomy Current Visit: Yes Status: Acute - Plan Plan: Pt doing well 5 days s/p exploratory laparotomy with adhesiolysis and repair of parastomal hernia. Much more pleasant & cooperative today vs yesterday's exam. Abdomen less tense and tender on exam today as well. NG tube removed yesterday by Dr Arcos. R IJ line noted to be nearly pulled out yesterday & was removed. Currently without IV access. Still with generalized edema. Will initiate diuresis with PO Lasix. Continue with clear liquid diet for now--if he does well, will slowly advance. Neostigmine stopped as he has had + output from colostomy. Plan is to transfer to [facility] when he is ready. Anticipate f/u on rounds tomorrow am. Addendum - Attending - Attending Attestation Date/Time: 09/15/20 [id number] I personally evaluated the patient and discussed the management with . [] I agree with the History, Examination, Assessment and Plan documented above with any addition or exceptions noted below.
[2020-09-14] MEDS ORDERED: traMADol HCl 50 MG TAB PO PRN ×2 (14:04)
[2020-09-14] MEDS: Furosemide 40 MG TAB PO SCH (16:29)
[2020-09-14] MEDS: Atorvastatin Calcium 40 MG TAB PO SCH (21:25)
[2020-09-15] MEDS: Acetaminophen 500 MG TAB PO SCH ×4 (03:49→23:03)
[2020-09-15] MEDS: cloNIDine 0.1 MG TAB PO SCH ×4 (03:49→23:03)
[2020-09-15] MEDS: Gabapentin 300 MG CAP PO SCH ×3 (08:40→20:10)
[2020-09-15] MEDS: Polyethylene Glycol 3350 17 GM Packet PO SCH (08:40)
[2020-09-15] MEDS: Apixaban 5 MG TAB PO SCH ×2 (08:41→20:10)
[2020-09-15] MEDS: Tamsulosin HCl 0.4 MG CAP PO SCH (08:41)
[2020-09-15] MEDS: Furosemide 40 MG TAB PO SCH ×2 (08:41→14:20)
--- NOTE | 2020-09-15 08:47 | PDOC.HOSPP ---
- Subjective Encounter Date: 09/15/20 Encounter Time: 08:46 Subjective: Mr. Macias was seen this morning as a follow-up for SBO and delirium. He complains of a diffuse abdominal pain that comes and goes. His delirium does not seem to be more improved than yesterday, and he is more pleasant today. - Objective Vital Signs & Weight: Vital Signs (12 hours) Temp Pulse Resp BP BP Pulse Ox 09/15/20 08:41 69 09/15/20 08:10 98.1 F 69 18 112/68 97 09/15/20 03:49 133/73 09/15/20 03:40 98.2 F 72 20 133/73 97 09/14/20 22:32 119/65 Weight Admit Weight 113.398 kg Weight 113.398 kg Most Recent Monitor Data Heart Rate from ECG 91 NIBP 133/70 NIBP BP-Mean 91 Respiration from ECG 19 SpO2 90 I&O: 09/14/20 09/15/20 09/16/20 06:59 06:59 06:59 Intake Total 1200 1820 Output Total 1600 3750 Balance -400 -1930 Result Diagrams: 09/14/20 05:40 09/14/20 05:40 Hospitalist ROS - Review of Systems Gastrointestinal: reports: abdominal pain. denies: nausea, vomiting - Medication Medications: Active Medications Generic Name Dose Route Start Last Admin Trade Name Freq PRN Reason Stop Dose Admin Acetaminophen 1,000 mg 09/10/20 10:30 09/15/20 03:49 Acetaminophen 500 Mg Tab PO 1,000 mg Q6H MATEO Administration Apixaban 5 mg 09/15/20 09:00 09/15/20 08:41 Apixaban 5 Mg Tab PO 5 mg BID MATEO Administration Atorvastatin Calcium 40 mg 09/10/20 21:00 09/14/20 21:25 Atorvastatin Calcium 40 Mg Tab PO 40 mg HS MATEO Administration Clonidine 0.1 mg 09/10/20 10:45 09/15/20 03:49 Clonidine 0.1 Mg Tab PO 0.1 mg Q6H MATEO Administration Diltiazem HCl 120 mg 09/09/20 09:00 09/15/20 08:41 Diltiazem Cd 120 Mg Cap PO 120 mg DAILY MATEO Administration Furosemide 40 mg 09/14/20 14:00 09/15/20 08:41 Furosemide 40 Mg Tab PO 40 mg 0900,1400 MATEO Administration Gabapentin 300 mg 09/10/20 15:00 09/15/20 08:40 Gabapentin 300 Mg Cap PO 300 mg TID MATEO Administration Ondansetron HCl 4 mg 09/05/20 14:57 09/12/20 22:03 Ondansetron Pf 4 Mg/2 Ml Vial IVP 4 mg Q6H PRN Administration Nausea/Vomiting Pantoprazole Sodium 40 mg 09/15/20 09:00 09/15/20 08:42 Pantoprazole 40 Mg Tab PO 40 mg 0900 MATEO Administration Polyethylene Glycol 17 gm 09/09/20 09:00 09/15/20 08:40 Polyethylene Glycol 3350 17 Gm Packet PO 17 gm DAILY MATEO Administration Tamsulosin HCl 0.4 mg 09/06/20 09:00 09/15/20 08:41 Tamsulosin Hcl 0.4 Mg Cap PO 0.4 mg DAILY MATEO Administration - Exam Heart: no murmur, no gallops, no rubs, normal peripheral pulses, irregular (chronic AFIB) Gastrointestinal: non-tender, non-distended (some stiffness), no palpable masses Extremities: 1+ LE edema Psychiatric: oriented to person, oriented to place Hosp A/P (1) HTN (hypertension) Code(s): I10 - ESSENTIAL (PRIMARY) HYPERTENSION Status: Chronic Qualifiers: Hypertension type: essential hypertension Qualified Code(s): I10 - Essential (primary) hypertension (2) SBO (small bowel obstruction) Code(s): K56.609 - UNSP INTESTNL OBST, UNSP TO PARTIAL VERSUS COMPLETE OBST Status: Acute (3) Parkinsons disease Code(s): G20 - PARKINSON'S DISEASE Status: Chronic - Plan * HTN- blood pressure is stable * SBO- he is s/p lysis of adhesion. Continue acetaminophen for abdominal pain as needed. * Monitor electrolytes and replace as needed * Nutrition- he has been started on tube feeding * Parkinson's disease- stable * Delirium- appears to be slowly improving- continue to re-orient, hold sedating medications when possible
[2020-09-15] MEDS: traMADol HCl 50 MG TAB PO SCH ×3 (09:00→20:10)
[2020-09-15 09:10] LABS: #Eosinphils 0.4 thou/uL (0.0-0.7); #Lymphocytes 1.5 thou/uL (1.20-3.40); #Neutrophils 8.1 thou/uL (1.40-6.50); %Basophils 0.1 % (0.0-1.0); %Eosinophils 3.3 % (0.0-10.0); %Lymphocytes 13.3 % (21.0-51.0); %Monocytes 9.3 % (0.0-10.0); %Neutrophils 74.1 % (42.0-75.0); Hemoglobin 8.7 g/dL (14.0-18.0); Mean Corpuscular HGB CONC 31.5 g/dL (32.0-36.0); Mean Corpuscular Hemoglobin 30.7 pg (27.0-31.0); Mean Corpuscular Volume 97.4 fL (78.0-98.0); Mean Platelet Volume 6.6 fL (7.4-10.4); Platelet Count 349 thou/uL (130-400); RBC Distribution Width 14.2 % (11.5-14.5); Red Blood Cell (RBC) Count 2.82 mill/uL (4.70-6.10)
[2020-09-15 09:25] LABS: Phosphorus 3.2 mg/dL (2.3-4.7)
[2020-09-15 09:26] LABS: Anion Gap 12 mmol/L (10-20); BUN (Urea Nitrogen) 13 mg/dL (8.4-25.7); Calc. Creatinine Clearance 121 mL/min (70-130); Calcium 7.9 mg/dL (7.8-10.44); Carbon Dioxide 27 mmol/L (23-31); Chloride 99 mmol/L (98-107); Glucose 102 mg/dL (83-110); Magnesium 1.9 mg/dL (1.6-2.6); Sodium 135 mmol/L (136-145)
[2020-09-15 09:29] LABS: Potassium 2.9 mmol/L (3.5-5.1)
[2020-09-15] MEDS ORDERED: Potassium Chloride 20 MEQ/100 ML PREMIX BAG IVPB SCH (10:00)
[2020-09-15] MEDS ORDERED: Potassium Chloride 20 MEQ TAB PO SCH ×2 (13:00→17:00)
--- NOTE | 2020-09-15 17:46 | PDOC.GSPN ---
Surgery Progress Note: Subj - Subjective Patient reports: no new complaints, feels better, pain well controlled, tolerati ng liquids well Narrative: 80 yo male s/p ex lap with adhesiolysis and repair of parastomal hernia 09 Sep 2020. Did well overnight. No further vomiting episodes. 450 mL stool reported in colostomy bag. Reports general soreness, mentioning his legs and belly. Nursing staff reports he was up in neuro chair yesterday & that he did not like it much. Has been on clear liquid diet since yesterday which he has tolerated well, though he has had poor appetite per nursing staff. Successfully diuresed yesterday with 3300 mL out per [facility]. Refused labs this am. Surgery Progress Note: Obj - Vital signs Vital signs: Vital Signs - Most Recent Temp Pulse Resp BP Pulse Ox 98.1 F 81 16 125/73 97 09/15/20 14:45 09/15/20 14:45 09/15/20 14:45 09/15/20 14:45 09/15/20 14:45 - Physical Exam General: no distress, well developed, well nourished, obese ENT: decreased hearing Neck: trachea midline Cardiovascular: regular rate and rhythm Respiratory: clear to auscultation, normal respiratory effort Abdomen: soft, positive bowel sounds (Mild TTP LLQ, otherwise abdomen NTTP. Pt lying on R side; dull to percussion on R, tympanitic on L. Healthy looking stoma with liquid stool collection in bag.) Integumentary: other (Skin noted to be significantly less edematous today vs yesterdays exam, particularly bilat LEs & RUE. LUE still with some edema, but pt reports chronic LUE problems since a remote fall during which he injured the LUE.) Musculoskeletal: other (Lying comfortably in bed.) Psychiatric: oriented to person, other (Answers questions appropriately. Pleasant demeanor. States he would like to eat a hamburger.) Wound: healing well (Midline incision well-approximated. [place] intact. No ozzy-wound edema/erythema/induration/fluctuance. No wound drainage.) Surgery Progress Note: Results - Labs Result Diagrams: 09/16/20 06:50 09/16/20 06:50 Lab results: Laboratory Results - last 12 hr 09/15/20 09/15/20 09/15/20 08:43 08:43 08:43 WBC 11.0 H RBC 2.82 L Hgb 8.7 L Hct 27.5 L MCV 97.4 MCH 30.7 MCHC 31.5 L RDW 14.2 Plt Count 349 MPV 6.6 L Neutrophils % 74.1 Lymphocytes % 13.3 L Monocytes % 9.3 Eosinophils % 3.3 Basophils % 0.1 Neutrophils # 8.1 H Lymphocytes # 1.5 Monocytes # 1.0 H Eosinophils # 0.4 Basophils # 0.0 Sodium 135 L Potassium 2.9 L* Chloride 99 Carbon Dioxide 27 Anion Gap 12 BUN 13 Creatinine 0.77 Estimated GFR (MDRD) Greater than 90 Glucose 102 Calcium 7.9 Phosphorus 3.2 Magnesium 1.9 Surgery Progress Note: A/P - Problem (1) Status post exploratory laparotomy Current Visit: Yes Status: Acute - Plan Plan: Continues to progress s/p ex-lap with adhesiolysis and repair of incarcerated parastomal hernia. Late metabolic panel results show hypokalemia--will replace with PO KCl. Will continue to diurese today and advance to regular diet. Advised pt that he will need to get up in chair today to eat. Anticipate d/c to [facility] tomorrow if able to tolerate diet. Plan to d/c [facility] today. Re-start Eliquis. Begin po Protonix, 40 mg daily. Addendum - Attending - Attending Attestation Date/Time: 09/16/20 [id number] I personally evaluated the patient and discussed the management with . [] I agree with the History, Examination, Assessment and Plan documented above with any addition or exceptions noted below.
--- NOTE | 2020-09-15 17:57 | PDOC.HOSPP ---
- Subjective Encounter Date: 09/15/20 Encounter Time: 17:55 Subjective: Mr. Macias was seen today in follow-up. When I came to see him he was once again belligerent. He shouted" don't touch me" - Objective Vital Signs & Weight: Vital Signs (12 hours) Temp Pulse Resp BP BP BP Pulse Ox 09/15/20 17:44 133/73 09/15/20 14:45 98.1 F 81 16 125/73 97 09/15/20 11:17 98.1 F 70 14 123/78 95 09/15/20 10:25 133/73 09/15/20 08:41 69 09/15/20 08:10 98.1 F 69 18 112/68 97 Weight Admit Weight 250 lb Weight 250 lb Most Recent Monitor Data Heart Rate from ECG 91 NIBP 133/70 NIBP BP-Mean 91 Respiration from ECG 19 SpO2 90 I&O: 09/14/20 09/15/20 09/16/20 06:59 06:59 06:59 Intake Total 1200 1820 Output Total 1600 3750 Balance -400 -1930 Result Diagrams: 09/15/20 08:43 09/15/20 08:43 Hospitalist ROS - Medication Medications: Active Medications Generic Name Dose Route Start Last Admin Trade Name Freq PRN Reason Stop Dose Admin Acetaminophen 1,000 mg 09/10/20 10:30 09/15/20 17:44 Acetaminophen 500 Mg Tab PO 1,000 mg Q6H MATEO Administration Apixaban 5 mg 09/15/20 09:00 09/15/20 08:41 Apixaban 5 Mg Tab PO 5 mg BID MATEO Administration Atorvastatin Calcium 40 mg 09/10/20 21:00 09/14/20 21:25 Atorvastatin Calcium 40 Mg Tab PO 40 mg HS MATEO Administration Clonidine 0.1 mg 09/10/20 10:45 09/15/20 17:44 Clonidine 0.1 Mg Tab PO 0.1 mg Q6H MATEO Administration Diltiazem HCl 120 mg 09/09/20 09:00 09/15/20 08:41 Diltiazem Cd 120 Mg Cap PO 120 mg DAILY MATEO Administration Furosemide 40 mg 09/14/20 14:00 09/15/20 14:20 Furosemide 40 Mg Tab PO 40 mg 0900,1400 MATEO Administration Gabapentin 300 mg 09/10/20 15:00 09/15/20 15:01 Gabapentin 300 Mg Cap PO 300 mg TID MATEO Administration Ondansetron HCl 4 mg 09/05/20 14:57 09/12/20 22:03 Ondansetron Pf 4 Mg/2 Ml Vial IVP 4 mg Q6H PRN Administration Nausea/Vomiting Pantoprazole Sodium 40 mg 09/15/20 09:00 09/15/20 08:42 Pantoprazole 40 Mg Tab PO 40 mg 0900 MATEO Administration Polyethylene Glycol 17 gm 09/09/20 09:00 09/15/20 08:40 Polyethylene Glycol 3350 17 Gm Packet PO 17 gm DAILY MATEO Administration Tamsulosin HCl 0.4 mg 09/06/20 09:00 09/15/20 08:41 Tamsulosin Hcl 0.4 Mg Cap PO 0.4 mg DAILY MATEO Administration Tramadol HCl 50 mg 09/15/20 08:45 09/15/20 15:00 Tramadol Hcl 50 Mg Tab PO 50 mg Q6H MATEO Administration - Exam General - other findings: UN ABLE due to patient refusing Hosp A/P (1) HTN (hypertension) Code(s): I10 - ESSENTIAL (PRIMARY) HYPERTENSION Status: Chronic Qualifiers: Qualified Code(s): I10 - Essential (primary) hypertension (2) SBO (small bowel obstruction) Code(s): K56.609 - UNSP INTESTNL OBST, UNSP TO PARTIAL VERSUS COMPLETE OBST Status: Acute (3) Parkinsons disease Code(s): G20 - PARKINSON'S DISEASE Status: Chronic - Plan * HTN- blood pressure is stable * SBO- he is s/p lysis of adhesion- resolved- tolerating a solid diet * Parkinson's disease- stable * Delirium on Dementia- waxes and wanes
[2020-09-15] MEDS: Atorvastatin Calcium 40 MG TAB PO SCH (20:10)
[2020-09-16] MEDS: traMADol HCl 50 MG TAB PO SCH ×3 (03:31→14:35)
[2020-09-16] MEDS: Acetaminophen 500 MG TAB PO SCH ×3 (03:37→16:44)
[2020-09-16] MEDS: cloNIDine 0.1 MG TAB PO SCH ×3 (03:38→16:48)
[2020-09-16 07:21] LABS: #Eosinphils 0.3 thou/uL (0.0-0.7); #Lymphocytes 1.2 thou/uL (1.20-3.40); #Monocytes 0.9 thou/uL (0.11-0.59); #Neutrophils 7.4 thou/uL (1.40-6.50); %Basophils 0.1 % (0.0-1.0); %Eosinophils 2.7 % (0.0-10.0); %Lymphocytes 12.4 % (21.0-51.0); %Monocytes 9.5 % (0.0-10.0); %Neutrophils 75.2 % (42.0-75.0); Hemoglobin 8.6 g/dL (14.0-18.0); Mean Corpuscular HGB CONC 32.5 g/dL (32.0-36.0); Mean Corpuscular Hemoglobin 31.5 pg (27.0-31.0); Mean Corpuscular Volume 96.9 fL (78.0-98.0); Mean Platelet Volume 6.4 fL (7.4-10.4); Platelet Count 359 thou/uL (130-400); RBC Distribution Width 14.2 % (11.5-14.5); Red Blood Cell (RBC) Count 2.72 mill/uL (4.70-6.10); White Blood Cell (WBC) Count 9.9 thou/uL (4.8-10.8)
[2020-09-16 07:34] LABS: Anion Gap 13 mmol/L (10-20); BUN (Urea Nitrogen) 14 mg/dL (8.4-25.7); Calc. Creatinine Clearance 124 mL/min (70-130); Calcium 7.8 mg/dL (7.8-10.44); Carbon Dioxide 27 mmol/L (23-31); Chloride 99 mmol/L (98-107); Glucose 98 mg/dL (83-110); Potassium 3.3 mmol/L (3.5-5.1); Sodium 136 mmol/L (136-145)
[2020-09-16] MEDS: Gabapentin 300 MG CAP PO SCH ×3 (08:19→15:31)
[2020-09-16] MEDS: Furosemide 40 MG TAB PO SCH ×2 (08:19→14:31)
[2020-09-16] MEDS: Apixaban 5 MG TAB PO SCH (08:21)
[2020-09-16] MEDS: Tamsulosin HCl 0.4 MG CAP PO SCH (08:21)
[2020-09-16] MEDS: Polyethylene Glycol 3350 17 GM Packet PO SCH (08:22)
--- NOTE | 2020-09-16 08:37 | PDOC.HOSPP ---
- Subjective Encounter Date: 09/16/20 Encounter Time: 08:35 Subjective: Mr. Macias was seen this morning in follow-up of his SBO and delirium. He complains of a diffuse belly pain that comes and goes. He is uncomfortable and asks to have his bed leaned further back along with some pain medicine. His delirium has not changed, and he is in a pleasant mood this morning. - Objective Vital Signs & Weight: Vital Signs (12 hours) Temp Pulse Resp BP BP BP Pulse Ox 09/16/20 08:21 64 09/16/20 03:42 98.2 F 64 16 126/73 94 L 09/16/20 03:38 126/73 09/15/20 23:43 98.2 F 63 16 127/68 95 09/15/20 23:03 116/66 Weight Admit Weight 113.398 kg Weight 113.398 kg Most Recent Monitor Data Heart Rate from ECG 91 NIBP 133/70 NIBP BP-Mean 91 Respiration from ECG 19 SpO2 90 I&O: 09/15/20 09/16/20 09/17/20 06:59 06:59 06:59 Intake Total 1820 350 Output Total 3750 1260 Balance -1930 -910 Result Diagrams: 09/16/20 06:50 09/16/20 06:50 Hospitalist ROS - Review of Systems Respiratory: denies: shortness of breath Cardiovascular: denies: chest pain, palpitations Gastrointestinal: reports: abdominal pain. denies: nausea, vomiting - Medication Medications: Active Medications Generic Name Dose Route Start Last Admin Trade Name Freq PRN Reason Stop Dose Admin Acetaminophen 1,000 mg 09/10/20 10:30 09/16/20 03:37 Acetaminophen 500 Mg Tab PO 1,000 mg Q6H MATEO Administration Apixaban 5 mg 09/15/20 09:00 09/16/20 08:21 Apixaban 5 Mg Tab PO 5 mg BID MATEO Administration Atorvastatin Calcium 40 mg 09/10/20 21:00 09/15/20 20:10 Atorvastatin Calcium 40 Mg Tab PO 40 mg HS MATEO Administration Clonidine 0.1 mg 09/10/20 10:45 09/16/20 03:38 Clonidine 0.1 Mg Tab PO 0.1 mg Q6H MATEO Administration Diltiazem HCl 120 mg 09/09/20 09:00 01/21/21 08:21 Diltiazem Cd 120 Mg Cap PO 120 mg DAILY MATEO Administration Furosemide 40 mg 09/14/20 14:00 09/16/20 08:19 Furosemide 40 Mg Tab PO 40 mg 0900,1400 MATEO Administration Gabapentin 300 mg 09/10/20 15:00 09/16/20 08:19 Gabapentin 300 Mg Cap PO 300 mg TID MATEO Administration Ondansetron HCl 4 mg 09/05/20 14:57 09/12/20 22:03 Ondansetron Pf 4 Mg/2 Ml Vial IVP 4 mg Q6H PRN Administration Nausea/Vomiting Pantoprazole Sodium 40 mg 09/15/20 09:00 09/16/20 08:21 Pantoprazole 40 Mg Tab PO 40 mg 0900 MATEO Administration Polyethylene Glycol 17 gm 09/09/20 09:00 09/16/20 08:22 Polyethylene Glycol 3350 17 Gm Packet PO 17 gm DAILY MATEO Administration Tamsulosin HCl 0.4 mg 09/06/20 09:00 09/16/20 08:21 Tamsulosin Hcl 0.4 Mg Cap PO 0.4 mg DAILY MATEO Administration Tramadol HCl 50 mg 09/15/20 08:45 09/16/20 08:14 Tramadol Hcl 50 Mg Tab PO 50 mg Q6H MATEO Administration - Exam Eye: PERRL, anicteric sclera Heart: RRR, no murmur, no gallops, no rubs, normal peripheral pulses (d.p pulses bilaterally.) Respiratory: CTAB, no wheezes, no rales, no ronchi, normal chest expansion, no tachypnea Gastrointestinal: soft, non-distended, normal bowel sounds, no palpable masses, no hepatomegaly, no splenomegaly. negative: non-tender (complains of RLQ and LLQ pain) Extremities: no cyanosis, 1+ LE edema (more so on his right LE) Psychiatric: oriented to person, oriented to place, oriented to time (knows the year, but does not know the month.) Hosp A/P (1) HTN (hypertension) Code(s): I10 - ESSENTIAL (PRIMARY) HYPERTENSION Status: Chronic Qualifiers: Hypertension type: essential hypertension Qualified Code(s): I10 - Essential (primary) hypertension (2) SBO (small bowel obstruction) Code(s): K56.609 - UNSP INTESTNL OBST, UNSP TO PARTIAL VERSUS COMPLETE OBST Status: Acute (3) Parkinsons disease Code(s): G20 - PARKINSON'S DISEASE Status: Chronic - Plan * HTN- blood pressure is stable * SBO- he is s/p lysis of adhesion. Continue pain medication for abdominal pain as needed. * Monitor electrolytes and replace as needed * Nutrition- he has been started on a regular diet. * Parkinson's disease- stable * Delirium- unchanged over the last few days- continue to re-orient, hold sedating medications when possible
[2020-09-16] MEDS: traMADol HCl 50 MG TAB PO PRN ×2 (10:45→15:31)
[2020-09-16] MEDS ORDERED: Ondansetron ODT 4 MG TAB PO PRN (10:47)
--- NOTE | 2020-09-16 12:00 | PDOC.GSPN ---
Surgery Progress Note: Subj - Subjective Patient reports: no new complaints, feels better, positive flatus, pain well con trolled, tolerating liquids well, voiding w/o difficulty Narrative: 80 yo male 1 wk s/p ex-lap with adhesiolysis and repair of incarcerated parastomal hernia. Did well overnight, per nursing staff. Has been tolerating diet since he was advanced to regular diet yesterday. Potassium improved vs yesterday's value. Reports having a sore neck, but denies other concerns. No fur ther n/v. Surgery Progress Note: Obj - Vital signs Vital signs: Vital Signs - Most Recent Temp Pulse Resp BP Pulse Ox 98.4 F 63 16 118/68 95 09/16/20 10:33 09/16/20 10:33 09/16/20 10:33 09/16/20 10:33 09/16/20 08:18 - Physical Exam General: no distress, well developed, well nourished, obese ENT: decreased hearing Neck: trachea midline Cardiovascular: regular rate and rhythm Respiratory: clear to auscultation, normal expansion, normal respiratory effort Abdomen: soft, positive bowel sounds, tender (Mild TTP noted RUQ/RLQ, otherwise abdomen NTTP. Healthy appearing stoma with active liquid stool output.) Integumentary: other (Edema improved vs 15 Sep 2020 exam--notably decreased edema noted to bilat UEs & bilat LEs.) Musculoskeletal: other (Lying comfortably in bed.) Psychiatric: oriented to person, speech is normal, other (Answers questions appropriately. Pleasant demeanor this am.) Wound: healing well (Midline abdominal incision well-approximated with meenakshi & without ozzy-incision erythema, induration, fluctuance. No drainage from wound.), ostomy/colostomy (No recurrence of stoma prolapse or parastomal or incisional hernia.) Surgery Progress Note: Results - Labs Result Diagrams: 09/16/20 06:50 09/16/20 06:50 Lab results: Laboratory Results - last 12 hr 09/16/20 09/16/20 06:50 06:50 WBC 9.9 RBC 2.72 L Hgb 8.6 L Hct 26.4 L MCV 96.9 MCH 31.5 H MCHC 32.5 RDW 14.2 Plt Count 359 MPV 6.4 L Neutrophils % 75.2 H Lymphocytes % 12.4 L Monocytes % 9.5 Eosinophils % 2.7 Basophils % 0.1 Neutrophils # 7.4 H Lymphocytes # 1.2 Monocytes # 0.9 H Eosinophils # 0.3 Basophils # 0.0 Sodium 136 Potassium 3.3 L Chloride 99 Carbon Dioxide 27 Anion Gap 13 BUN 14 Creatinine 0.75 Estimated GFR (MDRD) Greater than 90 Glucose 98 Calcium 7.8 Surgery Progress Note: A/P - Problem (1) Status post exploratory laparotomy Current Visit: Yes Status: Acute Assessment and Plan: Continues to do well s/p surgery 1 wk ago. Potassium improved vs yesterday, but still somewhat low. Will continue po K replacement. Tolerated diet well since advancing to regular diet yesterday. No recurrence of stoma prolapse or parastomal or incisional hernia. Mr Macias is cleared for d/c to [facility] per Trauma Team standpoint. (2) Hypokalemia Current Visit: Yes Code(s): E87.6 - HYPOKALEMIA Status: Acute Addendum - Attending - Attending Attestation Date/Time: 09/16/20 9914 I personally evaluated the patient and discussed the management with Dr. [] I agree with the History, Examination, Assessment and Plan documented above with any addition or exceptions noted below.
--- NOTE | 2020-09-16 13:08 | PDOC.HOSPP ---
- Subjective Encounter Date: 09/16/20 Encounter Time: 13:06 Subjective: Mr. Macias was seen today in follow-up of SBO. He is tolerating a solid diet. He complains of occasional abdominal pain related to the incision. - Objective Vital Signs & Weight: Vital Signs (12 hours) Temp Pulse Resp BP BP BP Pulse Ox 09/16/20 10:33 98.4 F 63 16 118/68 09/16/20 08:21 64 09/16/20 08:18 98.1 F 63 16 121/67 95 09/16/20 03:42 98.2 F 64 16 126/73 94 L 09/16/20 03:38 126/73 Weight Admit Weight 250 lb Weight 250 lb Most Recent Monitor Data Heart Rate from ECG 91 NIBP 133/70 NIBP BP-Mean 91 Respiration from ECG 19 SpO2 90 I&O: 09/15/20 09/16/20 09/17/20 06:59 06:59 06:59 Intake Total 1820 350 Output Total 3750 1260 Balance -1930 -910 Result Diagrams: 09/16/20 06:50 09/16/20 06:50 Hospitalist ROS - Medication Medications: Active Medications Generic Name Dose Route Start Last Admin Trade Name Freq PRN Reason Stop Dose Admin Acetaminophen 1,000 mg 09/10/20 10:30 09/16/20 10:44 Acetaminophen 500 Mg Tab PO 1,000 mg Q6H MATEO Administration Apixaban 5 mg 09/15/20 09:00 09/16/20 08:21 Apixaban 5 Mg Tab PO 5 mg BID MATEO Administration Atorvastatin Calcium 40 mg 09/10/20 21:00 09/15/20 20:10 Atorvastatin Calcium 40 Mg Tab PO 40 mg HS MATEO Administration Clonidine 0.1 mg 09/10/20 10:45 09/16/20 10:43 Clonidine 0.1 Mg Tab PO Not Given Q6H MATEO Diltiazem HCl 120 mg 09/09/20 09:00 09/16/20 08:21 Diltiazem Cd 120 Mg Cap PO 120 mg DAILY MATEO Administration Furosemide 40 mg 09/14/20 14:00 09/16/20 08:19 Furosemide 40 Mg Tab PO 40 mg 0900,1400 MATEO Administration Gabapentin 300 mg 09/10/20 15:00 09/16/20 08:19 Gabapentin 300 Mg Cap PO 300 mg TID MATEO Administration Ondansetron HCl 4 mg 09/05/20 14:57 09/12/20 22:03 Ondansetron Pf 4 Mg/2 Ml Vial IVP 4 mg Q6H PRN Administration Nausea/Vomiting Pantoprazole Sodium 40 mg 09/15/20 09:00 09/16/20 08:21 Pantoprazole 40 Mg Tab PO 40 mg 0900 MATEO Administration Polyethylene Glycol 17 gm 09/09/20 09:00 09/16/20 08:22 Polyethylene Glycol 3350 17 Gm Packet PO 17 gm DAILY MATEO Administration Tamsulosin HCl 0.4 mg 09/06/20 09:00 09/16/20 08:21 Tamsulosin Hcl 0.4 Mg Cap PO 0.4 mg DAILY MATEO Administration Tramadol HCl 50 mg 09/15/20 08:45 09/16/20 08:14 Tramadol Hcl 50 Mg Tab PO 50 mg Q6H MATEO Administration Tramadol HCl 50 mg 09/15/20 08:36 09/16/20 10:45 Tramadol Hcl 50 Mg Tab PO 50 mg Q6H PRN Administration Breakthrough Pain - Exam Eye: PERRL, anicteric sclera Heart: RRR, no murmur, no gallops, no rubs, normal peripheral pulses Respiratory: CTAB, no wheezes, no rales, no ronchi, normal chest expansion Gastrointestinal: soft, normal bowel sounds Extremities: no cyanosis, no edema Hosp A/P (1) HTN (hypertension) Code(s): I10 - ESSENTIAL (PRIMARY) HYPERTENSION Status: Chronic Qualifiers: Hypertension type: essential hypertension Qualified Code(s): I10 - Essential (primary) hypertension (2) SBO (small bowel obstruction) Code(s): K56.609 - UNSP INTESTNL OBST, UNSP TO PARTIAL VERSUS COMPLETE OBST Status: Acute (3) Parkinsons disease Code(s): G20 - PARKINSON'S DISEASE Status: Chronic - Plan * HTN- blood pressure is stable * SBO- he is s/p lysis of adhesion- resolved- tolerating a solid diet * Parkinson's disease- stable * Delirium on Dementia- waxes and wanes * He is stable and can be discharged back to [facility] [place]
[2020-09-16 15:56] VITALS: BP 114/70; TEMP 98.2
--- NOTE | 2020-09-16 18:11 | PDOC.DS.DS ---
Provider - Provider Date of Admission: 09/05/20 16:36 Date of Discharge: 09/16/20 Admitting Provider: Yamila Moran MD Consultations: Gastroentrology, General Surgery Primary Care Physician: Unknown Course - Hospital Course Hospital Course: Mr. Macias is an 80-year-old gentleman who presented to the emergency room after having persistent nausea and vomiting for 3 days prior to admission. He resides at a local alf. He was evaluated in the emergency room and found to have a small bowel obstruction. A CT scan of the abdomen and pelvis noted a high-grade small bowel obstruction at a large parastomal colostomy hernia the CT also noted a Thorpe's pouch. He was evaluated by the general surgery team and an attempt at conservative management was done initially. He had an NG tube placed to low intermittent suction. After a couple of days of being on the NG tube it was noted that he had some maroon-colored drainage from the NG tube. It was found that he had a GI bleed. The gift shop manager was consulted and he underwent upper endoscopy. This revealed among other things and ulcerations at the GE junction with a large clot as well as grade a in the reflux. He was placed on IV Protonix and did not have any further problems with bleeding during the hospital stay. After the GI bleed was stable he underwent an exploratory laparotomy with lysis of adhesions and repair of the parous stomal hernia. His hospital course was complicated by some mild delirium which eventually cleared during his hospital stay. Once he was able to tolerate solids he was able to be discharged back to the nursing facility. Pertinent Studies: CT scan of Abdomen and Pelvis Small Bowel X-Ray ESD Procedures: Exploratory Laparotomy Resuscitation Status: 09/08/20 15:54 Resuscitation Status Routine Resuscitation Status: DNAR: NO Resuscitation Discussed with: per pt's brother - Labs Lab Results: 09/16/20 06:50 09/16/20 06:50 Abnormal Lab Results - Last 48 hrs 09/15/20 08:43: Sodium 135 L, Potassium 2.9 L* 09/15/20 08:43: WBC 11.0 H, RBC 2.82 L, Hgb 8.7 L, Hct 27.5 L, MCHC 31.5 L, MPV 6.6 L, Lymphocytes % 13.3 L, Neutrophils # 8.1 H, Monocytes # 1.0 H 09/16/20 06:50: Potassium 3.3 L 09/16/20 06:50: RBC 2.72 L, Hgb 8.6 L, Hct 26.4 L, MCH 31.5 H, MPV 6.4 L, Neutrophils % 75.2 H, Lymphocytes % 12.4 L, Neutrophils # 7.4 H, Monocytes # 0.9 H Microbiology - Entire Visit 09/08/20 02:00 Urine bernard catheter Urine Culture - Final NO GROWTH AT 48 HOURS - Physical Exam Vitals: Vital Signs (12 hours) Temp Pulse Resp BP BP Pulse Ox 09/16/20 16:48 114/70 09/16/20 15:53 98.2 F 77 16 114/70 95 09/16/20 10:33 98.4 F 63 16 118/68 09/16/20 08:21 64 09/16/20 08:18 98.1 F 63 16 121/67 95 Weight Admit Weight 250 lb Weight 250 lb Most Recent Monitor Data Heart Rate from ECG 91 NIBP 133/70 NIBP BP-Mean 91 Respiration from ECG 19 SpO2 90 Physical Exam: The patient was seen and examined on the day of discharge. Problem - Problem (1) SBO (small bowel obstruction) Code(s): K56.609 - UNSP INTESTNL OBST, UNSP TO PARTIAL VERSUS COMPLETE OBST Status: Acute (2) Parastomal hernia Code(s): K43.5 - PARASTOMAL HERNIA WITHOUT OBSTRUCTION OR GANGRENE Status: Acute (3) HTN (hypertension) Code(s): I10 - ESSENTIAL (PRIMARY) HYPERTENSION Status: Chronic Qualifiers: Hypertension type: essential hypertension Qualified Code(s): I10 - Essential (primary) hypertension (4) Parkinsons disease Code(s): G20 - PARKINSON'S DISEASE Status: Chronic (5) GI bleed Code(s): K92.2 - GASTROINTESTINAL HEMORRHAGE, UNSPECIFIED Status: Resolved (6) Gastric ulcer Code(s): K25.9 - GASTRIC ULCER, UNSP ACUTE OR CHRONIC, W/O HEMOR OR PERF Status: Resolved (7) Chronic a-fib Code(s): I48.20 - CHRONIC ATRIAL FIBRILLATION, UNSPECIFIED Status: Chronic (8) Chronic anticoagulation Code(s): Z79.01 - [facility] (CURRENT) USE OF ANTICOAGULANTS Status: Chronic (9) History of colon cancer Code(s): Z85.038 - PERSONAL HISTORY OF MALIGNANT NEOPLASM OF LARGE INTESTINE Status: Chronic (10) BPH (benign prostatic hyperplasia) Code(s): N40.0 - BENIGN PROSTATIC HYPERPLASIA WITHOUT LOWER URINRY TRACT SYMP Status: Chronic Qualifiers: Lower urinary tract symptom presence: symptoms present Plan - Discharge Medications Home Medications: Medication Instructions Recorded Confirmed Type Finasteride 5 mg PO DAILY 08/31/16 09/05/20 History Furosemide 20 mg PO BID 12/04/16 09/05/20 History Diltiazem CD [Cardizem CD] 120 mg PO BID #60 cap 07/18/17 09/05/20 Rx Baclofen 5 mg PO TID 06/06/19 09/05/20 History Gabapentin 300 mg PO TID 06/06/19 09/05/20 History HYDROcodone Bit/APAP [[place]] 1 tab PO Q4HR PRN 06/06/19 09/05/20 History Lactulose 10 GM/15ML Oral Darlin 10 gm PO BID 06/06/19 09/05/20 History [Lactulose] PARoxetine HCl 40 mg PO HS 06/06/19 09/05/20 History Potassium Chloride [K-Dur] 20 meq PO BID 06/06/19 09/05/20 History buPROPion HCl [buPROPion HCl SR] 150 mg PO DAILY 06/06/19 09/05/20 History clonazePAM [Klonopin] 0.5 mg PO HS 06/06/19 09/05/20 History Pantoprazole [Protonix] 40 mg PO DAILY tab 06/18/19 09/05/20 Rx Polyethylene Glycol 3350 [Miralax] 17 gm PO DAILY pk 06/18/19 09/05/20 Rx Tamsulosin HCl [Flomax] 0.4 mg PO DAILY cap 06/18/19 09/05/20 Rx Acetaminophen With Codeine 1 tablet PO Q4HR PRN 07/27/20 09/05/20 History [Tylenol with Codeine #3] Apixaban [Eliquis] 5 mg PO BID 07/27/20 09/05/20 History Aspirin 325 mg PO DAILY 07/27/20 09/05/20 History Atorvastatin Calcium [Lipitor] 40 mg PO HS 07/27/20 09/05/20 History Ipratropium/Albuterol Sulfate 3 ml NEB Q4H PRN 07/27/20 09/05/20 History [DuoNeb] Nystatin [Nystatin Powder] 1 applic TOP BID PRN 07/27/20 09/05/20 History Ondansetron [Zofran ODT] 4 mg PO Q8HR PRN 07/27/20 09/05/20 History Simethicone [Mylicon Chewable] 80 mg PO PCHS PRN 07/27/20 09/05/20 History cloNIDine [Catapres] 0.1 mg PO Q6H PRN 07/27/20 09/05/20 History guaiFENesin [Guaifenesin] 400 mg PO BID 07/27/20 09/05/20 History Polyethylene Glycol 3350 [Miralax] 17 gm PO DAILY pk 09/16/20 Rx Allergies: oseltamivir [From Tamiflu] Allergy (Verified 07/27/20 04:16) - Discharge Instructions Discharge Instructions:: continue heart healthy diet, check incision daily, open to air w/ meenakshi. Activity:: Activity as Tolerated Nourishment:: Heart Healthy Diet - Follow up Plan Referrals: Pedro Arcos DO [Active] - 09/30/20 10:30 am (call to confirm appointment for 09/30/2020 at 1030. staple removal) Unknown,Unknown [Primary Care Provider] - Disposition: [facility] FACILITY Quality - Care Measures CORE MEASURES:: N/A
== END 2020-09-16 18:30 | DRG 335 ==
LOC: ERS 09:36 → 2NO 16:36 → ONC 09-06 12:05 → CCU 09-09 19:36 → SURG A 09-10 22:41
PROVIDERS: ADMIT Internal Medicine; ATTEND Internal Medicine
PROC: 0D548ZZ Destruction of Esophagogastric Junction, Via Natural or Artificial Opening Endoscopic (ICD-10-PCS; principal; 2020-09-08)
PROC: 0DNU0ZZ Release Omentum, Open Approach (ICD-10-PCS; 2020-09-09)
PROC: 0WQF0ZZ Repair Abdominal Wall, Open Approach (ICD-10-PCS; 2020-09-09)
DX: K43.3 Parastomal hernia with obstruction, without gangrene (principal); K25.4 Chronic or unspecified gastric ulcer with hemorrhage; J96.00 Acute respiratory failure, unspecified whether with hypoxia or hypercapnia; I48.20 Chronic atrial fibrillation, unspecified; N17.9 Acute kidney failure, unspecified; K56.0 Paralytic ileus; I82.403 Acute embolism and thrombosis of unspecified deep veins of lower extremity, bilateral; D62 Acute posthemorrhagic anemia; G93.49 Other encephalopathy; R41.0 Disorientation, unspecified; E78.5 Hyperlipidemia, unspecified; Z20.822 Contact with and (suspected) exposure to COVID-19; Z86.16 Personal history of COVID-19; G62.9 Polyneuropathy, unspecified; F41.9 Anxiety disorder, unspecified; I48.0 Paroxysmal atrial fibrillation; F32.9 Major depressive disorder, single episode, unspecified; G25.81 Restless legs syndrome; E66.9 Obesity, unspecified; G20 Parkinson's disease; E83.42 Hypomagnesemia; E83.39 Other disorders of phosphorus metabolism; K66.0 Peritoneal adhesions (postprocedural) (postinfection); E87.6 Hypokalemia; Z96.641 Presence of right artificial hip joint; N40.0 Benign prostatic hyperplasia without lower urinary tract symptoms; Z79.01 Long term (current) use of anticoagulants; Z87.440 Personal history of urinary (tract) infections; Z93.3 Colostomy status; Z85.038 Personal history of other malignant neoplasm of large intestine; Z88.7 Allergy status to serum and vaccine; Z86.718 Personal history of other venous thrombosis and embolism; Z98.1 Arthrodesis status; Z99.3 Dependence on wheelchair; Z68.30 Body mass index [BMI] 30.0-30.9, adult
CPT/HCPCS: 36415; 36416; 36430; 71045; 74018; 74019; 74177; 74250; 80048; 80053; 81001; 82805; 83605; 83690; 83735; 84100; 85007; 85014; 85018; 85025; 85027; 85610; 85730; 86850; 86900; 86901; 87086; 87635; 94002; 94003; 96374; C1751; C9113; J1650; J1885; J1940; J2060; J2270; J2370; J2405; J2550; J2704; J2710; J3010; J3475; J3480; J3486; J3490; J7030; J7050; P9016; P9045; Q9963; Q9967; S0028; U0003

== ENCOUNTER 2020-09-28 09:41 | Inpatient (IN) | payer MEDICARE, BC, MEDICAID ==
[2020-09-28] MEDS ORDERED: Ondansetron PF 4 MG/2 ML Vial ONE (09:56)
[2020-09-28 10:31] LABS: #Eosinphils 0.1 thou/uL (0.0-0.7); #Lymphocytes 0.9 thou/uL (1.20-3.40); #Monocytes 0.7 thou/uL (0.11-0.59); #Neutrophils 9.5 thou/uL (1.40-6.50); %Basophils 0.1 % (0.0-1.0); %Eosinophils 0.5 % (0.0-10.0); %Lymphocytes 8.3 % (21.0-51.0); %Monocytes 6.3 % (0.0-10.0); %Neutrophils 84.7 % (42.0-75.0); Hemoglobin 10.5 g/dL (14.0-18.0); Mean Corpuscular HGB CONC 32.4 g/dL (32.0-36.0); Mean Corpuscular Hemoglobin 30.8 pg (27.0-31.0); Mean Corpuscular Volume 95.1 fL (78.0-98.0); Platelet Count 429 thou/uL (130-400); RBC Distribution Width 14.4 % (11.5-14.5); Red Blood Cell (RBC) Count 3.41 mill/uL (4.70-6.10); White Blood Cell (WBC) Count 11.2 thou/uL (4.8-10.8)
[2020-09-28] MEDS ORDERED: Pantoprazole 40 MG VIAL ONE (11:24)
[2020-09-28 11:34] LABS: ALT (SGPT) 13 U/L (8-55); AST (SGOT) 30 U/L (5-34); Albumin 3.3 g/dL (3.4-4.8); Alkaline Phosphatase 110 U/L (40-110); Anion Gap 16 mmol/L (10-20); BUN (Urea Nitrogen) 19 mg/dL (8.4-25.7); Bilirubin, Total 0.3 mg/dL (0.2-1.2); Calc. Creatinine Clearance 0 mL/min (70-130); Carbon Dioxide 28 mmol/L (23-31); Chloride 100 mmol/L (98-107); Globulin 4.5 g/dL (2.4-3.5); Glucose 153 mg/dL (83-110); Lipase 22 U/L (8-78); Protein, Total 7.8 g/dL (5.8-8.1); Sodium 139 mmol/L (136-145)
--- NOTE | 2020-09-28 11:53 | CT ---
CT ABDOMEN AND PELVIS PERFORMED WITH IV CONTRAST ENHANCEMENT: Date: 09/28/2020 HISTORY: Abdominal pain and vomiting. Recent bowel obstruction. COMPARISON: 09/05/2020 exam. FINDINGS: The lung bases show some atelectatic changes without confluent infiltrative process. There is fluid w ithin the distal esophagus and the stomach is mildly distended with fluid. The liver and spleen are normal in appearance. Pancreas is moderately atrophic. Gallbladder region ap pears unremarkable. Right and left adrenal glands are normal in appearance. Right and left kidneys are normal in size wit h bilateral renal cysts. Cortical thinning to both kidneys noted. There is no significant periaortic or mesenteric adenopathy. An IVC filter is present. The patient has had a partial colectomy. There is a Felipe's pouch. There is a left-sided colostomy . Decompressed colon is seen at the level of the colostomy. There is once again noted to be moderatel y dilated small bowel loops with transition to nondilated more distal small bowel loops. The obstruct ion appears to be related to the parastomal hernia. There is some fat stranding within the omental fa t. There is some fluid seen within the parastomal hernia. In addition to the parastomal hernia, there is a smaller hernia just to the right of midline that contains a dilated small bowel loop. The oment al edema may be related to the recent surgery as there are surgical meenakshi in the midline. A small a mount of fluid is seen within the pelvis. IMPRESSION: Recurrent high grade small bowel obstruction. This appears to be associated mainly with the left-side d parastomal hernia. A second separate hernia is seen slightly to the right of midline in the paraumb ilical region, also containing a slightly dilated small bowel loop. Edema change in this region may j ust be on the basis of recent surgery. There is some fluid density within the pelvis and in the andrei tomal hernia. No abscess collection is identified. POS: BRIANNA
[2020-09-28] MEDS ORDERED: Iopamidol-370 76% 500 ML 1 ML ONE ×2 (11:54→11:55)
[2020-09-28] MEDS ORDERED: Metoclopramide HCl 10 MG/2 ML VIAL ONE (12:18)
--- NOTE | 2020-09-28 14:03 | RAD ---
KUB: 09/28/2020 HISTORY: Small bowel obstruction status post nasogastric tube placement FINDINGS: Supine imaging limits assessment for free intraperitoneal air. There is a nasogastric tube extending into the left upper quadrant. Motion artifact limits assessment of the lung parenchyma. There is kyphoplasty change at T10. There is a stable IVC filter. There is residual contrast media wi thin the renal collecting system bilaterally. IMPRESSION: Nasogastric tube in place as above.
[2020-09-28 14:37] LABS: SARS-CoV-2 NAA Rapid Test Not Detected (NotDetected)
--- NOTE | 2020-09-28 15:03 | PDOC.HHP ---
Hospitalist HPI bowel obstruction History of Present Illness: This is an 80 year old male with past medical history of anxiety, ankylosing spondylitis, depression, hyperlipidemia, BPH, Parkinson's disease who presented to the ER from [facility] due to vomiting. The patient is unable to give a history because he doesn't remember anything. Per nurse at [facility], the patient had two episodes of emesis last night, and three times this morning. There was no blood in the vomit. He denied any abdominal pain. The patient and nurses are unclear when his last bowel movement was, but the nurse stated when she came on shift this morning the colostomy bag was empty and normally it is never empty. SHe states the night nurse did not report that he emptied it. THe patient is not able to tell whether he passed gas. He denies fevers or chills. The patient was recently admitted from 09/05 to 09/16 for small bowel obstruction. He had an NG tube placed and experienced some bleeding. EGD showed ulceration at the GE junction and a large clot. He underwent exploratory laparotomy with lysis of adhesions At baseline, he is normally alert and oriented times two. ED Course: When the patient presented to the ER, he had unremarkable vitals. His WBC was 11.2 CT abdomen showed recurrent high grade small bowel obstruction. There is left sided parastomal hernia and separate hernia in the paraumbilical region. Surgery was consulted and NG tube was placed. They recommended medical manageme nt, so the patient was admitted. Allergies/Adverse Reactions: Allergy/AdvReac Type Severity Reaction Status Date / Time oseltamivir [From Tamiflu] Allergy Verified 07/27/20 04:16 Home Medications: Medication Instructions Recorded Confirmed Type Finasteride 5 mg PO DAILY 08/31/16 09/05/20 History Furosemide 20 mg PO BID 12/04/16 09/05/20 History Diltiazem CD [Cardizem CD] 120 mg PO BID #60 cap 07/18/17 09/05/20 Rx Baclofen 5 mg PO TID 06/06/19 09/05/20 History Gabapentin 300 mg PO TID 06/06/19 09/05/20 History HYDROcodone Bit/APAP 10325 [[place]] 1 tab PO Q4HR PRN 06/06/19 09/05/20 History Lactulose 10 GM/15ML Oral Darlin 10 gm PO BID 06/06/19 09/05/20 History [Lactulose] PARoxetine HCl 40 mg PO HS 06/06/19 09/05/20 History Potassium Chloride [K-Dur] 20 meq PO BID 06/06/19 09/05/20 History buPROPion HCl [buPROPion HCl SR] 150 mg PO DAILY 06/06/19 09/05/20 History clonazePAM [Klonopin] 0.5 mg PO HS 06/06/19 09/05/20 History Pantoprazole [Protonix] 40 mg PO DAILY tab 06/18/19 09/05/20 Rx Polyethylene Glycol 3350 [Miralax] 17 gm PO DAILY pk 06/18/19 09/05/20 Rx Tamsulosin HCl [Flomax] 0.4 mg PO DAILY cap 06/18/19 09/05/20 Rx Acetaminophen With Codeine 1 tablet PO Q4HR PRN 07/27/20 09/05/20 History [Tylenol with Codeine #3] Apixaban [Eliquis] 5 mg PO BID 07/27/20 09/05/20 History Aspirin 325 mg PO DAILY 07/27/20 09/05/20 History Atorvastatin Calcium [Lipitor] 40 mg PO HS 07/27/20 09/05/20 History Ipratropium/Albuterol Sulfate 3 ml NEB Q4H PRN 07/27/20 09/05/20 History [DuoNeb] Nystatin [Nystatin Powder] 1 applic TOP BID PRN 07/27/20 09/05/20 History Ondansetron [Zofran ODT] 4 mg PO Q8HR PRN 07/27/20 09/05/20 History Simethicone [Mylicon Chewable] 80 mg PO PCHS PRN 07/27/20 09/05/20 History cloNIDine [Catapres] 0.1 mg PO Q6H PRN 07/27/20 09/05/20 History guaiFENesin [Guaifenesin] 400 mg PO BID 07/27/20 09/05/20 History Polyethylene Glycol 3350 [Miralax] 17 gm PO DAILY pk 09/16/20 Rx Past History: PMHx: Parkinson's disease Small bowel obstruction Recotsigmoid neoplasm Hyperlipidemia BPH PSHx: ex lap with lysis of adhesions Right hip replacement Colostomy 2016 Hernia surgery x 2 Cervical fusion Incisional hernia FHx : unable to obtain Social: Lives at [facility] and is wheelchair bound. Denies alcohol or cigarette use Hospitalist HPI ROS Constitutional: denies: fever, chills ENT: denies: ear pain, ear discharge Respiratory: denies: cough, dry, shortness of breath Cardiovascular: denies: chest pain, palpitations Gastrointestinal: denies: nausea, vomiting, abdominal pain Genitourinary: denies: dysuria, frequency Musculoskeletal: denies: neck pain, shoulder pain Skin: denies: rash, lesions Hospitalist Exam General Appearance: NAD, awake alert Eye: PERRL, anicteric sclera ENT: normocephalic atraumatic, no oropharyngeal lesions ENT - other findings: NG tube in place Neck: supple, no JVD Heart: RRR, no murmur, no gallops, no rubs Respiratory: CTAB, no wheezes, no rales, no ronchi Gastrointestinal: soft, non-tender Gastrointestinal - other findings: distended, hypoactive bowel sounds Extremities: no cyanosis, no clubbing, no edema Skin: normal turgor, no lesions, no rashes Neurological: cranial nerve grossly intact, normal sensation to touch, no wea kness, no focal deficits, no new deficit Musculoskeletal: normal tone, normal strength, no muscle wasting Psychiatric: normal affect, normal behavior, A&O x 3, oriented to person Hospitalist Results Result Diagrams: 09/28/20 10:10 09/28/20 10:10 Lab results: Laboratory Last Values WBC 11.2 thou/uL (4.8-10.8) H 09/28/20 10:10 RBC 3.41 mill/uL (4.70-6.10) L 09/28/20 10:10 Hgb 10.5 g/dL (14.0-18.0) L 09/28/20 10:10 Hct 32.4 % (42.0-52.0) L 09/28/20 10:10 MCV 95.1 fL (78.0-98.0) 09/28/20 10:10 MCH 30.8 pg (27.0-31.0) 09/28/20 10:10 MCHC 32.4 g/dL (32.0-36.0) 09/28/20 10:10 RDW 14.4 % (11.5-14.5) 09/28/20 10:10 Plt Count 429 thou/uL (130-400) H 09/28/20 10:10 MPV 6.0 fL (7.4-10.4) L 09/28/20 10:10 Neutrophils % 84.7 % (42.0-75.0) H 09/28/20 10:10 Lymphocytes % 8.3 % (21.0-51.0) L 09/28/20 10:10 Monocytes % 6.3 % (0.0-10.0) 09/28/20 10:10 Eosinophils % 0.5 % (0.0-10.0) 09/28/20 10:10 Basophils % 0.1 % (0.0-1.0) 09/28/20 10:10 Neutrophils # 9.5 thou/uL (1.40-6.50) H 09/28/20 10:10 Lymphocytes # 0.9 thou/uL (1.20-3.40) L 09/28/20 10:10 Monocytes # 0.7 thou/uL (0.11-0.59) H 09/28/20 10:10 Eosinophils # 0.1 thou/uL (0.0-0.7) 09/28/20 10:10 Basophils # 0.0 thou/uL (0.0-0.2) 09/28/20 10:10 Sodium 139 mmol/L (136-145) 09/28/20 10:10 Potassium 5.0 mmol/L (3.5-5.1) 09/28/20 10:10 Chloride 100 mmol/L (98-107) 09/28/20 10:10 Carbon Dioxide 28 mmol/L (23-31) 09/28/20 10:10 Anion Gap 16 mmol/L (10-20) 09/28/20 10:10 BUN 19 mg/dL (8.4-25.7) 09/28/20 10:10 Creatinine 1.16 mg/dL (0.7-1.3) 09/28/20 10:10 Estimated GFR (MDRD) 60 09/28/20 10:10 Glucose 153 mg/dL (83-110) H 09/28/20 10:10 Lactic Acid 1.6 mmol/L (0.5-2.2) 09/28/20 10:51 Calcium 9.0 mg/dL (7.8-10.44) 09/28/20 10:10 Total Bilirubin 0.3 mg/dL (0.2-1.2) 09/28/20 10:10 AST 30 U/L (5-34) 09/28/20 10:10 ALT 13 U/L (8-55) 09/28/20 10:10 Alkaline Phosphatase 110 U/L (40-110) 09/28/20 10:10 Troponin I 0.013 ng/mL (< 0.028) 09/28/20 10:10 Serum Total Protein 7.8 g/dL (5.8-8.1) 09/28/20 10:10 Albumin 3.3 g/dL (3.4-4.8) L 09/28/20 10:10 Globulin 4.5 g/dL (2.4-3.5) H 09/28/20 10:10 Albumin/Globulin Ratio 0.7 g/dL (1.2-2.2) L 09/28/20 10:10 Lipase 22 U/L (8-78) 09/28/20 10:10 Influenza A RNA INAAT Not Detected (NotDetected) 09/28/20 13:35 Influenza B RNA INAAT Not Detected (NotDetected) 09/28/20 13:35 SARS-CoV-2 Rap RNA(RT-PCR) Not Detected (NotDetected) 09/28/20 13:35 Hospitalist H&P A/P Plan: CT abdomen showed recurrent high grade small bowel obstruction This is an 80 year old male with past medical history of anxiety, ankylosing spondylitis, depression, hyperlipidemia, BPH, Parkinson's disease who presented with small bowel obstruction Recurrent high grade small bowel obstruction -CT abdomen showed recurrent high grade small bowel obstruction. Surgery was consulted, NG tube was placed. - keep NPO except for ice chips for now - serial imaging Parkinson's disease - resume home amantadine Chronic afib on anticoagulation -will hold for now pending his hospital course - hold diltiazem BPH - continue flomax and finasteride
--- NOTE | 2020-09-28 17:35 | CON ---
DATE OF CONSULTATION: 09/28/2020 REQUESTING PHYSICIAN: Yoly Patiño MD HISTORY OF PRESENT ILLNESS: Mr. Macias is an 80-year-old man, well known to my service. The patient has extensive medical history including chronic depression, ankylosing spondylitis, chronic anxiety disorder, Parkinson disease, and has had multiple previous abdominal operations including exploratory laparotomy and repair of incarcerated parastomal hernia on 09/09/2020. The patient was brought to the emergency department today with recent emesis and poor output per ostomy. The patient is awake and alert. He denies any abdominal pain. PAST MEDICAL HISTORY: Significant for: 1. Benign prostatic hypertrophy. 2. Previous sigmoid colon cancer. 3. Multiple small-bowel obstructions. 4. Previous parastomal hernia. 5. Parkinson disease. 6. Hyperlipidemia. 7. Ankylosing spondylitis. PAST SURGICAL HISTORY: Pertinent for: 1. Multiple abdominal operations including exploratory laparotomy and sigmoidectomy followed by colostomy in 2016. 2. Right hip arthroplasty. 3. Most recent exploratory laparotomy for lysis of adhesions and repair of parastomal hernia on 09/09/[address] Arcos. 4. He has had multilevel cervical and thoracic spine fusions. SOCIAL HISTORY: The patient is a resident of [facility]. He has no ethanol, tobacco, or illicit drug abuse. FAMILY HISTORY: Noncontributory for this patient's age. ALLERGIES: TO OSELTAMIVIR. REVIEW OF SYSTEMS: Ten-point review of systems essentially unremarkable except as stated in past medical history and chief complaint. PHYSICAL EXAMINATION: GENERAL: An 80-year-old normally developed man who is awake and alert, in no acute distress at the time of my evaluation. VITAL SIGNS: Blood pressure 120/79, pulse 105 and irregular, respiratory rate is 18, temperature 98.3 degrees Fahrenheit, and oxygen saturation 92% on room air. HEENT: Normocephalic and atraumatic. He has no jugular venous distention noted. HEART: Irregular rate and rhythm. LUNGS: Clear to auscultation bilaterally. Breathing, regular and nonlabored. ABDOMEN: Soft and moderately distended with no tenderness to palpation. Colostomy is viable. There is a slight bulge around the colostomy, consistent with likely recurrent parastomal hernia, though not as large as what was present on 09/09/2020. There is stool and gas in the colostomy appliance. Clearly, he has no peritoneal signs on examination. LABORATORY FINDINGS: Today include a CBC with 11,200 white blood cells, hemoglobin and hematocrit 10.5 and 32.4 respectively, and platelet count is 429,000. Metabolic profile: Sodium 139, potassium 5.0, chloride is 101, bicarb is 28, BUN 19, creatinine is 1.16, glucose 153. Lactic acid 1.6, total bilirubin is 0.3, AST and ALT normal at 30 and 13 respectively. Serum lipase is also normal at 22. I have personally reviewed the CT scan of the abdomen and pelvis, which reveals recurrent parastomal hernia with no significant clear transition zone. There is gas in the small bowel and colon as well. Minimum intraperitoneal fluid is noted. No pneumoperitoneum is present. IMPRESSIONS: Recurrent parastomal hernia with acute partial small-bowel obstruction. RECOMMENDATIONS: Nasogastric tube with decompression with bowel rest and IV hydration. No acute surgical indication for this patient at this time. General Surgery will follow along and make further recommendations as necessary. Above findings and plan discussed with the patient. He indicates understanding information provided. Thank you again, Dr. Patiño, for allowing me the opportunity to participate in the care of this patient. Job ID: [id number]
--- NOTE | 2020-09-28 19:19 | RAD ---
KUB: 09/28/20 HISTORY: Tube placement. Contrast from a previous CT is noted. An IVC filter is present. I do not see a definite NG tube on th is exam. IMPRESSION: I do not definitely visualize an NG tube on this study. POS: BRIANNA
[2020-09-28] MEDS: Famotidine/PF 20 mg/2ml Vial SLOW IVP SCH (19:58)
[2020-09-28] MEDS: Ondansetron PF 4 MG/2 ML Vial IVP PRN (21:13)
--- NOTE | 2020-09-28 22:40 | RAD ---
EXAM: XR Abdomen 1 View/KUB PROVIDED CLINICAL HISTORY: Nasogastric tube placement. COMPARISON: 09/28/2020 at 1856 hours. FINDINGS: There has been interval placement of a nasogastric tube. Tip overlies expected location proximal body of the stomach with proximal sidehole overlying the region of the GE junction or possibly cardia of the stomach. Nasogastric tube should be mildly advanced. IVC filter is again noted in place. A few of the struts of the IVC filter are seen extending laterally to the right from the superior aspect of the filter. The 2 struts extend to region of the expected location of the right renal vein. This f inding was also seen on CT abdomen on 09/28/2020. Surgical clips again overlie the abdomen. Residual contrast seen in renal collecting systems. Vertebroplasty changes are seen involving the T10 vertebra l body. IMPRESSION: Nasogastric tube in place with tip overlying proximal body of the stomach with most proximal sidehole possibly overlying the region of the GE junction/cardia of the stomach. Nasogastric tube should be mildly advanced.
[2020-09-28] MEDS: Ibuprofen 200 MG TAB PO PRN (22:56)
[2020-09-28] MEDS: Sodium Chloride 0.9% 1,000 ML IV SCH (22:57)
[2020-09-28] MEDS: Acetaminophen 500 MG TAB PO PRN (22:57)
[2020-09-29] MEDS: Famotidine/PF 20 mg/2ml Vial SLOW IVP SCH (08:20)
[2020-09-29] MEDS: Sodium Chloride 0.9% 1,000 ML IV SCH ×2 (08:20→18:36)
[2020-09-29 08:37] LABS: #Eosinphils 0.1 thou/uL (0.0-0.7); #Lymphocytes 1.5 thou/uL (1.20-3.40); #Monocytes 1.1 thou/uL (0.11-0.59); #Neutrophils 5.8 thou/uL (1.40-6.50); %Basophils 0.2 % (0.0-1.0); %Eosinophils 1.1 % (0.0-10.0); %Lymphocytes 17.5 % (21.0-51.0); %Neutrophils 68.1 % (42.0-75.0); Mean Corpuscular HGB CONC 31.5 g/dL (32.0-36.0); Mean Corpuscular Hemoglobin 29.7 pg (27.0-31.0); Mean Corpuscular Volume 94.4 fL (78.0-98.0); Mean Platelet Volume 6.1 fL (7.4-10.4); Platelet Count 406 thou/uL (130-400); RBC Distribution Width 14.6 % (11.5-14.5); Red Blood Cell (RBC) Count 3.04 mill/uL (4.70-6.10); White Blood Cell (WBC) Count 8.5 thou/uL (4.8-10.8)
[2020-09-29 08:52] LABS: Phosphorus 3.6 mg/dL (2.3-4.7)
[2020-09-29 08:53] LABS: Anion Gap 14 mmol/L (10-20); BUN (Urea Nitrogen) 20 mg/dL (8.4-25.7); Calc. Creatinine Clearance 51 mL/min (70-130); Calcium 8.7 mg/dL (7.8-10.44); Carbon Dioxide 29 mmol/L (23-31); Chloride 104 mmol/L (98-107); Glucose 96 mg/dL (83-110); Magnesium 1.9 mg/dL (1.6-2.6); Potassium 3.6 mmol/L (3.5-5.1); Sodium 143 mmol/L (136-145)
[2020-09-29] MEDS ORDERED: FLU VACC QS2020-21(65YR UP)/PF 240 MCG/0.7 ML SYRINGE IM ONE (09:00)
[2020-09-29] MEDS: Acetaminophen 500 MG TAB PO PRN (10:54)
--- NOTE | 2020-09-29 12:53 | PRG ---
DATE OF SERVICE: 09/29/2020 SUBJECTIVE: The patient is an 80-year-old male who presented to the hospital with emesis and poor output per ostomy with concern for small-bowel obstruction. This morning, the patient pulled out his nasogastric tube. At the time of exam, there was approximately 150 mL of output in the container with suction. The patient reports that he is feeling well this morning and pulled his NG tube out on purpose because he thought he only had to have been in for 1 day. OBJECTIVE: VITAL SIGNS: Temperature 99.4, pulse 88, respiratory rate 18, O2 saturation 94% on room air, and blood pressure 129/78. GENERAL: An 80-year-old male who appears stated age, lying comfortably in bed. HEENT: Normocephalic and atraumatic. PULMONARY: Equal chest rise and fall. ABDOMEN: Postoperative exploratory laparotomy incision that is appropriately healing with meenakshi in place. Ostomy present with gas in the ostomy bag and small amounts of fecal output. MUSCULOSKELETAL: Moves extremities appropriately. NEUROLOGIC: No focal deficits. PSYCHIATRIC: Mood and affect appropriate and congruent. LABORATORY DATA: CBC significant for hemoglobin of 9.0, hematocrit 28.7, and platelets 406. BMP: Magnesium 1.9, otherwise unremarkable. IMAGING STUDIES: Abdominal x-ray from last night showing NG tube in place, that recommended mild advancement of NGT. ASSESSMENT: 1. Acute partial small-bowel obstruction. 2. Parastomal hernia. 3. History of depression. 4. Ankylosing spondylitis. 5. Chronic anxiety disorder. 6. Parkinson disease. 7. Multiple abdominal surgeries. PLAN: NG tube was replaced on rounds. We will plan for small-bowel follow-through. Doubt that the patient has acute small-bowel obstruction, but we will await results of small bowel follow-through. Given exam findings, the patient was given small amounts of water during exam. Management depending on patient's willingness to keep the NG tube in and results of small-bowel follow-through. This patient was seen and discussed with Dr. Arcos on morning rounds. Job ID: [id number]
--- NOTE | 2020-09-29 13:25 | RAD ---
Small bowel follow-through HISTORY: Abdominal pain. Bowel obstruction. COMPARISON: CT abdomen 09/28/2020. FINDINGS: Approximately 120 cc of water-soluble contrast was instilled through the nasogastric tube. Nondilated duodenum and jejunum immediately opacified. At 75 minutes, contrast extends throughout the nondilated small bowel and throughout the nondilated c olon. Contrast within the urinary bladder remains from prior CT. Nasogastric tube, IVC filter, and skin sta ples again demonstrated. Vertebroplasty cement at the T10 vertebral body. IMPRESSION : Rapid small bowel transit. No evidence of ongoing bowel obstruction.
[2020-09-29] MEDS ORDERED: Lorazepam 2 MG/ML VIAL SLOW IVP PRN (14:06)
--- NOTE | 2020-09-29 15:59 | PDOC.HOSPP ---
- Subjective Encounter Date: 09/29/20 Subjective: To my exam the patient reported he felt well. Denied any significant abdominal pain. Denies having had a bowel movement - Objective Vital Signs & Weight: Vital Signs (12 hours) Temp Pulse Resp BP Pulse Ox 09/29/20 12:20 99.1 F 90 18 152/72 H 95 09/29/20 08:15 94 L 09/29/20 07:27 99.4 F 88 18 129/78 94 L Weight Weight 156 lb 11.979 oz Result Diagrams: 09/29/20 05:38 09/29/20 05:38 Hospitalist ROS - Medication Medications: Active Medications Generic Name Dose Route Start Last Admin Trade Name Freq PRN Reason Stop Dose Admin Acetaminophen 1,000 mg 09/28/20 22:14 09/29/20 10:54 Acetaminophen 500 Mg Tab PO 1,000 mg Q6H PRN Administration Mild-Moderate Pain (1-5) Famotidine 20 mg 09/28/20 21:00 09/29/20 08:20 Famotidine/Pf 20 Mg/2ml Vial SLOW IVP 20 mg Q12HR MATEO Administration Sodium Chloride 1,000 mls @ 100 mls/hr 09/28/20 22:45 09/29/20 08:20 Normal Saline 0.9% IV Not Given .Q10H MATEO Ibuprofen 400 mg 09/28/20 22:14 09/28/20 22:56 Ibuprofen 200 Mg Tab PO 400 mg Q6H PRN Administration Pain Ondansetron HCl 4 mg 09/28/20 15:30 09/28/20 21:13 Ondansetron Pf 4 Mg/2 Ml Vial IVP 4 mg Q6H PRN Administration Nausea/Vomiting Hospitalist Exam Vitals: Vital Signs (12 hours) Temp Pulse Resp BP Pulse Ox 09/29/20 12:20 99.1 F 90 18 152/72 H 95 09/29/20 08:15 94 L 09/29/20 07:27 99.4 F 88 18 129/78 94 L Weight Weight 156 lb 11.979 oz General Appearance: NAD Neck: supple, symmetric, no JVD, no thyromegaly, no lymphadenopathy, no carotid bruit Heart: RRR, no gallops, no rubs, II/IV Respiratory: CTAB, no wheezes, no rales, no ronchi, normal chest expansion, no tachypnea, normal percussion Gastrointestinal: soft, non-tender, non-distended, normal bowel sounds Extremities: no cyanosis, no clubbing, no edema Skin: normal turgor Musculoskeletal: generalized weakness Psychiatric: normal behavior Hosp A/P (1) Parastomal hernia Code(s): K43.5 - PARASTOMAL HERNIA WITHOUT OBSTRUCTION OR GANGRENE Status: Acute (2) SBO (small bowel obstruction) Code(s): K56.609 - UNSP INTESTNL OBST, UNSP TO PARTIAL VERSUS COMPLETE OBST Status: Acute (3) BPH (benign prostatic hyperplasia) Code(s): N40.0 - BENIGN PROSTATIC HYPERPLASIA WITHOUT LOWER URINRY TRACT SYMP Status: Chronic Qualifiers: Lower urinary tract symptom presence: symptoms present (4) Chronic a-fib Code(s): I48.20 - CHRONIC ATRIAL FIBRILLATION, UNSPECIFIED Status: Chronic (5) Chronic anticoagulation Code(s): Z79.01 - PERCUSSION INSTRUCTOR (CURRENT) USE OF ANTICOAGULANTS Status: Chronic (6) Colostomy in place Code(s): Z93.3 - COLOSTOMY STATUS Status: Chronic (7) Dyslipidemia Code(s): E78.5 - HYPERLIPIDEMIA, UNSPECIFIED Status: Chronic (8) HTN (hypertension) Code(s): I10 - ESSENTIAL (PRIMARY) HYPERTENSION Status: Chronic Qualifiers: Hypertension type: essential hypertension Qualified Code(s): I10 - Essential (primary) hypertension (9) History of colon cancer Code(s): Z85.038 - PERSONAL HISTORY OF MALIGNANT NEOPLASM OF LARGE INTESTINE Status: Chronic (10) Parkinsons disease Code(s): G20 - PARKINSON'S DISEASE Status: Chronic - Plan Recurrent high grade small bowel obstruction CT abdomen showed recurrent high grade small bowel obstruction. Surgery was consulted, NG tube was placed. Today the patient underwent a small bowel follow-through with rapid transit into the small and large intestine with no evidence of persistent obstruction. Patient had become a little agitated and was trying to pull out his NG tube. The NG tube was DC'd and the patient was allowed some clear liquids. Parkinson's disease resume home amantadine Chronic afib on anticoagulation Meds initially held due to the bowel obstruction. Now that it appears this is resolved we will resume his oral medications. Hypertension: Resume home medications. Acute metabolic encephalopathy: Patient had some agitation during his previous hospitalization. Had a bit today. DC the NG tube to see if that would help settle him down. As needed benzodiazepine. Resume his home regimen as well. BPH - continue flomax and finasteride
[2020-09-29] MEDS: Gabapentin 300 MG CAP PO SCH ×2 (16:08→20:17)
[2020-09-29] MEDS ORDERED: Baclofen 10 MG TAB PO SCH (20:15)
[2020-09-29] MEDS: clonazePAM 0.5 MG TAB PO SCH (20:17)
[2020-09-29] MEDS: PARoxetine 20 MG TAB PO SCH (20:17)
[2020-09-29] MEDS: Apixaban 5 MG TAB PO SCH (20:17)
[2020-09-29] MEDS ORDERED: Famotidine 20 MG TAB PO SCH (21:00)
[2020-09-30] MEDS: Sodium Chloride 0.9% 1,000 ML IV SCH ×2 (04:21→15:02)
[2020-09-30] MEDS: HYDROcodone/Acetaminophen 10/325 mg Tablet PO PRN (06:17)
[2020-09-30] MEDS ORDERED: Magnesium Sulfate 2 GM in Sodium Chloride 0.9% 100 ML IV SCH (07:45)
[2020-09-30] MEDS ORDERED: Magnesium 2 GM/50 ML 2 GM in Premix Bag 1 BAG IVPB SCH (07:45)
[2020-09-30] MEDS: Bupropion 150 MG SR TAB PO SCH (09:03)
[2020-09-30] MEDS: Aspirin 325 MG TAB PO SCH (09:04)
[2020-09-30] MEDS: Tamsulosin HCl 0.4 MG CAP PO SCH (09:04)
[2020-09-30] MEDS: Gabapentin 300 MG CAP PO SCH ×3 (09:04→20:20)
[2020-09-30] MEDS: Apixaban 5 MG TAB PO SCH ×2 (09:04→20:17)
[2020-09-30] MEDS: Finasteride 5 MG TAB PO SCH (09:04)
--- NOTE | 2020-09-30 13:27 | PDOC.HOSPP ---
- Subjective Encounter Date: 09/30/20 Subjective: Patient reports he feels okay. Says he has been taking some liquids and has not had any problems. Also denies having a bowel movement as of yet. No other complaints. - Objective Vital Signs & Weight: Vital Signs (12 hours) Temp Pulse Resp BP Pulse Ox 09/30/20 11:33 98.0 F 63 18 112/70 94 L 09/30/20 08:00 98.1 F 77 16 114/85 93 L 09/30/20 03:46 97.9 F 64 16 109/51 L 96 Weight Weight 156 lb 11.979 oz I&O: 09/29/20 09/30/20 10/01/20 06:59 06:59 06:59 Intake Total 1600 Output Total 1875 Balance -275 Result Diagrams: 09/29/20 05:38 09/29/20 05:38 Hospitalist ROS - Medication Medications: Active Medications Generic Name Dose Route Start Last Admin Trade Name Freq PRN Reason Stop Dose Admin Acetaminophen 1,000 mg 09/28/20 22:14 09/29/20 10:54 Acetaminophen 500 Mg Tab PO 1,000 mg Q6H PRN Administration Moderate to Severe Pain (6-10) Hydrocodone Bitart/Acetaminophen 1 tab 09/29/20 14:04 09/30/20 06:17 Hydrocodone/Acetaminophen 10/325 Mg Tablet PO 1 tab Q4H PRN Administration Moderate to Severe Pain (6-10) Apixaban 5 mg 09/29/20 21:00 09/30/20 09:04 Apixaban 5 Mg Tab PO 5 mg BID MATEO Administration Aspirin 325 mg 09/30/20 09:00 09/30/20 09:04 Aspirin 325 Mg Tab PO 325 mg DAILY MATEO Administration Bupropion HCl 150 mg 09/30/20 09:00 09/30/20 09:03 Bupropion 150 Mg Sr Tab PO 150 mg DAILY MATEO Administration Clonazepam 0.5 mg 09/29/20 21:00 09/29/20 20:17 Clonazepam 0.5 Mg Tab PO 0.5 mg HS MATEO Administration Diltiazem HCl 120 mg 09/29/20 21:00 09/30/20 09:04 Diltiazem Cd 120 Mg Cap PO 120 mg BID MATEO Administration Finasteride 5 mg 09/30/20 09:00 09/30/20 09:04 Finasteride 5 Mg Tab PO 5 mg DAILY MATEO Administration Gabapentin 300 mg 09/29/20 15:00 09/30/20 09:04 Gabapentin 300 Mg Cap PO 300 mg TID MATEO Administration Sodium Chloride 1,000 mls @ 100 mls/hr 09/28/20 22:45 09/30/20 04:21 Normal Saline 0.9% IV Not Given .Q10H MATEO Ibuprofen 400 mg 09/28/20 22:14 09/28/20 22:56 Ibuprofen 200 Mg Tab PO 400 mg Q6H PRN Administration Mild Pain (1-3) Ondansetron HCl 4 mg 09/28/20 15:30 09/28/20 21:13 Ondansetron Pf 4 Mg/2 Ml Vial IVP 4 mg Q6H PRN Administration Nausea/Vomiting Pantoprazole Sodium 40 mg 09/30/20 09:00 09/30/20 09:04 Pantoprazole 40 Mg Tab PO 40 mg DAILY MATEO Administration Paroxetine HCl 40 mg 09/29/20 21:00 09/29/20 20:17 Paroxetine 20 Mg Tab PO 40 mg HS MATEO Administration Tamsulosin HCl 0.4 mg 09/30/20 09:00 09/30/20 09:04 Tamsulosin Hcl 0.4 Mg Cap PO 0.4 mg DAILY MATEO Administration Hospitalist Exam Vitals: Vital Signs (12 hours) Temp Pulse Resp BP Pulse Ox 09/30/20 11:33 98.0 F 63 18 112/70 94 L 09/30/20 08:00 98.1 F 77 16 114/85 93 L 09/30/20 03:46 97.9 F 64 16 109/51 L 96 Weight Weight 156 lb 11.979 oz General Appearance: NAD, awake alert Heart: RRR, no murmur, no gallops, no rubs Respiratory: CTAB, no wheezes, no rales, no ronchi, normal chest expansion, no tachypnea, normal percussion Gastrointestinal: soft, non-tender, normal bowel sounds, distended (Mildly) Gastrointestinal - other findings: Midline incision appears healthy Extremities: no cyanosis, no clubbing, no edema Musculoskeletal: generalized weakness Psychiatric: normal affect, normal behavior Hosp A/P (1) Parastomal hernia Code(s): K43.5 - PARASTOMAL HERNIA WITHOUT OBSTRUCTION OR GANGRENE Status: Acute (2) SBO (small bowel obstruction) Code(s): K56.609 - UNSP INTESTNL OBST, UNSP TO PARTIAL VERSUS COMPLETE OBST Status: Acute (3) BPH (benign prostatic hyperplasia) Code(s): N40.0 - BENIGN PROSTATIC HYPERPLASIA WITHOUT LOWER URINRY TRACT SYMP Status: Chronic Qualifiers: Lower urinary tract symptom presence: symptoms present (4) Chronic a-fib Code(s): I48.20 - CHRONIC ATRIAL FIBRILLATION, UNSPECIFIED Status: Chronic (5) Chronic anticoagulation Code(s): Z79.01 - 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 (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) USE OF ANTICOAGULANTS Status: Chronic (6) Colostomy in place Code(s): Z93.3 - COLOSTOMY STATUS Status: Chronic (7) Dyslipidemia Code(s): E78.5 - HYPERLIPIDEMIA, UNSPECIFIED Status: Chronic (8) HTN (hypertension) Code(s): I10 - ESSENTIAL (PRIMARY) HYPERTENSION Status: Chronic Qualifiers: Hypertension type: essential hypertension Qualified Code(s): I10 - Essential (primary) hypertension (9) History of colon cancer Code(s): Z85.038 - PERSONAL HISTORY OF MALIGNANT NEOPLASM OF LARGE INTESTINE Status: Chronic (10) Parkinsons disease Code(s): G20 - PARKINSON'S DISEASE Status: Chronic - Plan Recurrent high grade small bowel obstruction Patient underwent surgery on 09/09/2020 for small bowel obstruction. Patient was noted to have multiple intra-abdominal adhesions at that time. Patient presented with recurrent abdominal distention and symptoms of possible obstruction. CT abdomen showed recurrent high grade small bowel obstruction. Surgery was consulted, NG tube was placed. Today the patient underwent a small bowel follow-through with rapid transit into the small and large intestine with no evidence of persistent obstruction. Patient had become a little agitated and was trying to pull out his NG tube. The NG tube was DC'd and the patient was allowed some clear liquids. As of 09-30 the patient was tolerating clears and advance to full liquids. He has normal bowel sounds but has some mild distention. Advance diet slowly. Monitor for bowel activity. Parkinson's disease resume home amantadine. Appears to be well controlled. Chronic afib on anticoagulation Meds initially held due to the bowel obstruction. Appears to be in sinus rhythm at this time. Now that it appears this is resolved we will resume his Eliquis. Hypertension: Resume home medications of diltiazem and clonidine. Acute metabolic encephalopathy: Patient had some agitation during his previous hospitalization. Has had a bit of possible sundowning during this admission As needed benzodiazepine. Resume his home regimen as well. BPH - continue flomax and finasteride
--- NOTE | 2020-09-30 19:25 | PRG ---
DATE OF SERVICE: 09/30/2020 SUBJECTIVE: The patient remains on the surgical floor. He is status post consultation for partial small bowel obstruction. Yesterday, he underwent small bowel follow-through, which showed rapid transition of contrast. Overnight, he had no issues. His NG tube has remained out. He is tolerating clear liquid diet. The ostomy bag shows air and liquid stool in it once again this morning, and he reportedly had a total of 1875 mL of liquid stool in the previous 24 hours. PHYSICAL EXAMINATION: VITAL SIGNS: Temperature is 98.0, heart rate 63, blood pressure 112/70, respirations 18, oxygen saturation 94% on room air. GENERAL: The patient is resting comfortably in bed. He is in no apparent distress. He was asleep when we walked in, but was awakened to verbal stimuli. RESPIRATIONS: Nonlabored with equal rise and fall of his chest. ABDOMEN: Less distended today. Again, the ostomy bag has stool and air in it. The midline incision meenakshi are planned to be removed today. His wound is clean, dry, and intact. LABORATORY DATA: There are no labs or radiographs to reviewed this morning. ASSESSMENT AND PLAN: 1. Status post acute partial small-bowel obstruction. 2. Parastomal hernia. 3. History of depression, ankylosing spondylitis, anxiety, Parkinson disease. Plan will be to discontinue midline incision meenakshi. Encourage out of bed, physical therapy, and advance diet as tolerated. We will continue to follow along. The patient was discussed with Dr. Arcos during rounds this morning. Job ID: [id number]
[2020-09-30] MEDS: PARoxetine 20 MG TAB PO SCH (20:16)
[2020-09-30] MEDS: clonazePAM 0.5 MG TAB PO SCH (20:23)
[2020-10-01] MEDS: Gabapentin 300 MG CAP PO SCH ×3 (09:10→20:03)
[2020-10-01] MEDS: Aspirin 325 MG TAB PO SCH (09:11)
[2020-10-01] MEDS: Tamsulosin HCl 0.4 MG CAP PO SCH (09:11)
[2020-10-01] MEDS: Bupropion 150 MG SR TAB PO SCH (09:11)
[2020-10-01] MEDS: Finasteride 5 MG TAB PO SCH (09:11)
[2020-10-01] MEDS: Apixaban 5 MG TAB PO SCH ×2 (09:11→20:03)
[2020-10-01] MEDS: Sodium Chloride 0.9% 1,000 ML IV SCH (09:13)
--- NOTE | 2020-10-01 13:52 | PDOC.HOSPP ---
- Subjective Encounter Date: 10/01/20 Subjective: Patient reports he is feeling fine. Says he tolerated his regular diet without problems. Denies any abdominal pain. - Objective Vital Signs & Weight: Vital Signs (12 hours) Temp Pulse Resp BP BP BP Pulse Ox 10/01/20 11:45 98.4 F 67 16 114/63 93 L 10/01/20 10:32 159/64 H 120/72 10/01/20 07:49 98 F 66 18 124/59 L 95 10/01/20 04:00 97.7 F 53 L 12 112/63 92 L Weight Weight 156 lb 11.979 oz I&O: 09/30/20 10/01/20 10/02/20 06:59 06:59 06:59 Intake Total 1600 1440 Output Total 1875 305 Balance -275 1135 Result Diagrams: 09/29/20 05:38 09/29/20 05:38 Hospitalist ROS - Medication Medications: Active Medications Generic Name Dose Route Start Last Admin Trade Name Freq PRN Reason Stop Dose Admin Acetaminophen 1,000 mg 09/28/20 22:14 09/29/20 10:54 Acetaminophen 500 Mg Tab PO 1,000 mg Q6H PRN Administration Moderate to Severe Pain (6-10) Hydrocodone Bitart/Acetaminophen 1 tab 09/29/20 14:04 09/30/20 06:17 Hydrocodone/Acetaminophen 10/325 Mg Tablet PO 1 tab Q4H PRN Administration Moderate to Severe Pain (6-10) Apixaban 5 mg 09/29/20 21:00 10/01/20 09:11 Apixaban 5 Mg Tab PO 5 mg BID MATEO Administration Aspirin 325 mg 09/30/20 09:00 10/01/20 09:11 Aspirin 325 Mg Tab PO 325 mg DAILY MATEO Administration Bupropion HCl 150 mg 09/30/20 09:00 10/01/20 09:11 Bupropion 150 Mg Sr Tab PO 150 mg DAILY MATEO Administration Clonazepam 0.5 mg 09/29/20 21:00 09/30/20 20:23 Clonazepam 0.5 Mg Tab PO 0.5 mg HS MATEO Administration Diltiazem HCl 120 mg 09/29/20 21:00 10/01/20 09:11 Diltiazem Cd 120 Mg Cap PO 120 mg BID MATEO Administration Finasteride 5 mg 09/30/20 09:00 10/01/20 09:11 Finasteride 5 Mg Tab PO 5 mg DAILY MATEO Administration Gabapentin 300 mg 09/29/20 15:00 10/01/20 09:10 Gabapentin 300 Mg Cap PO 300 mg TID MATEO Administration Sodium Chloride 1,000 mls @ 50 mls/hr 09/30/20 13:32 10/01/20 09:13 Normal Saline 0.9% IV Not Given .Q20H MATEO Ibuprofen 400 mg 09/28/20 22:14 09/28/20 22:56 Ibuprofen 200 Mg Tab PO 400 mg Q6H PRN Administration Mild Pain (1-3) Ondansetron HCl 4 mg 09/28/20 15:30 09/28/20 21:13 Ondansetron Pf 4 Mg/2 Ml Vial IVP 4 mg Q6H PRN Administration Nausea/Vomiting Pantoprazole Sodium 40 mg 09/30/20 09:00 10/01/20 09:10 Pantoprazole 40 Mg Tab PO 40 mg DAILY MATEO Administration Paroxetine HCl 40 mg 09/29/20 21:00 09/30/20 20:16 Paroxetine 20 Mg Tab PO 40 mg HS MATEO Administration Tamsulosin HCl 0.4 mg 09/30/20 09:00 10/01/20 09:11 Tamsulosin Hcl 0.4 Mg Cap PO 0.4 mg DAILY MATEO Administration Hospitalist Exam Vitals: Vital Signs (12 hours) Temp Pulse Resp BP BP BP Pulse Ox 10/01/20 11:45 98.4 F 67 16 114/63 93 L 10/01/20 10:32 159/64 H 120/72 10/01/20 07:49 98 F 66 18 124/59 L 95 10/01/20 04:00 97.7 F 53 L 12 112/63 92 L Weight Weight 156 lb 11.979 oz General Appearance: NAD, awake alert Heart: RRR, no murmur, no gallops, no rubs, normal peripheral pulses Respiratory: CTAB, no wheezes, no rales, no ronchi, normal chest expansion, no tachypnea, normal percussion Gastrointestinal: soft, non-tender, no palpable masses Gastrointestinal - other findings: Midline incision appears healthy. Rotund a bdomen without distention. Extremities: no cyanosis, no clubbing, no edema Musculoskeletal: generalized weakness Hosp A/P (1) Parastomal hernia Code(s): K43.5 - PARASTOMAL HERNIA WITHOUT OBSTRUCTION OR GANGRENE Status: Acute (2) SBO (small bowel obstruction) Code(s): K56.609 - UNSP INTESTNL OBST, UNSP TO PARTIAL VERSUS COMPLETE OBST Status: Acute (3) BPH (benign prostatic hyperplasia) Code(s): N40.0 - BENIGN PROSTATIC HYPERPLASIA WITHOUT LOWER URINRY TRACT SYMP Status: Chronic Qualifiers: Lower urinary tract symptom presence: symptoms present (4) Chronic a-fib Code(s): I48.20 - CHRONIC ATRIAL FIBRILLATION, UNSPECIFIED Status: Chronic (5) Chronic anticoagulation Code(s): Z79.01 - RESIDENTIAL (CURRENT) USE OF ANTICOAGULANTS Status: Chronic (6) Colostomy in place Code(s): Z93.3 - COLOSTOMY STATUS Status: Chronic (7) Dyslipidemia Code(s): E78.5 - HYPERLIPIDEMIA, UNSPECIFIED Status: Chronic (8) HTN (hypertension) Code(s): I10 - ESSENTIAL (PRIMARY) HYPERTENSION Status: Chronic Qualifiers: Hypertension type: essential hypertension Qualified Code(s): I10 - Essential (primary) hypertension (9) History of colon cancer Code(s): Z85.038 - PERSONAL HISTORY OF MALIGNANT NEOPLASM OF LARGE INTESTINE Status: Chronic (10) Parkinsons disease Code(s): G20 - PARKINSON'S DISEASE Status: Chronic (11) Ankylosing spondylitis Code(s): M45.9 - ANKYLOSING SPONDYLITIS OF UNSPECIFIED SITES IN SPINE Status: Chronic - Plan Recurrent high grade small bowel obstruction Patient underwent surgery on 09/09/2020 for small bowel obstruction. Patient was noted to have multiple intra-abdominal adhesions at that time. Patient presented with recurrent abdominal distention and symptoms of possible obstruction. CT abdomen showed recurrent high grade small bowel obstruction. Surgery was consulted, NG tube was placed. Today the patient underwent a small bowel follow-through with rapid transit into the small and large intestine with no evidence of persistent obstruction. Patient had become a little agitated and was trying to pull out his NG tube. The NG tube was DC'd and the patient was allowed some clear liquids. As of 09-30 the patient was tolerating clears and advance to full liquids. His abdomen does not specifically appear distended but is generally rotund. He has advanced his diet to a regular diet and thus far continues to feel okay. He has had decreased output from his stoma. Discussed with Dr. Arcos. At this point there is no plan to consider any type of additional surgery should this bowel obstruction appeared to recur. We will continue to monitor him on a regular diet for now. Parkinson's disease resume home amantadine. Appears to be well controlled. Chronic afib on anticoagulation Meds initially held due to the bowel obstruction. Appears to be in sinus rhythm at this time. Now that it appears this is resolved we will resume his Eliquis. Hypertension: Resume home medications of diltiazem and clonidine. Acute metabolic encephalopathy: Patient had some agitation during his previous hospitalization. Has had a bit of possible sundowning during this admission As needed benzodiazepine. Resume his home regimen as well. BPH - continue flomax and finasteride
--- NOTE | 2020-10-01 18:15 | PRG ---
DATE OF SERVICE: 10/01/2020 The patient remains on the surgical floor. He is status post readmission for peristomal hernia and suspected small bowel obstruction. The patient underwent small bowel follow-through that showed rapid transition. He had stool noted in his ostomy bag. The previous 24 hours, it was 1875 mL 300 mL. This morning, it was noted that he had air and stool, primarily air in his ostomy bag. He had no discomfort. No gross peritoneal signs. He has midline incision. We removed the Steri-Strips. This morning, I noted he had a small area of discharge in the midline. The patient is not a surgical candidate for any further intraabdominal procedures, though he does appear to have his bowel function returned and from a surgical standpoint, he may be discharged when he is tolerating a diet. Dr. Arcos discussed this with Dr. Whyte. We will see the patient back in our clinic in 1 week or sooner as needed. The discharge instructions were for our part was placed in [facility] for him. Job ID: [id number]
[2020-10-01] MEDS: HYDROcodone/Acetaminophen 10/325 mg Tablet PO PRN (19:55)
[2020-10-01] MEDS: PARoxetine 20 MG TAB PO SCH (20:02)
[2020-10-01] MEDS: clonazePAM 0.5 MG TAB PO SCH (20:03)
[2020-10-02] MEDS ORDERED: Ondansetron ODT 4 MG TAB PO PRN (03:49)
[2020-10-02] MEDS: Sodium Chloride 0.9% 1,000 ML IV SCH ×2 (04:51→08:50)
[2020-10-02] MEDS ORDERED: Simethicone Chewable 80 MG TAB PO PRN (08:12)
--- NOTE | 2020-10-02 08:17 | PDOC.HOSPP ---
- Subjective Encounter Date: 10/02/20 (f/u SBO) Encounter Time: 08:15 Subjective: Pt reports abd pain overnight and nausea this morning. he denies any abd pain currently. - Objective Vital Signs & Weight: Vital Signs (12 hours) Temp Pulse Resp BP Pulse Ox 10/02/20 07:40 97.9 F 78 18 123/62 91 L 10/02/20 03:37 97.6 F 67 15 133/74 92 L 10/01/20 23:23 98.6 F 67 14 115/83 92 L Weight Weight 156 lb 11.979 oz I&O: 10/01/20 10/02/20 10/03/20 06:59 06:59 06:59 Intake Total 1440 1500 Output Total 305 Balance 1135 1500 Result Diagrams: 10/02/20 08:46 10/02/20 08:46 Hospitalist ROS - Medication Medications: Active Medications Generic Name Dose Route Start Last Admin Trade Name Freq PRN Reason Stop Dose Admin Acetaminophen 1,000 mg 09/28/20 22:14 09/29/20 10:54 Acetaminophen 500 Mg Tab PO 1,000 mg Q6H PRN Administration Moderate to Severe Pain (6-10) Hydrocodone Bitart/Acetaminophen 1 tab 09/29/20 14:04 10/01/20 19:55 Hydrocodone/Acetaminophen 10/325 Mg Tablet PO 1 tab Q4H PRN Administration Moderate to Severe Pain (6-10) Apixaban 5 mg 09/29/20 21:00 10/01/20 20:03 Apixaban 5 Mg Tab PO 5 mg BID MATEO Administration Aspirin 325 mg 09/30/20 09:00 10/01/20 09:11 Aspirin 325 Mg Tab PO 325 mg DAILY MATEO Administration Bupropion HCl 150 mg 09/30/20 09:00 10/01/20 09:11 Bupropion 150 Mg Sr Tab PO 150 mg DAILY MATEO Administration Clonazepam 0.5 mg 09/29/20 21:00 10/01/20 20:03 Clonazepam 0.5 Mg Tab PO 0.5 mg HS MATEO Administration Diltiazem HCl 120 mg 09/29/20 21:00 10/01/20 20:03 Diltiazem Cd 120 Mg Cap PO 120 mg BID MATEO Administration Finasteride 5 mg 09/30/20 09:00 10/01/20 09:11 Finasteride 5 Mg Tab PO 5 mg DAILY MATEO Administration Gabapentin 300 mg 09/29/20 15:00 10/01/20 20:03 Gabapentin 300 Mg Cap PO 300 mg TID MATEO Administration Sodium Chloride 1,000 mls @ 50 mls/hr 09/30/20 13:32 10/02/20 04:51 Normal Saline 0.9% IV Not Given .Q20H MATEO Ibuprofen 400 mg 09/28/20 22:14 09/28/20 22:56 Ibuprofen 200 Mg Tab PO 400 mg Q6H PRN Administration Mild Pain (1-3) Ondansetron HCl 4 mg 09/28/20 15:30 09/28/20 21:13 Ondansetron Pf 4 Mg/2 Ml Vial IVP 4 mg Q6H PRN Administration Nausea/Vomiting Ondansetron HCl 4 mg 10/02/20 03:49 10/02/20 04:03 Ondansetron Odt 4 Mg Tab PO 4 mg Q6H PRN Administration Nausea/Vomiting Pantoprazole Sodium 40 mg 09/30/20 09:00 10/01/20 09:10 Pantoprazole 40 Mg Tab PO 40 mg DAILY MATEO Administration Paroxetine HCl 40 mg 09/29/20 21:00 10/01/20 20:02 Paroxetine 20 Mg Tab PO 40 mg HS MATEO Administration Tamsulosin HCl 0.4 mg 09/30/20 09:00 10/01/20 09:11 Tamsulosin Hcl 0.4 Mg Cap PO 0.4 mg DAILY MATEO Administration Hospitalist Exam Vitals: Vital Signs (12 hours) Temp Pulse Resp BP Pulse Ox 10/02/20 07:40 97.9 F 78 18 123/62 91 L 10/02/20 03:37 97.6 F 67 15 133/74 92 L 10/01/20 23:23 98.6 F 67 14 115/83 92 L Weight Weight 156 lb 11.979 oz General Appearance: NAD Heart: RRR, no murmur Respiratory: no wheezes, no rales, no ronchi Gastrointestinal: non-tender, normal bowel sounds Gastrointestinal - other findings: small amount of liquid in ostomy bag Skin - other findings: chronic appearing exanthem left lateral calf Musculoskeletal - other findings: left hand muscle wasting, left arm pill rolling tremor Psychiatric: normal affect Hosp A/P (1) SBO (small bowel obstruction) Code(s): K56.609 - UNSP INTESTNL OBST, UNSP TO PARTIAL VERSUS COMPLETE OBST Status: Acute (2) BPH (benign prostatic hyperplasia) Code(s): N40.0 - BENIGN PROSTATIC HYPERPLASIA WITHOUT LOWER URINRY TRACT SYMP Status: Chronic Qualifiers: Lower urinary tract symptom presence: symptoms present (3) Chronic a-fib Code(s): I48.20 - CHRONIC ATRIAL FIBRILLATION, UNSPECIFIED Status: Chronic (4) HTN (hypertension) Code(s): I10 - ESSENTIAL (PRIMARY) HYPERTENSION Status: Chronic Qualifiers: Hypertension type: essential hypertension Qualified Code(s): I10 - Essential (primary) hypertension (5) Parkinsons disease Code(s): G20 - PARKINSON'S DISEASE Status: Chronic (6) Anemia Code(s): D64.9 - ANEMIA, UNSPECIFIED Status: Acute Qualifiers: Anemia type: unspecified type Qualified Code(s): D64.9 - Anemia, unspecified (7) Hypokalemia Code(s): E87.6 - HYPOKALEMIA Status: Acute - Plan Recurrent high grade small bowel obstruction Patient underwent surgery on 09/09/2020 for small bowel obstruction. Patient was noted to have multiple intra-abdominal adhesions at that time. Patient presented with recurrent abdominal distention and symptoms of possible obstruction. CT abdomen showed recurrent high grade small bowel obstruction. Surgery was consulted, NG tube was placed. The patient underwent a small bowel follow-through with rapid transit into the small and large intestine with no evidence of persistent obstruction. The NG tube was DC'd 09/30 and the patient was allowed some clear liquids. His abdomen does not specifically appear distended but is generally rotund. He has advanced his diet to a regular diet and thus far continues to feel okay. He has had decreased output from his stoma. As of 10/01 there was no plan for surgery. Poor PO intake and nausea 10/02 - start IVF at low rate, change to liquid diet, and monitor sx. Reviewed home meds and pt is on miralax and lactulose - will resume both. No labs for a few days - will check. Parkinson's disease home amantadine. On baclofen at home - resume Chronic afib on anticoagulation Meds initially held due to the bowel obstruction. Appears to be in sinus rhythm at this time. Now that it appears this is resolved we will resume his Eliquis. Hypertension: On home meds - controlled Acute metabolic encephalopathy: Patient had some agitation during his previous hospitalization. Has had a bit of possible sundowning during this admission As needed benzodiazepine. Resume his home regimen as well. Hypokalemia Replace potassium BPH - continue flomax and finasteride DVT prophy - on eliquis for stroke risk reduction with a fib GI prophy - on home protonix When pt is adequately taking PO and sx resolved, he will be a candidate for discharge to home. Reviewed the plan of care with patient/RN, no questions or further needs at end of eval.
[2020-10-02 09:04] LABS: #Eosinphils 0.2 thou/uL (0.0-0.7); #Lymphocytes 1.1 thou/uL (1.20-3.40); #Monocytes 0.8 thou/uL (0.11-0.59); #Neutrophils 4.4 thou/uL (1.40-6.50); %Basophils 0.1 % (0.0-1.0); %Eosinophils 3.6 % (0.0-10.0); %Lymphocytes 16.2 % (21.0-51.0); %Monocytes 11.6 % (0.0-10.0); %Neutrophils 68.6 % (42.0-75.0); Hemoglobin 9.2 g/dL (14.0-18.0); Mean Corpuscular HGB CONC 31.8 g/dL (32.0-36.0); Mean Corpuscular Hemoglobin 30.1 pg (27.0-31.0); Mean Corpuscular Volume 94.6 fL (78.0-98.0); Mean Platelet Volume 6.1 fL (7.4-10.4); Platelet Count 337 thou/uL (130-400); RBC Distribution Width 14.6 % (11.5-14.5); Red Blood Cell (RBC) Count 3.07 mill/uL (4.70-6.10); White Blood Cell (WBC) Count 6.4 thou/uL (4.8-10.8)
[2020-10-02 09:23] LABS: Phosphorus 3.2 mg/dL (2.3-4.7)
[2020-10-02 09:28] LABS: ALT (SGPT) 10 U/L (8-55); AST (SGOT) 15 U/L (5-34); Alkaline Phosphatase 98 U/L (40-110); Anion Gap 15 mmol/L (10-20); BUN (Urea Nitrogen) 12 mg/dL (8.4-25.7); Bilirubin, Total 0.3 mg/dL (0.2-1.2); Calc. Creatinine Clearance 61 mL/min (70-130); Calcium 8.7 mg/dL (7.8-10.44); Carbon Dioxide 28 mmol/L (23-31); Chloride 101 mmol/L (98-107); Globulin 3.5 g/dL (2.4-3.5); Glucose 112 mg/dL (83-110); Magnesium 1.9 mg/dL (1.6-2.6); Potassium 3.1 mmol/L (3.5-5.1); Protein, Total 6.5 g/dL (5.8-8.1); Sodium 141 mmol/L (136-145)
[2020-10-02] MEDS: Bupropion 150 MG SR TAB PO SCH (09:57)
[2020-10-02] MEDS: Apixaban 5 MG TAB PO SCH ×2 (09:57→20:15)
[2020-10-02] MEDS: Aspirin 325 MG TAB PO SCH (09:57)
[2020-10-02] MEDS: Baclofen 10 MG TAB PO SCH ×3 (09:57→20:15)
[2020-10-02] MEDS: guaiFENesin 200 MG TAB PO SCH ×2 (09:58→20:12)
[2020-10-02] MEDS: Polyethylene Glycol 3350 17 GM Packet PO SCH (09:58)
[2020-10-02] MEDS: Ondansetron PF 4 MG/2 ML Vial IVP PRN (09:58)
[2020-10-02] MEDS: Finasteride 5 MG TAB PO SCH (09:59)
[2020-10-02] MEDS: Tamsulosin HCl 0.4 MG CAP PO SCH (09:59)
[2020-10-02] MEDS: Gabapentin 300 MG CAP PO SCH ×3 (09:59→20:15)
[2020-10-02 11:17] VITALS: BMI 36.7
[2020-10-02] MEDS ORDERED: Potassium Chloride 20 MEQ TAB PO SCH (15:00)
[2020-10-02] MEDS: Acetaminophen 500 MG TAB PO PRN (17:44)
[2020-10-02] MEDS: clonazePAM 0.5 MG TAB PO SCH (20:14)
[2020-10-02] MEDS: PARoxetine 20 MG TAB PO SCH (20:15)
[2020-10-02] MEDS: Atorvastatin Calcium 40 MG TAB PO SCH (20:15)
[2020-10-02] MEDS: HYDROcodone/Acetaminophen 10/325 mg Tablet PO PRN (20:27)
[2020-10-03] MEDS: Sodium Chloride 0.9% 1,000 ML IV SCH (05:04)
[2020-10-03] MEDS: Acetaminophen 500 MG TAB PO PRN ×3 (05:04→21:02)
[2020-10-03 06:11] LABS: #Eosinphils 0.4 thou/uL (0.0-0.7); #Lymphocytes 1.7 thou/uL (1.20-3.40); #Monocytes 0.9 thou/uL (0.11-0.59); #Neutrophils 3.8 thou/uL (1.40-6.50); %Basophils 0.2 % (0.0-1.0); %Eosinophils 5.7 % (0.0-10.0); %Lymphocytes 25.6 % (21.0-51.0); %Monocytes 12.6 % (0.0-10.0); Hemoglobin 8.7 g/dL (14.0-18.0); Mean Corpuscular HGB CONC 31.3 g/dL (32.0-36.0); Mean Corpuscular Hemoglobin 29.6 pg (27.0-31.0); Mean Corpuscular Volume 94.6 fL (78.0-98.0); Mean Platelet Volume 6.2 fL (7.4-10.4); Platelet Count 315 thou/uL (130-400); RBC Distribution Width 14.4 % (11.5-14.5); Red Blood Cell (RBC) Count 2.93 mill/uL (4.70-6.10); White Blood Cell (WBC) Count 6.8 thou/uL (4.8-10.8)
[2020-10-03 06:36] LABS: ALT (SGPT) 11 U/L (8-55); AST (SGOT) 24 U/L (5-34); Albumin 2.7 g/dL (3.4-4.8); Alkaline Phosphatase 92 U/L (40-110); Anion Gap 14 mmol/L (10-20); BUN (Urea Nitrogen) 10 mg/dL (8.4-25.7); Bilirubin, Total 0.3 mg/dL (0.2-1.2); Calc. Creatinine Clearance 78 mL/min (70-130); Calcium 8.3 mg/dL (7.8-10.44); Carbon Dioxide 25 mmol/L (23-31); Chloride 103 mmol/L (98-107); Globulin 3.7 g/dL (2.4-3.5); Glucose 111 mg/dL (83-110); Potassium 3.8 mmol/L (3.5-5.1); Protein, Total 6.4 g/dL (5.8-8.1); Sodium 138 mmol/L (136-145)
[2020-10-03] MEDS: Apixaban 5 MG TAB PO SCH ×3 (08:52→21:57)
[2020-10-03] MEDS: Aspirin 325 MG TAB PO SCH (08:52)
[2020-10-03] MEDS: Tamsulosin HCl 0.4 MG CAP PO SCH (08:52)
[2020-10-03] MEDS: Gabapentin 300 MG CAP PO SCH ×4 (08:52→21:57)
[2020-10-03] MEDS: guaiFENesin 200 MG TAB PO SCH ×3 (08:52→21:57)
[2020-10-03] MEDS: Polyethylene Glycol 3350 17 GM Packet PO SCH (08:52)
[2020-10-03] MEDS: Finasteride 5 MG TAB PO SCH (08:52)
[2020-10-03] MEDS: Baclofen 10 MG TAB PO SCH ×4 (08:52→21:57)
[2020-10-03] MEDS: Bupropion 150 MG SR TAB PO SCH (11:15)
--- NOTE | 2020-10-03 11:25 | PDOC.HOSPP ---
- Subjective Encounter Date: 10/03/20 (f/u bowel obstruction) Encounter Time: 11:23 Subjective: Pt c/o back pain - reports hx of 8 rods in his back and intermittent pain in the past. Describes it as between his shoulder blades. He denies any abd pain/n/v/cp/sob. RN reports only air from ostomy, no stool when emptied today. - Objective Vital Signs & Weight: Vital Signs (12 hours) Temp Pulse Resp BP Pulse Ox 10/03/20 07:28 97.5 F L 61 18 93/57 L 94 L 10/03/20 04:00 97.5 F L 60 16 99/63 95 10/03/20 01:00 92/57 L 10/03/20 00:00 97.6 F 56 L 14 88/58 L 95 Weight Admit Weight 156 lb 11.979 oz Weight 227 lb 6.4 oz I&O: 10/02/20 10/03/20 10/04/20 06:59 06:59 06:59 Intake Total 1500 2008 Output Total 65 Balance 1500 1943 Result Diagrams: 10/03/20 05:53 10/03/20 05:53 Hospitalist ROS - Medication Medications: Active Medications Generic Name Dose Route Start Last Admin Trade Name Freq PRN Reason Stop Dose Admin Acetaminophen 1,000 mg 09/28/20 22:14 10/03/20 05:04 Acetaminophen 500 Mg Tab PO 1,000 mg Q6H PRN Administration Moderate to Severe Pain (6-10) Hydrocodone Bitart/Acetaminophen 1 tab 09/29/20 14:04 10/02/20 20:27 Hydrocodone/Acetaminophen 10/325 Mg Tablet PO 1 tab Q4H PRN Administration Moderate to Severe Pain (6-10) Apixaban 5 mg 09/29/20 21:00 10/03/20 08:52 Apixaban 5 Mg Tab PO 5 mg BID MATEO Administration Aspirin 325 mg 09/30/20 09:00 10/03/20 08:52 Aspirin 325 Mg Tab PO 325 mg DAILY MATEO Administration Atorvastatin Calcium 40 mg 10/02/20 21:00 10/02/20 20:15 Atorvastatin Calcium 40 Mg Tab PO 40 mg HS MATEO Administration Baclofen 5 mg 10/02/20 09:00 10/03/20 08:52 Baclofen 10 Mg Tab PO 5 mg TID MATEO Administration Bupropion HCl 150 mg 09/30/20 09:00 10/02/20 09:57 Bupropion 150 Mg Sr Tab PO 150 mg DAILY MATEO Administration Clonazepam 0.5 mg 09/29/20 21:00 10/02/20 20:14 Clonazepam 0.5 Mg Tab PO 0.5 mg HS MATEO Administration Diltiazem HCl 120 mg 09/29/20 21:00 10/02/20 20:28 Diltiazem Cd 120 Mg Cap PO 120 mg BID MATEO Administration Finasteride 5 mg 09/30/20 09:00 10/03/20 08:52 Finasteride 5 Mg Tab PO 5 mg DAILY MATEO Administration Gabapentin 300 mg 09/29/20 15:00 10/03/20 08:52 Gabapentin 300 Mg Cap PO 300 mg TID MATEO Administration Guaifenesin 400 mg 10/02/20 09:00 10/03/20 08:52 Guaifenesin 200 Mg Tab PO 400 mg BID MATEO Administration Sodium Chloride 1,000 mls @ 50 mls/hr 10/02/20 08:30 10/03/20 05:04 Normal Saline 0.9% IV 1,000 mls .Q20H MATEO Administration Ibuprofen 400 mg 09/28/20 22:14 09/28/20 22:56 Ibuprofen 200 Mg Tab PO 400 mg Q6H PRN Administration Mild Pain (1-3) Lactulose 10 gm 10/02/20 09:00 10/03/20 08:51 Lactulose 20 Gm/30 Ml Udcup PO 10 gm BID MATEO Administration Ondansetron HCl 4 mg 09/28/20 15:30 10/02/20 09:58 Ondansetron Pf 4 Mg/2 Ml Vial IVP 4 mg Q6H PRN Administration Nausea/Vomiting Ondansetron HCl 4 mg 10/02/20 03:49 10/02/20 04:03 Ondansetron Odt 4 Mg Tab PO 4 mg Q6H PRN Administration Nausea/Vomiting Pantoprazole Sodium 40 mg 09/30/20 09:00 10/03/20 08:52 Pantoprazole 40 Mg Tab PO 40 mg DAILY MATEO Administration Paroxetine HCl 40 mg 09/29/20 21:00 10/02/20 20:15 Paroxetine 20 Mg Tab PO 40 mg HS MATEO Administration Polyethylene Glycol 17 gm 10/02/20 09:00 10/03/20 08:52 Polyethylene Glycol 3350 17 Gm Packet PO 17 gm DAILY MATEO Administration Tamsulosin HCl 0.4 mg 09/30/20 09:00 10/02/20 09:59 Tamsulosin Hcl 0.4 Mg Cap PO 0.4 mg DAILY MATEO Administration Hospitalist Exam Vitals: Vital Signs (12 hours) Temp Pulse Resp BP Pulse Ox 10/03/20 07:28 97.5 F L 61 18 93/57 L 94 L 10/03/20 04:00 97.5 F L 60 16 99/63 95 10/03/20 01:00 92/57 L 10/03/20 00:00 97.6 F 56 L 14 88/58 L 95 Weight Admit Weight 156 lb 11.979 oz Weight 227 lb 6.4 oz General Appearance: NAD Heart: RRR, no murmur Respiratory: no wheezes, no rales, no ronchi Gastrointestinal: soft, non-tender, normal bowel sounds Extremities: no cyanosis, no clubbing, no edema Musculoskeletal - other findings: back - no ttp along the rhomboid muscles Psychiatric: normal affect Hosp A/P (1) SBO (small bowel obstruction) Code(s): K56.609 - UNSP INTESTNL OBST, UNSP TO PARTIAL VERSUS COMPLETE OBST Status: Resolved (2) BPH (benign prostatic hyperplasia) Code(s): N40.0 - BENIGN PROSTATIC HYPERPLASIA WITHOUT LOWER URINRY TRACT SYMP Status: Chronic Qualifiers: Lower urinary tract symptom presence: symptoms present (3) Chronic a-fib Code(s): I48.20 - CHRONIC ATRIAL FIBRILLATION, UNSPECIFIED Status: Chronic (4) HTN (hypertension) Code(s): I10 - ESSENTIAL (PRIMARY) HYPERTENSION Status: Chronic Qualifiers: Hypertension type: essential hypertension Qualified Code(s): I10 - Essential (primary) hypertension (5) Parkinsons disease Code(s): G20 - PARKINSON'S DISEASE Status: Chronic (6) Anemia Code(s): D64.9 - ANEMIA, UNSPECIFIED Status: Acute Qualifiers: Anemia type: unspecified type Qualified Code(s): D64.9 - Anemia, unspecified (7) Hypokalemia Code(s): E87.6 - HYPOKALEMIA Status: Resolved - Plan Recurrent high grade small bowel obstruction Patient underwent surgery on 09/09/2020 for small bowel obstruction. Patient was noted to have multiple intra-abdominal adhesions at that time. Patient presented with recurrent abdominal distention and symptoms of possible obstruction. CT abdomen showed recurrent high grade small bowel obstruction. Surgery was consulted, NG tube was placed. The patient underwent a small bowel follow-through with rapid transit into the small and large intestine with no evidence of persistent obstruction. The NG tube was DC'd 09/30 and the patient was allowed some clear liquids. His abdomen does not specifically appear distended but is generally rotund. He has advanced his diet to a regular diet and thus far continues to feel okay. He has had decreased output from his stoma. As of 10/01 there was no plan for surgery. Improved PO intake today 10/03 - no nausea. Will advance diet back to regular/low fiber and monitor. No ostomy output - requested that Gen Surg re-eval. This may be due to poor PO intake over the past few days. Hypotension - uncertain etiology. Pt does not appear septic. Does have poor PO intake and has been on low rate IVF. Diltiazem on hold for now - resume when bp's normalize and watch heart rate given known a fib. Parkinson's disease home amantadine. On baclofen at home - resume Chronic afib on anticoagulation Meds initially held due to the bowel obstruction. Appears to be in sinus rhythm at this time. On eliquis Hypertension: On home meds - controlled Acute metabolic encephalopathy: Patient had some agitation during his previous hospitalization. Has had a bit of possible sundowning during this admission As needed benzodiazepine. Resume his home regimen as well. Hypokalemia resolved BPH - continue flomax and finasteride DVT prophy - on eliquis for stroke risk reduction with a fib GI prophy - on home protonix When pt is adequately taking PO and bp's normalized, he will be a candidate for discharge to home. Reviewed the plan of care with patient/RN, no questions or further needs at end of eval.
--- NOTE | 2020-10-03 13:36 | RAD ---
ABDOMEN 1 VIEW: Date: 10/03/2020 HISTORY: Follow-up exam. FINDINGS/IMPRESSION: Comparison made with exam of 09/28/2020. There has been interval removal of the nasogastric tube. The bowel gas pattern is unremarkable. An IV C filter is again seen. There are postop changes of vertebroplasty in the T10 vertebral body. A right hip arthroplasty is present. There are degenerative changes in the spine and left hip joint. POS: OFF
[2020-10-03] MEDS: Ibuprofen 200 MG TAB PO PRN (15:36)
[2020-10-03] MEDS: Atorvastatin Calcium 40 MG TAB PO SCH ×2 (21:05→21:57)
[2020-10-03] MEDS: clonazePAM 0.5 MG TAB PO SCH ×2 (21:05→21:57)
[2020-10-03] MEDS: PARoxetine 20 MG TAB PO SCH ×2 (21:05→21:57)
--- NOTE | 2020-10-03 23:43 | PRG ---
DATE OF SERVICE: 10/03/2020 SUBJECTIVE: The patient remains on the surgical floor. He is here status post readmission for a parastomal hernia and suspected small bowel obstruction. His small bowel follow through showed rapid transition. He had stool and air on multiple occasions in his ostomy bag, but we were asked to see the patient again by the Medicine Team as they felt that his partial small bowel obstruction may have recurred. Prior to seeing the patient, I had ordered an acute abdominal series that showed a nonspecific bowel gas pattern. By the time I had seen the patient this afternoon, he had 300 mL of stool in his bag with additional air. The patient had no nausea or vomiting and his abdominal pain appeared to be as it had been previously. Again, the patient is not a surgical candidate and we will continue to follow along as needed. Job ID: [id number]
[2020-10-04] MEDS: HYDROcodone/Acetaminophen 10/325 mg Tablet PO PRN (04:01)
[2020-10-04] MEDS: Sodium Chloride 0.9% 1,000 ML IV SCH (04:06)
[2020-10-04 06:48] LABS: #Eosinphils 0.2 thou/uL (0.0-0.7); #Lymphocytes 1.1 thou/uL (1.20-3.40); #Monocytes 0.7 thou/uL (0.11-0.59); #Neutrophils 4.6 thou/uL (1.40-6.50); %Basophils 0.4 % (0.0-1.0); %Monocytes 10.6 % (0.0-10.0); %Neutrophils 68.9 % (42.0-75.0); Hemoglobin 9.1 g/dL (14.0-18.0); Mean Corpuscular HGB CONC 31.4 g/dL (32.0-36.0); Mean Corpuscular Hemoglobin 29.4 pg (27.0-31.0); Mean Corpuscular Volume 93.7 fL (78.0-98.0); Mean Platelet Volume 6.1 fL (7.4-10.4); Platelet Count 323 thou/uL (130-400); RBC Distribution Width 14.5 % (11.5-14.5); Red Blood Cell (RBC) Count 3.09 mill/uL (4.70-6.10); White Blood Cell (WBC) Count 6.6 thou/uL (4.8-10.8)
[2020-10-04 07:16] LABS: ALT (SGPT) 10 U/L (8-55); AST (SGOT) 14 U/L (5-34); Albumin 2.8 g/dL (3.4-4.8); Alkaline Phosphatase 97 U/L (40-110); Anion Gap 11 mmol/L (10-20); BUN (Urea Nitrogen) 9 mg/dL (8.4-25.7); Bilirubin, Total 0.2 mg/dL (0.2-1.2); Calc. Creatinine Clearance 91 mL/min (70-130); Calcium 8.3 mg/dL (7.8-10.44); Carbon Dioxide 27 mmol/L (23-31); Chloride 108 mmol/L (98-107); Globulin 3.3 g/dL (2.4-3.5); Glucose 105 mg/dL (83-110); Potassium 3.6 mmol/L (3.5-5.1); Protein, Total 6.1 g/dL (5.8-8.1); Sodium 142 mmol/L (136-145)
[2020-10-04 08:13] VITALS: BP 100/65; TEMP 97.5
[2020-10-04] MEDS: Apixaban 5 MG TAB PO SCH (10:56)
[2020-10-04] MEDS: Baclofen 10 MG TAB PO SCH ×2 (10:56→15:45)
[2020-10-04] MEDS: Finasteride 5 MG TAB PO SCH (10:56)
[2020-10-04] MEDS: Aspirin 325 MG TAB PO SCH (10:56)
[2020-10-04] MEDS: Gabapentin 300 MG CAP PO SCH ×2 (10:56→15:45)
[2020-10-04] MEDS: Bupropion 150 MG SR TAB PO SCH (10:56)
[2020-10-04] MEDS: guaiFENesin 200 MG TAB PO SCH (10:57)
[2020-10-04] MEDS: Polyethylene Glycol 3350 17 GM Packet PO SCH (10:57)
[2020-10-04] MEDS: Tamsulosin HCl 0.4 MG CAP PO SCH (10:58)
--- NOTE | 2020-10-04 12:35 | PDOC.GSPN ---
Surgery Progress Note: Subj - Subjective Narrative: 80 y/o male pt reports seeing the devil this morning during morning rounds. s/p readmission for parastomal hernia and suspected bowel obstruction. Small bowel follow through shows rapid emptying. Ostomy output 2/8 300ml and 200ml today. Midline dressing changed at bedside rounds with . The patient had no nausea, vomiting or abdominal pain. Surgery Progress Note: Obj - Vital signs Vital signs: Vital Signs - Most Recent Temp Pulse Resp BP Pulse Ox 97.5 F L 92 16 100/65 94 L 10/04/20 07:27 10/04/20 11:00 10/04/20 11:00 10/04/20 07:27 10/04/20 11:00 - Physical Exam General: no distress, other Cardiovascular: regular rate and rhythm Respiratory: clear to auscultation, other (speaking full sentences) Abdomen: soft, non tender, other (midly distended. Midline incision no erythema or edam. Purlent fluid inferior to the umbiicus) Psychiatric: other Surgery Progress Note: Results - Labs Result Diagrams: 10/04/20 06:31 10/04/20 06:31 Lab results: Laboratory Results - last 12 hr 10/04/20 10/04/20 06:31 06:31 WBC 6.6 RBC 3.09 L Hgb 9.1 L Hct 29.0 L MCV 93.7 MCH 29.4 MCHC 31.4 L RDW 14.5 Plt Count 323 MPV 6.1 L Neutrophils % 68.9 Lymphocytes % 17.0 L Monocytes % 10.6 H Eosinophils % 3.0 Basophils % 0.4 Neutrophils # 4.6 Lymphocytes # 1.1 L Monocytes # 0.7 H Eosinophils # 0.2 Basophils # 0.0 Sodium 142 Potassium 3.6 Chloride 108 H Carbon Dioxide 27 Anion Gap 11 BUN 9 Creatinine 0.93 Estimated GFR (MDRD) 78 Glucose 105 Calcium 8.3 Total Bilirubin 0.2 AST 14 ALT 10 Alkaline Phosphatase 97 Serum Total Protein 6.1 Albumin 2.8 L Globulin 3.3 Albumin/Globulin Ratio 0.8 L Surgery Progress Note: A/P - Plan Plan: 80 y/o male s/p readmission for parastomal hernia and suspected SBO. small bowel follow through negative. Ostomy output 200ml this morning.Bowel Obstruction resolved. Patient is not a surgical candidate and will continue follow along as needed. -Continue to change dressing one to two times daily Case discussed with and agrees with the plan.
--- NOTE | 2020-10-04 13:13 | PDOC.HOSPP ---
- Subjective Encounter Date: 10/04/20 Encounter Time: 13:06 - Objective Vital Signs & Weight: Vital Signs (12 hours) Temp Pulse Resp BP BP Pulse Ox 10/04/20 11:00 92 16 94 L 10/04/20 08:20 93 L 10/04/20 07:27 97.5 F L 89 16 100/65 93 L 10/04/20 03:16 97.7 F 85 18 108/76 95 Weight Admit Weight 156 lb 11.979 oz Weight 227 lb 6.4 oz I&O: 10/03/20 10/04/20 10/05/20 06:59 06:59 06:59 Intake Total 2007 1074 960 Output Total 65 300 200 Balance 1943 775 760 Result Diagrams: 10/04/20 06:31 10/04/20 06:31 Hospitalist ROS - Medication Medications: Active Medications Generic Name Dose Route Start Last Admin Trade Name Freq PRN Reason Stop Dose Admin Acetaminophen 1,000 mg 09/28/20 22:14 10/03/20 21:02 Acetaminophen 500 Mg Tab PO 1,000 mg Q6H PRN Administration Moderate to Severe Pain (6-10) Hydrocodone Bitart/Acetaminophen 1 tab 09/29/20 14:04 10/04/20 04:01 Hydrocodone/Acetaminophen 10/325 Mg Tablet PO 1 tab Q4H PRN Administration Moderate to Severe Pain (6-10) Apixaban 5 mg 09/29/20 21:00 10/04/20 10:56 Apixaban 5 Mg Tab PO Not Given BID MATEO Aspirin 325 mg 09/30/20 09:00 10/04/20 10:56 Aspirin 325 Mg Tab PO Not Given DAILY MATEO Atorvastatin Calcium 40 mg 10/02/20 21:00 10/03/20 21:57 Atorvastatin Calcium 40 Mg Tab PO Not Given HS MATEO Baclofen 5 mg 10/02/20 09:00 10/04/20 10:56 Baclofen 10 Mg Tab PO Not Given TID MATEO Bupropion HCl 150 mg 09/30/20 09:00 10/04/20 10:56 Bupropion 150 Mg Sr Tab PO Not Given DAILY MATEO Clonazepam 0.5 mg 09/29/20 21:00 10/03/20 21:57 Clonazepam 0.5 Mg Tab PO Not Given HS MATEO Diltiazem HCl 120 mg 09/29/20 21:00 10/02/20 20:28 Diltiazem Cd 120 Mg Cap PO 120 mg BID MATEO Administration Finasteride 5 mg 09/30/20 09:00 10/04/20 10:56 Finasteride 5 Mg Tab PO Not Given DAILY [facility] Gabapentin 300 mg 09/29/20 15:00 10/04/20 10:56 Gabapentin 300 Mg Cap PO Not Given TID MATEO Guaifenesin 400 mg 10/02/20 09:00 10/04/20 10:57 Guaifenesin 200 Mg Tab PO Not Given BID [facility] Sodium Chloride 1,000 mls @ 50 mls/hr 10/02/20 08:30 10/04/20 04:06 Normal Saline 0.9% IV 1,000 mls .Q20H MATEO Administration Lactulose 10 gm 10/02/20 09:00 10/04/20 10:57 Lactulose 20 Gm/30 Ml Udcup PO Not Given BID [facility] Ondansetron HCl 4 mg 09/28/20 15:30 10/02/20 09:58 Ondansetron Pf 4 Mg/2 Ml Vial IVP 4 mg Q6H PRN Administration Nausea/Vomiting Ondansetron HCl 4 mg 10/02/20 03:49 10/02/20 04:03 Ondansetron Odt 4 Mg Tab PO 4 mg Q6H PRN Administration Nausea/Vomiting Pantoprazole Sodium 40 mg 09/30/20 09:00 10/04/20 10:57 Pantoprazole 40 Mg Tab PO Not Given DAILY [facility] Paroxetine HCl 40 mg 09/29/20 21:00 10/03/20 21:57 Paroxetine 20 Mg Tab PO Not Given [facility] Polyethylene Glycol 17 gm 10/02/20 09:00 10/04/20 10:57 Polyethylene Glycol 3350 17 Gm Packet PO Not Given DAILY [facility] Simethicone 80 mg 10/02/20 08:12 10/03/20 21:52 Simethicone Chewable 80 Mg Tab PO 80 mg PCHS PRN Administration Gas Pain Tamsulosin HCl 0.4 mg 09/30/20 09:00 10/04/20 10:58 Tamsulosin Hcl 0.4 Mg Cap PO Not Given DAILY [facility] Hospitalist Exam Vitals: Vital Signs (12 hours) Temp Pulse Resp BP BP Pulse Ox 10/04/20 11:00 92 16 94 L 10/04/20 08:20 93 L 10/04/20 07:27 97.5 F L 89 16 100/65 93 L 10/04/20 03:16 97.7 F 85 18 108/76 95 Weight Admit Weight 156 lb 11.979 oz Weight 227 lb 6.4 oz
--- NOTE | 2020-10-04 13:50 | DIS ---
DATE OF ADMISSION: 09/28/2020 DATE OF DISCHARGE: 10/04/2020 This is a transfer of care. DISPOSITION: Discharged back to [facility]. PRIMARY CARE PROVIDER: Not listed. FINAL DIAGNOSES: Small bowel obstruction, resolved; Parkinson disease; atrial fibrillation, on anticoagulation; hypertension; benign prostatic hypertrophy. DISCHARGE MEDICATIONS: 1. Aspirin 325 mg a day. 2. Lipitor 40 mg a day. 3. Baclofen 5 mg three times a day. 4. Eliquis 5 mg b.i.d. 5. Finasteride 5 mg a day. 6. Gabapentin 300 mg t.i.d. 7. Flomax 0.4 mg a day. 8. MiraLAX 17 g p.o. daily. 9. Klonopin 0.5 mg at bedtime. 10. Bupropion 150 mg a day. 11. Hydrocodone 10/325 one every 4 hours p.r.n. 12. Potassium chloride 20 mEq twice a day. 13. Paxil 40 mg a day. 14. Protonix 40 mg a day. 15. Lasix 20 mg twice a day. 16. DuoNeb 3 mL q.4 hours p.r.n. 17. Medications held: Diltiazem CD 120 due to hypotension. ALLERGIES: TAMIFLU. CODE STATUS: Full. DIET: Heart healthy. PENDING AT TIME OF DISCHARGE: Nothing. HOSPITAL COURSE: The patient was admitted to the hospitalist service through [facility] with a diagnosis of recurrent high-grade small-bowel obstruction demonstrated on CT of the abdomen with contrast; Parkinson disease; chronic atrial fibrillation, on anticoagulation; benign prostatic hypertrophy. Nasogastric tube was placed. The patient was to suction. Surgery was consulted. Dr. Pedro Arcos saw the patient in consultation. He had a history of sigmoid cancer, multiple small-bowel obstructions, previous parastomal hernia. During his hospital stay, he had a small-bowel follow-through on 09/29/2020. No evidence of obstruction. On 10/01/2020, the patient was monitored over the next several days. Today, he is on oral diet, having no problems. He is being back to [facility] for followup in 1 week. His pertinent laboratories on admission were a CBC showed a white count of 11.2, which rapidly came down to normal. Hemoglobin remained in the 10.5 to slightly lower range. Platelet count was initially high at 429, it came down to 323. His chemistries have remained essentially normal during his hospital stay. Currently, blood pressure is 108/76 to 100/65. His diltiazem has been held, O2 saturations are normal. Respirations 16 to 18. The patient is unfortunately at high risk for recurrent obstructions due to multiple adhesions in his abdominal cavity. Job ID: [id number]
== END 2020-10-04 15:47 | DRG 393 ==
LOC: ERS 09:41 → SURG B 13:23
PROVIDERS: ADMIT Internal Medicine; ATTEND Internal Medicine
DX: K43.3 Parastomal hernia with obstruction, without gangrene (principal); G93.41 Metabolic encephalopathy; I48.20 Chronic atrial fibrillation, unspecified; Z20.822 Contact with and (suspected) exposure to COVID-19; G20 Parkinson's disease; I10 Essential (primary) hypertension; N40.0 Benign prostatic hyperplasia without lower urinary tract symptoms; G25.81 Restless legs syndrome; E78.5 Hyperlipidemia, unspecified; E78.00 Pure hypercholesterolemia, unspecified; Z96.641 Presence of right artificial hip joint; F41.9 Anxiety disorder, unspecified; F32.9 Major depressive disorder, single episode, unspecified; M45.9 Ankylosing spondylitis of unspecified sites in spine; I95.9 Hypotension, unspecified; Z79.01 Long term (current) use of anticoagulants; Z88.8 Allergy status to other drugs, medicaments and biological substances; Z90.49 Acquired absence of other specified parts of digestive tract; Z85.038 Personal history of other malignant neoplasm of large intestine; Z79.899 Other long term (current) drug therapy; Z79.82 Long term (current) use of aspirin; Z98.1 Arthrodesis status; Z93.3 Colostomy status
CPT/HCPCS: 0240U; 36415; 43752; 74018; 74177; 74250; 80048; 80053; 83605; 83690; 83735; 84100; 84484; 85025; 93005; 96374; 96375; C9113; J2405; J2765; Q0162; Q9967; S0028